=== PATIENT | male | born 1985 | race Caucasian/White ===

== ENCOUNTER 2017-05-03 19:04 | Emergency (ER) | payer OTHER ==
[~2017-05-03] VITALS: Ht 170.2 cm; Wt 89.8 kg
[~2017-05-03 19:04] MED LIST: AZITHROMYCIN250 MG PO; BACLOFEN10 MG PO; BACTRIM DS TAB1 EACH PO; CELEXA40 MG PO; CIPROFLOXACIN250 MG PO; CYCLOBENZAPRINE10 MG PO; DEXAMETHASONE2 MG PO; DILAUDID2 MG PO; FLOMAX0.4 MG PO; HYDROCODON-ACE1 EA11 PO; HYDROCODON-ACE1 EAC8 PO; IBUPROFEN800 MG PO; KEFLEX500 MG PO; LACTULOSE10 GM/15 M PO; LOPERAMIDE2 MG PO; MIRTAZAPINE15 MG PO; MS CONTIN15 MG PO; NORCO 5-325 TA1 EACH PO; OXYCODONE-ACET1 EAC1 PO; PERCOCET 5-3251 EACH PO; PROMETHAZINE12.5 M1 PO; PYRIDIUM200 MG PO; TAMSULOSIN HCL0.4 MG PO; ZOFRAN4 MG PO
[2017-05-03] MEDS ORDERED: TRAZODONE HCL150 MG PO (19:17)
[2017-05-03] MEDS ORDERED: ROBAXIN-750750 MG PO (20:34)
== END 2017-05-03 20:45 | disposition home or self-care (01) ==
LOC: ED 19:04
DX: M54.2 Cervicalgia (principal); F17.200 Nicotine dependence, unspecified, uncomplicated; Z88.5 Allergy status to narcotic agent; Z88.8 Allergy status to other drugs, medicaments and biological substances; Z79.899 Other long term (current) drug therapy
CPT/HCPCS: 87081; 87880; 96372; 99283; J1885

== ENCOUNTER 2017-08-30 15:54 | Emergency (ER) | payer OTHER ==
[~2017-08-30] VITALS: Ht 170.2 cm; Wt 93.0 kg
[~2017-08-30 15:54] MED LIST changes: +ROBAXIN-750750 MG PO; +TRAZODONE HCL150 MG PO
== END 2017-08-30 18:28 | disposition home or self-care (01) ==
LOC: ED 15:54
DX: T14.90XA Injury, unspecified, initial encounter (principal); F17.200 Nicotine dependence, unspecified, uncomplicated; Z87.442 Personal history of urinary calculi; Z88.5 Allergy status to narcotic agent; Z88.8 Allergy status to other drugs, medicaments and biological substances; Z79.899 Other long term (current) drug therapy; X58.XXXA Exposure to other specified factors, initial encounter
CPT/HCPCS: 74176; 80053; 81001; 85025; 96361; 96374; 96375; 99284; J1170; J1885; J2405; J7030

== ENCOUNTER 2017-10-10 18:31 | Emergency (ER) | payer OTHER ==
[~2017-10-10] VITALS: Ht 170.2 cm; Wt 96.2 kg
[2017-10-10] MEDS ORDERED: BACLOFEN10 MG PO (18:59)
== END 2017-10-10 22:05 | disposition home or self-care (01) ==
LOC: ED 18:31
DX: H15.001 Unspecified scleritis, right eye (principal); H15.101 Unspecified episcleritis, right eye; M48.00 Spinal stenosis, site unspecified; F17.200 Nicotine dependence, unspecified, uncomplicated; Z88.5 Allergy status to narcotic agent; Z88.8 Allergy status to other drugs, medicaments and biological substances; Z79.899 Other long term (current) drug therapy; W01.0XXA Fall on same level from slipping, tripping and stumbling without subsequent striking against object, initial encounter
CPT/HCPCS: 99282

== ENCOUNTER 2018-02-25 17:47 | Emergency (ER) | payer OTHER ==
[~2018-02-25] VITALS: Ht 170.2 cm; Wt 96.2 kg
--- OUTSIDE RECORDS SUMMARY | ~2018-02-25 | XMS | Clinical Summary ---
Demographics + + + | Address | [address] | | | [place] [address] | + + + | Home Phone | | + + + | Preferred Language | Unknown | + + + | Marital Status | | + + + | Zoroastrian Affiliation | Unknown | + + + | Race | Unknown | + + + | Ethnic Group | Unknown | + + + Author + + + | Author | [facility] | | | and [place] | + + + | Organization | [facility] | | | and [place] | + + + | Address | Unknown | + + + | Phone | Unavailable | + + + Support + + +---------+ + | Name | Relationship | Address | Phone | + + +---------+ + | Ursula Lozada | ECON | Unknown | | + + +---------+ + Care Team Providers + +------+ + | Care Investment Counselor Name | Role | Phone | + +------+ + | Kathrin Summers | PP | Unavailable | + +------+ + Allergies + + + + + + | Active Allergy | Reactions | Severity | Noted | Comments | | | | | Date | | + + + + + + | Gabapentin | Nausea And Vomiting | Medium | 10/30/19 | | | | | | 17 | | + + + + + + | Tramadol | Nausea And Vomiting | Medium | 03/14/20 | | | | | | 15 | | + + + + + + Current Medications + + +--------+---------+------+------+-------+ | Prescription | Sig. | Disp. | Refills | Star | End | Statu | | | | | | t | Date | s | | | | | | Date | | | + + +--------+---------+------+------+-------+ | | Take 1-2 tablets by | 120 | 0 | 05/0 | | Activ | | HYDROcodone-acetamin | mouth every 4 hours | tablet | | 5/20 | | e | | ophen (NORCO) 10-325 | as needed for Pain. | | | 17 | | | | mg per | | | | | | | | tabletIndications: | | | | | | | | S/P cervical spinal | | | | | | | | fusion | | | | | | | + + +--------+---------+------+------+-------+ | morphine (MS | Take 1 tablet by | 60 | 0 | 05/0 | 05/0 | Activ | | CONTIN) 30 mg ER | mouth 2 times daily. | tablet | | 20 | 5 | e | | tabletIndications: | | | | 17 | 18 | | | S/P cervical spinal | | | | | | | | fusion | | | | | | | + + +--------+---------+------+------+-------+ | traZODone | Take 50 mg by mouth. | | 0 | 05/1 | | Activ | | (DESYREL) 50 mg | | | | / | | e | | tablet | | | | 17 | | | + + +--------+---------+------+------+-------+ | methocarbamol | Take 1-2 tablets by | | 0 | 09/2 | | Activ | | (ROBAXIN) 750 mg | mouth EVERY 6 TO 8 | | | 9 | | e | | tablet | HOURS NEEDED. | | | 17 | | | + + +--------+---------+------+------+-------+ | baclofen | Take 1 tablet by | 90 | 1 | 11/0 | 11/0 | Activ | | (LIORESAL) 10 mg | mouth 3 times daily. | tablet | | / | 06/14 | e | | tablet | | | | | | | + + +--------+---------+------+------+-------+ Active Problems + + + | Problem | Noted Date | + + + | S/P cervical spinal fusion | 03/12/2017 | + + + | Impaired mobility | 12/13/2016 | + + + | H/O Kidney stones | 12/12/2016 | + + + | Smoker - Daily | 12/12/2016 | + + + | Class I, BMI 30-34.9 | 12/12/2016 | + + + | H/O Headache - Has had Greater Occipital Nerve Blocks - Mar 2015 | 12/12/2016 | + + + | PONV (postoperative nausea and vomiting) | 12/12/2016 | + + + + + | Overview: upper | + + + + + | Cervical spondylosis with radiculopathy | 10/30/2016 | + + + | Foraminal stenosis of cervical region | 10/30/2016 | + + + | Cervical spinal stenosis | 10/30/2016 | + + + | Degenerative disc disease, cervical | 10/30/2016 | + + + Encounters +--------+ + + + + | Date | Type | Specialty | Care Team | Description | +--------+ + + + + | 12/08/ | Office | | Jeffrey Carvajal MD | Pseudoarthrosis of | | 2018 | Visit | | [facility] De La Fuente, | cervical spine, | | | | | Y[facility] | initial encounter | | | | | | ([facility]) (Primary Dx); | | | | | | Cervicalgia | +--------+ + + + + | 12/08/ | Hospital | | Leonidas De La Fuente | S/P cervical spinal | | 2017 | Encounter | | YAMILETH Suero | fusion | +--------+ + + + + from Last 3 Months Family History + + +------+ + | Medical History | Relation | Name | Comments | + + +------+ + | No Known Problems | Child | | | + + +------+ + | No Known Problems | Child | | | + + +------+ + | Heart disease | Father | | | + + +------+ + | Cancer | Maternal | | | | | Aunt | | | + + +------+ + | No Known Problems | Maternal | | | | | Grandfath | | | | | er | | | + + +------+ + | COPD | Maternal | | | | | Grandmoth | | | | | er | | | + + +------+ + | Cancer | Maternal | | | | | Grandmoth | | | | | er | | | + + +------+ + | Other (see comment) | Maternal | | Lung problems | | | Uncle | | | + + +------+ + | Hepatitis B | Maternal | | | | | Uncle | | | + + +------+ + | Hepatitis C | Maternal | | | | | Uncle | | | + + +------+ + | Kidney disease | Mother | | | + + +------+ + | Other (see comment) | Mother | | Lung problems | + + +------+ + | Seizures | Mother | | | + + +------+ + | Other (see comment) | Paternal | | lung problems | | | Grandfath | | | | | er | | | + + +------+ + | COPD | Paternal | | | | | Grandmoth | | | | | er | | | + + +------+ + | Cancer | Paternal | | | | | Grandmoth | | | | | er | | | + + +------+ + + +------+ + + | Relation | Name | Status | Comments | + +------+ + + | Child | | Other | Status Unknown | + +------+ + + | Child | | Other | Status Unknown | + +------+ + + | Child | | | | + +------+ + + | Child | | | | + +------+ + + | Father | | | | | | | (Age | | | | | 58) | | + +------+ + + | Maternal Aunt | | Other | Status Unknown | + +------+ + + | Maternal Aunt | | | | + +------+ + + | Maternal Grandfather | | Other | Status Unknown | + +------+ + + | Maternal Grandmother | | Other | Status Unknown | + +------+ + + | Maternal Uncle | | Other | Status Unknown | + +------+ + + | Maternal Uncle | | | | + +------+ + + | Maternal Uncle | | | | + +------+ + + | Maternal Uncle | | | | + +------+ + + | Mother | | Other | Status Unknown | + +------+ + + | Paternal Grandfather | | Other | Status Unknown | + +------+ + + | Paternal Grandmother | | Other | Status Unknown | + +------+ + + Social History + + + [...] + +---------+ + | Alcohol Use | Drinks/We | oz/Week | Comments | | | ek | | | + + +---------+ + | No | 0 | 0.0 | | | | Standard | | | | | drinks or | | | | | | | | | | equivalen | | | | | t | | | + + +---------+ + + + + | Sex Assigned at | Date Recorded | | | | + + + | Not on file | | + + + Last Filed Vital Signs + + + + | Vital Sign | Reading | Time Taken | + + + + | Blood Pressure | 132/90 | 12/08/20171242 PST | + + + + | Pulse | 87 | 12/08/20171242 PST | + + + + | Temperature | 36.4 C (97.5 F) | 12/13/2016736 PST | + + + + | Respiratory Rate | 20 | 12/13/2016736 PST | + + + + | Oxygen Saturation | 93% | 12/13/2016736 PST | + + + + | Inhaled Oxygen | - | - | | Concentration | | | + + + + | Weight | 101.2 kg (223 lb 1.7 | 12/08/20171242 PST | | | oz) | | + + + + | Height | 170.2 cm (5' 7") | 12/08/20171242 PST | + + + + | Body Mass Index | 34.94 | 12/08/20171242 PST | + + + + Plan of Treatment + + + + + | Health Maintenance | Due Date | Last Done | Comments | + + + + + | Vaccine: | | | | | Dtap/Tdap/Td (1 - | 3 | | | | Tdap) | | | | + + + + + | Vaccine: | | | | | Pneumococcal 19-64 | 3 | | | | (PPSV23 only) Medium | | | | | Risk (1 of 1 - | | | | | PPSV23) | | | | + + + + + | Vaccine: Influenza | | | | | (Season Ended) | 8 | | | + + + + + Implants + +--------+------+ +--------+--------+--------+ | Implanted | Type | Area | Manufacture | Device | Expira | Model | | | | | r | | tion | / | | | | | | Identi | Date | Serial | | | | | | fier | | / Lot | + +--------+------+ +--------+--------+--------+ | Imp Spn Plt Ti Zevo 57mm 3lvl | Generi | | SOFAMOR | | | [id number] | | - [id number]: Qty: 1 | c | | DANEK - DIV | | | 7 / / | | on 12/12/2016 by Jeffrey Carvajal | | | [employer] | | | | | MD Rafi | | | - SFDK | | | | + +--------+------+ +--------+--------+--------+ | Allgrft Grftn Pls 1cc Aseptic | Graft | | [employer] - | | 08/14/ | [id number] | | - [id number]: Qty: | | | MEDT | | 2018 | | | 1 on 12/12/2016 by Alena, | | | | | | /[id number] | | Jeffrey Mckee MD | | | | | | 5-107 | | | | | | | | / | + +--------+------+ +--------+--------+--------+ | Algrft Cerv [id number] - | Graft | | SPINALGRAFT | | 06/11/ | [id number] | | [id number]: Qty: 1 on | | | | | 2018 | | | 12/12/2016 by Jeffrey Carvajal, | | | TECHNOLOGIE | | | /[id number] | | MD | | | S - SPNL | | | 619 | | | | | | | | /[id number] | | | | | | | | 6646 | + +--------+------+ +--------+--------+--------+ | Algrft Bone Lord [id number] - | Graft | | [employer] - | | 03/06/ | [id number] | | [id number]: Qty: 1 on | | | MEDT | | 2018 | | | 12/12/2016 by Jeffrey Carvajal, | | | | | | /[id number] | | MD | | | | | | 078 | | | | | | | | /[id number] | | | | | | | | 0163 | + +--------+------+ +--------+--------+--------+ | Algrft Bone Lord [id number] - | Graft | | [employer] - | | 04/16/ | [id number] | | [id number]: Qty: 1 on | | | MEDT | | 2018 | | | 12/12/2016 by Jeffrey Carvajal, | | | | | | /[id number] | | MD | | | | | | 668 | | | | | | | | /[id number] | | | | | | | | 9779 | + +--------+------+ +--------+--------+--------+ | Screw D-Thrd Slf-Drl 4.0x15mm | Screw | | SOFAMOR | | | [id number] | | - [id number]: Qty: 2 | | | DANEK - DIV | | | 5 / / | | on 12/12/2016 by Jeffrey Carvajal | | | [employer] | | | | | MD Rafi | | | - SFDK | | | | + +--------+------+ +--------+--------+--------+ | Screw D-Thrd Slf-Drl 3.5x15mm | Screw | | SOFAMOR | | | [id number] | | - [id number]: Qty: 6 | | | DANEK - DIV | | | 5 / / | | on 12/12/2016 by Jeffrey Carvajal | | | [employer] | | | | | MD Rafi | | | - SFDK | | | | + +--------+------+ +--------+--------+--------+ Results XR Cervical Spine 2 or 3 Views (12/08/2017 1115) + + | Narrative | + + | XR CERVICAL SPINE 2 OR 3 VIEWS 12/08/2017 11:15 AM HISTORY: postop cervical fusion. | | COMPARISON: 09/02/2017 FINDINGS: Visualized skull base and facial structures | | demonstrate no acute findings. Prevertebral soft tissues are normal. Anterior and | | interbody fusion changes are again seen at C3-C6. No evidence of interval complication. | | Facets are anatomically aligned. Vertebral body heights are preserved. Disc spaces are | | maintained. IMPRESSION - No radiographic evidence for an interval complication. | | Dictated and Signed by: Roque Vital MD Electronically signed: 12/08/2017 11:33 | | AM | + + + + | Procedure Note | + + | Dorian, Rad Results In - 12/08/2017 1136 PST XR CERVICAL SPINE 2 OR 3 VIEWS 12/08/2017 | | 11:15 AMHISTORY: postop cervical fusion.COMPARISON: 09/02/2017FINDINGS:Visualized skull | | base and facial structures demonstrate no acute findings.Prevertebral soft tissues are | | normal.Anterior and interbody fusion changes are again seen at C3-C6. No evidence | | ofinterval complication. Facets are anatomically aligned. Vertebral body heightsare | | preserved. Disc spaces are maintained.IMPRESSION -No radiographic evidence for an | | interval complication.Dictated and Signed by: Roque Vital MD Electronically signed: | | 12/08/2017 11:33 AM | |Prevertebral soft tissues are normal. | | | |Anterior and interbody fusion changes are again seen at C3-C6. No evidence of | |interval complication. Facets are anatomically aligned. Vertebral body heights | |are preserved. Disc spaces are maintained. | | | |IMPRESSION - | |No radiographic evidence for an interval complication. | | | |Dictated and Signed by: Roque Vital MD | | Electronically signed: 12/08/2017 11:33 AM | + + from Last 3 Months Insurance + +--------+ +--------+ +---------+ | Payer | Benefi | Subscriber | Type | Phone | Address | | | t Plan | ID | | | | | | / | | | | | | | Group | | | | | + +--------+ +--------+ +---------+ | [employer] | MODA | xxxxxxxx | Medica | [phone] | | MEDICAID HMO | HEALTH | | id | [id number] | | | | [place] | | | | | | | [place] | | | | | + +--------+ +--------+ +---------+ + +--------+ +--------+ + + | Guarantor Name | Accoun | Relation to | Date | Phone | Billing Address | | | t Type | Patient | of | | | | | | | | | | + +--------+ +--------+ + + | LAYNE RICHMOND | Person | Self [birth year] | Home: | [address] | | | al/Fam | | 1985 | [phone] | [place] | | | [place] | | | [phone] | + +--------+ +--------+ + +
--- OUTSIDE RECORDS SUMMARY | ~2018-02-25 | XMS | Clinical Summary ---
Demographics + + + | Address | [address] | | | [place] [address] | + + + | Home Phone | | + + + | Preferred Language | Unknown | + + + | Marital Status | | + + + | Gnosticist Affiliation | Unknown | + + + | Race | Unknown | + + + | Ethnic Group | Unknown | + + + Author + + + | Author | [facility] | + + + | Organization | [facility] | + + + | Address | Unknown | + + + | Phone | Unavailable | + + + Support + + +---------+ + | Name | Relationship | Address | Phone | + + +---------+ + | Julisa Richmond | ECON | Unknown | | + + +---------+ + | Teofilo,Message | ECON | Unknown | | + + +---------+ + Care Team Providers + +------+ + | Care Financial Recording Clerk Name | Role | Phone | + +------+ + | Kathrin Summers MD | PP | | + +------+ + Allergies + + + + + + | Active Allergy | Reactions | Severity | Noted | Comments | | | | | Date | | + + + + + + | Gabapentin | Nausea and Vomiting | Low | 08/07/20 | | | | | | 16 | | + + + + + + | Tramadol | Nausea Only | Low | 07/04/20 | | | | | | 16 | | + + + + + + Current Medications + + +---------+---------+------+------+-------+ | Prescription | Sig. | Disp. | Refills | Star | End | Statu | | | | | | t | Date | s | | | | | | Date | | | + + +---------+---------+------+------+-------+ | | | | | 08/2 | | Activ | | HYDROcodone-acetamin | | | | 1/20 | | e | | ophen (NORCO) | | | | 16 | | | | 7.5-325 MG per | | | | | | | | tablet | | | | | | | + + +---------+---------+------+------+-------+ | morphine (MS | | | | 09/0 | | Activ | | CONTIN) 15 MG 12 hr | | | | 6/20 | | e | | tablet | | | | 16 | | | + + +---------+---------+------+------+-------+ | citalopram | Take 40 mg by mouth | | | | | Activ | | (CELEXA) 20 MG | every morning. | | | | | e | | tablet | | | | | | | + + +---------+---------+------+------+-------+ | tamsulosin | Take 1 capsule by | 30 | 0 | 10/2 | | Activ | | (FLOMAX) 0.4 MG | mouth After dinner. | capsule | | 0/20 | | e | | capsule | Discontinue if feel | | | 16 | | | | | dizziness or drop | | | | | | | | in Blood Pressure. | | | | | | + + +---------+---------+------+------+-------+ Active Problems + + + | Problem | Noted Date | + + + | Nephrolithiasis | 07/04/2016 | + + + Family History + + +------+ + | Medical History | Relation | Name | Comments | + + +------+ + | Heart attack | Father | | | + + +------+ + | Hypertension | Father | | | + + +------+ + | Lung cancer | Maternal | | | | | Grandmoth | | | | | er | | | + + +------+ + | Lung cancer | Paternal | | | | | Grandmoth | | | | | er | | | + + +------+ + + +------+ + + | Relation | Name | Status | Comments | + +------+ + + | Father | | | | + +------+ + + | Maternal Grandfather | | | | + +------+ + + | Maternal Grandmother | | Alive | | + +------+ + + | Mother | | Alive | | + +------+ + + | Paternal Grandfather | | | | + +------+ + + | Paternal Grandmother | | Alive | | + +------+ + + Social History + +-------+ +--------+------+ | Tobacco Use | Types | Packs/Day | Years | Date | | | | | Used | | + +-------+ +--------+------+ | Current Some Day | | 1 | 15 | | | Smoker | | | | | + +-------+ +--------+------+ + +---+---+---+ | Smokeless Tobacco: | | | | | Current User | | | | + +---+---+---+ + [...] + + + | Blood Pressure | 116/61 | 08/14/2016 2:15 PM PDT | + + + + | Pulse | 101 | 08/14/2016 1:32 PM PDT | + + + + | Temperature | 36.4 C (97.6 F) | 08/14/2016 1:32 PM PDT | + + + + | Respiratory Rate | 18 | 08/14/2016 2:30 PM PDT | + + + + | Oxygen Saturation | 96% | 08/14/2016 2:30 PM PDT | + + + + | Inhaled Oxygen | - | - | | Concentration | | | + + + + | Weight | 87.6 kg (193 lb 2 | 08/14/2016 11:06 AM PDT | | | oz) | | + + + + | Height | 170.2 cm (5' 7") | 08/14/2016 11:06 AM PDT | + + + + | Body Mass Index | 30.25 | 08/14/2016 11:06 AM PDT | + + + + Plan of [...] + + + + + Implants + +------+------+ +--------+--------+--------+ | Implanted | Type | Area | Manufacture | Device | Expira | Model | | | | | r | | tion | / | | | | | | Identi | Date | Serial | | | | | | fier | | / Lot | + +------+------+ +--------+--------+--------+ | Stent Uro Sof-Curl 6fr 26cm - | | | GYRUS | | 02/15/ | [id number] | | SnaImplanted: Qty: 1 on | | | MEDICAL - | | 2020 | 6 / | | 08/14/2016 by Mike Ritter | | | GYRS | | | [id number] | | W, DO | | | | | | 80 | + +------+------+ +--------+--------+--------+ Results Not on filefrom Last 3 Months Insurance + +--------+ +------+-------+ + | Payer | Benefi | Subscriber | Type | Phone | Address | | | t Plan | ID | | | | | | / | | | | | | | Group | | | | | + +--------+ +------+-------+ + | MEDICAID | [place] | xxxxxxxx | | | [id number] | | | [address] | | | | [place] | | | [place] | | | | [phone] | | | [employer] | | | | | + +--------+ +------+-------+ + + +--------+ +--------+ + + | Guarantor Name | Accoun | Relation to | Date | Phone | Billing Address | | | t Type | Patient | of | | | | | | | | | | + +--------+ +--------+ + + | LAYNE RICHMOND | Person | Self [birth year] | Home: | [address] | | | al/Jc | | 1985 | [phone] | [place] | | | [place] | | | [phone] | + +--------+ +--------+ + +
--- OUTSIDE RECORDS SUMMARY | ~2018-02-25 | XMS | Encounter Summary ---
Demographics + + + | Address | [address] | | | [place] [address] | + + + | Home Phone | | + + + | Preferred Language | Unknown | + + + | Marital Status | | + + + | Sikh Affiliation | Unknown | + + + | Race | Unknown | + + + | Ethnic Group | Unknown | + + + Author + + + | Author | [facility] | | | and [place] | + + + | Organization | [facility] | | | and [...] Team Providers + +------+ + | Care Rn Provider Relations Name | Role | Phone | + +------+ + | Kathrin Summers | PCP | Unavailable | + +------+ + Encounter Details +--------+ + + + + | Date | Type | Department | Care Team | Description | +--------+ + + + + | 12/08/ | Hospital | [facility] | Leonidas De La Fuente | S/P cervical spinal | | 2018 | Encounter | MED CTR XRAY [address] | D, PA-C [address] | fusion | | | | [place] | [address] | | | | | [place] [address] | [place] | | | | | [phone] | [phone] | | | | | | | | +--------+ + + + [...] on file | | + + + as of this encounter Functional Status + [...] | | | + + + + as of this encounter Medications at Time of Discharge + + +--------+---------+ + + | Medication | Sig. | Disp. | Refills | Start | End Date | | | | | | Date | | + + +--------+---------+ + + | baclofen | Take 1 tablet by | 90 | 1 | 09/02/20 | | | (LIORESAL) 10 mg | mouth 3 times daily. | tablet | | 17 | 8 | | tablet | | | | | | + + +--------+---------+ + + | | Take 1-2 tablets by | 120 | 0 | 02/28/20 | | | HYDROcodone-acetamin | mouth every 4 hours | tablet | | 17 | | | ophen (NORCO) 10-325 | as needed for Pain. | | | | | | mg per | | | | | | | tabletIndications: | | | | | | | S/P cervical spinal | | | | | | | fusion | | | | | | + + +--------+---------+ + + | methocarbamol | Take 1-2 tablets by | | 0 | 07/24/20 | | | (ROBAXIN) 750 mg | mouth EVERY 6 TO 8 | | | 17 | | | tablet | HOURS NEEDED. | | | | | + + +--------+---------+ + + | morphine (MS | Take 1 tablet by | 60 | 0 | 02/28/20 | | | CONTIN) 30 mg ER | mouth 2 times daily. | tablet | | 17 | 8 | | tabletIndications: | | | | | | | S/P cervical spinal | | | | | | | fusion | | | | | | + + +--------+---------+ + + | traZODone | Take 50 mg by mouth. | | 0 | 03/06/20 | | | (DESYREL) 50 mg | | | | 17 | | | tablet | | | | | | + + +--------+---------+ + + as of this encounter Plan of Treatment Not on fileas of this encounter Results XR Cervical Spine [...] signed: 12/08/2017 11:33 AM | + + in this encounter Visit Diagnoses + + | Diagnosis | + + | S/P cervical spinal fusion | + + | Arthrodesis status | + +"
--- OUTSIDE RECORDS SUMMARY | ~2018-02-25 | XMS | Clinical Summary ---
Demographics + + + | Address | [address] | | | [place] [address] | + + + | Home Phone | | + + + | Preferred Language | Unknown | + + + | Marital Status | | + + + | Protestant Affiliation | Unknown | + + + | Race | Unknown | + + + | Ethnic Group | Unknown | + + + Author + + + | Author | [facility] | + + + | Organization | [facility] | + + + | Address [...] Team Providers + +------+ + | Care Bicycle Assembler Name | Role | Phone | + [...] | | GYRUS | | 02/15/ | [id number] | | SnaImplanted: Qty: 1 on | | | MEDICAL - | | 2020 | 6 / | | 08/14/2016 by Mike Ritetr | | | GYRS | | | [...] | [phone] | | | [id number] | | | [address] | | | | [place] | | | [place] | | | | [phone] | | | SIGNAL TIMER | | | | | + +--------+ [...] | | | [place] | | | [phone] | + +--------+ +--------+ + +
--- OUTSIDE RECORDS SUMMARY | ~2018-02-25 | XMS | Encounter Summary ---
Demographics + + + | Address | [address] | | | [place] [address] | + + + | Home Phone | | + + + | Preferred Language | Unknown | + + + | Marital Status | | + + + | Protestant Affiliation | Unknown | + + + | Race | Unknown | + + + | Ethnic Group | Unknown | + + + Author + + + | Author | [facility] | | | and [place] | + + + | Organization | [facility] | | | and [...] Providers + +------+ + | Care Manager Government Name | Role | Phone | + +------+ + | Kathrin Summers | PCP | Unavailable | + +------+ + Reason for Visit + + + | Reason | Comments | + + + | Follow-up | Discuss symptoms | + + + Encounter Details +--------+---------+ + + + | Date | Type | Department | Care Team | Description | +--------+---------+ + + + | 12/08/ | Office | [facility] | Jeffrey Carvajal MD | Pseudoarthrosis of | | 2018 | Visit | NEUROSURGERY [address] | [address] [place] | cervical spine, | | | | [address] | [address] [place], [place] | initial encounter | | | | [place], [place] | [address] | ([facility]) (Primary Dx); | | | | [address] | | Cervicalgia | | | | [phone] | Leonidas De La Fuente, | | | | | | PA-C [address] | | | | [address] [place] [address] [place] | | | | | | [place] [address] | | | | | | [phone] | | | | | | | [...] + + + as of this encounter Last Filed Vital Signs + + + + | Vital Sign | Reading | Time Taken | + + + + | Blood Pressure | 132/90 | 12/08/2017 1243 PST | + + + + | Pulse | 87 | 12/08/2017 1243 PST | + + + + | Temperature | - | - | + + + + | Respiratory Rate | - | - | + + + + | Oxygen Saturation | - | - | + + + + | Inhaled [...] 12/08/20171242 PST | + + + + in this encounter Functional Status + + [...] + + + as of this encounter Progress Notes Leonidas De aL Fuente PA-C - 12/08/2017 1215 PSTFormatting of this note may be different f rom the original. Leonidas De La Fuente PA-C [address] [facility], [address] [place], [place] [address] FAX: NEUROSURGERY FOLLOW-UP CHIEF COMPLAINT: Chief Complaint Patient presents with Follow-up Discuss symptoms HISTORY OF PRESENT ILLNESS: The patient is a 32 y.o. male that had a C3-4, C4-5, C5-6 Ant erior Cervical Discectomy Fusion by Dr. Carvajal for neck and arm symptoms on 12/12/2016 He ret urns and overall is doing poorly. The patient complains of neck and arm pain. His pain worse ns with heavy lifting. The patient states that after surgery his arm numbness was intermitte nt. The patient states that since the beginning of October his arm numbness is constant. He describes and intermittent shooting pain that radiates from the right side of the neck into the right arm. He also complains of migraines that began three months ago. He received and T oradol injection by his primary care provider and this helped relief his pain. 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 Issues with swallowing have not been a significant problem. He was having intermittent neck pain in October but that has dim in. The patient will be applying for disability through his insurance and states that h is insurance may require further testing and paperwork to be filled out from our office. The patient continues to smoke but states he decreased the amount of cigarettes he is smoki ng. PAST MEDICAL HISTORY: Past Medical History: Diagnosis [...] Fusion; Surgeon: Jeffrey Carvajal MD ; Location: [facility] MAIN OR KIDNEY STONE SURGERY [id number] x2 KNEE SURGERY 2002 right CURRENT MEDICATIONS: Current Outpatient Prescriptions Medication Sig Dispense Refill baclofen (LIORESAL) 10 mg tablet Take 1 tablet by mouth 3 times daily. 90 tablet 1 HYDROcodone-acetaminophen (NORCO) 10-325 mg per tablet Take 1-2 tablets by mouth every 4 hours as needed for Pain. 120 tablet 0 methocarbamol (ROBAXIN) 750 mg [...] Mother Other (see comment) Mother Lung problems Other (see comment) Paternal Grandfather lung problems Cancer Paternal Grandmother COPD Paternal Grandmother No Known Problems Maternal Grandfather Cancer Maternal Grandmother COPD Maternal Grandmother No Known Problems Child No Known Problems Child Other (see comment) Maternal Uncle Lung problems Hepatitis B Maternal Uncle Hepatitis C Maternal Uncle Cancer Maternal Aunt REVIEW OF SYSTEMS GENERALLY: No fever, no night sweats, no anemia, no fatigue, + recent profound weight kavon nges. EYES: No eye problems, no use of [...] numbness and pain of arms and legs, awake with numbn ess and pain, weakness, pain in neck and back, tremor/shaking, headaches, migraine, memory l oss. PSYCHIATRIC: No depression, no sleep disorders, + anxiety, no bipolar disorder, no psychot ic episodes. CARDIOVASCULAR: No heart attacks, no heart [...] no personal h istory of cancer. RHEUMATOLOGIC: + joint arthritis, no rheumatoid arthritis. INTERIM PHYSICAL EXAMINATION: Blood pressure 132/90, pulse 87, height 1.702 m (5' 7"), weight 101.2 kg (223 lb 1.7 oz). B pool mass index is 34.94 kg/m. GENERAL: Layne Bentley is in no acute distress with unlabored respirations. HEENT: HEAD/FACE: Normocephalic and atraumatic. There are no areas of recent trauma. CHEST: Clear to ausculation without crackles or wheeze. HEART: Regular rate and rhythm without murmurs. SPINE: The patient s incision has healed further and is again without drainage, erythema, or discharge EXTREMITIES: No lower extremity edema. NEUROLOGICAL EXAMINATION: MENTAL STATUS: The patient is awake, alert, and oriented. He follows simple and complex commands MOTOR EXAM: Motor strength is 4+/5 right shade cloth finisher strength. SENSORY EXAM: The sensory examination unchanged from the preoperative exam. REFLEXES: Reflexes are unchanged from his preoperative history and physical. RADIOGRAPHIC REVIEW: The patient s postoperative x-rays show stable instrumentation and alignment and were rev iewed with the patient today. There have been no interval changes since the immediate posto perative films. There has not been increased arthrodesis since the patient s last x-ray w [facility] was also reviewed for comparison. He likely has pseudoarthrosis at every segment. ASSESSMENT: Encounter Diagnoses Name Primary? 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 The cervical fusion appears to not have pro gressed as planned. This was discussed at length that this was likely due to his smoking wh ich he was repeatedly informed preoperatively that he was not to be a smoker and that the ne rve and fusion outcomes are worse in smokers. He has elected to harm his own healing in this situation. The "fix" at this point is an ag gressive anterior / posterior cervical fusion. He is not a candidate for this as a continue d smoker and because of the extreme nature of the revision and because of continued nerve no n-healing, he would likely not do as well as he would have had he just healed his first surg tonya well. We discused this at length. He was informed to stop smoking and contact us back to diya ss his options. He will need to nicotine testing free for 6 months in order to be a france te for revision. I hope he can make the right decision with regards to this. ELECTRONICALLY SIGNED BY: Leonidas De La Fuente PA-C and Jeffrey Carvajal MD, 12/08/2017 13:30i n this encounter Plan of Treatment Not on fileas of this encounter Visit Diagnoses + + | Diagnosis | + + | Pseudoarthrosis of cervical spine, initial encounter ([facility]) - Primary | + + | Cervicalgia | + +
--- OUTSIDE RECORDS SUMMARY | ~2018-02-25 | XMS | Encounter Summary ---
Demographics + + + | Address | [address] | | | [place] [address] | + + + | Home Phone | | + + + | Preferred Language | Unknown | + + + | Marital Status | | + + + | Protestant Affiliation | Unknown | + + + | Race | Unknown | + + + | Ethnic Group | Unknown | + + + Author + + + | Author | [facility] | | | and [place] | + + + | Organization | [facility] | | [...] Team Providers + +------+ + | Care Certified Vehicle Fire Investigator Name | Role | Phone | + +------+ + | Kathrin Summers | PCP | Unavailable | + +------+ + Encounter Details +--------+ + + + + | Date | Type | Department | Care Team | Description | +--------+ + + + + | 12/08/ | Hospital | [facility] | Leonidas De La Fuente | S/P cervical spinal | | 2018 | Encounter | MED CTR XRAY [address] | D, PA-C [address] | fusion | | | | [place] | [address] | | | | | [place] [address] | [place] | | | | | [phone] | [address] | | | | | | | [...]
--- OUTSIDE RECORDS SUMMARY | ~2018-02-25 | XMS | Encounter Summary ---
Demographics + + + | Address | [address] | | | [place] [address] | + + + | Home Phone | | + + + | Preferred Language | Unknown | + + + | Marital Status | | + + + | Rastafari Affiliation | Unknown | + + + | Race | Unknown | + + + | Ethnic Group | Unknown | + + + Author + + + | Author | [facility] | | | and [place] | + + + | Organization | [facility] | | | and [...] Team Providers + +------+ + | Care Intermodal Owner Operator Truck Driver Name | Role | Phone | + [...] + + | 12/08/ | Office | [facility] | Jeffrey Carvajal MD | Pseudoarthrosis of | | 2018 | Visit | NEUROSURGERY [address] | [address] [place] | cervical spine, | | | | [address] | [address] [place], [place] | initial encounter | | | | [place], [place] | [address] | ([facility]) (Primary Dx); | | | | [address] | | Cervicalgia | | | | [phone] | Leonidas De La Fuente, | | | | | | PA-C [address] | | | [address] [place] | | | | | | [place] [address] | | | | | | [phone] | | | | | | | [...] Leonidas De La Fuente PA-C - 12/08/2017 1215 PSTFormatting of this note may be different f rom the original. Leonidas De La Fuente PA-C [address] [facility], [address] [place], [place] [address] FAX: NEUROSURGERY FOLLOW-UP CHIEF COMPLAINT: Chief Complaint [...] pain. 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 Issues [...] Fusion; Surgeon: Jeffrey Carvajal MD ; Location: [facility] MAIN OR KIDNEY STONE SURGERY [phone] x2 KNEE SURGERY 2002 right CURRENT MEDICATIONS: [...] MOTOR EXAM: Motor strength is 4+/5 right doughnut icer machine strength. SENSORY EXAM: The sensory examination unchanged [...] patient s last x-ray w [facility] was also reviewed for comparison. He likely has pseudoarthrosis at every segment. ASSESSMENT: Encounter Diagnoses Name Primary? 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
--- OUTSIDE RECORDS SUMMARY | ~2018-02-25 | XMS | Clinical Summary ---
Demographics + + + | Address | [address] | | | [place] [address] | + + + | Home Phone | | + + + | Preferred Language | Unknown | + + + | Marital Status | | + + + | Islam Affiliation | Unknown | + + + | Race | Unknown | + + + | Ethnic Group | Unknown | + + + Author + + + | Author | [facility] | | | and [place] | + + + | Organization | [facility] | | | [...] Team Providers + +------+ + | Care Induction Furnace Operator Name | Role | Phone | [...] encounter | | | | | | ([facility]) (Primary Dx); | | | | | [...] Generi | | SOFAMOR | | | [id number] | | - [id number]: Qty: 1 | c | | DANEK - DIV | | | 7 / / | | on 12/12/2016 by Jeffrey Carvajal | | | [employer] | | | | | MD Rafi | | | - SFDK | | | | + +--------+------+ +--------+--------+--------+ | Allgrft Grftn Pls 1cc Aseptic | Graft | | [employer] - | | 08/14/ | [id number] | | - [id number]: Qty: | | | MEDT | | 2018 | | | 1 on 12/12/2016 by Alena, | | | | | | /[id number] | | Jeffrey Mckee MD | | | | | | 5-107 | | | | | | | | / | + +--------+------+ +--------+--------+--------+ | Algrft Cerv [id number] - | Graft | | SPINALGRAFT | | 06/11/ | [id number] | | [id number]: Qty: 1 on | | | | | 2018 | | | 12/12/2016 by Jeffrey Carvajal, | | | TECHNOLOGIE | | | /[id number] | | MD | | | S - SPNL | | | 619 | | | | | | | | /[id number] | | | | | | | | 6646 | + +--------+------+ +--------+--------+--------+ | Algrft Bone Lord [id number] - | Graft | | [employer] - | | 03/06/ | [id number] | | [id number]: Qty: 1 on | | | MEDT | | 2018 | | | 12/12/2016 by Jeffrey Carvajal, | | | | | | /[id number] | | MD | | | | | | 078 | | | | | | | | /[id number] | | | | | | | | 0163 | + +--------+------+ +--------+--------+--------+ | Algrft Bone Lord [id number] - | Graft | | [employer] - | | 04/16/ | [id number] | | [id number]: Qty: 1 on | | | MEDT | | 2018 | | | 12/12/2016 by Jeffrey Carvajal, | | | | | | /[id number] | | MD | | | | | | 668 | | | | | | | | /[id number] | | | | | | | | 9779 | + +--------+------+ +--------+--------+--------+ | Screw D-Thrd Slf-Drl 4.0x15mm | Screw | | SOFAMOR | | | [id number] | | - [id number]: Qty: 2 | | | DANEK - DIV | | | 5 / / | | on 12/12/2016 by Jeffrey Carvajal | | | [employer] | | | | | MD Rafi | | | - SFDK | | | | + +--------+------+ +--------+--------+--------+ | Screw D-Thrd Slf-Drl 3.5x15mm | Screw | | SOFAMOR | | | [id number] | | - [id number]: Qty: 6 | | | DANEK - [...] | MODA | [phone] | Medica | [phone] | | MEDICAID HMO | HEALTH [...] | | | katherine | | | [phone] | [phone] | + +--------+ +--------+ + +
[2018-02-25] MEDS ORDERED: AMBIEN5 MG PO (18:41)
[2018-02-25] MEDS ORDERED: NEURONTIN100 MG (18:42)
[2018-02-25] MEDS ORDERED: WELLBUTRIN SR150 MG PO (18:43)
== END 2018-02-25 19:30 | disposition home or self-care (01) ==
LOC: ED 17:47
DX: R10.9 Unspecified abdominal pain (principal); F17.200 Nicotine dependence, unspecified, uncomplicated; Z88.5 Allergy status to narcotic agent; Z88.8 Allergy status to other drugs, medicaments and biological substances; Z79.899 Other long term (current) drug therapy
CPT/HCPCS: 80053; 81001; 85025; 96361; 96374; 96375; 99283; J1885; J2405; J7030

== ENCOUNTER 2018-03-27 22:02 | Emergency (ER) | payer OTHER ==
[~2018-03-27] VITALS: Ht 170.2 cm; Wt 96.2 kg
[~2018-03-27 22:02] MED LIST changes: +AMBIEN5 MG PO; +NEURONTIN100 MG; +WELLBUTRIN SR150 MG PO
[2018-03-27] MEDS ORDERED: LISINOPRIL20 MG (22:16)
== END 2018-03-27 23:08 | disposition home or self-care (01) ==
LOC: ED 22:02
DX: N23 Unspecified renal colic (principal); F17.200 Nicotine dependence, unspecified, uncomplicated; Z79.899 Other long term (current) drug therapy; Z87.442 Personal history of urinary calculi
CPT/HCPCS: 81001; 99283

== ENCOUNTER 2018-06-17 05:35 | Day surgery (SDC) | payer OTHER ==
[~2018-06-17] VITALS: Ht 170.2 cm; Wt 96.6 kg
--- NOTE | ~2018-06-17 | OR ---
[facility] [address] [place], [place] [address] [place] DATE OF OPERATION: 06/17/2018 SURGEON: Jane Muller MD PREOPERATIVE DIAGNOSES: 1. A 10 mm left ureteropelvic junction calculus. 2. Multiple right renal calculi, largest measuring approximately 11 mm. POSTOPERATIVE DIAGNOSES: 1. A 10 mm left ureteropelvic junction calculus. 2. Multiple right renal calculi, largest measuring approximately 11 mm. NAMES OF PROCEDURES: 1. Diagnostic cystoscopy with left retrograde pyelogram. 2. Left flexible nephroureteroscopy with laser lithotripsy and basket extraction of stones. 3. Insertion of a left ureteral stent. ANESTHESIA: General. ESTIMATED BLOOD LOSS: Minimal. COMPLICATIONS: None. SPECIMENS: Fragments of left ureteral calculus sent to the lab for stone analysis. DRAINS: A 6 x 26 cm contour double-J ureteral stent inserted in the left collecting system. INDICATIONS FOR PROCEDURE: Mr. Richmond is a very pleasant 32-year-old gentleman with a longstanding history of nephrolithiasis. He has undergone multiple previous renal and ureteral surgeries for stone extractions. He reportedly has made uric acid stones in the past, however, on his most recent CT scan the rope walker film clearly reveals large stones in both kidneys that would be consistent more with calcium-based stones. When he presented to the emergency department approximately four days ago, he underwent a CT scan, which revealed an PATIENT NAME: DENTON RICHMOND OPERATIVE REPORT DATE OF : 81 REPORT #: [id number] PHYSICIAN: JANE MULLER MD PCP: SHARAN RODRIGUEZ MD REPORT IS CONFIDENTIAL AND NOT TO BE RELEASED WITHOUT AUTHORIZATION [facility] [address] [place], [place] [address] [place] obstructing 10 mm left ureteropelvic junction calculus. Also noted are multiple stones in the right kidney, the largest measuring 11 mm. A urinalysis was obtained at that time, which revealed no evidence of infection. He presented to my clinic yesterday with continued pain requiring oral narcotics, along with minimal p.o. intake. He was found to be afebrile and vital is stable to time. The decision was made for him to undergo semi-urgent ureteroscopy with stone extraction. He now presents this morning to undergo the aforementioned procedure. FINDINGS: 1. On cystoscopy, there was no evidence of any suspicious masses, lesions, or stones. Bilateral ureteral orifices are in the normal anatomic location. 2. Left retrograde pyelogram revealed a very large obstructing stone noted at the left ureteropelvic junction. Some contrast did go beyond the stone into the kidney, which revealed mild calyceal dilation. No other stones are seen within the left kidney. 3. Nephroureteroscopy revealed the presence of a large 10 mm stone in the proximal left ureter. The stone was removed using a basket into the left renal pelvis and was then fragmented using a 270 micron fiber and the holmium lasers with a setting of 8 hertz and 1.0 joules. With some effort, the stone did fragment into multiple smaller pieces, which were then extracted using a Zero tip basket. 4. An indwelling 6 x 26 cm contour double-J ureteral stent was inserted into the left ureter without difficulty. DESCRIPTION OF PROCEDURE: After informed consent was obtained, the patient was taken back to the operating room. He was transferred from the [facility] to the operative room table, where general anesthesia was induced. He was placed in the dorsal lithotomy position and his genitalia were prepped and draped in sterile fashion. Using a 30-degree lens on a 22-[place] introducer, rigid cystoscope was inserted through his urethra into his bladder under direct visualization. Panendoscopic views of the bladder were then obtained including the lateral louis, floor, dome, and trigone areas. Please see above findings. Attention was turned to the left ureteral orifice where a cone-tipped catheter was placed into the left UO and a left retrograde pyelogram was performed. Please see the findings. A 0.035 Sensor wire was then inserted into the left ureteral orifice and up into the left collecting system. Over the wire, an 11/13 ureteral access sheath was placed under fluoroscopic guidance. Via the inner obturator, a repeat left retrograde pyelogram was performed to confirm placement of the sheath. A flexible ureteroscope was then advanced through the sheath and up into the left proximal ureter and left kidney. A left ureteroscopy and nephroscopy was then performed. The stone was initially found at the top of the left ureter was then moved into the left renal pelvis where it was then fragmented using a holmium laser and a 270 micron fiber. The stone fragmented completely and approximately 95% of the stone burden was then extracted without difficulty from the left collecting system. The stones were placed in a specimen cup PATIENT NAME: DENTON RICHMOND OPERATIVE REPORT DATE OF : 81 REPORT #: [id number] PHYSICIAN: JANE MULLER MD PCP: SHARAN RODRIGUEZ MD REPORT IS CONFIDENTIAL AND NOT TO BE RELEASED WITHOUT AUTHORIZATION [address] [address] [place] and sent to the lab for stone analysis. Once I was satisfied that all the majority of stone burden had been extracted, I removed the ureteral scope and inserted a wire through the sheath and into the left collecting system. Over the wire, I passed a 6 x 26 cm contour double-J ureteral stent into the left ureter under direct visualization. I initially met with some resistance during passage of the stent, however, I did realize that the proximal coil of the wire was minimizing active movement of the stent. The stent moved a lot easier once I noticed and rectified this issue. Once the Sensor wire was pulled, an adequate coil was seen within the left renal pelvis along with an adequate coil within the bladder on cystoscopy. The patient's bladder was then completely drained and the cystoscope was removed. The procedure was then terminated. The patient tolerated the procedure well without any complication. He will now be transferred to the postanesthesia care unit in stable condition. DISPOSITION: I discussed the results of today's procedure with the patient while he was in the PACU. He does not have any additional family members or anybody here for me to speak with on his behalf. He will be scheduled to return to clinic in one week on , June 24 to undergo cystoscopy with left ureteral stent extraction. He was given a prescription for Percocet 5/325 dispense #30 as needed for pain yesterday. He was given prescriptions today for Pyridium as well as for Levaquin 500 mg p.o. daily x7 days. He will be discharged to home later today once he recovers from anesthetic. MD AMRITA Lord/DEBORA /[id number] Copies: ~ PATIENT NAME: DENTON RICHMOND OPERATIVE REPORT DATE OF : 81 REPORT #: [id number] PHYSICIAN: JANE MULLER MD PCP: SHARAN RODRIGUEZ MD REPORT IS CONFIDENTIAL AND NOT TO BE RELEASED WITHOUT AUTHORIZATION
[~2018-06-17 05:35] MED LIST changes: +ATORVASTATIN CA10 MG PO; +BUPROPION HCL150 M2 PO; +GABAPENTIN300 MG PO; +LISINOPRIL20 MG
[2018-06-17] MEDS ORDERED: PYRIDIUM200 MG PO (12:02)
[2018-06-17] MEDS ORDERED: LEVAQUIN500 MG PO (12:02)
== END 2018-06-17 12:30 | disposition home or self-care (01) ==
LOC: DS 05:35 → OPS 05:35
PROVIDERS: Urology
PROC: 0T778DZ Dilation of Left Ureter with Intraluminal Device, Via Natural or Artificial Opening Endoscopic (ICD-10-PCS; 2018-06-17)
PROC: BT1FZZZ Fluoroscopy of Left Kidney, Ureter and Bladder (ICD-10-PCS; 2018-06-17)
PROC: 0TC48ZZ Extirpation of Matter from Left Kidney Pelvis, Via Natural or Artificial Opening Endoscopic (ICD-10-PCS; principal; 2018-06-17 06:45)
PROC: 0TC78ZZ Extirpation of Matter from Left Ureter, Via Natural or Artificial Opening Endoscopic (ICD-10-PCS; 2018-06-17 06:45)
DX: N20.2 Calculus of kidney with calculus of ureter (principal); J42 Unspecified chronic bronchitis; M19.90 Unspecified osteoarthritis, unspecified site; G43.909 Migraine, unspecified, not intractable, without status migrainosus; I10 Essential (primary) hypertension; E78.5 Hyperlipidemia, unspecified; Z88.8 Allergy status to other drugs, medicaments and biological substances; F17.210 Nicotine dependence, cigarettes, uncomplicated; E78.00 Pure hypercholesterolemia, unspecified; F41.9 Anxiety disorder, unspecified; F32.9 Major depressive disorder, single episode, unspecified; M54.9 Dorsalgia, unspecified; G89.29 Other chronic pain; Z87.442 Personal history of urinary calculi; Z87.440 Personal history of urinary (tract) infections; Z88.5 Allergy status to narcotic agent; Z79.899 Other long term (current) drug therapy
CPT/HCPCS: 00918; 74420; 82365; C2617; J0330; J0696; J1100; J1170; J2250; J2405; J2704; J3010; J7120; Q9967

== ENCOUNTER 2018-07-09 18:08 | Emergency (ER) | payer OTHER ==
[~2018-07-09] VITALS: Ht 170.2 cm; Wt 96.6 kg
--- OUTSIDE RECORDS SUMMARY | ~2018-07-09 | XMS | Clinical Summary ---
Demographics + + + | Address | [address] | | | [place] [address] | + + + | Home Phone | | + + + | Preferred Language | Unknown | + + + | Marital Status | | + + + | Taoism Affiliation | Unknown | + + + | Race | Unknown | + + + | Ethnic Group | Unknown | + + + Author + + + | Author | [facility] | + + + | Organization | [facility] | + + + | Address [...] Team Providers + +------+ + | Care Tool Coordinator Name | Role | Phone | [...] Vaccine: Influenza | | | | | (#1) | 8 | | | + + [...] | | GYRUS | | 02/15/ | [id number] | | SnaImplanted: Qty: 1 on | [...] +------+-------+ + | MEDICAID | [place] | [id number] | | | [address] | | | N | | | | [place] | | | [place] | | | | [phone] | | | EYE CLINIC MANAGER | | | | | + +--------+ [...] | | | katherine | | | [phone] | [phone] | + +--------+ +--------+ + +
--- OUTSIDE RECORDS SUMMARY | ~2018-07-09 | XMS | Clinical Summary ---
Demographics + + + | Address | [address] | | | [place] [address] | + + + | Home Phone | | + + + | Preferred Language | Unknown | + + + | Marital Status | | + + + | Congregational Affiliation | Unknown | + + + | Race | Unknown | + + + | Ethnic Group | Unknown | + + + Author + + + | Author | [facility] | | | and Frandyana | + + + | Organization | [facility] | | | [...] Team Providers + +------+ + | Care Oyster Worker Name | Role | Phone | [...] 3 times daily. | tablet | | 8/20 | 8/20 | e | | tablet | | | | 17 | 18 | | + + +--------+---------+------+------+-------+ Active Problems [...] | 101.2 kg (223 lb 1.7 | 12/08/20173 PST | | | oz) | | [...] Generi | | SOFAMOR | | | [id number] | | - [id number]: Qty: 1 | c | | DANEK - DIV | | | 7 / / | | on 12/12/2016 by Jeffrey Carvajal | | | [employer] | | | | | MD Rafi | | | - NELYDK | | | | + +--------+------+ +--------+--------+--------+ | Allgrft Grftn Pls 1cc Aseptic | Graft | | [employer]TRONIC - | | 08/14/ | [id number] | | - [id number]: Qty: | | | MEDT | | 2018 | | | 1 on 12/12/2016 by Alena, | | | | | | /[id number] | | Jeffrey Mckee MD | | | | | | 5-107 | | | | | | | | / | + +--------+------+ +--------+--------+--------+ | Algrft Cerv [id number] - | Graft | | SPINALGRAFT | | 06/11/ | [id number] | | [id number]: Qty: 1 on | | | | | 2018 | | | 12/12/2016 by Jeffrey Carvajal, | | | TECHNOLOGIE | | | /[id number] | | | | | Edwin - NORI | | | 619 | | | | | | | | /[id number] | | | | | | | | 6646 | + +--------+------+ +--------+--------+--------+ | Algrft Bone Lord [id number] - | Graft | | [employer] - | | 03/06/ | [id number] | | [id number]: Qty: 1 on | | | MEDT | | 2018 | | | 12/12/2016 by Jeffrey Carvajal, | | | | | | /[id number] | | MD | | | | | | 078 | | | | | | | | /[id number] | | | | | | | | 0163 | + +--------+------+ +--------+--------+--------+ | Algrft Bone Lord [id number] - | Graft | | [employer] - | | 04/16/ | [id number] | | [id number]: Qty: 1 on | | | MEDT | | 2018 | | | 12/12/2016 by Jeffrey Carvajal, | | | | | | /[id number] | | MD | | | | | | 668 | | | | | | | | /[address]274 | | | | | | | | 9779 | + +--------+------+ +--------+--------+--------+ | Screw D-Thrd Slf-Drl 4.0x15mm | Screw | | SOFAMOR | | | [id number] | | - [id number]: Qty: 2 | | | CARMELLA - ELVIA | | | 5 / / | | on 12/12/2016 by Jeffrey Carvajal | | | [employer] | | | | | MD Rafi | | | - [id number] | | | | + +--------+------+ +--------+--------+--------+ | Screw D-Thrd Slf-Drl 3.5x15mm | Screw | | SOFAMOR | | | [id number] | | - [id number]: Qty: 6 | | | CARMELLA - DIV | | | 5 / / | | on 12/12/2016 by Jeffrey Carvajal | | | [employer]IC | | | | | MD Rafi | | | - NELYDK | | | | + +--------+------+ +--------+--------+--------+ [...] | [employer] | MODA | [id number] | Medica | [phone] | | MEDICAID HMO | HEALTH [...] | | | katherine | | | [phone] | + +--------+ +--------+ + +
--- OUTSIDE RECORDS SUMMARY | ~2018-07-09 | XMS | Clinical Summary ---
Demographics + + + | Address | [address] | | | [place] [address] | + + + | Home Phone | | + + + | Preferred Language | Unknown | + + + | Marital Status | Single | + + + | Sikhism Affiliation | Unknown | + + + [...] Phone | + + +---------+ + | None,None | ECON | Unknown | Unavailable | + + +---------+ + Care Team Providers + +------+ + | Care Line Cleaner Name | Role | Phone | + +------+ + | No Pcp Per Patient | PP | Unavailable | + +------+ + Source Comments CHELSEA is fully live on both [facility] and [facility] InPatient.[facility] Allergies Not on File Current Medications Not on file Active Problems Not on file Social History + +-------+ +--------+------+ | Tobacco Use | Types | Packs/Day | Years | Date | | | | | Used | | + +-------+ +--------+------+ | Never Assessed | | | | | + +-------+ +--------+------+ + + + | Sex Assigned at | Date Recorded | | | | + + + | Not on file | | + + + Plan of Treatment +--------+---------+ + + + | Date | Type | Specialty | Care Team | Description | +--------+---------+ + + + | 09/02/ | Office | | mOid Gonzalez, | | | 2017 | Visit | | [address] | | | | | | [place], [place] | | | | | | [address] | | | | | | [phone] | | | | | | | | +--------+---------+ + + + + + + + + | Health Maintenance | Due Date | Last Done | Comments | + + + + + | INFLUENZA VACCINE | | | | | (FLU SHOT) | 8 | | | + + + + + Results Not on filefrom Last 3 Months Insurance + +--------+ +--------+-------+---------+ | Payer | Benefi | Subscriber | Type | Phone | Address | | | t Plan | ID | | | | | | / | | | | | | | Group | | | | | + +--------+ +--------+-------+---------+ | STRATEGIC ACCOUNT MANAGER MEDICAID | STRATEGIC ACCOUNT MANAGER | xxxxxxxx | Medica | | | | | [place] | | id | | | | | [place] | | | | | + +--------+ +--------+-------+---------+ + +--------+ +--------+ + + | Guarantor Name | Accoun | Relation to | Date | Phone | Billing Address | | | t Type | Patient | of | | | | | | | | | | + +--------+ +--------+ + + | LAYNE RICHMOND | Person | Self [birth year] | Home: | [address] | | | al/Jc | | 1985 | [phone] | [place] | | | katherine | | | [phone] | [phone] | + +--------+ +--------+ + +"
--- OUTSIDE RECORDS SUMMARY | ~2018-07-09 | XMS | Clinical Summary ---
Demographics + + + | Address | [address] | | | [place] [address] | + + + | Home Phone | | + + + | Preferred Language | Unknown | + + + | Marital Status | Single | + + + | Denominational Affiliation [...] Team Providers + +------+ + | Care Contact Center Associate Name | Role | Phone | + +------+ + | No Pcp Per Patient | PP | Unavailable | + +------+ + Source Comments CHELSEA is fully live on both [facility] Ambulatory and [facility] InPatient.[facility] Allergies Not on File Current Medications [...] + | 09/02/ | Office | | Omid Gonzalez, | | | 2017 | Visit | | [address] | | | | | | [place], [place] | | | | | | [address] | | | | | | [phone] | | | | | | | [...] | | | + +--------+ +--------+-------+---------+ | TRACK BROOM OPERATOR MEDICAID | TRACK BROOM OPERATOR | xxxxxxxx | Medica | | | [...] | | | katherine | | | [phone] | [phone] | + +--------+ +--------+ + +"
--- OUTSIDE RECORDS SUMMARY | ~2018-07-09 | XMS | Clinical Summary ---
Demographics + + + | Address | [address] | | | [place] [address] | + + + | Home Phone | | + + + | Preferred Language | Unknown | + + + | Marital Status | | + + + | Baptism Affiliation | Unknown | + + + | Race | Unknown | + + + | Ethnic Group | Unknown | + + + Author + + + | Author | [facility] | | | and Frandyana | + + + | Organization | [facility] | | [...] Team Providers + +------+ + | Care Paralegal Internship Name | Role | Phone | + [...] Generi | | SOFAMOR | | | [id number] | | - [id number]: Qty: 1 | c | | DANEK - DIV | | | 7 / / | | on 12/12/2016 by Jeffrey Carvajal | | | [employer] | | | | | MD Rafi | | | - NELYDK | | | | + +--------+------+ +--------+--------+--------+ | Allgrft Grftn Pls 1cc Aseptic | Graft | | [employer] - | | 08/14/ | [id number] | | - [id number]: Qty: | | | MEDT | | 2018 | | | 1 on 12/12/2016 by Alena, | | | | | | /[id number] | | Jeffrey Mckee MD | | | | | | 5-107 | | | | | | | | / | + +--------+------+ +--------+--------+--------+ | Algrft Cerv [id number] - | Graft | | SPINALGRAFT | | 06/11/ | [id number] | | [id number]: Qty: 1 on | | | | | 2018 | | | 12/12/2016 by Jeffrey Carvajal, | | | TECHNOLOGIE | | | /[id number] | | | | | Edwin - NORI | | | 619 | | | | | | | | /[id number] | | | | | | | | 6646 | + +--------+------+ +--------+--------+--------+ | Algrft Bone Lord [id number] - | Graft | | [employer] - | | 03/06/ | [id number] | | [id number]: Qty: 1 on | | | MEDT | | 2018 | | | 12/12/2016 by Jeffrey Carvajal, | | | | | | /[id number] | | MD | | | | | | 078 | | | | | | | | /[id number] | | | | | | | | 0163 | + +--------+------+ +--------+--------+--------+ | Algrft Bone Lord [id number] - | Graft | | [employer] - | | 04/16/ | [id number] | | [id number]: Qty: 1 on | | | MEDT | | 2018 | | | 12/12/2016 by Jeffrey Carvajal, | | | | | | /[id number] | | MD | | | | | | 668 | | | | | | | | /[id number] | | | | | | | | 9779 | + +--------+------+ +--------+--------+--------+ | Screw D-Thrd Slf-Drl 4.0x15mm | Screw | | SOFAMOR | | | [id number] | | - [id number]: Qty: 2 | | | CARMELLA - ELVIA | | | 5 / / | | on 12/12/2016 by Jeffrey Carvajal | | | [employer] | | | | | MD Rafi | | | - SFDK | | | | + +--------+------+ +--------+--------+--------+ | Screw D-Thrd Slf-Drl 3.5x15mm | Screw | | SOFAMOR | | | [id number] | | - [id number]: Qty: 6 | | | CARMELLA - [...] | [employer] | MODA | [id number] | Medica | [phone] | | [...] | | | katherine | | | [phone] | [phone] | + +--------+ +--------+ + +
--- OUTSIDE RECORDS SUMMARY | ~2018-07-09 | XMS | Clinical Summary ---
Demographics + + + | Address | [address] | | | [place] [address] | + + + | Home Phone | | + + + | Preferred Language | Unknown | + + + | Marital Status | | + + + | Mormonism Affiliation | Unknown | + + + | Race | Unknown | + + + | Ethnic Group | Unknown | + + + Author + + + | Author | [facility] | + + + | Organization | [facility] | + + + | Address [...] Team Providers + +------+ + | Care Construction Producer Name | Role | Phone | + [...] | | GYRUS | | 02/15/ | [id number] | | SnaImplanted: Qty: 1 on | [...] +------+-------+ + | MEDICAID | [place] | [id number] | | | [address] | | | N | | | | [place] | | | [place] | | | | [phone] | | | GLAZE MAKER | | | | | + +--------+ [...] | | | katherine | | | [phone] | [phone] | + +--------+ +--------+ + +
[~2018-07-09 18:08] MED LIST changes: +LEVAQUIN500 MG PO
--- OUTSIDE RECORDS SUMMARY | 2018-07-09 18:12 | XMS ---
PreManage Notification: DENTON RICHMOND Security Anesthesiology Crna Events No recent Security Events currently on file CRITERIA MET - Group Notification - [facility] - 2 Visits in 30 Days CARE PROVIDERS Kathrin Summers Primary Care Current PHONE: [phone] Davide has no Care Guidelines for this patient. Care History Medical/Surgical 06/14/2018 [facility] - Patient is currently established with [facility]. If patient is seen in the ED during business hours. Please contact CHWs at [facility]. Care Recommendation: This patient has had 5 or more Emergency Department visits in the last 12 months.\T\nbsp; Patient requires education on the scope and purpose of the ED as an acute care provider not a Primary Care Provider and should not be utilized for chronic conditions.\T\nbsp; These are guidelines and the provider should exercise clinical judgment when providing care. 03/29/2018 [facility] Care Recommendation: - Patient currently receiving gabapentin for pain management through PCP. - Please discretion when providing pain medication per [facility], patient has been seen in the walk in clinic for pain management and has seen his PCP for pain management and now seeks further pain treatment through the ED. - USE EXTREME CAUTION IN GIVING NARCOTICS TO THIS PATIENT. - Avoid Discharge Narcotic prescriptions if at all possible. Please use clinical judgement. This patient has had 5 or more Emergency Department visits in the last 12 months. Patient requires education on the scope and purpose of the ED as an acute care provider not a Primary Care Provider and should not be utilized for chronic conditions. If patient returns to ED please contact Community Health WorkerLola at [phone]. These are guidelines and the provider should exercise clinical judgment when providing care. EReji VISIT COUNT (12 MO.) 7 [facility] TOTAL 7 NOTE: Visits indicate total known visits. ED/UCC VISIT TRACKING (12 MO.) 07/09/2018 18:09 [facility] [place] TYPE: Emergency COMPLAINT: - R FLANK PAIN 06/13/2018 06:06 [facility] [place] TYPE: Emergency COMPLAINT: - L FLANK PAIN DIAGNOSES: - Hydronephrosis with renal and ureteral calculous obstruction - Unspecified abdominal pain - Allergy status to narcotic agent status - Other fci (current) drug therapy - Nicotine dependence, unspecified, uncomplicated 05/23/2018 21:04 [facility] [place] TYPE: Emergency COMPLAINT: - NECK/BACK PAIN,NO RECENT INJURY DIAGNOSES: - Cervicalgia - Allergy status to analgesic agent status - Other fci (current) drug therapy - Nicotine dependence, unspecified, uncomplicated 03/27/2018 22:03 [facility] [place] TYPE: Emergency COMPLAINT: - R FLANK PAIN DIAGNOSES: - Unspecified abdominal pain - Personal history of urinary calculi - Nicotine dependence, unspecified, uncomplicated - Other petroleum terminal plant operator (current) drug therapy - Unspecified renal colic 02/25/2018 17:47 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 - Allergy status to narcotic agent status - Allergy status to other drugs, medicaments and biological substances status - Nicotine dependence, unspecified, uncomplicated 10/10/2017 18:31 [facility] [place] [place] TYPE: Emergency COMPLAINT: - RT EYE INJURY/PAIN DIAGNOSES: - Unspecified scleritis, right eye - Ocular pain, left eye - Spinal stenosis, site unspecified - Fall on same level from slipping, tripping and stumbling without subsequent striking against object, initial encounter - Allergy status to narcotic agent status - Allergy status to other drugs, medicaments and biological substances status - Nicotine dependence, unspecified, uncomplicated - Unspecified episcleritis, right eye - Other fci (current) drug therapy 08/30/2017 15:54 [facility] [place] TYPE: Emergency COMPLAINT: - VOMITING/ABD PAIN DIAGNOSES: - Allergy status to other drugs, medicaments and biological substances status - Unspecified abdominal pain - Other fci (current) drug therapy - Nicotine dependence, unspecified, uncomplicated - Allergy status to narcotic agent status - INJURY, UNSPECIFIED, INITIAL ENCOUNTER - Personal history of urinary calculi - Exposure to other specified factors, initial encounter INPATIENT VISIT TRACKING (12 MO.) No inpatient visits to display in this time frame [id number]
[2018-07-09] MEDS ORDERED: NORCO 5-325 TA1 EACH PO (21:00)
== END 2018-07-09 21:13 | disposition home or self-care (01) ==
LOC: ED 18:08
DX: R10.11 Right upper quadrant pain (principal); F17.200 Nicotine dependence, unspecified, uncomplicated; Z88.8 Allergy status to other drugs, medicaments and biological substances; Z88.5 Allergy status to narcotic agent; Z79.899 Other long term (current) drug therapy
CPT/HCPCS: 71046; 74176; 80053; 81001; 83690; 85025; 96361; 96374; 96375; 99284; J1170; J1885; J7030

== ENCOUNTER 2018-10-27 13:26 | Emergency (ER) | payer OTHER ==
[~2018-10-27] VITALS: Ht 170.2 cm; Wt 97.1 kg
[~2018-10-27 13:26] MED LIST changes: +HYDROCODON-ACE1 EA10 PO
--- OUTSIDE RECORDS SUMMARY | 2018-10-27 13:32 | XMS ---
PreManage Notification: DENTON RICHMOND Security Medical I D Sales Events No recent Security Events currently on file CRITERIA MET - Group Notification CARE PROVIDERS [facility]: Pulmonary Disease 07/12/2018-Current PHONE: Unknown Kathrin Summers Primary Care Current PHONE: [phone] Davide has no Care Guidelines for this patient. Care History Medical/Surgical 06/14/2018 [facility] - Patient is currently established with [facility]. If patient is seen in the ED during business hours. Please contact CHWs at [facility]. Care Recommendation: This patient has had 5 or more Emergency Department visits in the last 12 months.\T\nbsp; Patient requires education on the scope and purpose of the ED as an acute care provider not a Primary Care Provider and should not be utilized for chronic conditions.\T\nbsp; These are guidelines and the provider should exercise clinical judgment when providing care. 03/29/2018 [facility] Care Recommendation: - Patient currently receiving gabapentin for pain management through PCP. - Please discretion when providing pain medication per [facility], patient has been seen in the [...] ED please contact Community Health WorkerLola at [phone]. These are guidelines and the provider should exercise clinical judgment when providing care. EAimee. [facility] NOTE: Visits indicate total known visits. ED/C VISIT TRACKING (12 MO.) 10/27/2018 13:27 [facility] [place] TYPE: Emergency COMPLAINT: - BILAT FLANK PAIN/SORE THROAT 07/09/2018 18:09 [facility] [place] TYPE: Emergency COMPLAINT: - R FLANK PAIN DIAGNOSES: - Allergy status to other drugs, medicaments and biological substances status - Right upper quadrant pain - Other senior living (current) drug therapy - Allergy status to narcotic agent status - Nicotine dependence, unspecified, uncomplicated 06/13/2018 06:06 [facility] [place] TYPE: Emergency COMPLAINT: - L FLANK PAIN DIAGNOSES: - Hydronephrosis with renal and ureteral calculous obstruction - Unspecified abdominal pain - Allergy status to narcotic agent status - Other senior living (current) drug therapy - Nicotine dependence, unspecified, uncomplicated 05/23/2018 21:04 [facility] [place] TYPE: Emergency COMPLAINT: - NECK/BACK PAIN,NO RECENT INJURY DIAGNOSES: - Cervicalgia - Allergy status to analgesic agent status - Other senior living (current) drug therapy - Nicotine dependence, unspecified, uncomplicated 03/27/2018 22:03 [facility] [place] TYPE: Emergency COMPLAINT: - R FLANK PAIN DIAGNOSES: - Unspecified abdominal pain - Personal history of urinary calculi - Nicotine dependence, unspecified, uncomplicated - Other senior living (current) drug therapy - Unspecified renal colic 02/25/2018 17:47 [facility] [place] TYPE: Emergency COMPLAINT: - FLANK PAIN DIAGNOSES: - Unspecified abdominal pain - Other long term care pharmacist (current) drug therapy - Allergy status to narcotic agent status - Allergy status to other drugs, medicaments and biological substances status - Nicotine dependence, unspecified, uncomplicated INPATIENT VISIT TRACKING (12 MO.) No inpatient visits to display in this time frame [id number]
[2018-10-27] MEDS ORDERED: AUGMENTIN 875-1 EACH PO (18:45)
[2018-10-27] MEDS ORDERED: ONDANSETRON ODT8 MG PO (18:45)
== END 2018-10-27 18:59 | disposition home or self-care (01) ==
LOC: ED 13:26
DX: J02.0 Streptococcal pharyngitis (principal); E86.0 Dehydration; F17.200 Nicotine dependence, unspecified, uncomplicated; Z88.8 Allergy status to other drugs, medicaments and biological substances; Z88.5 Allergy status to narcotic agent; Z79.899 Other long term (current) drug therapy
CPT/HCPCS: 71045; 80053; 81001; 83605; 85025; 87040; 87502; 87880; 96361; 96374; 99283-25; J1885; J7030; J7512

== ENCOUNTER 2018-12-14 07:45 | Day surgery (SDC) | payer OTHER ==
[~2018-12-14] VITALS: Ht 170.2 cm; Wt 97.1 kg
[~2018-12-14 07:45] MED LIST changes: +AUGMENTIN 875-1 EACH PO; +ONDANSETRON ODT8 MG PO
--- NOTE | 2018-12-14 11:20 | NUR ---
12/14/18 1120 Shruthi Butler 1040 PT ARRIVED IN PACU SLEEPY WITH NO C/O'S. 1045 PT SHIVERING. WARM BLANKET AND NEREYDA HUGGER ON. 1050 SHIVERING GONE. 1055 OXYGEN REMOVED. SATS DROPPED TO 86% ON RA. O2 AT 2L VIA NC PLACED AND SATS INCREASED TO 95%. ENCOURAGED COUGH, DEEP BREATHING. 1100 C/O NAUSEA. 1103 ZOFRAN 4MG GIVEN IVP. 1110 NAUSEA PASSED. TO DS. REPORT GIVEN TO MEGHAN MCKINLEY.
[2018-12-14] MEDS ORDERED: HYCET 7.5 MG-3473 ML PO (11:32)
--- NOTE | 2018-12-14 12:25 | NUR ---
PT REPORTS THAT HE IS NOT HAVING ANY PAIN IN HIS THROAT, JUST A MIGRAINE/HEADACHE. HE STATES THAT HE WOULD LIKE TO GO HOME AT THIS TIME.
--- NOTE | 2018-12-14 12:40 | NUR ---
PT GETS UP AND ABMULATES HIMSELF TO THE RESTROOM BEFORE DC'ING. HE VOIDS QS. HE REFUSES TO BE TAKEN OUT IN A WHEELCHAIR, HE IS ASSISTED WITH STANDBY ASSIST TO THE FRONT DOOR OF THE FACILITY.
--- NOTE | 2018-12-14 12:41 | NUR ---
KIMBERLI 1230: PT IS GIVEN VERBAL DC INSTRUCTIONS WITH SIGNIFICANT OTHER TARUN PRESENT. THEY BOTH VERBALIZE UNDERSTANDING. HE IS EDUCATED ON HOW BEST TO DRESS HIMSELF.
--- NOTE | 2018-12-14 12:42 | OR ---
[facility] [address], [place] [address] Signed DATE OF OPERATION: 12/14/2018 SURGEON: Aram Garrido MD PREOPERATIVE DIAGNOSES: 1. Intranasal lesion. 2. Dysphagia. 3. Chronic tonsillitis. POSTOPERATIVE DIAGNOSES: 1. Intranasal lesion. 2. Dysphagia. 3. Chronic tonsillitis. PROCEDURE: 1. Exam of the nose under anesthesia, excision of nasal lesion. 2. Direct laryngoscopy. 3. Direct rigid esophagoscopy. 4. Tonsillectomy. ANESTHESIA: General orotracheal; DESKTOP OPERATOR, Tracey. PREOPERATIVE HISTORY: Layne is a 33-year-old man with nasal crusting, status post turbinate and septal surgery several months ago. He also has chronic tonsillitis, dysphagia, food sticking in the sternal notch region. He was taken to the operating room for the above-mentioned procedures. OPERATIVE PROCEDURE AND FINDINGS: After informed consent, the patient was taken to the operating room, placed in supine position where general orotracheal anesthesia was induced. The patient and procedure were verified. The patient was repositioned. Headlight speculum exam of the nasal cavity showed some eschar on the inferior turbinates bilaterally. Some thickened material, which was suctioned clear. Prominent mucosa on the left posterior portion of the inferior turbinate was excised and sent to pathology. Both turbinates were clean, healthy tissue remaining. Moderate amount of bleeding on the right side near the biopsy site was controlled with a nasal pore pack. The patient was repositioned. Anterior commissure laryngoscope was used to visualize the hypopharynx and larynx. No abnormalities were seen. Bimanual palpation of the base Portions of this report were created using voice recognition software. There may be inadvertent computer error. Please read with context in mind. If there are any questions, please contact me. Electronically Signed By: ARAM GARRIDO MD 12/14/18 1242 PATIENT NAME: LAYNE RICHMOND OPERATIVE REPORT DATE OF : 81 REPORT #: [id number] PHYSICIAN: ARAM GARRIDO MD PCP: SHARAN RODRIGUEZ MD REPORT IS CONFIDENTIAL AND NOT TO BE RELEASED WITHOUT AUTHORIZATION [facility] [address], [place] [address] Signed of tongue and pharyngeal wall also were performed with no abnormalities. The cervical esophagoscope was then passed down to the mid thoracic esophagus approximately 25 cm from the incisors and no abnormalities were seen. No biopsies taken. Tonsillectomy was then performed. The patient was repositioned. McIvor mouth gag placed into suspension. Headlight exam of the pharynx showed markedly hypertrophic cryptic tonsillolith tonsils. The left tonsil was grasped with a tenaculum, retracted medially and removed from its fossa with mucosal sparing incision with Coblation. The field was dry after the procedure. Same procedure on the right tonsil. Tonsils were sent to Pathology. Reinspection of the tonsil fossa showed no bleeding points. Pharynx was suctioned clear of blood and secretions. Mouth gag was removed. The patient was awakened, extubated, and transported to recovery room in good condition. COMPLICATIONS: No complications. BLOOD LOSS: Minimal. SPECIMEN: No Pathology. DRAINS: No drains. Aram Garrido MD GC/MODL /[id number] Copies: Portions of this report were created using voice recognition software. There may be inadvertent computer error. Please read with context in mind. If there are any questions, please contact me. Electronically Signed By: ARAM GARRIDO MD 12/14/18 1242 PATIENT NAME: LAYNE RICHMOND OPERATIVE REPORT DATE OF : 81 REPORT #: [id number] PHYSICIAN: ARAM GARRIDO MD PCP: SHARAN RODRIGUEZ MD REPORT IS CONFIDENTIAL AND NOT TO BE RELEASED WITHOUT AUTHORIZATION [facility] [address] [place] [address] [place], [place] [address] Signed ~ Portions of this report were created using voice recognition software. There may be inadvertent computer error. Please read with context in mind. If there are any questions, please contact me. Electronically Signed By: ARAM GARRIDO MD 12/14/18 1242 PATIENT NAME: LAYNE RICHMOND OPERATIVE REPORT DATE OF : [birth year] REPORT #: [id number] PHYSICIAN: ARAM GARRIDO MD PCP: SHARAN RODRIGUEZ MD REPORT IS CONFIDENTIAL AND NOT TO BE RELEASED WITHOUT AUTHORIZATION
--- NOTE | 2018-12-14 12:42 | PREHP ---
[facility] [address] [place], [place] [address] Signed ADMISSION DATE: 12/14/2018 CHIEF COMPLAINT: Chronic tonsillitis and dysphagia. HISTORY: Layne is a 33-year-old man with a long history of sore throat, strep throats, tonsillitis, and also difficulty with dysphagia. He had surgery performed by myself back in July 2018 consisting of septoplasty and inferior turbinate reduction surgery and a biopsy of the adenoid tissue. Biopsy was benign. He continued to have problems with his throat and he is being taken to the OR at this time for tonsillectomy, direct laryngoscopy, esophagoscopy, and exam of the nose under anesthesia. PAST HISTORY/REVIEW OF SYSTEMS: Generally positive for cholesterol, arthritis, history of kidney stones, neck pain, migraines, hypertension, environmental allergies, depression, snoring. ALLERGIES: To tramadol, hydroxyzine, methocarbamol. CURRENT MEDICATIONS: Ambien, lisinopril, gabapentin, Wellbutrin, atorvastatin. SURGICAL HISTORY: Cervical fusion by Dr. Carvajal 2 years ago, kidney stone, knee surgery. SOCIAL HISTORY: He is . He lives in [place]. 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 Positive tobacco. No alcohol. FAMILY HISTORY: Noncontributory. PHYSICAL EXAMINATION: VITAL SIGNS: Stable. Afebrile. GENERAL: Well-developed, well-nourished male, in no distress. HEAD AND NECK: Tonsils are 2+, subacute. Head and neck exam essentially otherwise unremarkable. CHEST: Clear. HEART: Regular rate and rhythm. ABDOMEN: Benign. EXTREMITIES: Benign. NEUROLOGIC: Grossly intact. Electronically Signed By: ARAM OLVERA MD 12/14/18 1242 PATIENT NAME: LAYNE RICHMOND PREOPERATIVE H&P DATE OF : 81 REPORT #: [id number] PHYSICIAN: ARAM OLVERA MD PCP: SHARAN RODRIGUEZ MD REPORT IS CONFIDENTIAL AND NOT TO BE RELEASED WITHOUT AUTHORIZATION [facility] [address] [facility] [place], [place] [address] Signed IMPRESSION: 1. Chronic tonsillitis. 2. Dysphagia. 3. Epistaxis. PLAN: He will be taken to the OR in a.m. on December 14, 2018, at [facility] for general anesthetic, exam of the nose under anesthesia, tonsillectomy, direct laryngoscopy, esophagoscopy. Layne is agreeable. The risks of surgery including bleeding, infection, continued sore throat, swallowing problems have all been explained and accepted. Aram Olvera MD GC/MODL /[id number] Copies: ~ Electronically Signed By: ARAM OLVERA MD 12/14/18 1242 PATIENT NAME: LAYNE RICHMOND PREOPERATIVE H&P DATE OF : 81 REPORT #: [id number] PHYSICIAN: ARAM OLVERA MD PCP: SHARAN RODRIGUEZ MD REPORT IS CONFIDENTIAL AND NOT TO BE RELEASED WITHOUT AUTHORIZATION
--- NOTE | 2018-12-14 14:39 | NUR ---
CHECKED ON PT FOLLOWING SURGERY. PT STATED HIS THROAT DOES NOT HURT, BUT FEELS A MIGRANE COMING ON. PT MENTIONED THAT RN CARMENZA HAD GIVEN HIM SOMETHING, BUT HE WOULD JUST REALLY LIKE TO BE DC'D. PT REQUESTED PRAYER, G FRIEND TARUN IS BY HIS SIDE. I LET RN KNOW OF HIS WISHES AND PAIN. WILL FOLLOW NEEDED
== END 2018-12-14 12:35 | disposition home or self-care (01) ==
LOC: DS 07:45 → OPS 07:45 → DS 09:30 → OPS 12:35
PROVIDERS: Otolaryngology
PROC: 09BL0ZZ Excision of Nasal Turbinate, Open Approach (ICD-10-PCS; principal; 2018-12-14 09:30)
PROC: 0C5PXZZ Destruction of Tonsils, External Approach (ICD-10-PCS; 2018-12-14 09:30)
DX: J35.01 Chronic tonsillitis (principal); J33.0 Polyp of nasal cavity; I10 Essential (primary) hypertension; F32.9 Major depressive disorder, single episode, unspecified; Z87.442 Personal history of urinary calculi; M19.90 Unspecified osteoarthritis, unspecified site; Z88.5 Allergy status to narcotic agent; Z88.8 Allergy status to other drugs, medicaments and biological substances; Z79.899 Other long term (current) drug therapy
CPT/HCPCS: 00170; 88304; J0131; J0330; J0461; J1100; J1885; J2250; J2405; J2704; J3010; J7040; J7120

== ENCOUNTER 2018-12-18 05:53 | Emergency (ER) | payer OTHER ==
[~2018-12-18] VITALS: Ht 170.2 cm; Wt 97.1 kg
[~2018-12-18 05:53] MED LIST changes: +HYCET 7.5 MG-3473 ML PO
--- OUTSIDE RECORDS SUMMARY | 2018-12-18 05:56 | XMS ---
PreManage Notification: DENTON RICHMOND Security Bilingual Account Manager Events No recent Security Events currently on file CRITERIA MET - Group Notification - [facility] - Has Care Guidelines - PDMP CARE PROVIDERS Tr Hung Internal Medicine: Pulmonary Disease 07/12/2018-Current PHONE: Unknown Kathrin Summers Primary Care Current PHONE: [phone] [place] has no Care Guidelines for this patient. Care History Medical/Surgical 06/14/2018 [facility] - Patient is currently established with [facility]. If patient is seen in the ED during business hours. Please contact CHWs at [facility]. Care Recommendation: This patient has had 5 or more Emergency Department visits in the last 12 months.\T\nbsp; Patient requires education on the scope and purpose of the ED as an acute care provider not a Primary Care Provider and should not be utilized for chronic conditions.\T\nbsp; These are guidelines and the provider should exercise clinical judgment when providing care. 03/29/2018 [facility] Care Recommendation: - Patient currently receiving gabapentin for pain management through PCP. - Please discretion when providing pain medication per [facility], patient has been seen in the walk [...] ED please contact Community Health WorkerLola at [phone]. These are guidelines and the provider should exercise clinical judgment when providing care. E.D. VISIT COUNT (12 MO.) 7 [facility]. TOTAL 7 NOTE: Visits indicate total known visits. ED/C VISIT TRACKING (12 MO.) 12/18/2018 05:53 [facility] [place] TYPE: Emergency COMPLAINT: - HEADACHE, POST OP PROBLEM 10/27/2018 13:27 [facility] [place] TYPE: Emergency COMPLAINT: - BILAT FLANK PAIN/SORE THROAT DIAGNOSES: - Allergy status to other drugs, medicaments and biological substances status - Nicotine dependence, unspecified, uncomplicated - Allergy status to narcotic agent status - Dehydration - Other termite exterminator helper (current) drug therapy - Fever, unspecified - Streptococcal pharyngitis 07/09/2018 18:09 [facility] [place] TYPE: Emergency COMPLAINT: - R FLANK PAIN DIAGNOSES: - Allergy status to other drugs, medicaments and biological substances status - Right upper quadrant pain - Other termite exterminator helper (current) drug therapy - Allergy status to narcotic agent status - Nicotine dependence, unspecified, uncomplicated 06/13/2018 06:06 [facility] [place] TYPE: Emergency COMPLAINT: - L FLANK PAIN DIAGNOSES: - Hydronephrosis with renal and ureteral calculous obstruction - Unspecified abdominal pain - Allergy status to narcotic agent status - Other termite exterminator helper (current) drug therapy - Nicotine dependence, unspecified, uncomplicated 05/23/2018 21:04 [facility] [place] TYPE: Emergency COMPLAINT: - NECK/BACK PAIN,NO RECENT INJURY DIAGNOSES: - Cervicalgia - Allergy status to analgesic agent status - Other usp (current) drug therapy - Nicotine dependence, unspecified, uncomplicated 03/27/2018 22:03 [facility] [place] TYPE: Emergency COMPLAINT: - R FLANK PAIN DIAGNOSES: - Unspecified abdominal pain - Personal history of urinary calculi - Nicotine dependence, unspecified, uncomplicated - Other termite exterminator helper (current) drug therapy - Unspecified renal colic 02/25/2018 17:47 [facility] [place] TYPE: Emergency COMPLAINT: - FLANK PAIN DIAGNOSES: - Unspecified abdominal pain - Other usp (current) drug therapy - Allergy status to narcotic agent status - Allergy status to other drugs, medicaments and biological substances status - Nicotine dependence, unspecified, uncomplicated INPATIENT VISIT TRACKING (12 MO.) No inpatient visits to display in this time frame [email or web address]
== END 2018-12-18 07:24 | disposition home or self-care (01) ==
LOC: ED 05:53
DX: G89.18 Other acute postprocedural pain (principal); R51 Headache; F17.200 Nicotine dependence, unspecified, uncomplicated; Z88.8 Allergy status to other drugs, medicaments and biological substances; Z88.5 Allergy status to narcotic agent; Z79.899 Other long term (current) drug therapy
CPT/HCPCS: 96361; 96374; 96375; 99283-25; J1200; J1885; J2765; J7120

== ENCOUNTER 2019-03-16 12:04 | Emergency (ER) | payer OTHER ==
[~2019-03-16] VITALS: Ht 170.2 cm; Wt 98.0 kg
--- OUTSIDE RECORDS SUMMARY | ~2019-03-16 | XMS | Encounter Summary ---
Demographics + + + | Address | [address] [place] [address] | | | [place] [address] | + + + | Home Phone | | + + + | Preferred Language | Unknown | + + + | Marital Status | Single | + + + | Congregational Affiliation | Unknown | + + + | Race | White | + + + | Ethnic Group | Not or | + + + Author + + + | Author | [facility] | + + + | Organization | [facility] | + + + | Address | Unknown | + + + | Phone | Unavailable | + + + Support + + +---------+ + | Name | Relationship | Address | Phone | + + +---------+ + | None None | ECON | Unknown | Unavailable | + + +---------+ + Care Team Providers + +------+ + | Care Label Designer Name | Role | Phone | + +------+ + | Ghada Hung MD | PCP | | + +------+ + Reason for Referral Diagnostic Testing (Routine) +--------+--------+ + + + + | Status | Reason | Specialty | Diagnoses / | Referred By | Referred To | | | | | Procedures | Contact | Contact | +--------+--------+ + + + + | Closed | | Non [facility] | Diagnoses | Raslan, | Non-[facility] | | | | Department | Neck pain | Omid Ken MD | Epic Dept | | | | | Pseudoarthro | [address] | | | | | | sis of | [address] | | | | | | cervical | [place], [place] | | | | | | spine ([facility]) | [address] | | | | | | Procedures | Phone: | | | | | | MRI SPINE | [phone] | | | | | | CERVICAL WO | Fax: | | | | | | CONTRAST [place] | [phone] | | | | | | MRI, CERV | | | | | | | SPINE | | | +--------+--------+ + + + + Reason for Visit + + + | Reason | Comments | + + + | New Patient Visit | | + + + Consultation (Routine) +--------+--------+ + + + + | Status | Reason | Specialty | Diagnoses / | Referred By | Referred To | | | | | Procedures | Contact | Contact | +--------+--------+ + + + + | Closed | | Neurological | Diagnoses | Moran, | Nicolaslan, | | | | Surgery | | King Marie DO | Omid Ken MD | | | | | Radiculopath | FLUSHING | [address] | | | | | y, cervical | PAIN | Ave | | | | | region | MANAGEMENT | [place], [place] | | | | | Procedures | [address] | [address] | | | | | [place] NEW | [address] | Phone: | | | | | PATIENT | [place], [place] | [phone] | | | | | LEVEL [place] | [address] | Fax: | | | | | EST PATIENT | Phone: | [phone] | | | | | LEVEL V | [phone] | | | | | | | Fax: | | | | | | | [phone] | | +--------+--------+ + + + + Encounter Details +--------+---------+ + + + | Date | Type | Department | Care Team | Description | +--------+---------+ + + + | 09/02/ | Office | Neurosurgery at | Omid Gonzalez, | Neck pain (Primary | | 2018 | Visit | [facility] [address] | [address] | Dx); Pseudoarthrosis | | | | Ave Mailcode: CH[address] | [place], [place] | of cervical spine, | | | | [place] [facility] | [address] | initial encounter | | | | and Healing, 8th | [phone] | ([facility]) | | | | Floor [place], [place] | | | | | | [address] | | | | | | [phone] | | | +--------+---------+ + + + Social History + + [...] recent travel history available. | + + documented as of this encounter [...] + + + documented in this encounter Progress Notes Omid Gonzalez MD - 09/02/2018 1:30 PM PSTI performed a history and physical examination of the patient and discussed his management with the resident. I reviewed the resident s note and agree with the documented findings and plan of care. MD OMID Zhou MD NEUROSURGERY AT [facility] [address] Mailcode: [place] [address] azur King Woodall MD - 09/02/2018 1:30 PM PST NEUROSURGERY CLINIC NOTE Author: KING WOODALL MD Attending Physician: Omid Gonzalez MD Reason for clinic visit: referral neck pain PCP: Ghada Hung MD HPI: Layne Bentley is a 32 y.o. male w hypercholesterolemia, HTN, kidney stones, and nec k pain s/p C3-6 ACDF at OSH on 12/12/16 with no improvement in pain with diagnosis of pseudoa rthrosis who underwent SCS trial and was referred to permanent placement. He had neck pain f or years and is unable to fully explain. He feels weak in the shoulders. He is a smoker and has been cutting back. Postop he had no improvement and was placed in rigid collar for rough ly 3mo without improvement. XR remained without clear fusion. He has seen PT without help. H is local neurosurgeon will not re-operate until he quits smoking for 6mo. PMH As above (Not in a hospital admission) Allergies Allergen Reactions Tramadol Nausea and Vomiting Social History Social History Marital status: Single Spouse name: N/A Number of children: N/A Years of education: N/A Occupational History Not on file. Social History Main Topics Smoking status: Current Every Day Smoker Types: Cigarettes Smokeless tobacco: Never Used Alcohol use No Drug use: No Sexual activity: Not on file Other Topics Concern Not on file Social History Narrative No narrative on file Review of Systems: Negative except as above Physical Exam: BP 174/95 | Pulse 91 | Wt 98 kg (216 lb) General Appearance: NAD Neurologic: Eyes open spont, oriented x 4, speech appropriate, participates in exam Pupils: PERRL, EOMI, V1-3 intact b/l, FS, TM BUE 5/5 D/B/T/HG/HI BLE 02/27 HF/KE/KF/DF/PF Neg Drift SILT XR 12/08/17 XR 10/30/2016 Assessment and Plan: Layne Bentley is a 32 y.o. male w hypercholesterolemia, HTN, kidney stones, and neck angela n s/p C3-6 ACDF at OSH on 12/12/16 with no improvement in pain with diagnosis of pseudoarthro sis who underwent SCS trial and was referred to permanent placement. No prior MRI imaging av ailable and no reads. No MRI since surgical instrumentation. No dynamic imaging. Pain genera tor etiology unclear at this time. Will pursue further work up. -XR C spine flex/ext -MRI C spine -RTC when completed King Anton MD Neurological Surgery PGY3 documented in thi s encounter Plan of Treatment + +---------+--------+ + + | Name | Type | Priori | Associated Diagnoses | Order Schedule | | | | ty | | | + +---------+--------+ + + | X-RAY SPINE CERVICAL | Imaging | Routin | Neck pain | Expected: | | 3 VIEWS | | e | Pseudoarthrosis of | 09/02/2018, Expires: | | | | | cervical spine, | 10/02/2019 | | | | | initial encounter | | | | | | (HCC) | | + +---------+--------+ + + | MRI SPINE CERVICAL | Imaging | Routin | Neck pain | Expected: | | WO CONTRAST | | e | Pseudoarthrosis of | 09/02/2018, Expires: | | | | | cervical spine, | 10/02/2019 | | | | | initial encounter | | | | | | (HCC) | | + +---------+--------+ + + documented as of this encounter Visit Diagnoses + + | Diagnosis | + + | Neck pain - Primary Cervicalgia | + + | Pseudoarthrosis of cervical spine, initial encounter (HCC) | + + documented in this encounter"
--- OUTSIDE RECORDS SUMMARY | ~2019-03-16 | XMS | Clinical Summary ---
Demographics + + + | Address | [address] | | | [place] [address] | + + + | Home Phone | | + + + | Preferred Language | Unknown | + + + | Marital Status | Single | + + + | Judaism Affiliation | Unknown | + + + [...] Team Providers + +------+ + | Care Division Engineer Name | Role | Phone | + +------+ + | Ghada Hung MD | PP | | + +------+ + Source Comments CHELSEA is fully live on both [facility] and [facility] InPatient.[facility] Allergies + + + + + + [...] + + + + + | Pneumococcal (Adult) | | | | | (1 of 1 - PPSV23) | 3 | | | + + + + + | Influenza (Flu) | | | | | vaccination (Season | 9 | | | | Ended) | | | | + + + [...] | | | + +--------+ +--------+-------+---------+--------+ | PROCESS SAFETY MANAGEMENT ENGINEER MEDICAID | PROCESS SAFETY MANAGEMENT ENGINEER | xxxxxxxx | | | | Medica [...] katherine | | | 9 (Home) | [address] | + +--------+ +--------+ + +"
--- OUTSIDE RECORDS SUMMARY | ~2019-03-16 | XMS | Clinical Summary ---
Demographics + + + | Address | [address] | | | [place] [address] | + + + | Home Phone | | + + + | Preferred Language | Unknown | + + + | Marital Status | Single | + + + | Catholic Affiliation | Unknown | + + + [...] Team Providers + +------+ + | Care Channel Manager Name | Role | Phone | + +------+ + | Ghada Hung MD | PP | | + +------+ + Source Comments CHELSEA is fully live on both [facility] and [facility] InPatient.[facility] Allergies + + + + + + [...] | | | + +--------+ +--------+-------+---------+--------+ | PACKING ROOM SUPERVISOR MEDICAID | PACKING ROOM SUPERVISOR | xxxxxxxx | | | | Medica [...] katherine | | | 9 (Home) | [address] | + +--------+ +--------+ + +"
--- OUTSIDE RECORDS SUMMARY | ~2019-03-16 | XMS | Encounter Summary ---
Demographics + + + | Address | [address] | | | [place] [address] | + + + | Home Phone | | + + + | Preferred Language | Unknown | + + + | Marital Status | | + + + | Gnosticist Affiliation | Unknown | + + + | Race | Unknown | + + + | Ethnic Group | Unknown | + + + Author + + + | Author | [facility] | + + + | Organization | [facility] | + + + | Address [...] Team Providers + +------+ + | Care Crayon Sawyer Name | Role | Phone | + +------+ + | Kathrin Summesr MD | PCP | | + +------+ + Encounter Details +--------+ + + + + | Date | Type | Department | Care Team | Description | +--------+ + + + + | 02/16/ | Documentati | [facility] [place] | Romy Meek DO | | | 2019 | on Only | Cardiology Wally | [address] | | | | | [address] | [place] | | | | | [facility] [place] | [address] | | | | | [address] | | | | | | [phone] | | | +--------+ + + + + Social History + +-------+ +--------+------+ [...] + + + as of this encounter Plan of Treatment +--------+ + + + + | Date | Type | Specialty | Care Team | Description | +--------+ + + + + | 05/19/ | Initial | Cardiology | Romy Meek DO | | | 2019 | consult | | [address] | | | | | | [place] | | | | | | [address] | | | | | | | | +--------+ + + + + as of this encounter Visit Diagnoses Not on filein this encounter"
--- OUTSIDE RECORDS SUMMARY | ~2019-03-16 | XMS | Clinical Summary ---
Demographics + + + | Address | [address] | | | [place] [address] | + + + | Home Phone [...] | Author | [facility] | | | and Frandyana | + + + | Organization | [facility] | | | and Frandyana [...] Team Providers + +------+ + | Care Exploration Driller Name | Role | Phone | + +------+ + | Pcp, Prov Inactive | PP | | + +------+ + [...] | Nausea And Vomiting | Medium | 05/20/20 | | | | | | 15 | | + + + + + + Medications + + + +---------+------+------+-------+ | Medication | Sig | Dispensed | Refills | Star | End | Statu | | | | | | t | Date | s | | | | | | Date | | | + + + +---------+------+------+-------+ | | Take 1-2 tablets by | [...] | | | | + + + +---------+------+------+-------+ | traZODone | Take 50 mg by mouth. | | 0 | 05/1 | | Activ | | (DESYREL) 50 mg | | | | 2/20 | | e | | tablet | | | | 17 | | | + + + +---------+------+------+-------+ | methocarbamol | Take 1-2 tablets by | | 0 | 09/2 | | Activ | | (ROBAXIN) 750 mg | mouth EVERY 6 TO 8 | | | 9/20 | | e | | tablet | HOURS NEEDED. | | | 17 | | | + + + +---------+------+------+-------+ Active Problems + + + | Problem [...] cervical | 10/30/2016 | + + + Family History + + +------+ + | Medical History | Relation | Name | Comments | + + +------+ + | No known problems | Child | | | + + +------+ + | No known problems | Child | | | + + +------+ + | Heart disease | Father | | | + + +------+ + | Cancer | Maternal | | | | | Aunt | | | + + +------+ + | No known problems | Maternal | | | | | [...] | Body Mass Index | 34.94 | 12/08/2017 1243 PST | + + + + Plan [...] | | | | (Season Ended) | 9 | | | + + + + + Implants + +--------+------+ +--------+--------+--------+ | Implanted | Type | Area | Manufacture | Device | Shelf | Model | | | | | r | | Expira | / | | | | | | Identi | tion | Serial | | | | | | fier | Date | / Lot | + +--------+------+ +--------+--------+--------+ | Imp Spn Plt Ti Zevo 57mm 3lvl | Generi | | SOFAMOR | | | [id number] | | - [id number]: Qty: 1 | c | | CARMELLA - DIV | | | / | | on 12/12/2016 by Jeffrey Carvajal | | | [employer]TRONIC | | | | | MD Rafi | | | - SFDK | | | | + +--------+------+ +--------+--------+--------+ | Carlos Oliviern Pls 1cc Aseptic | Graft | | MEDTRONIC - | | 08/14/ | [id number] | | - [id number]: Qty: | | | MEDT | | 2018 | | | 1 on 12/12/2016 by Alena | | | | | | /[id number] | | Jeffrey Mckee MD | | | | | | 5-107 | | | | | | | | / | + +--------+------+ +--------+--------+--------+ | Algrft Cerv [id number] - | Graft | | SPINALGRAFT | | 06/11/ | [id number] | | [id number]: Qty: 1 on | | | | | 2018 | | | 12/12/2016 by Jeffrey Carvajal, | | | TECHNOLOGIE | | | /[id number] | | MD | | | S - SPNL | | | 619 | | | | | | | | /[id number] | | | | | | | | 6646 | + +--------+------+ +--------+--------+--------+ | Algrft Bone Lord [id number] - | Graft | | [employer]TR[employer] - | | 03/06/ | [id number] | | [id number]: Qty: 1 on | | | MEDT | | 2018 | | | 12/12/2016 by Jeffrey Carvajal, | | | | | | /[id number] | | | | | | | | 078 | | | | | | | | /[id number] | | | | | | | | 0163 | + +--------+------+ +--------+--------+--------+ | Algrft Bone Lord [id number] - | Graft | | [employer] - | | 04/16/ | [id number] | | [id number]: Qty: 1 on | | | MEDT | | 2019 | | | 12/12/2016 by Jeffrey Carvajal, | | | | | | /[id number] | | | | | | | | 668 | | | | | | | | /38096 | | | | | | | | 9779 | + +--------+------+ +--------+--------+--------+ | Screw D-Thrd Slf-Drl 4.0x15mm | Screw | | SOFAMOR | | | [id number] | | - [id number]: Qty: 2 | | | DANEK - DIV | | | / | | on 12/12/2016 by Jeffrey Carvajal | | | [employer] | | | | | MD Rafi | | | - SFDK | | | | + +--------+------+ +--------+--------+--------+ | Screw D-Thrd Slf-Drl 3.5x15mm | Screw | | SOFAMOR | | | [id number] | | - [id number]: Qty: 6 | | | DANEK - DIV | | | / | | on 12/12/2016 by Jeffrey Carvajal | | | [employer]IC | | | | | MD Rafi | | | - SFDK | | | | + +--------+------+ +--------+--------+--------+ Results Not on filefrom Last 3 Months Insurance + +--------+ +--------+ +---------+--------+ | Payer | Benefi | Subscriber | Effect | Phone | Address | Type | | | t Plan | ID | kemar | | | | | | / | | Dates | | | | | | Group | | | | | | + +--------+ +--------+ +---------+--------+ | [employer] | MODA | [id number] | 04/25/20 | [phone] | | Medica | | MEDICAID HMO | HEALTH | | 14-Pre | 1 | | id | | | MDCD | | sent | | | | | | [place] | | | | | | + +--------+ +--------+ +---------+--------+ + +--------+ +--------+ + + | Guarantor Name | Accoun | Relation to | Date | Phone | Billing Address | | | t Type | Patient | of | | | | | | | | | | + +--------+ +--------+ + + | Layne Bentley | Person | Self [birth year] | [address] | | | zabrina/Jc | | 1986 | [phone] | [place] | | | [place] | | | 9 (Home) | [address] | + +--------+ +--------+ + + Advance Directives Patient has advance care planning documents, and code status on file. For more information, please contact:[facility] [address] + + + + + | Code Status | Date | Date | Comments | | | Activated | Inactivated | | + + + + + | Full Code | 12/12/2016 | 12/13/2016 | | | | 20:21 | 13:43 | | + + + + +
--- OUTSIDE RECORDS SUMMARY | ~2019-03-16 | XMS | Encounter Summary ---
Demographics + + + | Address | [address] | | | [place] [address] | + + + | Home Phone | | + + + | Preferred Language | Unknown | + + + | Marital Status | | + + + | Taoism Affiliation | Unknown | + + + | Race | Unknown | + + + | Ethnic Group | Unknown | + + + Author + + + | Author | [facility] | + + + | Organization | [facility] | + + + | Address [...] Team Providers + +------+ + | Care Concrete Paver Name | Role | Phone | + +------+ + | Ghada Hung MD | PCP | | + +------+ + Reason for Visit +--------+ + | Reason | Comments | +--------+ + | Other | labs/ EKG | +--------+ + Encounter Details +--------+ + + + + | Date | Type | Department | Care Team | Description | +--------+ + + + + | 03/15/ | Documentati | [facility] [place] | Nia Bennett | Other (labs/ EKG) | | 2019 | on Only | Cardiology Danyell Liz CMA | | | | | [address] | | | | | | [place] | | | | | | [address] | | | | | | [phone] | | | +--------+ + + + [...] | 2019 | consult | | [address] | | | | | | [place] | | | | | | [address] | | | | | | | | +--------+ + + + + as of this encounter Visit Diagnoses Not on filein this encounter"
--- OUTSIDE RECORDS SUMMARY | ~2019-03-16 | XMS | Encounter Summary ---
Demographics + + + | Address | [address] [place] [address] | | | [place] [address] | + + + | Home Phone | | + + + | Preferred Language | Unknown | + + + | Marital Status | Single | + + + | Restorationist Affiliation | Unknown | + + + | Race | White | + + + | Ethnic Group | Not or | + + + Author + + + | Author | [facility] | + + + | Organization | [facility] | + + + | Address | Unknown | + + + | Phone | Unavailable | + + + Support + + +---------+ + | Name | Relationship | Address | Phone | + + +---------+ + | None None | ECON | Unknown | Unavailable | + + +---------+ + Care Team Providers + +------+ + | Care Bobbin Doffer Name | Role | Phone | + [...] | | | | | cervical | [place], [place] | | | | | | spine ([facility]) | [address] | | | | | | Procedures | Phone: | | | | | | MRI SPINE | [phone] | | | | | | CERVICAL WO | Fax: | | | | | | CONTRAST CT | [phone] | | | | | | MRI, [...] | | | | | Radiculopath | [place] | [address] | | | | | y, cervical | PAIN | Ave | | | | | region | MANAGEMENT | [place], [place] | | | | | Procedures | [address] | [address] | | | | | CT NEW | [address] [facility] | Phone: | | | | | PATIENT | [place], [place] | [phone] | | | | | LEVEL [address] | [address] | Fax: | | | | | EST PATIENT | Phone: | [phone] | | | | | LEVEL V | [phone] | | | | | | | Fax: | | | | | | | [phone] | | +--------+--------+ + + + + Encounter Details +--------+---------+ + + + | Date | Type | Department | Care Team | Description | +--------+---------+ + + + | 09/02/ | Office | Neurosurgery at | Omid Gonzalez, | Neck pain (Primary | | 2018 | Visit | [facility] [address] | [address] | Dx); 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 MD OMID Zhou MD NEUROSURGERY AT [facility] [address] Mailcode: [place] [address] azur King Woodall MD - 09/02/2018 1:30 [...]
--- OUTSIDE RECORDS SUMMARY | ~2019-03-16 | XMS | Encounter Summary ---
Demographics + + + | Address | [address] | | | [place] [address] | + + + | Home Phone | | + + + | Preferred Language | Unknown | + + + | Marital Status | | + + + | Rastafarian Affiliation | Unknown | + + + | Race | Unknown | + + + | Ethnic Group | Unknown | + + + Author + + + | Author | [facility] | + + + | Organization | [facility] | + + + | Address [...] Team Providers + +------+ + | Care Screen Tacker Name | Role | Phone | + +------+ + | Kathrin Summers MD | PCP | | + +------+ + Reason for Visit +--------+ + | Reason | Comments | +--------+ + | Other | [facility] - [place] uro - abdomen 06/13/18. | +--------+ + Encounter Details +--------+ + + + + | Date | Type | Department | Care Team | Description | +--------+ + + + + | 02/07/ | Documentati | [facility] | Shruthi Feng | Other ([facility] | | 2019 | on Only | Cardiology [place] | CHANDA Suero | [facility] - [place] uro - | | | | [address] | | abdomen 06/13/18. ) | | | | [address] | | | | | | [place] [address] | | | | | | [phone] | | | +--------+ + + + [...] [place] | | | | | | [address] | | | | | | | | +--------+ + + + + as of this encounter Visit Diagnoses Not on filein this encounter"
--- OUTSIDE RECORDS SUMMARY | ~2019-03-16 | XMS | Encounter Summary ---
Demographics + + + | Address | [address] | | | [place] [address] | + + + | Home Phone | | + + + | Preferred Language | Unknown | + + + | Marital Status | | + + + | Pentecostal Affiliation | Unknown | + + + | Race | Unknown | + + + | Ethnic Group | Unknown | + + + Author + + + | Author | [facility] | + + + | Organization | [facility] | + + + | Address [...] Providers + +------+ + | Care Patient Observation Assistant Name | Role | Phone | + +------+ + | Kathrin Summers MD | PCP | | + +------+ + Encounter Details +--------+ + + + + | Date | Type | Department | Care Team | Description | +--------+ + + + + | 02/16/ | Documentati | [facility] [place] | Romy Meek DO | | | 2019 | on Only | Cardiology Wally | [address] | | | | | [address] | [place] | | | | | [facility] [place] | [address] | | | | | [address] | | | | | | [phone] | | | +--------+ + + + [...] [place] | | | | | | [address] | | | | | | | | +--------+ + + + + as of this encounter Visit Diagnoses Not on filein this encounter"
--- OUTSIDE RECORDS SUMMARY | ~2019-03-16 | XMS | Clinical Summary ---
Demographics + + + | Address | [address] | | | [place] [address] | + + + | Home Phone | | + + + | Preferred Language | Unknown | + + + | Marital Status | | + + + | Mandaeism Affiliation | Unknown | + + + | Race | Unknown | + + + | Ethnic Group | Unknown | + + + Author + + + | Author | [facility] | | | and Frandyana | + + + | Organization | [facility] | | | and Frandyana [...] Team Providers + +------+ + | Care Engineer Process Name | Role | Phone | + [...] Generi | | SOFAMOR | | | [id number] | | - [id number]: Qty: 1 | c | | CARMELLA - DIV | | | / | | on 12/12/2016 by Jeffrey Carvajal | | | [employer] | | | | | MD Rafi | | | - SFDK | | | | + +--------+------+ +--------+--------+--------+ | Carlos Oliviern Pls 1cc Aseptic | Graft | | [employer]IC - | | 08/14/ | [id number] | | - [id number]: Qty: | | | MEDT | | 2018 | | | 1 on 12/12/2016 by Alena | | | | | | /[id number] | | Jeffrey Mckee MD | | | | | | 5-107 | | | | | | | | / | + +--------+------+ +--------+--------+--------+ | Algrft Cerv [id number] - | Graft | | SPINALGRAFT | | 06/11/ | [id number] | | [id number]: Qty: 1 on | | | | | 2018 | | | 12/12/2016 by Jeffrey Carvajal, | | | TECHNOLOGIE | | | /[id number] | | MD | | | S - SPNL | | | 619 | | | | | | | | /[id number] | | | | | | | | 6646 | + +--------+------+ +--------+--------+--------+ | Algrft Bone Lord [id number] - | Graft | | [employer] - | | 03/06/ | [id number] | | [id number]: Qty: 1 on | | | MEDT | | 2018 | | | 12/12/2016 by Jeffrey Carvajal, | | | | | | /[id number] | | | | | | | | 078 | | | | | | | | /84375 | | | | | | | | 0163 | + +--------+------+ +--------+--------+--------+ | Algrft Bone Lord [id number] - | Graft | | [employer] - | | 04/16/ | [id number] | | [id number]: Qty: 1 on | | | MEDT | | 2019 | | | 12/12/2016 by Jeffrey Carvajal, | | | | | | /[id number] | | | | | | | | 668 | | | | | | | | /[address] | | | | | | | | 9779 | + +--------+------+ +--------+--------+--------+ | Screw D-Thrd Slf-Drl 4.0x15mm | Screw | | SOFAMOR | | | [id number] | | - [id number]: Qty: 2 | | | DANEK - DIV | | | / | | on 12/12/2016 by Jeffrey Carvajal | | | [employer] | | | | | MD Rafi | | | - SFDK | | | | + +--------+------+ +--------+--------+--------+ | Screw D-Thrd Slf-Drl 3.5x15mm | Screw | | SOFAMOR | | | [id number] | | - [id number]: Qty: 6 | | | DANEK - [...] | [employer] | MODA | [id number] | 04/25/20 | [phone] | | Medica | | MEDICAID HMO [...] [place] | | | 9 (Home) | [address] | + +--------+ +--------+ + + Advance Directives Patient has advance care planning documents, and code status on file. For more information, please contact:[facility] [address] + + + + + | Code Status | Date | Date | Comments | | | Activated | Inactivated | | + + + + + | Full Code | 12/12/2016 | 12/13/2016 | | | | 20:21 | 13:43 | | + + + + +
--- OUTSIDE RECORDS SUMMARY | ~2019-03-16 | XMS | Clinical Summary ---
Demographics + + + | Address | [address] | | | [place] [address] | + + + | Home Phone | | + + + | Preferred Language | Unknown | + + + | Marital Status | | + + + | Yarsanism Affiliation | Unknown | + + + | Race | Unknown | + + + | Ethnic Group | Unknown | + + + Author + + + | Author | [facility] | + + + | Organization | [facility] | + + + | Address [...] Team Providers + +------+ + | Care Business Development Executive Name | Role | Phone | + [...] Nephrolithiasis | 07/04/2016 | + + + Encounters +--------+ + + + + | Date | Type | Specialty | Care Team | Description | +--------+ + + + + | 03/15/ | Documentati | | Nia Bennett | Alireza (labs/ EKG) | | 2019 | on Only | | TARA Liz | | +--------+ + + + + | 02/16/ | Documentati | | Romy Meek DO | | | 2019 | on Only | | | | +--------+ + + + + | 02/07/ | Documentati | | Shruthi Feng | [facility] ([facility] | | 2018 | on Only | | CHANDA [place] | [facility] - [place] uro - | | | | | | abdomen 06/13/18. 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
--- OUTSIDE RECORDS SUMMARY | ~2019-03-16 | XMS | Clinical Summary ---
Demographics + + + | Address | [address] | | | [place] [address] | + + + | Home Phone | | + + + | Preferred Language | Unknown | + + + | Marital Status | | + + + | Pentecostal Affiliation | Unknown | + + + | Race | Unknown | + + + | Ethnic Group | Unknown | + + + Author + + + | Author | [facility] | + + + | Organization | [facility] | + + + | Address [...] Team Providers + +------+ + | Care Cellular Plastics Cutter Name | Role | Phone | + [...] | Documentati | | Shruthi Feng | [facility]ireza ([facility] | | 2018 | on Only | | CHANDA Suero | [facility] - [place] uro - | | [...] [place] | | | | | | [address] | | | | | | | [...] | | GYRUS | | 02/15/ | [id number] | | SnaImplanted: Qty: 1 on | [...] +------+-------+ + | MEDICAID | [place] | [id number] | | | [address] | | | [address] | | | | [place] | | | [place] | | | | [address] | | | 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
--- OUTSIDE RECORDS SUMMARY | ~2019-03-16 | XMS | Encounter Summary ---
Demographics + + + | Address | [address] | | | [place] [address] | + + + | Home Phone | | + + + | Preferred Language | Unknown | + + + | Marital Status | | + + + | Adventism Affiliation | Unknown | + + + | Race | Unknown | + + + | Ethnic Group | Unknown | + + + Author + + + | Author | [facility] | + + + | Organization | [facility] | + + + | Address [...] Team Providers + +------+ + | Care Commercial Technician Name | Role | Phone | [...] [place] | | | | | | [address] | | | | | | [phone] | | | +--------+ + + + [...] [place] | | | | | | [address] | | | | | | | | +--------+ + + + + as of this encounter Visit Diagnoses Not on filein this encounter"
--- OUTSIDE RECORDS SUMMARY | ~2019-03-16 | XMS | Encounter Summary ---
Demographics + + + | Address | [address] | | | [place] [address] | + + + | Home Phone | | + + + | Preferred Language | Unknown | + + + | Marital Status | | + + + | Restoration Affiliation | Unknown | + + + | Race | Unknown | + + + | Ethnic Group | Unknown | + + + Author + + + | Author | [facility] | + + + | Organization | [facility] | + + + | Address [...] Team Providers + +------+ + | Care Face And Fill Packer Name | Role | Phone | + +------+ + | Kathrin Summers MD | PCP | | + +------+ + Reason for Visit +--------+ + | Reason | Comments | +--------+ + | Other | [facility] - [place] uro - abdomen 06/13/18. | +--------+ + Encounter Details +--------+ + + + + | Date | Type | Department | Care Team | Description | +--------+ + + + + | 02/07/ | Documentati | [facility] | Shruthi Feng | Other ([facility] | | 2019 | on Only | Cardiology [place] | CHANDA Suero | [facility] - [place] uro - | | | | [address] | | abdomen 06/13/18. ) | | | | Way [address] | | | | | | [place] [address] | | | | | | [phone] | | | +--------+ + + + [...] [place] | | | | | | [address] | | | | | | | | +--------+ + + + + as of this encounter Visit Diagnoses Not on filein this encounter"
--- OUTSIDE RECORDS SUMMARY | 2019-03-16 12:08 | XMS ---
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 Care History Medical/Surgical 06/14/2018 [facility] - Patient is currently established with [facility]. If patient is seen in the ED during business hours. Please contact CHWs at [facility]. Care Recommendation: This patient has had 5 or more Emergency Department visits in the last 12 months.\T\nbsp; Patient requires education on the scope and purpose of the ED as an acute care provider not a Primary Care Provider and should not be utilized for chronic conditions.\T\nbsp; These are guidelines and the provider should exercise clinical judgment when providing care. 03/29/2018 [facility] Care Recommendation: - Patient currently receiving gabapentin for pain management through PCP. - Please discretion when providing pain medication per [facility], patient has been seen in the walk [...] ED please contact Community Health WorkerLola at [phone]. These are guidelines and the provider should exercise clinical judgment when providing care. E.D. VISIT COUNT (12 MO.) 7 [facility]. TOTAL 7 NOTE: Visits indicate total known visits. ED/C VISIT TRACKING (12 MO.) 03/16/2019 12:06 [facility] [place] TYPE: Emergency COMPLAINT: - NECK PAIN 12/18/2018 05:53 [facility] [place] TYPE: Emergency COMPLAINT: - HEADACHE, POST OP PROBLEM DIAGNOSES: - Headache - Other acute postprocedural pain - Nicotine dependence, unspecified, uncomplicated - Other group home (current) drug therapy - Allergy status to narcotic agent status - Allergy status to other drugs, medicaments and biological substances status 10/27/2018 13:27 [facility] [place] TYPE: Emergency COMPLAINT: - BILAT FLANK PAIN/SORE THROAT DIAGNOSES: - Allergy status to other drugs, medicaments and biological substances status - Nicotine dependence, unspecified, uncomplicated - Allergy status to narcotic agent status - Dehydration - Other group home (current) drug therapy - Fever, unspecified - Streptococcal pharyngitis 07/09/2018 18:09 [facility] [place] TYPE: Emergency COMPLAINT: - R FLANK PAIN DIAGNOSES: - Allergy status to other drugs, medicaments and biological substances status - Right upper quadrant pain - Other group home (current) drug therapy - Allergy status to narcotic agent status - Nicotine dependence, unspecified, uncomplicated 06/13/2018 06:06 [facility] [place] TYPE: Emergency COMPLAINT: - L FLANK PAIN DIAGNOSES: - Hydronephrosis with renal and ureteral calculous obstruction - Unspecified abdominal pain - Allergy status to narcotic agent status - Other exterminator (current) drug therapy - Nicotine dependence, unspecified, uncomplicated 05/23/2018 21:04 [facility] [place] TYPE: Emergency COMPLAINT: - NECK/BACK PAIN,NO RECENT INJURY DIAGNOSES: - Cervicalgia - Allergy status to analgesic agent status - Other group home (current) drug therapy - Nicotine dependence, unspecified, uncomplicated 03/27/2018 22:03 [facility] [place] TYPE: Emergency COMPLAINT: - R FLANK PAIN DIAGNOSES: - Unspecified abdominal pain - Personal history of urinary calculi - Nicotine dependence, unspecified, uncomplicated - Other exterminator (current) drug therapy - Unspecified renal colic INPATIENT VISIT TRACKING (12 MO.) No inpatient visits to display in this time frame [id number]
== END 2019-03-16 13:18 | disposition home or self-care (01) ==
LOC: ED 12:04
DX: G89.29 Other chronic pain (principal); M54.2 Cervicalgia; F17.200 Nicotine dependence, unspecified, uncomplicated; Z88.8 Allergy status to other drugs, medicaments and biological substances; Z88.5 Allergy status to narcotic agent; Z79.899 Other long term (current) drug therapy
CPT/HCPCS: 96372; 99283-25; J1885

== ENCOUNTER 2020-04-20 08:02 | Emergency (ER) | payer OTHER ==
[~2020-04-20] VITALS: Ht 170.2 cm; Wt 98.9 kg
--- OUTSIDE RECORDS SUMMARY | ~2020-04-20 | XMS | Encounter Summary ---
Demographics + + + | Address | [address] | | | [place] [address] | + + + | Home Phone | | + + + | Preferred Language | Unknown | + + + | Marital Status | | + + + | Scientologist Affiliation | Unknown | + + + | Race | Unknown | + + + | Ethnic Group | Unknown | + + + Author + + + | Author | [facility] | | | and Frandyana | + + + | Organization | [facility] | | | and Frandyana [...] Team Providers + +------+ + | Care Long Term Care Phlebotomist Name | Role | Phone | + +------+ + | Kathrin Summers | PCP | | + +------+ + Encounter Details +--------+ + + + + | Date | Type | Department | Care Team | Description | +--------+ + + + + | 12/03/ | Orders Only | [facility] [place] | Bony Quiroz | Cervical spondylosis | | 2017 | | NEUROSURGERY [address] | [address] | with radiculopathy | | | | [address] [place], [place] | (Primary Dx); S/P | | | | [place], [place] | [address] | cervical spinal | | | | [phone] | | fusion | | | | [phone] | | | +--------+ + + + + Social History + + + +--------+------+ | Tobacco Use | Types | Packs/Day | Years | Date | | | | | Used | | + + + +--------+------+ | Current Every Day | Cigarettes | 0.5 | 13 | | | Smoker | | | | | + + + +--------+------+ + [...] + + documented as of this encounter Plan of Treatment +--------+---------+ + + + | Date | Type | Specialty | Care Team | Description | +--------+---------+ + + + | 05/09/ | Office | Neurology | Renu Bright, | | | 2019 | Visit | | [address] [facility] | | | | | | [address] | | | | | | [place] [address] | | | | | | [phone] | | | | | | | | +--------+---------+ + + + documented as of this encounter Results XR Cervical Spine 2 or 3 Views (01/13/2017 7:41 AM PDT) + + | Specimen | + + | | + + + + + | Narrative | Performed At | + + + | EXAM:XR CERVICAL SPINE 2 OR 3 VIEWS CLINICAL HISTORY: Postop | [facility] | | COMPARISON: December 12, 2016 FINDINGS: Frontal and lateral views | [facility] | | of the cervical spine. Anterior cervical discectomy and fusion | [facility] | | changes from C3 through C6. Intact hardware. No change in | - IMAGING | | positioning of the interbody graft markers. No change in spinal | | | alignment. No significant precervical soft tissue thickening. The | | | visible lung apices are clear. IMPRESSION - No radiographic | | | evidence for an interval complication. Dictated and Signed by: | | | Kang Salgado MD Electronically signed: 01/13/2017 9:22 AM | | + + + + + | Procedure Note | + + | Dorian, Rad Results In - 01/13/2017 9:25 AM PDT EXAM:XR CERVICAL SPINE 2 OR 3 VIEWS | | | | CLINICAL HISTORY: Postop | | | | COMPARISON: December 12, 2016 | | | | FINDINGS: Frontal and lateral views of the cervical spine. Anterior cervical | | discectomy and fusion changes from C3 through C6. Intact hardware. No change | | in positioning of the interbody graft markers. No change in spinal alignment. | | No significant precervical soft tissue thickening. The visible lung apices are | | clear. | | | | IMPRESSION - | | | | No radiographic evidence for an interval complication. | | | | Dictated and Signed by: Kang Salgado MD | | Electronically signed: 01/13/2017 9:22 AM | + + + + + + + | Performing | Address | City/State[facility] | Phone Number | | Organization | | | | + + + + + | [address] | [address] | [place] | [phone] | | [facility] | | [address] | | | - IMAGING | | | | + + + + + documented in this encounter Visit Diagnoses + + | Diagnosis | + + | Cervical spondylosis with radiculopathy - Primary Cervical spondylosis with | | myelopathy | + + | S/P cervical spinal fusion Arthrodesis status | + + documented in this encounter"
--- OUTSIDE RECORDS SUMMARY | ~2020-04-20 | XMS | Clinical Summary ---
Demographics + + + | Address | [address] [place] [address] | | | [place] [address] | + + + | Home Phone | | + + + | Preferred Language | Unknown | + + + | Marital Status | Single | + + + | Gnosticism Affiliation | Unknown | + + + | Race | White | + + + | Ethnic Group | Not or | + + + Author + + + | Author | [facility] | + + + | Organization | [facility] | + + + | Address | Unknown | + + + | Phone | Unavailable | + + + Support + + +---------+ + | Name | Relationship | Address | Phone | + + +---------+ + | None None | ECON | Unknown | Unavailable | + + +---------+ + Care Team Providers + +------+ + | Care Patient Financial Services Coordinator Name | Role | Phone | + +------+ + | Ghada Hung MD | PCP | | + +------+ + Source Comments CHELSEA is fully live on both [facility] and [facility] Allergies + + + + + + | Active Allergy | Reactions | Severity | Noted | Comments | | | | | Date | | + + + + + + | Tramadol | Nausea and Vomiting | Medium | 05/20/20 | | | | | | 15 | | + + + + + + Medications Not on file Active Problems Not on file Social History + + + +--------+------+ | Tobacco Use | Types | Packs/Day | Years | Date | | | | | Used | | + + + +--------+------+ | Current Every Day | Cigarettes | | | | | Smoker | | | | | + + + +--------+------+ + +---+---+---+ | Smokeless Tobacco: | | | | | Never Used | | | | + +---+---+---+ + + +---------+ + | Alcohol Use | Drinks/Week | oz/Week | Comments | + + +---------+ + | No | | | | + + +---------+ + + + + | Sex Assigned at | Date Recorded | | | | + + + | Not on file | | + + + + + + + | Job Start Date | Occupation | Industry | + + + + | Not on file | Not on file | Not on file | + + + + + + + + | Travel History | Travel Start | Travel End | + + + + + + | No recent travel history available. | + + Last Filed Vital Signs + + + + + | Vital Sign | Reading | Time Taken | Comments | + + + + + | Blood Pressure | 174/95 | 09/02/2018 1:58 PM | | | | | PST | | + + + + + | Pulse | 91 | 09/02/2018 1:58 PM | | | | | PST | | + + + + + | Temperature | - | - | | + + + + + | Respiratory Rate | - | - | | + + + + + | Oxygen Saturation | - | - | | + + + + + | Inhaled Oxygen | - | - | | | Concentration | | | | + + + + + | Weight | 98 kg (216 lb) | 09/02/2018 1:58 PM | | | | | PST | | + + + + + | Height | - | - | | + + + + + | Body Mass Index | - | - | | + + + + + Plan of Treatment + + + + + | Health Maintenance | Due Date | Last Done | Comments | + + + + + | Pneumococcal | | | | | vaccination ( | 0 | | | | - PPSV23) | | | | + + + + + | Influenza (Flu) | | | | | vaccination (#1) | 9 | | | + + + + + Results Not on filefrom Last 3 Months Insurance + +--------+ +--------+-------+---------+--------+ | Payer | Benefi | Subscriber | Effect | Phone | Address | Type | | | t Plan | ID | kemar | | | | | | / | | Dates | | | | | | Group | | | | | | + +--------+ +--------+-------+---------+--------+ | LABORATORY CHEMIST MEDICAID | LABORATORY CHEMIST | xxxxxxxx | | | | Medica | | | EASTER | | [id number] | | | id | | | N [place] | | esent | | | | + +--------+ +--------+-------+---------+--------+ + +--------+ +--------+ + + | Guarantor Name | Accoun | Relation to | Date | Phone | Billing Address | | | t Type | Patient | of | | | | | | | | | | + +--------+ +--------+ + + | Layne Bentley | Person | Self [birth year] | [address] | | | al/Jc | | 1986 | [phone] [place] | | | [place] | | | [address] (Home) | [address] | + +--------+ +--------+ + +"
--- OUTSIDE RECORDS SUMMARY | ~2020-04-20 | XMS | Encounter Summary ---
Demographics + + + | Address | [address] | | | [place] [address] | + + + | Home Phone | | + + + | Preferred Language | Unknown | + + + | Marital Status | | + + + | Taoist Affiliation | Unknown | + + + | Race | Unknown | + + + | Ethnic Group | Unknown | + + + Author + + + | Author | [facility] | | | and [place] | + + + | Organization | [facility] | | | and [place] | + + + | Address | Unknown | + + + | Phone | Unavailable | + + + Support + + +---------+ + | Name | Relationship | Address | Phone | + + +---------+ + | Ursula Lozada | ECON | Unknown | | + + +---------+ + | Julisa Richmond | ECON | Unknown | | + + +---------+ + Care Team Providers + +------+ + | Care Manager Heart Failure Name | Role | Phone | + +------+ + | Kathrin Summers | PCP | | + +------+ + Encounter Details +--------+ + + + + | Date | Type | Department | Care Team | Description | +--------+ + + + + | 08/07/ | Hospital | [facility] | Conversion | Nephrolithiasis | | 2016 | Encounter | [facility] [address] | Transaction, | | | | | [address] | Provider Unknown | | | | | [place], [place] | | | | | | [phone] | (Fax) | | | | | [phone] | | | +--------+ + + + + Social History + + + +--------+------+ | Tobacco Use | Types | Packs/Day | Years | Date | | | | | Used | | + + + +--------+------+ | Current Every Day | Cigarettes | 0.5 | 13 | | | Smoker | | | | | + + + +--------+------+ + + +---------+ + | Alcohol Use | Drinks/Week | oz/Week | Comments | + + +---------+ + | Not Asked | | | | + + +---------+ + + + + | Sex Assigned at | Date Recorded | | | | + + + | Not on file | | + + + documented as of this encounter Medications at Time of Discharge + + + +---------+ + + | Medication | Sig | Dispensed | Refills | Start | End Date | | | | | | Date | | + + + +---------+ + + | albuterol (PROAIR | Inhale 2 puffs into | | 0 | | | | HFA) 90 mcg/puff | the lungs every 6 | | | | 7 | | inhaler | hours as needed for | | | | | | | Wheezing. | | | | | + + + +---------+ + + | | Take by mouth. | | 0 | | | | Aspirin-Acetaminophe | | | | | 7 | | n-Caffeine (EXCEDRIN | | | | | | | MIGRAINE PO) | | | | | | + + + +---------+ + + | citalopram | take 1 tablet by | | 0 | 07/30/20 | | | (CELEXA) 20 mg | mouth once daily | | | 16 | 6 | | tablet | | | | | | + + + +---------+ + + | mirtazapine | take 1 tablet by | | 0 | 07/30/20 | | | (REMERON) 15 MG | mouth IN THE EVENING | | | 16 | 7 | | tablet | | | | | | + + + +---------+ + + | morphine (MS | take 1 tablet by | | 0 | 07/30/20 | | | CONTIN) 15 mg ER | mouth twice a day | | | 16 | 7 | | tablet | | | | | | + + + +---------+ + + | naloxone (NARCAN) | INJECT 1 ML IN | | 2 | 07/17/20 | | | 0.4 mg/mL injection | SHOULDER OR THIGH. | | | 16 | 7 | | | REPEAT AFTER 2 TO 3 | | | | | | | MINUTES IF NO OR | | | | | | | MINIMAL RESPONSE. | | | | | | | CALL [id number] | | | | | + + + +---------+ + + | nortriptyline | 1 capsule by mouth | 120 | 1 | 03/14/20 | | | (PAMELOR) 10 MG | at bedtime for 7 | capsule | | 15 | 7 | | capsule | days; then 2 at | | | | | | | bedtime for 7 days; | | | | | | | then 3 at bedtime | | | | | | | for 7 days; then 4 | | | | | | | at bedtime | | | | | + + [...] [facility] | | | | | | [address] | | | | | | [place] [address] | | | | | | [phone] | | | | | | | | +--------+---------+ + + + documented as of this encounter Procedures + +--------+ + + + | Procedure Name | Priori | Date/Time | Associated Diagnosis | Comments | | | ty | | | | + +--------+ + + + | CT RENAL STONE WO | Routin | 08/07/2016 | | Results for this | | CONTRAST | e | 12:18 PM | | procedure are in the | | | | PDT | | results section. | + +--------+ + + + documented in this encounter Results CT Renal Stone Wo Contrast (08/07/2016 12:18 PM PDT) + + | Specimen | + + | | + + + + + | Impressions | Performed At | + + + | 1. Bilateral nonobstructing renal calculi as noted in detail in | | | the findings. Although there is no right hydronephrosis seen, there is | | | small amount of stranding noted surrounding the right renal pelvis, | | | suggesting potential inflammation. 2. No ureterolithiasis or | | | hydroureter noted. No urinary bladder calculus seen. | | | | | + + + + + + | Narrative | Performed At | + + + | [facility] [address] URINARY TRACT ABDOMEN | | | PELVIS WO CONTRAST 08/07/2016 12:18 PM INDICATION: | | | Nephrolithiasis COMPARISON: CT abdomen pelvis 06/14/2016. | | | TECHNIQUE: 5-mm axial images were acquired through the abdomen and | | | pelvis. No oral or IV contrast was used. Radiation dose reduction | | | performed with automated exposure control. FINDINGS: In the right | | | renal pelvis, there is a 7 mm calculus seen which appears essentially | | | unchanged. There is an additional 4 mm calculus seen in the right | | | renal pelvis, which perhaps appears to be displaced, previously seen | | | on series 3, image 37. Mild stranding noted surrounding the right | | | renal pelvis, suggesting potential inflammation. There are punctate at | | | least 2-3 nonobstructing right calculus seen. There is a | | | nonobstructing left renal calculus seen measuring 5 mm in size on | | | series 2, image 37. No left hydronephrosis noted. No | | | ureterolithiasis or urinary bladder calculus seen. Lack of | | | intravenous contrast diminishes sensitivity especially for evaluation | | | of solid organs and vascular structures. The unenhanced liver, | | | gallbladder, pancreas, spleen and adrenal glands appear unremarkable. | | | No evidence of free air, bowel obstruction, ileus or fluid | | | collection seen. Small amount of stool in the colon. No enlarged | | | retroperitoneal or mesenteric lymph nodes by CT size criteria seen. | | | Aorta appears to be normal in course and caliber with mild | | | atherosclerotic calcification. No acute or destructive osseous | | | process seen. Appendix is seen on series 2, image 16 and appears | | | unremarkable. Rectum, sigmoid colon, urinary bladder appear grossly | | | unremarkable. No enlarged pelvic lymph nodes by CT size criteria seen. | | | No pelvic fluid collection noted. | | + + + + + | Procedure Note | + + | Dorian, Rad Conversion - 06/09/2019 5:06 PM [facility] years MaleCT | | URINARY TRACT ABDOMEN PELVIS WO PVFXUCUR29/13/2016 12:18 PM INDICATION: Nephrolithiasis | | COMPARISON: CT abdomen pelvis 06/14/2016. TECHNIQUE: 5-mm axial images were acquired | | through the abdomen and pelvis. No oral or IV contrast was used. Radiation dose | | reduction performed with automated exposure control. FINDINGS: In the right renal | | pelvis, there is a 7 mm calculus seen which appears essentially unchanged. There is an | | additional 4 mm calculus seen in the right renal pelvis, which perhaps appears to be | | displaced, previously seen on series 3, image 37. Mild stranding noted surrounding the | | right renal pelvis, suggesting potential inflammation. There are punctate at least 2-3 | | nonobstructing right calculus seen. There is a nonobstructing left renal calculus seen | | measuring 5 mm in size on series 2, image 37. No left hydronephrosis noted. No | | ureterolithiasis or urinary bladder calculus seen. Lack of intravenous contrast | | diminishes sensitivity especially for evaluation of solid organs and vascular | | structures. The unenhanced liver, gallbladder, pancreas, spleen and adrenal glands | | appear unremarkable. No evidence of free air, bowel obstruction, ileus or fluid | | collection seen. Small amount of stool in the colon. No enlarged retroperitoneal or | | mesenteric lymph nodes by CT size criteria seen. Aorta appears to be normal in course | | and caliber with mild atherosclerotic calcification. No acute or destructive osseous | | process seen. Appendix is seen on series 2, image 16 and appears unremarkable. Rectum, | | sigmoid colon, urinary bladder appear grossly unremarkable. No enlarged pelvic lymph | | nodes by CT size criteria seen. No pelvic fluid collection noted. IMPRESSION: 1. | | Bilateral nonobstructing renal calculi as noted in detail in the findings. Although | | there is no right hydronephrosis seen, there is small amount of stranding noted | | surrounding the right renal pelvis, suggesting potential inflammation.2. No | | ureterolithiasis or hydroureter noted. No urinary bladder calculus seen. Electronically | | signed by Chris Fiore MD on 08/07/2016 1:03 PM | |IMPRESSION: | |1. Bilateral nonobstructing renal calculi as noted in detail in the findings. Although the re is no right hydronephrosis seen, there is small amount of stranding noted surrounding the right renal pelvis, suggesting potential inflammation. | |2. No ureterolithiasis or hydroureter noted. No urinary bladder calculus seen. | | | | | + + documented in this encounter Visit Diagnoses + + | Diagnosis | + + | Nephrolithiasis Calculus of kidney | + + documented in this encounter"
--- OUTSIDE RECORDS SUMMARY | ~2020-04-20 | XMS | Encounter Summary ---
Demographics + + + | Address | [address] | | | [place] [address] | + + + | Home Phone | | + + + | Preferred Language | Unknown | + + + | Marital Status | | + + + | Restorationism Affiliation | Unknown | + + + | Race | Unknown | + + + | Ethnic Group | Unknown | + + + Author + + + | Author | [facility] | | | and Frandyana | + + + | Organization | [facility] | | | and Frandyana | [...] Team Providers + +------+ + | Care Speaker Mounter Name | Role | Phone | + +------+ + | Kathrin Summers | PCP | | + +------+ + Reason for Visit +---------+ + | Reason | Comments | +---------+ + | Post Op | 12W PO | +---------+ + Encounter Details +--------+---------+ + + + | Date | Type | Department | Care Team | Description | +--------+---------+ + + + | 03/12/ | Office | [facility] | Bony Quiroz | Cervical spinal | | 2017 | Visit | NEUROSURGERY [address] | [address] | stenosis (Primary | | | | [address] [place], [place] | Dx); S/P cervical | | | | [place] | [address] | spinal fusion; | | | | [address] | | Cervical spondylosis | | | | [phone] | | with radiculopathy; | | | | | | Foraminal stenosis | | | | | | of cervical region | +--------+---------+ + + + Social History [...] + + + | Blood Pressure | 106/61 | 03/12/2017 4:02 PM | | | | | PDT | | + + + + + | Pulse | 115 | 03/12/2017 4:02 PM | | | | | PDT | | + + + + + [...] + + + + | Weight | 91.6 kg (202 lb) | 03/12/2017 4:02 PM | | | | | PDT | | + + + + + | Height | 170.2 cm (5' 7") | 03/12/2017 4:02 PM | | | | | PDT | | + + + + + | Body Mass Index | 31.64 | 03/12/2017 4:02 PM | | | | | PDT | | + + + + + [...] + + documented as of this encounter Patient Instructions Patient Instructions Bony Quiroz PA-C - 03/12/2017 4:24 PM PDTAt this time you m ay increase her activities allowing lifting up to 35 pounds. Over the next 4 weeks you can continue to increase this as tolerated. We will see you back in approximately 6 months with x-rays documented in this encounter Progress Notes Bony Quiroz PA-C - 03/12/2017 4:10 PM PDTFormatting of this note might be differ ent from the original. Bony Quiroz PA-C [address], [address] [place], [place] [id number] FAX: NEUROSURGERY FOLLOW-UP CHIEF COMPLAINT: Chief Complaint Patient presents with Post Op 12W PO HISTORY OF PRESENT ILLNESS: The patient is a 31 y.o. male that had a cervical fusion for n rocio pain and radicular symptoms around 3 months ago. He returns and overall is doing as exp ected. The patient complains of continued problems with neck pain and muscle pain.. The pa tient has been walking as much as directed. He is still taking pain medications at this po int. Swallowing is close to or back to normal. The patient has had no issues with his surg ical site. PAST MEDICAL HISTORY: Past Medical History Diagnosis Date Chronic bronchitis (HCC) Arthritis Chronic kidney disease can't process uric acid Kidney stone Chronic pain syndrome Spondylosis without myelopathy or radiculopathy, cervical region Radiculopathy, cervical region Neck pain Cervical radiculopathy Cervical spondylosis PONV (postoperative nausea and vomiting) upper Wears dentures PAST SURGICAL HISTORY: Past Surgical History Procedure Laterality Date Knee surgery 2002 right Kidney stone surgery [id number] x2 Cervical spine surgery Anterior 12/12/2016 Procedure: C3-4, C4-5, C5-6 Anterior Cervical Discectomy Fusion; Surgeon: Suellen Emmanuel; Location: [facility] MAIN OR CURRENT MEDICATIONS: Current Outpatient Prescriptions Medication Sig Dispense Refill HYDROcodone-acetaminophen (NORCO) 10-325 mg per tablet Take 1-2 tablets by mouth every 4 hours as needed for Pain. 120 tablet 0 morphine (MS CONTIN) 30 mg ER tablet Take 1 tablet by mouth 2 times daily. 60 tablet 0 traZODone (DESYREL) 50 mg tablet Take 50 mg by mouth 3 times daily. 0 No current facility-administered medications for this visit. ALLERGIES: Allergies Allergen Reactions Gabapentin Nausea And Vomiting Tramadol Nausea And Vomiting SOCIAL HISTORY: The patient reports that he has been smoking Cigarettes. He has a 6.5 pack-year smoking h istory. He has never used smokeless tobacco. He reports that he does not drink alcohol or us e illicit drugs. FAMILY HISTORY: Family History Problem [...] Paternal Grandmother COPD Maternal Grandmother REVIEW OF SYSTEMS GENERALLY: No fever, no night sweats, no anemia, no fatigue, no recent profound weight ch anges. EYES: No eye problems, no use of corrective lenses, no eye injury, no double vision, no bl indness. EARS, NOSE, AND THROAT: No changes in taste or smell, no hearing difficulty, no ringing in the ears, no ear drainage, no dizziness, no voice changes, no difficulty swallowing, + sign ificant snoring, + sleep apnea, no sinus problems, no major dental work. NEUROLOGICALLY: Please see the review of systems discussed above in the history of present illness. In addition, the patient has numbness of the arm, muscle aching, pain in neck, he adaches, migraine. . PSYCHIATRIC: No depression, + sleep disorders, + anxiety, no bipolar disorder, no psychoti c episodes. CARDIOVASCULAR: No heart attacks, no heart murmur, no heart fluttering, no chest pain, no ankle swelling. LUNG DISEASE: No shortness of breath, no cough, no tuberculosis, no bloody cough, no asth ma, no emphysema/COPD. GASTROINTESTINAL: No bowel disease, no nausea or vomiting, no rectal bleeding, no constipa tion, no stool incontinence, no liver disease, no gallbladder disease, no abdominal pain, no ulcers. KIDNEY DISEASE: No urinary frequency, no painful or difficult urination, no incontinence. ENDOCRINE: No diabetes, no thyroid disease, no osteopenia or osteoporosis, no breast drain age. SKIN: No breast lumps, no skin changes, no rashes, no itches. HEMATOLOGIC/LYMPHATIC: No enlarged lymph nodes, no easy or unusual bleeding, no personal h istory of cancer. RHEUMATOLOGIC: No joint arthritis, no rheumatoid arthritis. INTERIM PHYSICAL EXAMINATION: Blood pressure 106/61, pulse 115, height 1.702 m (5' 7"), weight 91.627 kg (202 lb). Body m ass index is 31.63 kg/(m^2). GENERAL: Layne Bentley is in no acute distress with unlabored respirations. SPINE: The patient s incision is well healed. EXTREMITIES: No lower extremity edema. NEUROLOGICAL EXAMINATION: MENTAL STATUS: The patient is awake, alert, and oriented. He follows simple and complex commands MOTOR EXAM: Motor strength is 5/5 in his upper extremities. SENSORY EXAM: The sensory examination is improved when compared to the preoperative exam. RADIOGRAPHIC REVIEW: The patient s x-rays show stable instrumentation and alignment and were reviewed with the patient today. There have been no interval changes since the immediate postoperative films . Complete fusion has not yet occurred, but this is normal and would not be expected at thi s time. ASSESSMENT: Encounter Diagnoses Name Primary? Cervical spinal stenosis Yes S/P cervical spinal fusion Cervical spondylosis with radiculopathy Foraminal stenosis of cervical region Past Medical History Diagnosis Date Chronic bronchitis (HCC) Arthritis Chronic kidney disease can't process uric acid Kidney stone Chronic pain syndrome Spondylosis without myelopathy or radiculopathy, cervical region Radiculopathy, cervical region Neck pain Cervical radiculopathy Cervical spondylosis PONV (postoperative nausea and vomiting) upper Wears dentures PLAN: Overall, the patient is doing as expected. The patient can see some improvements but asuncion nues to recover from recent surgery. He continues to work with physical therapy. He is try ing to work with pain medicine clinic in [facility] increased the patient s activities To 35 pounds lifting. He can continue to slowly inc rease that over the next 4 weeks. The patient should increase range of motion activities as tolerated. I would like the patient to advance slowly with this process and discussed this at length during today's visit. I would also like the patient to continue with postoperati ve rehabilitation and to advance with therapy as tolerated. 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 I released madison bunch back to work and would like him to advance as tolerated. The patient needs to follow-up in 6 months with x-rays for re-evaluation. ELECTRONICALLY SIGNED BY: King Covington MD 03/12/2017 17:32 documented in this encou nter Miscellaneous Notes Addendum Note - King Covington MD - 03/12/2017 5:33 PM PDT Addended by: KING COVINGTON on: 03/12 17:33 Modules accepted: Orders, Level of Service documented in this enc ount Plan of Treatment +--------+---------+ + + + | Date | Type | Specialty | Care Team | Description | +--------+---------+ + + + | 05/09/ | Office | Neurology | Renu Bright, | | | 2019 | Visit | | [address] | | | | | [address] [facility] [address] | | | | | | [place] [address] | | | | | | [phone] | | | | | | | | +--------+---------+ + + + documented as of this encounter Procedures + +--------+ + + + | Procedure Name | Priori | Date/Time | Associated Diagnosis | Comments | | | ty | | | | + +--------+ + + + | IMAGING REPORT - | | 03/09/2017 | | Results for this | | EXTERNAL SCAN | | 12:00 AM | | procedure are in the | | | | PDT | | results section. | + +--------+ + + + documented in this encounter Results IMAGING REPORT - EXTERNAL SCAN (03/09/2017 12:00 AM PDT) + + + | Narrative | Performed At | + + + | Ordered by an | | | unspecified provider. | | + + + documented in this encounter Visit Diagnoses + + | Diagnosis | + + | Cervical spinal stenosis - Primary Spinal stenosis in cervical region | + + | S/P cervical spinal fusion Arthrodesis status | + + | Cervical spondylosis with radiculopathy Cervical spondylosis with myelopathy | + + | Foraminal stenosis of cervical region Spinal stenosis in cervical region | + + documented in this encounter
--- OUTSIDE RECORDS SUMMARY | ~2020-04-20 | XMS | Encounter Summary ---
Demographics + + + | Address | [address] | | | [place] [address] | + + + | Home Phone | | + + + | Preferred Language | Unknown | + + + | Marital Status | | + + + | Muslim Affiliation | Unknown | + + + | Race | Unknown | + + + | Ethnic Group | Unknown | + + + Author + + + | Author | [facility] | | | and Frandyana | + + + | Organization | [facility] | | | and Frandyana [...] Team Providers + +------+ + | Care Online Education Manager Name | Role | Phone | + +------+ + | Kathrin Summers | PCP | | + +------+ + Reason for Visit + +--------+ + | Reason | Onset | Comments | | | Date | | + +--------+ + | Procedure | 12/10/ | presurgical check-in instructions | | | 2016 | | + +--------+ + Encounter Details +--------+ + + + + | Date | Type | Department | Care Team | Description | +--------+ + + + + | 12/10/ | Telephone | [facility] | Jeffrey Carvajal MD | Procedure | | 2017 | | NEUROSURGERY [address] | [address] | (presurgical | | | | [address] | [place] [address] | check-in | | | | [place] | [phone] | instructions ) | | | | [address] | | | | | | [phone] | | | +--------+ + + + [...] this encounter Miscellaneous Notes Telephone Encounter - Alana Cloud - 12/10/2016 11:22 AM PSTAll presurgical check-in instructions given Surgery date: 12/12/16 Check-in Time: 11:15AM (OR Schedule states procedure start time 1:15PM) No solids or liquids after midnight the night before surgery. Follow the cleansing instructions provided beginning the night before surgery after you rajani wer or bathe. No showering the morning of surgery. Please do not wear jewelry, contact lenses to surgery check-in. If you have dentures, hearing aids, or glasses please bring the cases with you to check-in. Medications instructions: None Surgical Admit Anticipated Disposition reviewed and correct: "Yes Confirmation of procedure/approval: "Yes". documented in this enc ounter Plan of Treatment +--------+---------+ + + + | Date | Type | Specialty | Care Team | Description | +--------+---------+ + + + | 05/09/ | Office | Neurology | Renu Bright, | | | 2019 | Visit | | [address] | | | | | | [address] | | | | | | [place] [address] | | | | | | [phone] | | | | | | | | +--------+---------+ + + + documented as of this encounter Visit Diagnoses Not on filedocumented in this encounter
--- OUTSIDE RECORDS SUMMARY | ~2020-04-20 | XMS | Encounter Summary ---
Demographics + + + | Address | [address] | | | [place] [address] | + + + | Home Phone | | + + + | Preferred Language | Unknown | + + + | Marital Status | | + + + | Church Affiliation | Unknown | + + + | Race | Unknown | + + + | Ethnic Group | Unknown | + + + Author + + + | Author | [facility] | | | and Frandyana | + + + | Organization | [facility] | | | and Frandyana [...] Team Providers + +------+ + | Care Automatic Dry Starch Operator Name | Role | Phone | + +------+ + | Ghada Hung MD | PCP | | + +------+ + Reason for Visit + + + | Reason | Comments | + + + | Follow-up | Chronic migraine without aura without status migrainosus, not | | | intractable | + + + Evaluate & Treat (Routine) + +--------+ + + + + | Status | Reason | Specialty | Diagnoses / | Referred By | Referred To | | | | | Procedures | Contact | Contact | + +--------+ + + + + | Authorized | | Neurology | Diagnoses | Anabell, | Kaila, | | | | | Migraine | Ghada Farnsworth, | [place] | | | | | without | MD [address] | [address] | | | | | aura, not | [place] | [facility] [address] | | | | | intractable, | [place], | D | | | | | without | [place] | [place] | | | | | status | [address] | [address] | | | | | migrainosus | Phone: | Phone: | | | | | | [phone] | [phone] | | | | | | Fax: | Fax: | | | | | | [phone] | [phone] | + +--------+ + + + + Encounter Details +--------+---------+ + + + | Date | Type | Department | Care Team | Description | +--------+---------+ + + + | 03/28/ | Office | [facility] | Renu Bright, | Chronic migraine | | 2020 | Visit | NEUROLOGY [address] | PA-C [address] | without aura without | | | | [address] | [address] | status migrainosus, | | | | [place], [place] | [place] [address] | not intractable | | | | [address] | [phone] | (Primary Dx) | | | | [phone] | | | +--------+---------+ + + + [...] + + + | Blood Pressure | 130/76 | 03/28/2020 1:20 PM | | | | | PDT | | + + + + + | Pulse | 99 | 03/28/2020 1:20 PM | | | | | PDT | | + + + + + | Temperature | 36.8 C (98.2 F) | 03/28/2020 1:20 PM | | | | | PDT | | + + + + + | Respiratory Rate | - | - | | + + + + + | Oxygen Saturation | 97% | 03/28/2020 1:20 PM | | | | | PDT | | + + + + + | Inhaled Oxygen | - | - | | | Concentration | | | | + + + + + | Weight | 103.3 kg (227 lb | 03/28/2020 1:20 PM | | | | 11.2 oz) | PDT | | + + + + + | Height | 170.2 cm (5' 7") | 03/28/2020 1:20 PM | | | | | PDT | | + + + + + | Body Mass Index | 35.66 | 03/28/2020 1:20 PM | | | | | PDT [...] documented as of this encounter Progress Notes Renu Bright PA-C - 03/28/2020 1:15 PM PDTFormatting of this note might be different fro m the original. Subjective: Patient ID: Layne Bentley is a 34 y.o. male. HPI He developed headaches for at least 4 years. He feels it is related to his neck problems. He states he has poor memory. He cannot recall having headaches in high school or if he cabrera d them in his 20's or not. He is applying for disability apparently for his neck pain and overall symptoms. 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 Since last visit: He continues to have difficulty with frequent severe headaches. He has daily headache, severe headache or migraine more than 50% of days. He started notriptyline 10 mg daily since december 2019, no perceived benefit, no side effects . Headache description: Location: starts from base of head and when becomes migraine. top back portion of head, ca n radiate to eyes. Headache pain currently is 7/10. Average is 6-7/10, can become 8-9/10 a t most severe. Associated symptoms: nausea, few times vomitted, +photophobia, Denies phonophobia. No aura . No focal neurological symptoms such as weakness, numbness, vision loss, diplopia, walking/b alance problem, vertigo, speech problem. Aggravating factors: Bright lights, headlights at night, anxiety, Alleviating factors: hot bath, cold cloth on eyes, rest, No change of migraine features over the years but frequency and severity is worsening. Current headache frequency: Daily headache/migraine over the last couple months, this is t he longest without having relief. Headache duration: several hours to days. Neuro imaging: reported he had head scan from his prior medical records (non-revealing for headaches), I don't have report or images to review. Preventative headache medications tried: Topamax helped reduce headaches but discontinued i n 07/2019 due to kidney stones. He takes lisinopril currently for hypertension. Trazodone nightly for sleep. Nortriptyline since 12/2019 for headaches, no improvement so far 10 mg daily. Abortive headache medications tried: States told not to take NSAID due to kidney stones. Acetaminophen, Excedrin worked some for a while but lost benefit. Family history migraine: mom has migraines. Exercise: no Caffeine: cutting down, 2 energy drinks per week compared to 2 daily. Sleep: 3-5 hours recently, typically gets 8-10 hours sleep per night. Review of Systems Constitutional: Positive for fatigue. Negative for fever. HENT: Negative for rhinorrhea and sore throat. Respiratory: Negative for cough and shortness of breath. Neurological: Positive for headaches (migraine today, ongoing several days). Objective: BP 130/76 | Pulse 99 | Temp 36.8 C (98.2 F) (Oral) | Ht 1.702 m (5' 7") | Wt 103.3 kg (227 lb 11.2 oz) | SpO2 97% | BMI 35.66 kg/m Neurologic Exam Mental Status Oriented to person, place, and time. Speech: speech is normal Cranial Nerves CN III, IV, Extraocular motions are normal. CN VII Facial expression full, symmetric. CN VIII Hearing: intact Gait, Coordination, and Reflexes Gait Gait: normal Physical Exam Eyes: Extraocular Movements: EOM normal. Neurological: Mental Status: He is oriented to person, place, and time. Gait: Gait is intact. Psychiatric: Speech: Speech normal. Assessment and Plan: The patient is a 34 year old male with chronic headache and migraine for at least 4 years. His migraines worsened in frequency and at times has chronic daily headache and migraine. He has cervical spondylosis and s/p multi-level fusion. 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 He did much better with Topamax for reduction of migraine frequency and severity, however d iscontinued due to kidney stones. He had more side effects with tizanidine. Nortriptyline, increase from 10 mg daily to 25 mg daily. If no improvement over the next 2 months, will change therapy, consider beta fe, calcium channel fe or injection tr eatments. Ketorolac injection today 60 mg IM for ongoing severe migraine. Reports normal lab studies at least yearly. No renal dysfunction. Rx sumatriptan 100 mg for abortive migraine treatment. He is not taking as needed headache medications often as directed, less than 2 days per wee k. Headaches currently not suggestive of rebound/medicaiton overuse. Follow up 6-8 weeks or sooner if needed. Encourage non-pharmacological headache prophylaxis including as daily exercise, stress rela xation, proper nutrition, avoid skipping meals, get adequate sleep, avoid over-sleeping. documented in this e ncounter Plan of Treatment +--------+---------+ + + + | Date | Type | Specialty | Care Team | Description | +--------+---------+ + + + | 05/09/ | Office | Neurology | Renu Bright, | | 2019 | Visit | | [address] | [address] | | | | | | [place] [address] | | | | | | [phone] | | | | | | | | +--------+---------+ + + + documented as of this encounter Visit Diagnoses + + | Diagnosis | + + | Chronic migraine without aura without status migrainosus, not intractable - Primary | | Chronic migraine without aura, without mention of intractable migraine without mention | | of status migrainosus | + + documented in this encounter Administered Medications + +--------+ +-------+------+ + | Medication Order | MAR | Action | Dose | Rate | Site | | | Action | Date | | | | + +--------+ +-------+------+ + | ketorolac (TORADOL) injection | Given | 03/28/20 | 60 mg | | Deltoid- | | 60 mg 60 mg, Intramuscular, | | 20 2:14 | | | Right | | ONCE, 03/28/20 at 1400, For 1 | | PM PDT | | | | | dose | | | | | | + +--------+ +-------+------+ + +---+---+ | | | +---+---+ documented in this encounter
--- OUTSIDE RECORDS SUMMARY | ~2020-04-20 | XMS | Encounter Summary ---
Demographics + + + | Address | [address] | | | [place] [address] | + + + | Home Phone | | + + + | Preferred Language | Unknown | + + + | Marital Status | | + + + | Spiritism Affiliation | Unknown | + + + | Race | Unknown | + + + | Ethnic Group | Unknown | + + + Author + + + | Author | [facility] | | | and Frandyana | + + + | Organization | [facility] | | | and Frandyana | + + + | Address | Unknown | + + + | Phone | Unavailable | + + + Support + + +---------+ + | Name | Relationship | Address | Phone | + + +---------+ + | rUsula Lozada | ECON | Unknown | | + + +---------+ + | Julisa Bentley | ECON | Unknown | | + + +---------+ + Care Team Providers + +------+ + | Care Labor Economics Teacher Name | Role | Phone | + +------+ + | Kathrin Summers | PCP | | + +------+ + Reason for Visit + +--------+ + | Reason | Onset | Comments | | | Date | | + +--------+ + | Medication Refill | 02/27/ | | | | 2016 | | + +--------+ + Encounter Details +--------+--------+ + + + | Date | Type | Department | Care Team | Description | +--------+--------+ + + + | 02/27/ | Refill | [facility] | Jeffrey Carvajal MD | Medication Refill | | 2017 | | NEUROSURGERY [address] | [address] | | | | | [address] | [place] [address] | | | | | [place] | [phone] | | | | | [address] | | | | | | [phone] | | | +--------+--------+ + + + [...] this encounter Miscellaneous Notes Telephone Encounter - Libra Garcia RN - 02/27/2017 1:54 PM PDTLeft message to notify patient Rx being sent [facility] # [id number] [phone] elephone Encounter - Leonidas De La Fuente PA-C - 02/27/2017 12:33 PM PDTApproved. 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 Type of pain (constant, intermittent, sharp, dull)? : Sides of neck , worse late in the day and upon waking from restless sleeping Send in the mail or call in to preferred pharmacy? [facility] Patient reported increased pain upon waking and history of being a restless sleeper. Asked if ok to wear soft collar to provide support/ comfort and limit movement during sleep. Con firmed ok and suggested using additional pillows to support in position of comfort and limit mobility while sleeping/ sedated. Please approve/ deny Rx documented in this encounter Plan of Treatment +--------+---------+ + + + | Date | Type | Specialty | Care Team | Description | +--------+---------+ + + + | 05/09/ | Office | Neurology | Renu Bright, | | | 2019 | Visit | | [address] | | | | | | [address] | | | | | | [place] [address] | | | | | | [phone] | | | | | | | | +--------+---------+ + + + documented as of this encounter Visit Diagnoses + + | Diagnosis | + + | S/P cervical spinal fusion - Primary Arthrodesis status | + + documented in this encounter"
--- OUTSIDE RECORDS SUMMARY | ~2020-04-20 | XMS | Encounter Summary ---
Demographics + + + | Address | [address] | | | [place] [address] | + + + | Home Phone | | + + + | Preferred Language | Unknown | + + + | Marital Status | | + + + | Amish Affiliation | Unknown | + + + | Race | Unknown | + + + | Ethnic Group | Unknown | + + + Author + + + | Author | [facility] | | | and Frandyana | + + + | Organization | [facility] | | | and Frandyana [...] Team Providers + +------+ + | Care Game Farm Helper Name | Role | Phone | + +------+ + | Kathrin Summers | PCP | | + +------+ + Reason for Visit +--------+--------+ + | Reason | Onset | Comments | | | Date | | +--------+--------+ + | Other | 11/19/ | Pre op meds to stop | | | 2016 | | +--------+--------+ + Encounter Details +--------+ + + + + | Date | Type | Department | Care Team | Description | +--------+ + + + + | 11/19/ | Telephone | [facility] [place] | Jeffrey Carvajal MD | Other (Pre op meds | | 2017 | | NEUROSURGERY [address] | [address] | to stop) | | | | [facility] [address] | [place] [address] | | | | | [place] | [phone] | | | | | [address] | | | | | | [phone] | | | +--------+ + + + [...] this encounter Miscellaneous Notes Telephone Encounter - Nasrin French RN - 11/19/2016 10:39 AM PSTPatient in office for pr e op appointment. Patient not currently taking any medications that need to be stopped prior to surgery. Patient advised at this time to avoid NSAIDs 7 days prior to surgery. Patient v erbalized understanding. All questions answered at this time. documented in this en counter Plan of Treatment +--------+---------+ + + + | Date | Type | Specialty | Care Team | Description | +--------+---------+ + + + | 05/09/ | Office | Neurology | Renu Bright, | | | 2019 | Visit | | [address] [facility] | | | | | | [address] [facility] [address] | | | | | | [place] [address] | | | | | | [phone] | | | | | | | | +--------+---------+ + + + documented as of this encounter Visit Diagnoses Not on filedocumented in this encounter"
--- OUTSIDE RECORDS SUMMARY | ~2020-04-20 | XMS | Encounter Summary ---
Demographics + + + | Address | [address] | | | [place] [address] | + + + | Home Phone | | + + + | Preferred Language | Unknown | + + + | Marital Status | | + + + | Faith Affiliation | Unknown | + + + | Race | Unknown | + + + | Ethnic Group | Unknown | + + + Author + + + | Author | and [facility] | | | and Frandyana | + + + | Organization | and [facility] | | | and Frandyana [...] Team Providers + +------+ + | Care Health Tech Name | Role | Phone | + +------+ + | Ghada Hung MD | PCP | | + +------+ + Reason for Visit +--------+--------+ + | Reason | Onset | Comments | | | Date | | +--------+--------+ + | Other | 11/21/ | New Patient previous treatment/testing | | | 2020 | | +--------+--------+ + Encounter Details +--------+ + + + + | Date | Type | Department | Care Team | Description | +--------+ + + + + | 11/21/ | Telephone | [facility] | Renu Bright, | Other (New Patient | | 2020 | | NEUROLOGY [address] | PA-C [address] | previous | | | | [address] | [address] | treatment/testing) | | | | [place], [place] | [place] [address] | | | | | [address] | [phone] | | | | | [phone] | | | +--------+ + + + [...] this encounter Miscellaneous Notes Telephone Encounter - Jeffrey Andino CMA - 11/29/2019 10:20 AM PSTAppointment confirmed no images of the head. Pt did have images of the spine. elephone Encounter - Jeffrey Andino CMA - 11/21/2019 9:28 AM PSTA call was placed to discuss previous testing and treatment. We are wanting to know i f there has been any previous imaging of the head, neck or spine, and if the patient has pre viously seen a neurologist. If so we need locations and dates so reports and images can be r equested prior to their upcoming new patient appointment. Patient has 48 hours to confirm appointment. If appointment is not confirmed in 48 hours ap pointment will then be canceled. Called to confirmed appt LVM with a call back number. documented in this encounter Plan of Treatment +--------+---------+ + + + | Date | Type | Specialty | Care Team | Description | +--------+---------+ + + + | 05/09/ | Office | Neurology | Renu Bright, | | | 2019 | Visit | | [facility] | | | | | | [address] | | | | | | [place] [address] | | | | | | [phone] | | | | | | | | +--------+---------+ + + + documented as of this encounter Visit Diagnoses Not on filedocumented in this encounter"
--- OUTSIDE RECORDS SUMMARY | ~2020-04-20 | XMS | Encounter Summary ---
Demographics + + + | Address | [address] | | | [place] [address] | + + + | Home Phone | | + + + | Preferred Language | Unknown | + + + | Marital Status | | + + + | Christianity Affiliation | Unknown | + + + | Race | Unknown | + + + | Ethnic Group | Unknown | + + + Author + + + | Author | [facility] | | | and Frnadyana | + + + | Organization | [facility] | | | and Frandyana | + + + | Address | Unknown | + + + | Phone | Unavailable | + + + Support + + +---------+ + | Name | Relationship | Address | Phone | + + +---------+ + | Ursula Lozada | ECON | Unknown | | + + +---------+ + | Julisa eBntley | ECON | Unknown | | + + +---------+ + Care Team Providers + +------+ + | Care Rad Tech Name | Role | Phone | [...] | | [address] | [place] [address] | (Primary Dx); | | | | [place], [place] | [phone] | Foraminal stenosis | | | | [address] | | of cervical region; | | | | [phone] | | Cervical spinal | | | [...] D | | | | | | [place] [address] | | | | | | [phone] | | | | | | | [...] [address] | [place] | [phone] | | [facility] | | [address] | | | - IMAGING | | | | + + + + + CBC with Differential (11/19/2016 1:18 PM PST) + + + + + + | Component | Value | Ref Range | Performed | Pathologist | | | | | At | Signature | + + + + + + | WBC | 11.8 (H) | 4.0 - 11.0 K/uL | [facility] | | [facility] | | | | | | [facility]ICAL | | | | | | C[facility] - | | | | | | LABORATORY | | + + + + + + | RBC | 5.00 | 4.30 - 5.70 | [facility] | | | | | M/uL | [facility] | [...] [facility] | | | | | | [facility] | | | | | | [...] | | Monocytes | | K/uL | [facility] | | | | | | [...] + | [facility] | [address] | [place] | [phone] | | [facility] | | [address] | | | - LABORATORY | | [...] | | | | | mmol/L | [facility] | | | | | | MEDICAL | | | | | | CENTER - | | | | | | LABORATORY | | + + + + + + | K | 3.4 (L) | 3.5 - 5.1 | [facility] | | | | | mmol/L | [facility] | | | | | | MEDICAL | | | | | | CENTER - | | | | | | LABORATORY | | + + + + + + | Cl | 103 | 98 - 109 mmol/L | [facility] | | | | | | [facility] | | | | | | MEDICAL | | | | | | CENTER - | | | | | | LABORATORY | | + + + + + + | CO2 | 28 | 24 - 31 mmol/L | [facility] | | | | | | [facility] | | | | | | MEDICAL | | | | | | CENTER - | | | | | | LABORATORY | | + + + + + + | Anion Gap | 7 | 3 - 16 mmol/L | [facility] | | | | | | [facility] | | | | | | MEDICAL | | | | | | CENTER - | | | | | | LABORATORY | | + + + + + + | Glucose | 99 | 70 - 109 mg/dL | [facility] | | | | | | [facility] | | | | | | MEDICAL | | | | | | CENTER - | | | | | | LABORATORY | | + + + + + + | BUN | 10 | 7 - 18 mg/dL | [facility] | | | | | | [facility] | | | | | | [...] not | >60Comment: GLOMERULAR | >=60 | YARELIS | | | | FILTRATION | mL/min/1.73m2 | [facility] | | | [place] | RATE,ESTIMATED | | MEDICAL | | | | mL/min/1.38q9Prue than | | CENTER - | | [...] + | [facility] | [address] | [place] | [phone] | | [facility] | | [address] | | | - LABORATORY | | [...] | | | | KELI MILLER MD ([id number]) | | | | | | on [...]
--- OUTSIDE RECORDS SUMMARY | ~2020-04-20 | XMS | Encounter Summary ---
Demographics + + + | Address | [address] | | | [place] [address] | + + + | Home Phone | | + + + | Preferred Language | Unknown | + + + | Marital Status | | + + + | Caodaism Affiliation | Unknown | + + + | Race | Unknown | + + + | Ethnic Group | Unknown | + + + Author + + + | Author | [facility] | | | and Frandyana | + + + | Organization | [facility] | | | and Frandyana | [...] Team Providers + +------+ + | Care Program Administrator Name | Role | Phone | + [...] | | [address] | [place] [address] | | | | | [place] | [phone] | | | | | [address] | | | | | | [phone] | | | +--------+ + + + [...] | | | | | [place] [address] | | | | | | [phone] | | | | | | | | +--------+---------+ + + + documented as of this encounter Visit Diagnoses Not on filedocumented in this encounter"
--- OUTSIDE RECORDS SUMMARY | ~2020-04-20 | XMS | Encounter Summary ---
Demographics + + + | Address | [address] | | | [place] [address] | + + + | Home Phone | | + + + | Preferred Language | Unknown | + + + | Marital Status | | + + + | Quaker Affiliation | Unknown | + + + | Race | Unknown | + + + | Ethnic Group | Unknown | + + + Author + + + | Author | [facility] | | | and Frandyana | + + + | Organization | [facility] | [...] Team Providers + +------+ + | Care Microbiology Analyst Name | Role | Phone | + [...] | | | | | | | MA | | | | | | | ARTHRODESIS | | | | | | | ANT | | | | | | | INTERBODY | | | | | | | INC | | | | | | | DISCECTOMY, | | | | | | | CERVICAL | | | | | | | BELOW C2 MA | | | | | | | [...] | | | | | | | MA | | | | | | | [...] | | | | | | | MA ALLOGRAFT | | | | | | [...] + + | 12/12/ | Hospital | [facility] | Jeffrey Carvajal MD | | | 2017 - | Encounter | MED CTR SUR[facility] | [address] | | | | | [address] | [place] [address] | | | 12/13/ | | [place] [address] | [phone] | | | 2016 | | [phone] | | | +--------+ + + + [...] as of this encounter Discharge Instructions Instructions Jeffrey Carvajal MD - 12/13/2016Discharge Instructions for Cervical [...] t raise your hands over your head vju0svov(s)after your surgery. Don t drive until your [...] this your 1 month post op appointment. [phone] [employer] [place] [address], [place] [address]. All righ ts reserved. This information is [...] might be different from t john original. [facility] PROGRESS NOTE Pt. Name/Age/: Layne Bentley 31 y.o. 1985 Med. Record Number: [id number] Date of admission: 12/12/2016 Subjective: The patient [...] Electronically signed by: Jeffrey Carvajal, 12/13/2016 7:11 [facility] documented in this encou nter H&P Notes Jeffrey Carvajal MD - 12/12/2016 3:17 PM PSTFormatting of this note might be different from t john original. Jeffrey Carvajal MD [address] [facility] [facility] [place], [place] [id number] FAX: NEUROSURGERY HISTORY AND PHYSICAL EXAMINATION CHIEF [...] Knee surgery 2002 right Kidney stone surgery [id number] x2 CURRENT MEDICATIONS: Current Outpatient Prescriptions Medication [...] has no apparent deficits with short or unloading checker memory. MOTOR EXAM: (5 IS NORMAL) * Indicates pain limited MUSCLE/ MOVEMENT: RIGHT LEFT Deltoids 5 5 Biceps 5 5 Triceps 5 5 Wrist Flexion 5 5 Wrist Extension 5 5 Median Intrinsics 5 5 Ulnar Intrinsics 5 5 Healthcare Corporate Account Director Strength 5 5 SENSORY EXAM: Sensory exam [...] GOALS: Speech Therapy Swallow Plan of Care CARDIOLOGY NURSE Visit Type: Initial Evaluation Note Summary: Pt sitting upright EOB for swallow assessment s/o ACDF C3-6. Pt c/o sore neck par ticularly at incision site. No difficulty swallowing. Pt trialed pureed, ground, mixed, chop ped, regular textures and thin liquids with no s/s of airway compromise. Pt reported increas ed difficulty eating crust of bread. CARDIOLOGY NURSE rec's level 3 dysphagia advanced diet and [...] further Speech Therapy Planned Interventions: Treatment Plan (CARDIOLOGY NURSE): compensatory strategies, diet texture modific ation, patient/caregiver education Recommended Frequency: CARDIOLOGY NURSE Diagnosis: Mild pharyngeal dysphagia At bedside, signs [...] RESTRAINT-RELATED GOALS: STRATEGIES TO ACHIEVE RESTRAINT GOALS: [facility] Occupational Therapy OPIB Plan of Care Patient [...] multiple contributors. ADLs UB Dressing, Level of [place]: independent LB Dressing, Level of [place]: independent Toileting, Level of [place]: independent Medicare Functional Limitation Reporting: OT G-codes Functional Assessment Tool Used: [facility] Functional Limitation: Self care Self Care [...] Outcome: Adequate for Discharge Date Met: 12/13/16 [facility] Physical Therapy OPIB Plan of Care Patient [...] Device: none Supine to Sit, Level of [place]: independent Sit to Supine, Level of [place]: independent Gait Level of [place]: independent Assistive Device: none Distance (feet): 360 Stairs stair instruction--pt indep with railing, no difficulty ROM ROM Testing Results: no range of motion deficits identified Strength Strength Testing Results: no strength deficits were identified [id number]-[id number] Goal Most Recent Value STG Status new, met at 12/13/2016 1105 STG [place] Level independent at 12/13/2016 1105 Gait Goal Most Recent Value STG Status new, met at 12/13/2016 1105 STG [place] Level independent at 12/13/2016 1105 STG Distance (feet) 360 at 12/13/2016 1105 Stair Goal Most Recent Value STG Status new, met at 12/13/2016 1105 STG [place] Level independent at 12/13/2016 1105 STG Assistive [...] problems. lan of Care - Yandy Abdul, EMS EDUCATOR - 12/13/2016 3:17 AM PSTProblem: Patient Care [...] Note Layne Bentley 31 y.o. male 1985 [id number] Proc. Date 12/12/2016 Preop Dx Cervical spondylosis [...] Madden Surgeon Jeffrey Carvajal MD - Primary Ends Breakage Clerk SOLA Menon-C EBL 156 Findings C3-6 spondylosis [...] allograft prior to insertion was filled with [place] bone. The structural allograft bone was then tamped into place at C3-4, C4-5, and C5-6. Anterior cervical plating was then performed by holding a 57 mm Zevo plate in place over th e segments with holding pins. Fluoroscopy was used to confirm its appropriate positioning a nd then fermenter champagne holes were made in the C3-6 vertebral [...] signed by: Jeffrey Carvajal MD 12/12/2016 18:03 [facility] rief Op Note - Leif Carvajal MD - 12/12/2016 6:03 PM PSTFormatting of this note might be different from the origin al. Brief Operative Note Layne Bentley 31 y.o. male 1985 [id number] Proc. Date 12/12/2016 Preop Dx Cervical spondylosis [...] Madden Surgeon Jeffrey Carvajal MD - Primary Ends Breakage Clerk Bony Quiroz PA-C EBL 156 Findings C3-6 spondylosis with canal narrowing and foraminal stenosis. Complications none Specimens * No specimens in log * Drains SAVANAH Electronically signed by: Jeffrey Carvajal MD 12/12/2016 18:03 [facility] Jeffrey Carvajal MD at 017 6:05 PM PSTPlan of Care - Roberto Kay PT - 12/12/2016 4:19 PM PSTMissed Visi t Patient Information Patient Name: Layne Bentley Date of : 1985 Age: 31 y.o. [...] D | | | | | | [place] [address] | | | | | | [phone] | | | | | | | [...]
--- OUTSIDE RECORDS SUMMARY | ~2020-04-20 | XMS | Encounter Summary ---
Demographics + + + | Address | [address] | | | [place] [address] | + + + | Home Phone | | + + + | Preferred Language | Unknown | + + + | Marital Status | | + + + | Spiritism Affiliation | Unknown | + + + | Race | Unknown | + + + | Ethnic Group | Unknown | + + + Author + + + | Author | [facility] | | | and Frandyana | + + + | Organization | [facility] | | | and Frandyana [...] Team Providers + +------+ + | Care Silk Crepe Machine Operator Name | Role | Phone | [...] Description | +--------+--------+ + + + | 04/16/ | Refill | [facility] | Renu Bright, | Medication Refill | | 2020 | | NEUROLOGY [address] | [address] | | | | | [place] | [address] [facility] [address] | | | | | [place], [place] | [place] [address] | | | | | [address] | [phone] | | | | | [phone] | | | +--------+--------+ + + + [...] | | | | | [place] [address] | | | | | | [phone] | | | | | | | | +--------+---------+ + + + documented as of this encounter Visit Diagnoses Not on filedocumented in this encounter"
--- OUTSIDE RECORDS SUMMARY | ~2020-04-20 | XMS | Encounter Summary ---
Demographics + + + | Address | [address] | | | [place] [address] | + + + | Home Phone | | + + + | Preferred Language | Unknown | + + + | Marital Status | | + + + | Baptist Affiliation | Unknown | + + + | Race | Unknown | + + + | Ethnic Group | Unknown | + + + Author + + + | Author | [facility] | | | and Frandyana | + + + | Organization | [facility] | | | and [...] Team Providers + +------+ + | Care Dining Room Supervisor Name | Role | Phone | + +------+ + | Kathrin Summers | PCP | | + +------+ + Reason for Referral Evaluate & Treat (Routine) +--------+ + + + + + | Status | Reason | Specialty | Diagnoses / | Referred By | Referred To | | | | | Procedures | Contact | Contact | +--------+ + + + + + | Closed | Specialty | Physical | Diagnoses | [facility] | | | Services | Therapy | Cervical | [facility] | [facility] | | | Required | | spinal | [facility] | | | | | stenosis | [address] | [address] | | | | | Cervical | AVE | AVE | | | | | spondylosis | [place], [place] | [place], [place] | | | | | with | [address] | [address] | | | | | radiculopath | Phone: | Phone: | | | | | y | [phone] | [phone] | | | | | Degenerative | Fax: | Fax: | | | | | disc | [phone] | [phone] | | | | | disease, | | | | | | | cervical | | | | | | | Foraminal | | | | | | | stenosis of | | | | | | | cervical | | | | | | | region | | | | | | | Smoker | | | +--------+ + + + + + Reason for Visit +---------+ + | Reason | Comments | +---------+ + | Post Op | 4W PO | +---------+ + Encounter Details +--------+---------+ + + + | Date | Type | Department | Care Team | Description | +--------+---------+ + + + | 01/13/ | Office | [facility] | Bony Quiroz | Cervical spinal | | 2017 | Visit | NEUROSURGERY [address] | [address] | stenosis (Primary | | | | [address] | [address] [place], [place] | Dx); Cervical | | | | [place], [place] | [address] | spondylosis with | | | | [address] | | radiculopathy; | | | | [phone] | | Degenerative disc | | | | | | disease, cervical; | | | | | | Foraminal stenosis | | | | | | of cervical region; | | | | | | Smoker - Daily | +--------+---------+ + + + Social History [...] + + + | Blood Pressure | 123/78 | 01/13/2017 8:13 AM | | | | | PDT | | + + + + + | Pulse | 96 | 01/13/2017 8:13 AM | | | | | PDT | [...] + + + + | Weight | 89.8 kg (198 lb) | 01/13/2017 8:13 AM | | | | | PDT | | + + + + + | Height | 170.2 cm (5' 7") | 01/13/2017 8:13 AM | | | | | PDT | | + + + + + | Body Mass Index | 31.01 | 01/13/2017 8:13 AM | | | | | PDT | [...] Instructions Patient Instructions Bony Quiroz PA-C - 01/13/2017 8:49 AM PDTAt this time you m ay increase your activities allowing lifting up to 15 pounds. Please continue to increase y our walking. Please make a follow-up appointment with your primary care provider to discuss chronic pain management. We are able to provide refills on her medication for up to 90 days but long-te rm management will be either through your pain medicine clinic or her primary care providers . Today you informed me that your pain medicine clinic no longer exceptionally your insuran ce. This would be a good time to begin working toward finding a different clinic or discuss ing these options with your primary care provider You may begin weaning your cervical collar as we discussed today. I would also recommend s lowly tapering down off of your pain medication as tolerated SPINE BRACE WEANING PROTOCOL (5 WEEKS) Below are instructions for weaning your brace. You can move through the weeks slower if yo u feel the need to do so, but the overall goal is to get you out of the brace slowly over th e next several weeks. WEEK 1 If you have been using your brace for activities like sleeping, showering, do not use the b race for these activities any longer but continue using it for everything else. WEEK 2 Stop wearing your brace for sitting and short distance walking. You should use the brace f or anything more involved. WEEK 3 Stop using the brace for medium distance walking. You can bend and twist your neck but sti ll proceed slowly with these activities. WEEK 4 Stop using the brace for everything but the most difficult tasks. You should now be able to go on long walks and lift more weight as directed. Add more bending and twisting as tolera marina. WEEK 5 Stop using the brace for daily use. We will see you back in approximately 2 months with x-rays of your cervical spine. documented in this encounter Progress Notes Bony Quiroz PA-C - 01/13/2017 8:48 AM PDTFormatting of this note might be differ ent from the original. Bony Quiroz PA-C [address] [place] [address] FAX: NEUROSURGERY FOLLOW-UP CHIEF COMPLAINT: Chief Complaint Patient presents with Post Op 4W PO HISTORY OF PRESENT ILLNESS: The patient is a 31 y.o. male that had a cervical fusion for s tenosis and radiculopathy around 4 weeks ago. He returns and overall is doing as expected. The patient complains of pain in his posterior neck on the left side radiating to his shoul farrukh and parascapular region. He notices intermittent tingling in his arms. He continues to have some problems swallowing.. The patient has not been walking as much as directed. He is still taking pain medications at this point. Swallowing is improving. The patient has had no issues with his surgical site. He continues with pain over the incision site. The p atient states he is continuing to smoke. He admits to smoking about 3 or 4 cigarettes a day PAST MEDICAL HISTORY: Past Medical History Diagnosis [...] Knee surgery 2002 right Kidney stone surgery [id number] x2 Cervical spine surgery Anterior 12/12/2016 Procedure: C3-4, C4-5, C5-6 Anterior Cervical Discectomy Fusion; Surgeon: Suellen Emmanuel; Location: [facility] MAIN OR CURRENT MEDICATIONS: Current Outpatient Prescriptions Medication Sig Dispense Refill diazePAM (VALIUM) 5 mg tablet Take 1 tablet by mouth every 6 hours as needed for Anxiet y. 45 tablet 0 HYDROcodone-acetaminophen (NORCO) 10-325 mg per tablet Take 1-2 tablets by mouth every 4 hours as needed for Pain. 120 tablet 0 lactulose 10 g/15 mL solution Take 30 mLs by mouth 2 times daily. 480 mL 2 morphine (MS CONTIN) 30 mg ER tablet Take 1 tablet by mouth 2 times daily. 60 tablet 0 Mbtzpvvdy-Dlnsfdlqdx-QV-APAP (NYQUIL PO) Take by mouth nightly as needed. No current facility-administered medications for this visit. [...] Aunt COPD Paternal Grandmother COPD Maternal Grandmother INTERIM PHYSICAL EXAMINATION: Blood pressure 123/78, pulse 96, height 1.702 m (5' 7"), weight 89.812 kg (198 lb). Body ma ss index is 31 kg/(m^2). GENERAL: Layne Bentley is in no acute distress with unlabored respirations. SPINE: The patient s incision is well healed. EXTREMITIES: No lower extremity edema. NEUROLOGICAL EXAMINATION: MENTAL STATUS: The patient is awake, alert, and oriented. He follows simple and complex commands MOTOR EXAM: Motor strength is equal bilaterally in his upper extremities. Some mild hand w eakness on the left. SENSORY EXAM: The sensory examination is improved [...] Diagnoses Name Primary? Cervical spinal stenosis Yes Cervical spondylosis with radiculopathy Degenerative disc disease, cervical Foraminal stenosis of cervical region Smoker - Daily Past Medical History Diagnosis Date Chronic bronchitis [...] asuncion nues to recover from recent surgery. I increased the patient s activities now allowing 15 pound lifting. The patient will slo wly begin weaning his cervical collar as we discussed today The patient should increase ran ge of motion activities as tolerated. I would like the patient to advance slowly with this process and discussed this at length during today's visit. I would also like the patient to continue with postoperative rehabilitation and to advance with therapy as tolerated. We discussed that we can provide pain medications for up to 90 days after their surgical da te. We discussed the need to continue tapering pain medication. If they need longer term p ain medication, they should begin working on either pain management or with the primary care provider. I suspect the patient will need pain medicine longer than 90 days as he is been on chronic narcotics. He should begin the process of discussing this with his primary care provider and obtain a referral to a new pain medicine clinic as his previous pain medicine c linic or longer accept his insurance. I've asked the patient to call today to make an appoi ntment to begin this process I am hoping to see improvement over the coming weeks to months and plan to continue to foll ow this patient. The patient will follow-up in clinic in around 8 weeks for re-evaluation. ELECTRONICALLY SIGNED BY: Bony Quiroz PA-C, 01/13/2017 8:48 documented in this encounter Plan of Treatment +--------+---------+ + + + | Date | Type | Specialty | Care Team | Description | +--------+---------+ + + + | 05/09/ | Office | Neurology | Renu Bright, | | | 2020 | Visit | | [address] | | | | | | [address] | | | | | | [place] [address] | | | | | | [phone] | | | | | | | | +--------+---------+ + + + + +---------+--------+ + + | Name | Type | Priori | Associated Diagnoses | Order Schedule | | | | ty | | | + +---------+--------+ + + | XR Cervical Spine 2 | Imaging | Routin | Cervical spinal | Expected: 02/22/2017 | | or 3 Views | | e | stenosis Cervical | (Approximate), | | | | | spondylosis with | Expires: 01/12/2018 | | | | | radiculopathy | | | | | | Degenerative disc | | | | | | disease, cervical | | | | | | Foraminal stenosis | | | | | | of cervical region | | | | | | Smoker - Daily | | + +---------+--------+ + + + + +--------+ + + | Name | Type | Priori | Associated Diagnoses | Order Schedule | | | | ty | | | + + +--------+ + + | OUTPATIENT PT | Outpatient | Routin | Cervical spinal | Ordered: 01/13/2017 | | EXTERNAL | Referral | e | stenosis Cervical | | | | | | spondylosis with | | | | | | radiculopathy | | | | | | Degenerative disc | | | | | | disease, cervical | | | | | | Foraminal stenosis | | | | | | of cervical region | | | | | | Smoker - Daily | | + + +--------+ + + documented as of this encounter Visit Diagnoses + + | Diagnosis | + + | Cervical spinal stenosis - Primary Spinal stenosis in cervical region | + + | Cervical spondylosis with radiculopathy Cervical spondylosis with myelopathy | + + | Degenerative disc disease, cervical Degeneration of cervical intervertebral disc | + + | Foraminal stenosis of cervical region Spinal stenosis in cervical region | + + | Smoker - Daily Tobacco use disorder | + + documented in this encounter
--- OUTSIDE RECORDS SUMMARY | ~2020-04-20 | XMS | Encounter Summary ---
Demographics + + + | Address | [address] | | | [place] [address] | + + + | Home Phone | | + + + | Preferred Language | Unknown | + + + | Marital Status | | + + + | Lutheran Affiliation | Unknown | + + + | Race | Unknown | + + + | Ethnic Group | Unknown | + + + Author + + + | Author | [facility] | | | and Frandyana | + + + | Organization | [facility] | | | and Frandyana [...] Team Providers + +------+ + | Care Time Study Clerk Name | Role | Phone | + +------+ + | Kathrin Summers | PCP | | + +------+ + Encounter Details +--------+ + + + + | Date | Type | Department | Care Team | Description | +--------+ + + + + | 10/30/ | Hospital | [facility] | Jeffrey Carvajal MD | Spondylosis without | | 2017 | Encounter | MED CTR XRAY [address] | [address] | myelopathy or | | | | [address] [place] | [place] [address] | radiculopathy, | | | | [place] [address] | [phone] | cervical region | | | | [phone] | | | +--------+ + + + [...] + +---------+ + + | cyclobenzaprine | take 1 tablet by | | 0 | 10/14/20 | | | (FLEXERIL) 10 mg | mouth three times a | | | 16 | 7 | | tablet | day | | | | | + + + +---------+ + + | | Take 1 tablet by | | 0 | | | | HYDROcodone-acetamin | mouth every 6 hours | | | | 7 | | ophen (NORCO) | as needed for Pain. | | | | | | 7.5-325 mg per | | | | | [...] D | | | | | | [place] [address] | | | | | | [phone] | | | | | | | | +--------+---------+ + + + documented as of this encounter Procedures + +--------+ + + + | Procedure Name | Priori | Date/Time | Associated Diagnosis | Comments | | | ty | | | | + +--------+ + + + | XR CERVICAL SPINE 4 | Routin | 10/30/2016 | Spondylosis | Results for this | | OR 5 VWS | e | 8:21 AM | without myelopathy | procedure are in the | | | | PST | or radiculopathy, | results section. | | | | | cervical region | | + +--------+ + + + documented in this encounter Results XR Cervical Spine 4 or 5 Vws (10/30/2016 8:21 AM PST) + + | Specimen | [...] + | [facility] | [address] | [place], [place] | [phone] | | [facility] | | [address] | | | - IMAGING | | | | + + + + + documented in this encounter Visit Diagnoses + + | Diagnosis | + + | Spondylosis without myelopathy or radiculopathy, cervical region | + + documented in this encounter"
--- OUTSIDE RECORDS SUMMARY | ~2020-04-20 | XMS | Encounter Summary ---
Demographics + + + | Address | [address] | | | [place] [address] | + + + | Home Phone | | + + + | Preferred Language | Unknown | + + + | Marital Status | | + + + | Zoroastrianism Affiliation | Unknown | + + + | Race | Unknown | + + + | Ethnic Group | Unknown | + + + Author + + + | Author | [facility] | | | and Frandyana | + + + | Organization | [facility] | | | and [...] Team Providers + +------+ + | Care Student Support Advisor Name | Role | Phone | + +------+ + PCP | Unavailable | + +------+ + Encounter Details +--------+ + + + + | Date | Type | Department | Care Team | Description | +--------+ + + + + | 07/22/ | Hospital | [facility] | Conversion | Diagnosis unknown | | 2016 | Encounter | CONVERSION [address] | Transaction, | | | | | [address] | Provider Unknown | | | | | [place], [place] | [phone] | | | | | [address] | | | | | | [phone] | | | +--------+ + + + [...] [address] | | | | | | [place] [address] | | | | | | [phone] | | | | | | | | +--------+---------+ + + + documented as of this encounter Procedures + +--------+ + + + | Procedure Name | Priori | Date/Time | Associated Diagnosis | Comments | | | ty | | | | + +--------+ + + + | CT ABDOMEN PELVIS W | Routin | 06/15/2016 | | Results for this | | WO CONTRAST | e | 6:07 PM | | procedure are in the | | | | PDT | | results section. | + +--------+ + + + documented in this encounter Results CT Abdomen Pelvis w wo Contrast (06/15/2016 6:07 PM PDT) + + | Specimen | [...] + | Diagnosis | + + | Diagnosis unknown Other unknown and unspecified cause of morbidity or mortality | + + documented in this encounter"
--- OUTSIDE RECORDS SUMMARY | ~2020-04-20 | XMS | Encounter Summary ---
Demographics + + + | Address | [address] | | | [place] [address] | + + + | Home Phone | | + + + | Preferred Language | Unknown | + + + | Marital Status | | + + + | Latter-Day Affiliation | Unknown | + + + | Race | Unknown | + + + | Ethnic Group | Unknown | + + + Author + + + | Author | [facility] | | | and Frandyana | + + + | Organization | [facility] | | | and Frandyana [...] Team Providers + +------+ + | Care Photovoltaic Power Systems Engineer Name | Role | Phone | + +------+ + | Kathrin Summers | PCP | | + +------+ + Encounter Details +--------+ + + + + | Date | Type | Department | Care Team | Description | +--------+ + + + + | 08/07/ | Hospital | [facility] | Conversion | | | 2016 | Encounter | [facility] | Transaction, | | | | | CLINIC [address] | Provider Unknown | | | | | [place], [place] | | | | | | [address] | (Fax) | | | | | [phone] | | | +--------+ + + + [...] + + + | Blood Pressure | 115/70 | 08/07/2016 12:42 PM | | | | | PDT | | + + + + + | Pulse | 77 | 08/07/2016 12:42 PM | | | | | PDT [...] + + + + | Weight | 86.6 kg (190 lb 14.7 | 08/07/2016 12:42 PM | | | | oz) | PDT | | + + + + + | Height | 170.2 cm (5' 7") | 08/07/2016 12:42 PM | | | | | PDT | | + + + + + | Body Mass Index | 29.9 | 08/07/2016 12:42 PM | | | | | PDT | | + + + + + documented in this encounter Medications at Time [...] + + documented as of this encounter Procedure Notes Vicente Benson, Provider Unknown - 08/07/2016 12:49 PM PDTFormatting of this note m ight be different from the original. Pre-Procedure Instructions by Danna Edmonds RN at 08/07/161248 Author: Danna Edmonds RN Service: (none) Author Type: Registered Nurse Filed: 08/07/161248 Date of Service: 08/07/161248 Status: Signed Wind Farm Operations Manager: Danna Edmonds RN (Registered Nurse) Patient meets AHA guidelines of mets of 4 docume nted in this encounter Plan of Treatment +--------+---------+ + + + | Date | Type | Specialty | Care Team | Description | +--------+---------+ + + + | 05/09/ | Office | Neurology | Renu Bright, | | | 2019 | Visit | | [address] [address] | | | | | | [address] | | | | | | [place] [address] | | | | | | [phone] | | | | | | | | +--------+---------+ + + + documented as of this encounter Visit Diagnoses Not on filedocumented in this encounter
--- OUTSIDE RECORDS SUMMARY | ~2020-04-20 | XMS | Encounter Summary ---
Demographics + + + | Address | [address] | | | [place] [address] | + + + | Home Phone | | + + + | Preferred Language | Unknown | + + + | Marital Status | | + + + | Baptist Affiliation | Unknown | + + + | Race | Unknown | + + + | Ethnic Group | Unknown | + + + Author + + + | Author | [facility] | | | and Frandyana | + + + | Organization | [facility] | | | and Frandyana [...] Team Providers + +------+ + | Care Gate Person Name | Role | Phone | + [...] PHYSIATRY [address] | MD [address] | | | | | [address] | [place], [place] | | | | | [place], [place] | [address] | | | | | [address] | | | | | | [phone] | | | +--------+ + + + [...] [address] | | | | | | [facility] [address] | | | | | | [facility] [place] [address] | | | | | | [phone] | | | | | | | | +--------+---------+ + + + documented as of this encounter Visit Diagnoses Not on filedocumented in this encounter"
--- OUTSIDE RECORDS SUMMARY | ~2020-04-20 | XMS | Encounter Summary ---
Demographics + + + | Address | [address] | | | [place] [address] | + + + | Home Phone | | + + + | Preferred Language | Unknown | + + + | Marital Status | | + + + | Congregational Affiliation | Unknown | + + + | Race | Unknown | + + + | Ethnic Group | Unknown | + + + Author + + + | Author | [facility] | | | and Frandyana | + + + | Organization | [facility] | | | and Frandyana | [...] Team Providers + +------+ + | Care Coordinate Measuring Machine Technician Name | Role | Phone | [...] | | | | | | | [place] | | | | | | | ARTHRODESIS | | | | | | | ANT | | | | | | | INTERBODY | | | | | | | INC | | | | | | | DISCECTOMY, | | | | | | | CERVICAL | | | | | | | BELOW C2 [facility] | | | | | | | [...] | | | | | | | [place] | | | | | | | [...] | | | | | | | [facility] ALLOGRAFT | | | | | | [...] Description | +--------+---------+ + + + | 12/12/ | Surgery | [facility] | Jeffrey Carvajal MD | C3-4, C4-5, C5-6 | | 2016 | | MED CTR OR INTRA OP | [address] | Anterior Cervical | | | | [address] | [place] [address] | Discectomy Fusion | | | | [place] | [phone] | | | | | [address] | | | | | | [phone] | | | +--------+---------+ + + + [...] + + + | Blood Pressure | 139/85 | 12/12/2016 10:28 AM | | | | | PST | | + + + + + | Pulse | 101 | 12/12/2016 10:28 AM | | | | | PST | | + + + + + | Temperature | 37 C (98.6 F) | 12/12/2016 10:28 AM | | | | | PST | | + + + + + | Respiratory Rate | 16 | 12/12/2016 10:28 AM | | | | | PST | | + + + + + | Oxygen Saturation | 100% | 12/12/2016 10:28 AM | | | [...] t raise your hands over your head upc0calp(s)after your surgery. Don t drive until your [...] this your 1 month post op appointment. [id number] [employer]. [address] [place] [address], [place] [address]. All righ ts reserved. This information is [...] x 5 | 15 | 0 | 02/18/20 | | | (DECADRON) 2 MG | [...] might be different from t john original. [facility] PROGRESS NOTE Pt. Name/Age/: Layne Bentley 31 y.o. 1985 Med. Record Number: [id number] Date of admission: 12/12/2016 Subjective: The patient [...] Electronically signed by: Jeffrey Carvajal, 12/13/2016 7:11 [facility] documented in this encou nter H&P Notes Jeffrey Carvajal MD - 12/12/2016 3:17 PM PSTFormatting of this note might be different from t he original. Jeffrey Carvajal MD [address] [facility], [address] [place], [place] [address] FAX: NEUROSURGERY HISTORY AND PHYSICAL EXAMINATION CHIEF [...] Knee surgery 2002 right Kidney stone surgery [id number] x2 CURRENT MEDICATIONS: Current Outpatient Prescriptions Medication [...] MINUTES IF NO OR MINIMAL RESPONSE. CALL 2 No current facility-administered medications for this [...] has no apparent deficits with short or oil heaterman memory. MOTOR EXAM: (5 IS NORMAL) * Indicates pain limited MUSCLE/ MOVEMENT: RIGHT LEFT Deltoids 5 5 Biceps 5 5 Triceps 5 5 Wrist Flexion 5 5 Wrist Extension 5 5 Median Intrinsics 5 5 Ulnar Intrinsics 5 5 Ore Roaster Strength 5 5 SENSORY EXAM: Sensory exam [...] GOALS: Speech Therapy Swallow Plan of Care BINDERY LEADPERSON Visit Type: Initial Evaluation Note Summary: Pt sitting upright EOB for swallow assessment s/o ACDF C3-6. Pt c/o sore neck par ticularly at incision site. No difficulty swallowing. Pt trialed pureed, ground, mixed, chop ped, regular textures and thin liquids with no s/s of airway compromise. Pt reported increas ed difficulty eating crust of bread. BINDERY LEADPERSON rec's level 3 dysphagia advanced diet and [...] further Speech Therapy Planned Interventions: Treatment Plan (BINDERY LEADPERSON): compensatory strategies, diet texture modific ation, patient/caregiver education Recommended Frequency: BINDERY LEADPERSON Diagnosis: Mild pharyngeal dysphagia At bedside, signs [...] RESTRAINT-RELATED GOALS: STRATEGIES TO ACHIEVE RESTRAINT GOALS: [facility] Occupational Therapy OPIB Plan of Care Patient [...] multiple contributors. ADLs UB Dressing, Level of Dyer: independent LB Dressing, Level of Dyer: independent Toileting, Level of Dyer: independent Medicare Functional Limitation Reporting: OT G-codes Functional Assessment Tool Used: [facility] Functional Limitation: Self care Self Care [...] Code Minutes: 0 Electronically signed by: Shruthi Chavez, OT, 12/13/2016 12:14 lan of Care - [...] Outcome: Adequate for Discharge Date Met: 12/13/16 [facility] Physical Therapy OPIB Plan of Care Patient [...] Device: none Supine to Sit, Level of Dyer: independent Sit to Supine, Level of Dyer: independent Gait Level of Dyer: independent Assistive Device: none Distance (feet): 360 Stairs stair instruction--pt indep with railing, no difficulty ROM ROM Testing Results: no range of motion deficits identified Strength Strength Testing Results: no strength deficits were identified Fyurzn-Jfd-Krcyxg Goal Most Recent Value STG Status new, met at 12/13/2016 1105 STG Dyer Level independent at 12/13/2016 1105 Gait Goal Most Recent Value STG Status new, met at 12/13/2016 1105 STG Dyer Level independent at 12/13/2016 1105 STG Distance (feet) 360 at 12/13/2016 1105 Stair Goal Most Recent Value STG Status new, met at 12/13/2016 1105 STG Dyer Level independent at 12/13/2016 1105 STG Assistive [...] problems. lan of Care - Yandy Abdul, EMERGENCY NURSE - 12/13/2016 3:17 AM PSTProblem: Patient Care [...] Note Layne Bentley 31 y.o. male 1985 [id number] Proc. Date 12/12/2016 Preop Dx Cervical spondylosis with radiculopathy Cervical degenerative disc disease Cervical foraminal stenosis Continuous opioid use Postop Dx same Procedure 1. Anterior cervical discectomy and fusion C3-4, C4-5, and C5-6 2. Anterior cervical plating C3-6 using Zevo 3. Anterior structural allograft bone C3-4, C4-5, and C5-6 4. Microsurgical technique with use of operating microscope Anesthesia , Dr. Madden Surgeon Jeffrey Carvajal MD - Primary Remnants Cutter Bony Quiroz PA-C EBL 156 Findings C3-6 [...] allograft prior to insertion was filled with [place] bone. The structural allograft bone was then tamped into place at C3-4, C4-5, and C5-6. Anterior cervical plating was then performed by holding a 57 mm Zevo plate in place over th e segments with holding pins. Fluoroscopy was used to confirm its appropriate positioning a nd then space controller holes were made in the C3-6 vertebral [...] signed by: Jeffrey Carvajal MD 12/12/2016 18:03 [facility] rief Op Note - Leif Carvajal MD - 12/12/2016 6:03 PM PSTFormatting of this note might be different from the origin al. Brief Operative Note Layne Bentley 31 y.o. male 1985 [id number] Proc. Date 12/12/2016 Preop Dx Cervical spondylosis [...] Madden Surgeon Jeffrey Carvajal MD - Primary Remnants Cutter Bony Quiroz PA-C EBL 156 Findings C3-6 spondylosis with canal narrowing and foraminal stenosis. Complications none Specimens * No specimens in log * Drains SAVANAH Electronically signed by: Jeffrey Carvajal MD 12/12/2016 18:03 [facility] Jeffrey Carvajal MD at 017 [...] Roberto Kay PT, 12/12/2016 16:19 documented in th is encounter Plan of Treatment +--------+---------+ + + + | Date | Type | Specialty | Care Team | Description | +--------+---------+ + + + | 05/09/ | Office | Neurology | Renu Bright, | | | 2019 | Visit | | [facility] | | | | | | [address] | | | | | | [place] [address] | | | | | | [phone] | | | | | | | [...] | | | + +---------+ + + [place] Joshua-Kishor Statzofia No Charge (12/12/2016 5:54 PM PST) + + | [...] + documented in this encounter Visit Diagnoses Not on filedocumented in this encounter Administered Medications + +--------+ +------+------+------+ | Medication Order | MAR | Action | Dose | Rate | Site | | | Action | Date | | | | + +--------+ +------+------+------+ | acetaminophen (TYLENOL) tablet | Given | 12/12/19 | 1 g | | | | 975 mg 975 mg (rounded from | 3:26 | | | | | 1,000 [...] | tablet 10 mg 10 mg, Oral, | | 17 10:05 | | | [...] | times per day), First dose on Thu | | | | | | | [...] | capsule 100 mg 100 mg, Oral, 2 | | 17 10:06 | | | | | TIMES [...] mg | | | | | 17 7:19 | | | | | | [...] | | | | | | | 2/17/17 at 1754, Hold if HR < | [...] | mL/hr | | | CONTINUOUS, Starting Thu12/12/16 | | PM PST | [...]
--- OUTSIDE RECORDS SUMMARY | ~2020-04-20 | XMS | Encounter Summary ---
Demographics + + + | Address | [address] | | | [place] [address] | + + + | Home Phone | | + + + | Preferred Language | Unknown | + + + | Marital Status | | + + + | Congregational Affiliation | Unknown | + + + | Race | Unknown | + + + | Ethnic Group | Unknown | + + + Author + + + | Author | [facility] | | | and Frandyana | + + + | Organization | [facility] | | | and Frandyana [...] Team Providers + +------+ + | Care Flying Squad Salesperson Name | Role | Phone | + +------+ + | Kathrin Summers | PCP | | + +------+ + Encounter Details +--------+ + + + + | Date | Type | Department | Care Team | Description | +--------+ + + + + | 12/08/ | Hospital | [facility] | Leonidas De La Fuente | S/P cervical spinal | | 2018 | Encounter | MED CTR XRAY [address] | D, PA-C [address] | fusion | | | | [place] | [address] | | | | | [place] [address] | [place], [place] | | | | | [phone] | [address] | | | | | | | [...] + + + +---------+ + + | traZODone | Take 50 mg by mouth. | | 0 | 03/06/20 | | | (DESYREL) 50 mg | | | | 17 | | | tablet | | | | | | + + + +---------+ + + | baclofen | Take 1 [...] hours | tablet | | 17 | 9 | | ophen (NORCO) 10-325 | as needed for Pain. | | | | | | mg per | | | | | | | tabletIndications: | | | | | | | S/P cervical spinal | | | | | | | fusion | | | | | | + + + +---------+ + + | methocarbamol | Take 1-2 tablets by | | 0 | 07/24/20 | | | (ROBAXIN) 750 mg | mouth EVERY 6 TO 8 | | | 17 | 9 | | tablet | HOURS NEEDED. | [...] | | | | | [place] [address] | | | | | | [phone] | | | | | | | | +--------+---------+ + + + documented as of this encounter Procedures + +--------+ + + + | Procedure Name | Priori | Date/Time | Associated Diagnosis | Comments | | | ty | | | | + +--------+ + + + | XR CERVICAL SPINE 2 | Routin | 12/08/2017 | S/P cervical | Results for this | | OR 3 VIEWS | e | 11:15 AM | spinal fusion | procedure are in the | | | | PST | | results section. | + +--------+ + + + documented in this encounter Results XR Cervical Spine 2 or 3 Views (12/08/2017 11:15 AM PST) + + | Specimen | [...]
--- OUTSIDE RECORDS SUMMARY | ~2020-04-20 | XMS | Encounter Summary ---
Demographics + + + | Address | [address] | | | [place] [address] | + + + | Home Phone | | + + + | Preferred Language | Unknown | + + + | Marital Status | | + + + | Scientologist Affiliation | Unknown | + + + | Race | Unknown | + + + | Ethnic Group | Unknown | + + + Author + + + | Author | [facility] | | | and Frandyana | + + + | Organization | [facility] | | | and Frandyana [...] Providers + +------+ + | Care Manager Transport Name | Role | Phone | + +------+ + | Kathrin Summers | PCP | | + +------+ + Reason for Visit + +--------+ + | Reason | Onset | Comments | | | Date | | + +--------+ + | Post Op | 12/15/ | PO Call | | | 2016 | | + +--------+ + | Post-op Problem | 12/15/ | Pain | | | 2016 | | + +--------+ + Encounter Details +--------+ + + + + | Date | Type | Department | Care Team | Description | +--------+ + + + + | 12/15/ | Telephone | [facility] | Jeffrey Carvajal MD | Post Op (PO Call); | | 2016 | | NEUROSURGERY [address] | [address] | Post-op Problem | | | | [address] | [place] [address] | (Pain) | | | | [place] | [phone] | | | | | [address] | | | | | | [phone] | | | +--------+ + + + [...] Telephone Encounter - Libra Garcia RN - 12/22/2016 11:06 AM PSTLeft message to follow up with patient on wound check recommended 12/19/16. Requested return call for update. Confirmed that patient was not evaluated at [facility] or PCP elephone Encounter - Libra Garcia RN - 12/19/2016 8 :53 AM PSTPatient advised per note below and requested Rx be mailed to his address. Patient asked if it is normal to have white, pus-like drainage from incision and stated noni t bandages came off and he noticed a small amount of white drainage this morning. Advised p atient that this is not normal and one of the signs that an infection may be starting and of fered wound check in our office. Patient prefers to have wound checked in [place] by PCP or at [facility] and stated that he will check again to be sure that is what he saw. Advised patie nt to be evaluated for any increased redness, swelling, heat at the incision, drainage (zen cially pus-like), fever, or edges of incision that are not healing well together. Cautioned patient to go in right away so if there is an infection starting it may be treated early. Patient verbalized understanding. Preparing to send Rx via [facility][id number] [phone] with provider's signat ure Will call diazepam Rx to pharmacy- patient advised #45 prescribed for short term use only a nd encouraged to work with PCP re: anxiety. Patient verbalized understanding. elephone Encounter - Bony Quiroz PA-C - 12/19/2016 6:24 AM PSTDr. yam and I generally do not use Valium as a muscle relaxant. I will provide another prescription for the Valium to use short term only. I wo uld recommend the patient use heat or ice to help with his discomfort. In addition I think it would be reasonable to increase his MS Contin. He most likely does have some degree of t olerance to morphine due to his chronic use. It is extremely unusual for me to increase angela n medication after these been discharged from the hospital. I would recommend that he asuncion nue working closely with his primary care provider regarding his anxiety.Electronically sign ed by Bony Quiroz PA-C at 12/19/2016 6:27 AM PSTTelephone Encounter - Mary French RN - 12/18/2016 1:26 PM PSTPatient states that he is concerned about still being in a "significant amount of pain". He rates this as a 7/10 currently in his neck and shoulders. P atkrystal would like to know what he can do to help the pain because the "pain isn't getting be tter" If ok to continue with diazepam patient will need a new script. PCP only wrote for a 3 day supply. Please advise elephone Encounter - Libra Garcia RN - 12/15/2016 2:18 PM PSTPatient called jen reid appointment with PCP and put call on speaker for further collaboration with PCP on medicat ions and what is commonly prescribed by our providers. PCP asked about diazepam. I confirmed that diazepam is commonly prescribed to help manage post op muscle spasms. PCP is ordering one week supply of diazepam 5 mg every 6 hours PRN f or anxiety and muscle spasms to replace cyclobenzaprine 10 mg and patient verbalized underst anding not to take both medications. PCP asked about anti-nausea patch behind ear. Confirmed scopolamine 1 mg transdermal patch was placed 12/12/16 and is due to be removed today. PCP will order ondansetron for nausea P RN to start tomorrow. PCP confirmed message is being sent to providers to advise regarding MS tolerance and possi ble change in pain management medications. Patient requesting new order for diazepam to replace cyclobenzaprine. elephone Encounter - Libra Garcia RN - 12/15/2016 11:57 AM PSTProcedure: C3-4, C4-5, C5-6 Anterior Cervical Discectomy Fusion Date of Surgery: 12/12/2016 1. How are you feeling-if pain where (legs/surgical site)? Pain at incision and spasm of m uscles in that area; patient having anxiety attacks r/t claustrophobia and cervical collar. Went to [facility] ED late Thursday night into Thursday AM 12/14/16 for uncontrolled pain and anxiety attack. Patient reported IV MS was ineffective in managing pain and he believes his MS lore erance is interfering with adequate pain control. Other complaints included: Difficulty swa llowing; increased pain with coughing- encouraged deep breaths every hour or two and explain ed post op atelectasis. Arms and hands are shaking intermittently, involuntarily and not as sociated with any activity or position. Has post op f/u with PCP at 1330 [address] to reque st anti-anxiety medication. Cautioned patient to discuss muscle relaxant with PCP with patty tion of anti-anxiety medication because she may need to discontinue current medication and c onsider an anti-anxiety medication that is effective in relieving post op muscle spasms. Re quested that patient communicate any changes made to medications following his appointment. Patient verbalized understanding. 2. Weakness/Numbness (New onset)? No 3.Taking pain meds (Name/Dosage)? MS 15 mg ER every 12 hours; hydrocodone-acetaminophen 10 -325 mg, 2 tablets every 4 hours; cyclobenzaprine 10 mg, 3 times daily 4.Loss of Bowel or Bladder (When/Chronic)? Some urinary urgency but no incontinence Cons tipation? No 5.Ambulating (How often)? At least every 45-60 minutes SURGICAL ISSUES 1.Steri-strips/outer bandages intact. Advised ok to remove outer bandage 12/17/16 and leave incision uncovered even for showers at that time; remove any remaining steri strips at 2 we eks post op. [place]/sutures that need to be removed no. Operative note reviewed yes. 2.Appearance of the site? Has not checked. Advised to watch for increased redness, swelli ng, heat at incision or edges that do not heal together well and to report any concerns. Is there drainage from the site? no. 3.Do you have a fever? yes. If yes, most recent temperature: 99.2 degrees; encouraged mere brown to perform deep breathing/ coughing exercises every hour or two r/t low grade fever an d cough acknowledged above. 4.Follow up appointments? 01/13/2017 @ 0830, reminded to check in by 0800. Confirmed beth briones prefers to have XR a couple of days prior to appointment at [facility]. Routing order and beth briones will call upon completion. Staple/suture removal nurse visit? N/A 5.What could we have done to make your visit better? "You all have been pretty great to me ." 6. Has preoperative pain improved? Transition Advisor strength improving. Patient requested advice regarding pain management and if there are any other long-acting m edications that may be more effective considering his long-time use of MS and possible katya ance. Please advise. [facility] ED notes requested and are being faxed to our office. All other questions answered at this time.Electronically signed by Libra Garcia RN at 0 12/15/2016 12:45 PM PSTTelephone Encounter - Avel Garcia - 12/15/2016 11:36 AM PSTPatient pradeep allepeggy in stating stating that he is in a lot of pain. Jorge down at all since surgery. Went to the ED over the week where he was given morphine. That really dint help at all e ither. Please call back to discuss 11:3 7 AM PSTdocumented in this encounter Plan of Treatment +--------+---------+ + + + | Date | Type | Specialty | Care Team | Description | +--------+---------+ + + + | 05/09/ | Office | Neurology | Renu Bright, | | | 2020 | Visit | | [facility] | | | | | | [address] | | | | | | [place] [address] | | | | | | [phone] | | | | | | | | +--------+---------+ + + + documented as of this encounter Visit Diagnoses Not on filedocumented in this encounter
--- OUTSIDE RECORDS SUMMARY | ~2020-04-20 | XMS | Encounter Summary ---
Demographics + + + | Address | [address] | | | [place] [address] | + + + | Home Phone | | + + + | Preferred Language | Unknown | + + + | Marital Status | | + + + | Hindu Affiliation | Unknown | + + + | Race | Unknown | + + + | Ethnic Group | Unknown | + + + Author + + + | Author | [facility] | | | and Frandyana | + + + | Organization | [facility] | | [...] Team Providers + +------+ + | Care Phytochemistry Professor Name | Role | Phone | + +------+ + | Kathrin Summers | PCP | | + +------+ + Encounter Details +--------+ + + + + | Date | Type | Department | Care Team | Description | +--------+ + + + + | 11/19/ | Preadmit | [facility] | Jeffrey Carvajal MD | Pre-operative | | 2017 | Visit | [facility] | [address] | clearance (Primary | | | | CLINIC [address] | [place] [address] | Dx); Cervical | | | | [place], [place] | [phone] | spondylosis with | | | | [address] | | radiculopathy; | | | | [...] D | | | | | | [place] [address] | | | | | | [phone] | | | | | | | [...] | | | | | M/uL | [facility] | | | | | | [facility] | | | | | | C[facility] - | | | | | | LABORATORY | | + + + + + + | Hemoglobin | 15.5 | 13.5 - 18.0 | [facility] | | | | | g/dL | [facility] | | | | [...] | Neutrophils | | K/uL | [facility] | [...] + | [facility] | [address] | [place] | [phone] | | [facility] | | [address] | | | - LABORATORY | | [...] not | >60Comment: GLOMERULAR | >=60 | [facility] | | | | FILTRATION | mL/min/1.73m2 | [facility] | | | KENYAN | RATE,ESTIMATED | | MEDICAL | | | | mL/min/1.50u0Toth than | | CENTER - | | [...] + | [facility] | [address] | [place] | [phone] | | [facility] | | [address] | | | - LABORATORY | | [...] + | [facility] | [address] | [place] | [phone] | | [facility] | | [address] | | | - LABORATORY | | [...] | | | | KELI MILLER MD ([id number]) | | | | | | on [...]
--- OUTSIDE RECORDS SUMMARY | ~2020-04-20 | XMS | Encounter Summary ---
Demographics + + + | Address | [address] | | | [place] [address] | + + + | Home Phone | | + + + | Preferred Language | Unknown | + + + | Marital Status | | + + + | Faith Affiliation | Unknown | + + + | Race | Unknown | + + + | Ethnic Group | Unknown | + + + Author + + + | Author | [facility] | | | and Frandyana | + + + | Organization | [facility] | | | and [...] Providers + +------+ + | Care Metal Fabricating Inspector Name | Role | Phone | [...] Unknown | | | | | [place] | [phone] | | | | | [address] | | | | | | [phone] | | | +--------+ + + + [...] D | | | | | | [facility] [place] [address] | | | | | | [phone] | | | | | | | [...]
--- OUTSIDE RECORDS SUMMARY | ~2020-04-20 | XMS | Encounter Summary ---
Demographics + + + | Address | [address] | | | [place] [address] | + + + | Home Phone [...] + | Author | [facility] | | | and Franydana | + + + | Organization | [facility] | | | and [...] Team Providers + +------+ + | Care Shuttle Fixer Name | Role | Phone | + [...] | | | [address] | [place] [address] | | | | | [place] [address] | | | | | | [phone] | | | +--------+ + + + [...] D | | | | | | [place] [address] | | | | | | [phone] | | | | | | | [...]
--- OUTSIDE RECORDS SUMMARY | ~2020-04-20 | XMS | Encounter Summary ---
Demographics + + + | Address | [address] | | | [place] [address] | + + + | Home Phone | | + + + | Preferred Language | Unknown | + + + | Marital Status | | + + + | Mandaeism Affiliation | Unknown | + + + | Race | Unknown | + + + | Ethnic Group | Unknown | + + + Author + + + | Author | [facility] | | | and Frandyana | + + + | Organization | [facility] | | | and Frandyana [...] Team Providers + +------+ + | Care Cloud Infrastructure Architect Name | Role | Phone | [...] | | [address] | [place] [address] | | | | | [place] | [phone] | | | | | [address] | | | | | | [phone] | | | +--------+ + + + [...] Miscellaneous Notes Telephone Encounter - Shira Cruz Legal Records Clerk - 03/17/2017 4:18 PM PDTPrudencio Vann, Called [...] D | | | | | | [place] [address] | | | | | | [phone] | | | | | | | | +--------+---------+ + + + documented as of this encounter Visit Diagnoses Not on filedocumented in this encounter"
--- OUTSIDE RECORDS SUMMARY | ~2020-04-20 | XMS | Encounter Summary ---
Demographics + + + | Address | [address] | | | [place] [address] | + + + | Home Phone | | + + + | Preferred Language | Unknown | + + + | Marital Status | | + + + | Tenriism Affiliation | Unknown | + + + | Race | Unknown | + + + | Ethnic Group | Unknown | + + + Author + + + | Author | [facility] | | | and Frandyana | + + + | Organization | [facility] | | | and Frandyana [...] Providers + +------+ + | Care Manager Client Support Name | Role | Phone | + +------+ + PCP | Unavailable | + +------+ + Reason for Visit + + + | Reason | Comments | + + + | Procedure | BGONB | + + + Evaluate & Treat (Routine) +--------+ + + + + + | Status | Reason | Specialty | Diagnoses / | Referred By | Referred To | | | | | Procedures | Contact | Contact | +--------+ + + + + + | Closed | Specialty | Physical | Diagnoses | Michael, | Declan Rodriguez | | | Services | Medicine and | Bilateral | Declan Mckee MD | Jose Alfredo Mckee MD [address] | | | Required | Rehabilitatio | occipital | [address] | | | | n | neuralgia | [address] | [place], | | | | | Procedures | [place], | [place] [address] | | | | | DOS 04/05/15 | [place] [address] | Phone: | | | | | | Phone: | [phone] | | | | | | [phone] | Fax: | | | | | | Fax: | [phone] | | | | | | [phone] | | +--------+ + + + + + Encounter Details +--------+ + + + + | Date | Type | Department | Care Team | Description | +--------+ + + + + | 04/05/ | Procedure | [facility] [place] | Declan Rodriguez, | Bilateral occipital | | 2015 | visit | PHYSIATRY [address] | MD [address] | neuralgia (Primary | | | | [address] | [place] | Dx) | | | | [place] | [address] | | | | | [address] | | | | | | [phone] | | | +--------+ + + + [...] + + + | Blood Pressure | 145/72 | 04/05/2015 1:07 PM | | | | | PDT | | + + + + + | Pulse | 78 | 04/05/2015 1:07 PM | | | | | PDT | | + + + + + | Temperature | - | - | | + + + + + | Respiratory Rate | 16 | 04/05/2015 1:07 PM | | | | | PDT | | + + + + + | Oxygen Saturation | - | - | | + + + + + | Inhaled Oxygen | - | - | | | Concentration | | | | + + + + + | Weight | 97.5 kg (215 lb) | 04/05/2015 1:07 PM | | | | | PDT | | + + + + + | Height | 170.2 cm (5' 7") | 04/05/2015 1:07 PM | | | | | PDT | | + + + + + | Body Mass Index | 33.67 | 04/05/2015 1:07 PM | | | | | PDT | | + + + + + documented in this encounter Patient Instructions Patient Instructions Declan Rodriguez MD - 04/05/2015 1:24 PM PDTIf you develop any signs of infection (e.g. Fever, chills, redness, warmth, drainage) seek emergent medical attention and inform the clinic. Feel free to use ice, massage, and stretch after your injections to day. Please avoid direct heat, over the injections site, for 3 days following injection. Please stop smoking, as discussed at prior appointment. Please stop all caffeine. No coffee, tea, soda, etc. Please take the prescribed medication Nortriptyline. Taper up the dose of the medication as directed. Stop tapering up the medication at the lowest effective dose. If you have side ef fects to the medication, reduce the dose of the medication to the last dose that you were ab le to tolerate without side effects. Return to the clinic in 6 weeks. documented in this encounter Progress Notes Declan Rodriguez MD - 04/05/2015 1:26 PM PDTReferring Physician: Declan Rodriguez MD Diagnosis: Bilateral Greater Occipital Neuralgia Procedure: Bilateral Greater Occipital Nerve Blocks Procedure Detail: Informed consent was obtained. Risks, benefits, and alterative treatments were reviewed. Risks reviewed included but not limited to: bruising, bleeding, infection, damage to adjacen t structures, disability and . Risk of spinal block, need for hospitalization, and mary tilation was reviewed. Risk of stroke was reviewed. Risk of skin discoloration was reviewe d. Once informed consent was obtained two separate syringes were prepared. Each syringe containing 2 ml of lidocaine 1%, 2 ml of marcaine 0.25%, and 1 ml of Celestone 6 mg/ml. Each syringe contained a total medication volume of 5 ml. The left greater occipital nerve was identified anatomically, by palpation and reproduction of headache symptoms. The contents of the first syringe was injected into the proximity of the left greater occipital nerve using a 25 gauge 1-1/2 inch needle. The injection was lore erated without complication. The right greater occipital nerve was identified anatomically, by palpation and reproductio n of headache symptoms. The contents of the second syringe was injected into the proximity of the right greater occipital nerve using a 25 gauge 1-1/2 inch needle. The injection was tolerated without complication. The patient was observed in the clinic for a total of 30 minutes after the injections were completed. Their vital signs remained stable. Anesthesia of the bilateral greater occipita l nerves was obtained. The patient was discharged from the clinic with the instructions noni t; should they have any alarming symptoms they should seek emergent medical care as well as inform me in my clinic. documented in this en counter Plan of Treatment +--------+---------+ + + + | Date | Type | Specialty | Care Team | Description | +--------+---------+ + + + | 05/09/ | Office | Neurology | Renu Bright, | | | 2019 | Visit | | [address] | | | | | | [address] | | | | | | [place] [address] | | | | | | [phone] | | | | | | | | +--------+---------+ + + + documented as of this encounter Visit Diagnoses + + | Diagnosis | + + | Bilateral occipital neuralgia - Primary Other syndromes affecting cervical region | + + documented in this encounter Administered Medications + + + +-------+------+ + | Medication Order | MAR | Action | Dose | Rate | Site | | | Action | Date | | | | + + + +-------+------+ + | betamethasone (CELESTONE | Given by | 04/05/20 | 12 mg | | Other | | SOLUSPAN) injection 12 mg 12 mg, | Other | 15 1:23 | | | (Comment | | Intramuscular, ONCE, [facility] 04/05/15 | | PM PDT | | | ) | | at 1330, For 1 dose, Shake well. | | | | | | | Not for IV use., | | | | | | + + + +-------+------+ + +---+---+ | | | +---+---+ + + + +-------+---+---+ | bupivacaine (MARCAINE) 0.25% | Given by | 04/05/20 | 4 mLs | | | | injection 4 mL 4 mL, | Other | 15 1:24 | | | | | Infiltration, ONCE, Jeniffer 04/05/15 | | PM PDT | | | | | at 1330, For 1 dose | | | | | | + + + +-------+---+---+ +---+---+ | | | +---+---+ + + + +-------+---+---+ | lidocaine 1% injection 4 mL 4 | Given by | 04/05/20 | 4 mLs | | | | mL, Infiltration, ONCE, Jeniffer | Other | 15 1:25 | | | | | 04/05/15 at 1330, For 1 dose | | PM PDT | | | | + + + +-------+---+---+ +---+---+ | | | +---+---+ documented in this encounter
--- OUTSIDE RECORDS SUMMARY | ~2020-04-20 | XMS | Encounter Summary ---
Demographics + + + | Address | [address] | | | [place] [address] | + + + | Home Phone | | + + + | Preferred Language | Unknown | + + + | Marital Status | | + + + | Episcopalian Affiliation | Unknown | + + + | Race | Unknown | + + + | Ethnic Group | Unknown | + + + Author + + + | Author | [facility] | | | and Frandyana | + + + | Organization | [facility] | | | and Frandyana | [...] Team Providers + +------+ + | Care Pediatrician/Medical Doctor Name | Role | Phone | + +------+ + | Kathrin Summers | PCP | | + +------+ + Reason for Visit + + + | Reason | Comments | + + + | Neck Pain | | + + + Evaluate & Treat (Routine) +--------+--------+ + + + + | Status | Reason | Specialty | Diagnoses / | Referred By | Referred To | | | | | Procedures | Contact | Contact | +--------+--------+ + + + + | Closed | | Neurosurgery | Diagnoses | Chris, | Jeffrey Carvajal | | | | | Chronic | Lulu Le MD [address] | | | | | pain | DO [address] | | | | | syndrome | [address] | [facility] [place] | | | | | Spondylosis | [place] [address] | [address] | | | | | without | [place], | Phone: | | | | | myelopathy | [place] [address] | [phone] | | | | | or | Phone: | Fax: | | | | | radiculopath | [phone] | [phone] | | | | | y, cervical | Fax: | | | | | | region | [phone] | | | | | | Radiculopath | | | | | | | y, cervical | | | | | | | region | | | | | | | Procedures | | | | | | | ID OFFICE | | | | | | | CONSULTATION | | | | | | | NEW/ESTAB | | | | | | | PATIENT 60 | | | | | | | MIN | | | +--------+--------+ + + + + Encounter Details +--------+---------+ + + + | Date | Type | Department | Care Team | Description | +--------+---------+ + + + | 10/30/ | Office | [facility] [place] | Jeffrey Carvajal MD | Cervical spondylosis | | 2017 | Visit | NEUROSURGERY [address] | [address] | with radiculopathy | | | | [address] | [place] [address] | (Primary Dx); | | | | [place], [place] | [phone] | Foraminal stenosis | | | | [address] | | of cervical region; | | | | [phone] | | Cervical spinal | | | | | | stenosis; | | | | | | Degenerative disc | | | | | | disease, cervical | +--------+---------+ + + + Social History [...] + + + | Blood Pressure | 121/71 | 10/30/2016 9:02 AM | | | | | PST | | + + + + + | Pulse | 87 | 10/30/2016 9:02 AM | | | | | PST [...] + + + + | Weight | 88.5 kg (195 lb) | 10/30/2016 9:02 AM | | | | | PST | | + + + + + | Height | 170.2 cm (5' 7") | 10/30/2016 9:02 AM | | | | | PST | | + + + + + | Body Mass Index | 30.54 | 10/30/2016 9:02 AM | | | | | PST | | + + + + + documented in this encounter Patient Instructions Patient Instructions Jeffrey Carvajal MD - 10/30/2016 10:12 AM PSTWe discussed and will attemp t to arrange an Anterior Cervical Diskectomy and Fusion (ACDF) as we make a final decision a bout surgery. Your insurance provider may or may not approve the procedure, but I feel it i s medically necessary and appropriate. We discussed a number of important issues including risks, benefits, and alternatives. A spine class is usually available sometime before your surgery. These classes are very us eful in preparing for spinal surgery. I would encourage you to attend one. After surgery, it is critical that you do not start or resume smoking and also that you lianna id taking any and all anti-inflammatory medications like ibuprofen, Motrin, naproxen, Aleve, Celebrex, diclofenac, Mobic, meloxicam, and many others. The bone is much less likely to h eal if you do not avoid these. It is usually best not to take these or smoke for 6 months . You can research this procedure more by going to: http://[email or web address].com/nikki Click the Treatment Options link on the left column. Then, look for Anterior Cervical Discectomy and Fusion (ACDF). documented in this encounter Progress Notes Jeffrey Carvajal MD - 10/30/2016 9:17 AM PSTFormatting of this note might be different from t he original. Jeffrey Carvajal MD [address] [place] [address], [address] [place], [place] [id number] FAX: NEUROSURGERY HISTORY AND PHYSICAL EXAMINATION CHIEF COMPLAINT: Chief Complaint Patient presents with Neck Pain HISTORY OF PRESENT ILLNESS: The patient is a 30 y.o. male with the complaint of headaches and neck and arm pain symptoms that began 6 years ago. The patient describes neck pain that began in 2008.. The symptoms have been gradually worsening. He rates the pain as severe. The symptoms are daily. He describes the pain as shooting, pulsating, aching and throbbing. The patient describes arm symptoms that occur on both sides equally. The arm symptoms acco unt for 50% of his symptoms. The arm symptoms are intermittent, and the symptoms travel fro m the neck into the arms. The patient also describes numbness of the arms. Patient describ es having intermittent bilateral leg numbness. The patient [...] used to work but are now failing. PAST MEDICAL HISTORY: Past Medical History Diagnosis Date Chronic bronchitis (HCC) Arthritis Chronic kidney disease Kidney stone Chronic pain syndrome Spondylosis without myelopathy or radiculopathy, cervical region Radiculopathy, cervical region Neck pain Cervical radiculopathy Cervical spondylosis PAST SURGICAL HISTORY: Past Surgical History Procedure Laterality Date Knee surgery 2001 right Kidney stone surgery [id number] x2 CURRENT MEDICATIONS: Current Outpatient Prescriptions Medication Sig Dispense Refill citalopram (CELEXA) 40 mg tablet Take 40 mg by mouth Daily. cyclobenzaprine (FLEXERIL) 10 mg tablet take 1 tablet by mouth three times a day 0 HYDROcodone-acetaminophen (NORCO) 7.5-325 mg per tablet Take 1 tablet by mouth every 6 hours as needed for Pain. morphine (MS CONTIN) 15 mg ER tablet take 1 tablet by mouth twice a day 0 naloxone (NARCAN) 0.4 mg/mL injection INJECT 1 ML IN SHOULDER OR THIGH. REPEAT AFTER 2 TO 3 MINUTES IF NO OR [...] anemia, no fatigue, + recent profound weight riggs ges. EYES: No eye problems, no use of corrective lenses, no eye injury, no double vision, no bl indness. EARS, NOSE, AND THROAT: No changes in taste or smell, no hearing difficulty, + ringing in the ears, no ear drainage, no dizziness, no voice changes, no difficulty swallowing, + signi ficant snoring, no sleep apnea, no sinus problems, no major dental work. NEUROLOGICALLY: Please see the review of systems discussed above in the history of present illness. In addition, the patient has numbness and pain of arms and legs, muscle aching, c oordination difficulty, pain in neck, headaches, migraine. PSYCHIATRIC: + depression, + sleep disorders, + anxiety, no bipolar disorder, no psychotic episodes. CARDIOVASCULAR: No heart attacks, no heart [...] joint arthritis, no rheumatoid arthritis. PHYSICAL EXAMINATION: Blood pressure 121/71, pulse 87, height 1.702 m (5' 7"), weight 88.451 kg (195 lb). Body ma ss index is 30.53 kg/(m^2). GENERAL: Layne Bentley is in no acute distress with unlabored respirations. The patient does not appear uncomfortable throughout the exam today. HEENT: Head: Normocephalic/atraumatic with no areas of recent trauma. Eyes: Normal sclerae without icterus. Ears: No drainage or tenderness. Nasopharnyx: Clear without drainage. Oropharnyx: Clear without erythema. NECK (ANTERIOR): Supple and without palpable masses. CHEST: Clear to ausculation without crackles or wheeze. HEART: Regular rate and rhythm without murmurs. ABDOMEN: Soft, non-tender, non-distended, and without palpable masses. The patient is not o bese. SPINE: There is tenderness in the midline of the cervical spine at the C-3, C-4 and C-5. Range of motion of the neck is limited. There is no tenderness of there thoracic or lumbar spine. There is no major deformity noted. EXTREMITIES: No cyanosis, clubbing, or edema. Distal pulses are palpable. NEUROLOGICAL EXAM: MENTAL STATUS: The patient is awake, alert, and oriented. He follows simple and complex commands. His speech is fluent, he comprehends speech well, and he repeats well. He has no apparent deficits with short or usp memory. CRANIAL NERVES: II: Acuity is intact. Garcia are full to confrontation. III, IV, : The pupils are reactive. Extraocular movements are intact. No ptosis is note d. V: Facial sensation is intact and symmetric. VII: Facial movements are symmetric. VIII: Hearing is intact bilaterally. IX, X: The uvula and palate move appropriately. XI: Shrug is equal bilaterally. XII: Tongue protrusion is midline. MOTOR EXAM: (5 IS NORMAL) * Indicates pain limited MUSCLE/ MOVEMENT: RIGHT LEFT Deltoids 5 5 Biceps 5 5 Triceps 5 5 Wrist Flexion 5 5 Wrist Extension 5 5 Median Intrinsics 5 5 Ulnar Intrinsics 5 5 Automatic Car Wash Attendant Strength 5 5 Hip Flexion 5 5 Hip Extension 5 5 Knee Flexion 5 5 Knee Extension 5 5 Dorsiflexion 5 5 Extensor Hallicus Longus 5 5 Plantarflexion 5 5 SENSORY EXAM: Sensory exam shows no diminished sensation to light touch or pain throughout the upper and lower extremities. REFLEXES: (2 OR 2+ IS NORMAL) REFLEX: RIGHT LEFT BICEPS 1 1 BRACHIORADIALIS 1 1 TRICEPS 1 1 PATELLAR 1 1 ACHILLES 1 1 STERN'S ABSENT ABSENT PLANTAR DOWNGOING DOWNGOING GAIT: Gait is steady. PERIPHERAL NERVE/MISC: Tinel is negative at the wrists and elbows bilaterally. Phalen is negative. Straight leg raise is negative bilaterally. Mike's test of the hips is negative bilaterally. TEST AND RADIOGRAPHIC REVIEW: The patient's imaging was reviewed in detail with the patient today during the visit. The MRI from 2016 shows C3-4, C4-5, and C5-6 bilateral foraminal stenosis L > R. At C5-6 he has cord effacement and cord compression. Cervical x-rays [...] radiculopathy Cervical spondylosis PLAN: Layne Bentley presented today, and we went over in great detail his neurologic problems. The patient has cervical radiculopathy due to [...] C3-6. The patient understands that in most instances the recovery from surgery can be lengthy and sometimes difficult. We discussed the risks, alternatives, and benefits to surgical intervention with Mr. Bentley in clinic. These risks included but were not limited to , stroke, heart attack, numbne ss, weakness, paralysis, failure of fusion, failure of hardware, subsidence, adjacent segmen t degeneration, cerebrospinal fluid leak, bleeding, infection, injury to surrounding tissues and organs, injury from positioning, injury to the nerves, difficulty with breathing, diffi culty with swallowing, difficulty with voice change, and [...] that although some patients may obtain 100% sym ptom relief, it is realistic to anticipate that some symptoms will continue postoperatively despite a successful surgery. We also discussed that there is no guarantee that surgery will provide improvement in his c ondition, and indeed may even worsen the symptoms. We also discussed that in the course of the procedure the operative plan may be altered to include more, less, or different levels d epending upon findings in order to provide him [...] improve the probability and rate of fusion. The patient would like to be considered for surgery as discussed and would like us to seek authorization and clearance for the operation. I counseled him for 5 minutes on the need fo r smoking cessation. ELECTRONICALLY SIGNED BY: Jeffrey Carvajal MD, 10/30/2016 10:13 Deann Mari assisted me in the chimney builder of this note in my presence today. documented in this encou nter Plan of Treatment +--------+---------+ + + + | Date | Type | Specialty | Care Team | Description | +--------+---------+ + + + | 05/09/ | Office | Neurology | Renu Bright, | | | 2019 | Visit | | [facility] | | | | | | [address] [facility] [address] | | | | | | [place] [address] | | | | | | [phone] | | | | | | | [...] disc | + + documented in this encounter
--- OUTSIDE RECORDS SUMMARY | ~2020-04-20 | XMS | Encounter Summary ---
Demographics + + + | Address | [address] | | | [place] [address] | + + + | Home Phone | | + + + | Preferred Language | Unknown | + + + | Marital Status | | + + + | Samaritan Affiliation | Unknown | + + + | Race | Unknown | + + + | Ethnic Group | Unknown | + + + Author + + + | Author | [facility] | | | and Frandyana | + + + | Organization | [facility] [...] Team Providers + +------+ + | Care School Photograph Editor Name | Role | Phone | + +------+ + | Kathrin Summers | PCP | | + +------+ + Encounter Details +--------+ + + + + | Date | Type | Department | Care Team | Description | +--------+ + + + + | 11/11/ | Episode | [facility] [place] | Alana Cloud | | | 2017 | Changes | NEUROSURGERY [address] | S, Diplomatic Interpreter/Translator | | | | | [address] [facility] [address] | | | | | | [place], [place] | | | | | | [address] | | | | | | [phone] | | | +--------+ + + + [...] D | | | | | | [place] [address] | | | | | | [phone] | | | | | | | | +--------+---------+ + + + documented as of this encounter Visit Diagnoses Not on filedocumented in this encounter"
--- OUTSIDE RECORDS SUMMARY | ~2020-04-20 | XMS | Encounter Summary ---
Demographics + + + | Address | [address] | | | [place] [address] | + + + | Home Phone | | + + + | Preferred Language | Unknown | + + + | Marital Status | | + + + | Confucianist Affiliation | Unknown | + + + | Race | Unknown | + + + | Ethnic Group | Unknown | + + + Author + + + | Author | [facility] | | | and Frandyana | + + + | Organization | [facility] | | | and Frandyana [...] Team Providers + +------+ + | Care Roping Machine Tender Name | Role | Phone | + +------+ + | Kathrin Summers | PCP | | + +------+ + Encounter Details +--------+ + + + + | Date | Type | Department | Care Team | Description | +--------+ + + + + | 01/13/ | Hospital | [facility] | Bony Quiroz | Cervical spondylosis | | 2017 | Encounter | MED CTR XRAY [address] | [address] | with radiculopathy; | | | | [place] | [address] [place], [place] | S/P cervical spinal | | | | [place] [address] | [address] | fusion | | | | [phone] | | | +--------+ + + + [...] + + + +---------+ + + | diazePAM (VALIUM) | Take 1 tablet by | 45 | 0 | 12/19/19 | | | 5 mg tablet | mouth every 6 hours | tablet | | 17 | 7 | | | as needed for | | | | | | | Anxiety. | | | | | + + + +---------+ + + | | Take 1-2 tablets by | 120 | 0 | 01/14/20 | | | HYDROcodone-acetamin | mouth every 4 hours | tablet | | 17 | 7 | | ophen (NORCO) 10-325 | as needed for Pain. | | | | | | mg per tablet | | | | | | + + + +---------+ + + | lactulose 10 g/15 | Take 30 mLs by mouth | 480 mL | 2 | 02/18/20 | | | mL solution | 2 times daily. | | | 17 | 7 | + + + +---------+ + + | morphine (MS | Take 1 tablet by | 60 | 0 | 01/14/20 | | | CONTIN) 30 mg ER [...] D | | | | | | [place] [address] | | | | | | [phone] | | | | | | | | +--------+---------+ + + + documented as of this encounter Procedures + +--------+ + + + | Procedure Name | Priori | Date/Time | Associated Diagnosis | Comments | | | ty | | | | + +--------+ + + + | XR CERVICAL SPINE 2 | Routin | 01/13/2017 | Cervical | Results for this | | OR 3 VIEWS | e | 7:41 AM | spondylosis with | procedure are in the | | | | PDT | radiculopathy S/P | results section. | | | | | cervical spinal | | | | | | fusion | | + +--------+ + + + [...] 2016 FINDINGS: Frontal and lateral views | . [facility] | | of the cervical spine. Anterior cervical discectomy and fusion | [facility] | | changes from C3 through [...] | + + + + + | [facility] | [address] | [place] | [phone] | | [facility] | | [address] | | | - IMAGING | | | | + + + + + documented in this encounter Visit Diagnoses + + | Diagnosis | + + | Cervical spondylosis with radiculopathy Cervical spondylosis with myelopathy | + + | S/P cervical spinal fusion Arthrodesis status | + + documented in this encounter"
--- OUTSIDE RECORDS SUMMARY | ~2020-04-20 | XMS | Encounter Summary ---
Demographics + + + | Address | [address] | | | [place] [address] | + + + | Home Phone [...] Author | [facility] | | | and Frandyana | + + + | Organization | [facility] | | | and Frandyana [...] Team Providers + +------+ + | Care Electro Mechanical Assembler Name | Role | Phone | + +------+ + | Kathrin Summers | PCP | | + +------+ + Encounter Details +--------+ + + + + | Date | Type | Department | Care Team | Description | +--------+ + + + + | 11/10/ | Orders Only | [facility] | Jeffrey Carvajal MD | Cervical spondylosis | | 2017 | | NEUROSURGERY [address] | [address] | with radiculopathy | | | | [address] | [place] [address] | (Primary Dx); | | | | [place], [place] | [phone] | Foraminal stenosis | | | | [address] | | of cervical region; | | | | [phone] | | Cervical spinal | | | [...] D | | | | | | [place] [address] | | | | | | [phone] | | | | | | | [...]
--- OUTSIDE RECORDS SUMMARY | ~2020-04-20 | XMS | Encounter Summary ---
Demographics + + + | Address | [address] | | | [place] [address] | + + + | Home Phone | | + + + | Preferred Language | Unknown | + + + | Marital Status | | + + + | Faith Affiliation | Unknown | + + + | Race | Unknown | + + + | Ethnic Group | Unknown | + + + Author + + + | Author | [facility] | | | and [place]andyana | + + + | Organization | [facility] | | | and [...] Team Providers + +------+ + | Care Needle Valve Operator Name | Role | Phone | + +------+ + | Ghada Hung MD | PCP | | + +------+ + Reason for Visit + +--------+ + | Reason | Onset | Comments | | | Date | | + +--------+ + | Appointment Question | 01/24/ | | | | 2020 | | + +--------+ + Encounter Details +--------+ + + + + | Date | Type | Department | Care Team | Description | +--------+ + + + + | 01/24/ | Telephone | [facility] | Renu Bright, | Appointment Question | | 2020 | | NEUROLOGY [address] | [address] | | | | | [place] | [facility] | | | | | [place], [place] | [place] [address] | | | | | [address] | [phone] | | | | | [phone] | | | +--------+ + + + [...] Telephone Encounter - Phylicia Lord CMA - 01/25/2020 9:20 AM PDTLeft voicemail and reque sted a return call. Patient needs to answer the following screening questions and be informe d of the current "no visitor" policy. Called patient to confirm appointment and complete pre-screening for COVID-19. 1) In the last 7-10 days, have you had a fever that is accompanied by a cough or shortness of breath? 2) In the last 7-10 days, have you been in close proximity to anyone with those symptoms? 3) In the last 7-10 days, have you been in close proximity to anyone that was diagnosed wit h COVID-19? 4) If this is a Botox appointment, please bring your own mask from home if you have one cas ilable. documented in this en counter Plan of Treatment +--------+---------+ + + + | Date | Type | Specialty | Care Team | Description | +--------+---------+ + + + | 05/09/ | Office | Neurology | Renu Bright, | | | 2019 | Visit | | [address] | | | | | | [address] | | | | | | [place] [address] | | | | | | [phone] | | | | | | | | +--------+---------+ + + + documented as of this encounter Visit Diagnoses Not on filedocumented in this encounter
--- OUTSIDE RECORDS SUMMARY | ~2020-04-20 | XMS | Encounter Summary ---
Demographics + + + | Address | [address] | | | [place] [address] | + + + | Home Phone | | + + + | Preferred Language | Unknown | + + + | Marital Status | | + + + | Yazidism Affiliation | Unknown | + + + | Race | Unknown | + + + | Ethnic Group | Unknown | + + + Author + + + | Author | [facility] | | | and [place]andy[place] | + + + | Organization | [facility] | | | and [...] Providers + +------+ + | Care Manager Support Services Name | Role | Phone | + [...] | | [address] | [place] [address] | initial encounter | | | | [place] | [phone] | (HCC) (Primary Dx); | | | | [address] | | Cervicalgia | | | | [phone] | Leonidas De La Fuente, | | | | | | PA-C [address] | | | | | [address] [place] | | | | | | [place] [address] | | | | | | [phone] | | | | | | | [...] original. Leonidas De La Fuente PA-C [address] [place], [place] [id number] FAX: NEUROSURGERY FOLLOW-UP CHIEF COMPLAINT: Chief Complaint [...] pain. 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 SENSORY EXAM: The sensory examination unchanged [...] the patient s last x-ray w [facility] was also reviewed for comparison. He likely has pseudoarthrosis at every segment. ASSESSMENT: Encounter Diagnoses Name Primary? 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
--- OUTSIDE RECORDS SUMMARY | ~2020-04-20 | XMS | Encounter Summary ---
Demographics + + + | Address | [address] | | | [place] [address] | + + + | Home Phone | | + + + | Preferred Language | Unknown | + + + | Marital Status | | + + + | Mandaeism Affiliation | Unknown | + + + | Race | Unknown | + + + | Ethnic Group | Unknown | + + + Author + + + | Author | [facility] | | | and [place]andyana | + + + | Organization | [facility] | | | and [...] Team Providers + +------+ + | Care Staff Software Engineer Name | Role | Phone | [...] | | | | | | | IN | | | | | | | ARTHRODESIS | | | | | | | ANT | | | | | | | INTERBODY | | | | | | | INC | | | | | | | DISCECTOMY, | | | | | | | CERVICAL | | | | | | | BELOW C2 IN | | | | | | | [...] | | | | | | | IN | | | | | | | [...] | | | | | | | IN ALLOGRAFT | | | | | | [...] + + + + | 12/12/ | Anesthesia | [facility] | Dick Madden, | | | 2017 | Event | MED CTR OR INTRA OP | DO [address] | | | | | [address] | [place] | | | | | [place] | [address] | | | | | [address] | | | | | | [phone] | Herman Rendon, | | | | | | MD [address] | | | | | | [place] | | | | | | [address] | | | | | | | | +--------+ + + + + Anesthesia Record + + + + + | Procedure Name | Responsible | Anesthesia Start | Anesthesia Stop Time | | | Anesthesiologist | Time | | + + + + + | C3-4, C4-5, C5-6 | Dick Mdaden DO | 12/12/16 1538 | 12/12/16 1808 | | Anterior Cervical | | | | | Discectomy Fusion | | | | | (Anterior Neck) | | | | + + + + + +----+---+ + + | Da | T | Event | Comment | | te | i | | | | | m | | | | | e | | | +----+---+ + + | 02 | 1 | | | | /1 | 5 | | | | 7/ | 3 | | | | 20 | 4 | | | | 17 | | | | +----+---+ + + | | 1 | An Checkout | Pre-use anesthesia machine/equipment checkout. | | | 5 | | | | | 3 | | | | | 6 | | | +----+---+ + + | | 1 | An Start | Reassessment prior to anesthesia induction/procedure. | | | 5 | | | | | 3 | | | | | 8 | | | +----+---+ + + | | 1 | Antibiotic | | | | 5 | Given | | | | 3 | | | | | 8 | | | +----+---+ + + | | 1 | Preoxygenat | | | | 5 | ed | | | | 4 | | | | | 0 | | | +----+---+ + + | | 1 | Pre-Procedu | | | | 5 | ral Timeout | | | | 4 | Completed | | | | 0 | | | +----+---+ + + | | 1 | An | | | | 5 | Induction | | | | 4 | | | | | 4 | | | +----+---+ + + | | 1 | An | | | | 5 | Intubation | | | | 4 | | | | | 6 | | | +----+---+ + + | | 1 | AN Bite | | | | 5 | Block | | | | 4 | | | | | 7 | | | +----+---+ + + | | 1 | Nazlini | | | | 5 | 43-degrees | | | | 5 | | | | | 2 | | | +----+---+ + + | | 1 | First | | | | 6 | Inc/Proc St | | | | 0 | | | | | 4 | | | +----+---+ + + | | 1 | AN No | TOF 4/4 with sustained tetanus. | | | 7 | Residual | | | | 5 | NMB | | | | 0 | | | +----+---+ + + | | 1 | Breathing | | | | 8 | Spontaneous | | | | 0 | ly | | | | 2 | | | +----+---+ + + | | 1 | Oropharynx | | | | 8 | Suctioned | | | | 0 | | | | | 2 | | | +----+---+ + + | | 1 | an stop | | | | 8 | data | | | | 0 | | | | | 4 | | | +----+---+ + + | | 1 | An Stop | Patient handed off to recovery nurse. | | | 0 | | | | | 8 | | | +----+---+ + + +------+ | Meds | +------+ + + + | Name | Total | + + + | midazolam | 2 mg | + + + | fentaNYL injection (2 mL) | 200 mcg | + + + | propofol (DIPRIVAN) injection | 200 mg | | (bolus) (20 mL) | | + + + | lidocaine 2% | 100 mg | + + + | rocuronium | 50 mg | + + + | ondansetron | 4 mg | + + + | dexamethasone | 10 mg | + + + | HYDROmorphone | 3 mg | + + + | ceFAZolin in saline (ANCEF) IVPB | 2 g | | 2 g | | + + + | scopolamine (TRANSDERM-SCOP) 1 | 1 patch | | mg/3 days 1 patch | | + + + | acetaminophen (TYLENOL) tablet | 1 g | | 975 mg | | + + + | ketamine | 100 mg | + + + | dexmedetomidine (Bolus) | 90 mcg | + + + | esmolol | 40 mg | + + + | lactated ringers (LR) infusion | 2,000 mL | + + + + + | Name | + + | N2O Flow Rate (L/Min) | + + | O2 Flow Rate (L/Min) | + + | Insp O2 | + + | Exp SEV | + + | Air Flow Rate (L/Min) | + + + + | No blood administrations on file. | + + +--------+ + + + | Type | Details | Placement | Removal | +--------+ + + + | Drain/ | 12/12/16; #1; midline; neck; tip | 12/12/16 0000 by | 12/13/16 1029 by | | Device | intact; short term use; 12/13/16; | Billy Clark RN | Stephen Mclaughlin RN | | Site | 1029 | | | +--------+ + + + | Periph | 12/12/16; 1102; Right; Proximal; | 12/12/16 1102 by | 12/13/16 1029 by | | eral | Forearm; [id number] catheter | Paola Guerrier RN | Stephen Mclaughlin RN | | IV | system; 18 gauge; distraction, | | | | | intradermal injection; no longer | | | | | indicated, catheter/device | | | | | intact; short term use; 12/13/16; | | | | | 1029 | | | +--------+ + + + | Airway | Placement Date: 12/12/16; | 12/12/16 1546 by | 12/12/16 1829 by | | | Placement Time: 1545 (created via | Dick Madden DO | John Paul Pulliam RN | | | procedure documentation); Mask | | | | | Ventilation: EZ; Airway Grade: 1; | | | | | Successful Technique: Mac; | | | | | Laryngoscope Blade Size: 4; | | | | | Attempts: 1; Airway Type: | | | | | endotracheal; Size: 7; Airway | | | | | Tube Secured At: 23; Trauma: | | | | | none; Other Equipment: stylette; | | | | | Placement Check: exhaled CO2 | | | | | detection device, bilateral chest | | | | | rise, suprasternal notch | | | | | palpation; Removal: per protocol, | | | | | removed by RN; Removal Date: | | | | | 12/12/16; Removal Time: 1828 | | | +--------+ + + + | Read | 12/12/16; 1632; neck; healing | 12/12/16 1632 by | 12/13/16 1030 by | | only - | within expectations; 12/13/16; | Billy Clark RN | Stephen Mclaughlin RN | | | 1030 | | | | Incisi | | | | | on | | | | +--------+ + + + documented in this encounter Social History + + + +--------+------+ | [...] + + documented as of this encounter OR Notes Anesthesia Postprocedure Evaluation - Dick Madden DO - 12/12/2016 6:37 PM PSTFormat ting of this note might be different from the original. ANESTHESIA POSTANESTHESIA EVALUATION Layne Hasmukh Bentley 31 y.o. male 1985 [id number] Procedure(s) C3-4, C4-5, C5-6 Anterior Cervical Discectomy Fusion (Anterior Neck) Cooperates? Yes Mental Status Performs simple tasks. Respiratory Satisfactory - Airway patent (self maintained). Cardiovascular Satisfactory Blood pressure and heart rate acceptable Temperature Satisfactory Pain Satisfactory N/V Control Satisfactory Hydration Satisfactory No signs of dehydration Complications None apparent Filed Vitals: 12/12/16 1820 12/12/16 1825 12/12/16 1830 BP: 115/72 118/77 115/82 Pulse: 102 100 117 Temp: Resp: 13 13 18 SpO2: 99% 99% 100% Electronically signed by Dick Madden DO 12/12/2016 18:37 [facility] nesthesia Procedur e Notes - Dick Madden DO - 12/12/2016 3:55 PM PSTAssociated Order(s): ANE AIRWAY NOT EAnesthesia Airway Placement 12/12/2016 15:46 Preprocedure check: patient identified, oxygen, airway assessed, suction, airway equipment checked and patient reassessment prior to induction Mask ventilation: easy Successful technique: Mac Laryngoscope blade size: 4 Airway grade: 1 (Full view of glottis) Other equipment: stylette Attempts: 1 Airway type: endotracheal Size: 7 Cuffed: cuffed Route, reference point: right side of mouth Tube depth: 23 cm Tube secured with: adhesive tape Trauma: none Tube placement verification: bilateral chest rise, carbon dioxide detection and suprasterna l notch palpation Performing provider: DICK MADDEN nesthesia Preproce dure Evaluation - Dick Madden DO - 12/11/2016 9:37 PM PSTFormatting of this note indigo ht be different from the original. ANESTHESIA PREANESTHESIA EVALUATION Layne Bentley 31 y.o. male 1985 [id number] Procedure(s): C3-4, C4-5, C5-6 Anterior Cervical Discectomy Fusion (Anterior Neck) Medical history, anesthesia, medications, allergy, NPO status verified histories reviewed. ECG reviewed. Labs reviewed. Review of Systems / Med History Anesthesia History (+) PONV Pulmonary (+) smoking history Endocrine (+) obesity: BMI (30-39) Other (+) arthritis Physical Exam Airway MP II, TM >3 FB, Mouth opening >2 FB. Neck: full ROM, extends >30 degrees. Jaw protrus ion normal. Dental Grossly normal except where noted below.; CV cardiovascular normal Pulm Clear to auscultation bilaterally. Neuro Grossly normal. Anesthesia Plan ASA 2 Type: General. Induction: Intravenous. Potential problems: None anticipated. Monitors: Standard ASA monitors. Consent statement:Anesthetic plan, alternatives, risks and benefits discussed with patient. Risks discussed included (but were not limited to): pain, sore throat, dental injury, perio perative CV events, muscle aches, drug reaction, nausea, respiratory events, . Consenting person understands and agrees to proceed. Electronically Signed by: Dick Madden DO ESig date/time: 12/12/2016 15:32 documented in this encounter Plan of Treatment +--------+---------+ + + + | Date | Type | Specialty | Care Team | Description | +--------+---------+ + + + | 05/09/ | Office | Neurology | Renu Bright, | | | 2020 | Visit | | [address] | | | | | | [place] [address] | | | | | | [phone] | | | | | | | | +--------+---------+ + + + documented as of this encounter Procedures + +--------+ + + + | Procedure Name | Priori | Date/Time | Associated Diagnosis | Comments | | | ty | | | | + +--------+ + + + | ANE AIRWAY NOTE | Routin | 12/12/2016 | | Results for this | | | e | 3:56 PM | | procedure are in the | | | | PST | | results section. | + +--------+ + + + documented in this encounter Results Anesthesia Airway Note (12/12/2016 3:56 PM PST) + + + | Narrative | Performed At | + + + | Dick Madden DO 12/12/2016 15:56 Anesthesia | | | Airway Placement 12/12/2016 15:46 Preprocedure check: patient | | | identified, oxygen, airway assessed, suction, airway equipment | | | checked and patient reassessment prior to induction Mask | | | ventilation: easy Successful technique: Mac Laryngoscope blade | | | size: 4 Airway grade: 1 (Full view of glottis) Other equipment: | | | stylette Attempts: 1 Airway type: endotracheal Size: 7 Cuffed: | | | cuffed Route, reference point: right side of mouth Tube depth: 23 cm | | | Tube secured with: adhesive tape Trauma: none Tube placement | | | verification: bilateral chest rise, carbon dioxide detection and | | | suprasternal notch palpation Performing provider: DICK MADDEN | | | [place] | | + + + documented in [...] +---+---+ | | | +---+---+ + +-------+ +-----+---+---+ | ceFAZolin in saline (ANCEF) | Given | 12/12/19 | 2 g | | | | IVPB 2 g 2 g, Intravenous, | | 17 3:38 | | | | | Administer over 30 Minutes, Prior | | PM PST | | | | | to Incision, Starting Thu | | | | | | | 12/12/16 at 1028, For 1 dose, | | | | | | | Administer within 1 hour of | | | | | | | surgical incision. Keep in | | | | | | | refrigerator., Pre-op, | | | | | | | Indications: Surgical Prophylaxis | | | | | | + +-------+ +-----+---+---+ +---+---+ | | | +---+---+ + +-------+ +-------+---+---+ | dexamethasone (DECADRON) 10 | Given | 12/12/19 | 10 mg | | | | mg/mL injection Intravenous, | | 17 3:44 | | | | | PRN, Starting Thu12/12/16 at | | PM PST | | | | | 1544, Anesthesia Intra-op | | | | | | + +-------+ +-------+---+---+ +---+---+ | | | +---+---+ + +-------+ +--------+---+---+ | dexmedetomidine (PRECEDEX) in | Given | 12/12/19 | 90 mcg | | | | sodium chloride bolus infusion | | 17 4:47 | | | | | Intravenous, PRN, Starting Fri | | PM PST | | | | | 12/12/16 at 1647, Anesthesia | | | | | | | Intra-op | | | | | | + +-------+ +--------+---+---+ +---+---+ | | | +---+---+ + +-------+ +-------+---+---+ | esmolol (BREVIBLOC) 10 mg/mL | Given | 12/12/19 | 20 mg | | | | injection Intravenous, PRN, | | 17 5:16 | | | | | Starting 12/12/16 at 1701, | | PM PST | | | | | Anesthesia Intra-op | | | | | | + +-------+ +-------+---+---+ +-------+ +-------+---+---+ | Given | 12/12/19 | 20 mg | | | | | 17 5:01 | | | | | | PM PST | | | | +-------+ +-------+---+---+ +---+---+ | | | +---+---+ + +-------+ +---------+---+---+ | fentaNYL (PF) injection | Given | 12/12/19 | 100 mcg | | | | Intravenous, PRN, Pain, Starting | | 17 4:43 | | | | | 12/12/16 at 1542, Anesthesia | | PM PST | | | | | Intra-op | | | | | | + +-------+ +---------+---+---+ +-------+ +---------+---+---+ | Given | 12/12/19 | 100 mcg | | | | | 17 3:42 | | | | | | PM PST | | | | +-------+ +---------+---+---+ +---+---+ | | | +---+---+ + +-------+ +--------+---+---+ | HYDROmorphone (DILAUDID) 2 | Given | 12/12/19 | 0.4 mg | | | | mg/mL injection Intravenous, | | 17 5:43 | | | | | PRN, Pain, Starting 12/12/16 | | PM PST | | | | | at 1551, Anesthesia Intra-op | | | | | | + +-------+ +--------+---+---+ +-------+ +--------+---+---+ | Given | 12/12/19 | 0.6 mg | | | | | 17 5:03 | | | | | | PM PST | | | | +-------+ +--------+---+---+ | Given | 12/12/19 | 1 mg | | | | | 17 4:15 | | | | | | PM PST | | | | +-------+ +--------+---+---+ +---+---+ | | | +---+---+ + +-------+ +-------+---+---+ | ketamine 50 mg/mL injection | Given | 12/12/19 | 50 mg | | | | PRN, Starting Thu12/12/16 at | | 17 4:43 | | | | | 1544, Anesthesia Intra-op | | PM PST | | | | + +-------+ +-------+---+---+ +-------+ +-------+---+---+ | Given | 12/12/19 | 50 mg | | | | | 17 3:44 | | | | | | PM PST | | | | +-------+ +-------+---+---+ +---+---+ | | | +---+---+ + +---------+ [...] | | +---+---+ + +-------+ +--------+---+---+ | lidocaine (PF) 2% injection | Given | 12/12/19 | 100 mg | | | | Intravenous, PRN, Starting Fri | | 17 3:44 | | | | | 12/12/16 at 1544, Anesthesia | | PM PST | | | | | Intra-op | | | | | | + +-------+ +--------+---+---+ +---+---+ | | | +---+---+ + +-------+ +------+---+---+ | midazolam (VERSED) 1 mg/mL | Given | 12/12/19 | 2 mg | | | | injection Intravenous, PRN, | | 17 3:37 | | | | | Anxiety, Starting Thu12/12/16 at | | PM PST | | | | | 1537, Anesthesia Intra-op | | | | | | + +-------+ +------+---+---+ +---+---+ | | | +---+---+ + +-------+ +------+---+---+ | ondansetron (ZOFRAN) injection | Given | 12/12/19 | 4 mg | | | | Intravenous, PRN, Nausea, | | 17 3:44 | | | | | Vomiting, Starting Thu12/12/16 at | | PM PST | | | | | 1544, Anesthesia Intra-op | | | | | | + +-------+ +------+---+---+ +---+---+ | | | +---+---+ + +-------+ +--------+---+---+ | propofol (DIPRIVAN) injection | Given | 12/12/19 | 200 mg | | | | Intravenous, PRN, Starting Fri | | 17 3:44 | | | | | 12/12/16 at 1544, Anesthesia | | PM PST | | | | | Intra-op | | | | | | + +-------+ +--------+---+---+ +---+---+ | | | +---+---+ + +-------+ +-------+---+---+ | rocuronium (ZEMURON) injection | Given | 12/12/19 | 50 mg | | | | Intravenous, PRN, Starting Fri | | 3:44 | | | | | 12/12/16 at 1544, Anesthesia | | PM PST | | | | | Intra-op | | | | | | + +-------+ +-------+---+---+ +---+---+ | | | +---+---+ + +-------+ +---------+---+---+ | scopolamine (TRANSDERM-SCOP) 1 | Given | 12/12/19 | 1 patch | | | | mg/3 days 1 patch 1 patch, | | 17 3:26 | | | | | Transdermal, ONCE, 12/12/16 at | | PM PST | | [...] | | | +---+---+ documented in this encounter"
--- OUTSIDE RECORDS SUMMARY | ~2020-04-20 | XMS | Encounter Summary ---
Demographics + + + | Address | [address] | | | [place] [address] | + + + | Home Phone | | + + + | Preferred Language | Unknown | + + + | Marital Status | | + + + | Lutheran Affiliation | Unknown | + + + | Race | Unknown | + + + | Ethnic Group | Unknown | + + + Author + + + | Author | [facility] | | | and Frandyana | + + + | Organization | [facility] | [...] Team Providers + +------+ + | Care Special Effects Designer Name | Role | Phone | [...] | | | | | | | ND | | | | | | | ARTHRODESIS | | | | | | | ANT | | | | | | | INTERBODY | | | | | | | INC | | | | | | | DISCECTOMY, | | | | | | | CERVICAL | | | | | | | BELOW C2 ND | | | | | | | [...] | | | | | | | ND | | | | | | | [...] | | | | | | | ND ALLOGRAFT | | | | | | [...] + + | 12/12/ | Hospital | [facility] | Jeffrey Carvajal MD | | | 2016 | Encounter | MED CTR XRAY [address] | [address] | | | | | [place] | [place] [address] | | | | | [place] [address] | [phone] | | | | | [phone] | | | +--------+ + + + [...] | 05/09/ | Office | Neurology | Urdahl, Tauni, | | | 2019 | Visit | | [address] | | | | | | [address] | | | | | | [place] [address] | | | | | | [phone] | | | | | | | | +--------+---------+ + + + documented as of this encounter Procedures + +--------+ + + + | Procedure Name | Priori | Date/Time | Associated Diagnosis | Comments | | | ty | | | | + +--------+ + + + | PREMA EATON STATZofia NO | Routin | 12/12/2016 | | Results for this | | CHARGE | e | 5:54 PM | | procedure are in the | | | | PST | | results section. | + +--------+ + + + documented in this encounter Results PREMA Edward Statzofia No Charge (12/12/2016 5:54 PM PST) [...]
--- OUTSIDE RECORDS SUMMARY | ~2020-04-20 | XMS | Encounter Summary ---
Demographics + + + | Address | [address] | | | [place] [address] | + + + | Home Phone | | + + + | Preferred Language | Unknown | + + + | Marital Status | | + + + | Lutheran Affiliation | Unknown | + + + | Race | Unknown | + + + | Ethnic Group | Unknown | + + + Author + + + | Author | [facility] | | | and Frandyana | + + + | Organization | [facility] | | | and Frandyana | [...] Team Providers + +------+ + | Care Set Decorator Name | Role | Phone | + [...] | | | | | status | [address] | [address] | | | | | migrainosus | Phone: | Phone: | | | | | | [phone] | [phone] | | | | | | Fax: | Fax: | | | | | | [phone] | [phone] | + +--------+ + + + + Encounter Details +--------+---------+ + + + | Date | Type | Department | Care Team | Description | +--------+---------+ + + + | 11/30/ | Office | [facility] | Renu Bright, | Chronic migraine | | 2020 | Visit | NEUROLOGY [address] | [address] | without aura without | | | | [address] | [address] | status migrainosus, | | | | [place], [place] | [place] [address] | not intractable | | | | [address] | [phone] | (Primary Dx); | | | | [phone] | | Medication overuse | | | [...] 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 Headache description: Location: starts from base of [...] D | | | | | | [place] [address] | | | | | | [phone] | | | | | | | [...]
--- OUTSIDE RECORDS SUMMARY | ~2020-04-20 | XMS | Encounter Summary ---
Demographics + + + | Address | [address] [place] [address] | | | [place] [address] | + + + | Home Phone | | + + + | Preferred Language | Unknown | + + + | Marital Status | Single | + + + | Confucianist Affiliation | Unknown | + + + | Race | White | + + + | Ethnic Group | Not or | + + + Author + + + | Author | [facility] | + + + | Organization | [facility] | + + + | Address | Unknown | + + + | Phone | Unavailable | + + + Support + + +---------+ + | Name | Relationship | Address | Phone | + + +---------+ + | None None | ECON | Unknown | Unavailable | + + +---------+ + Care Team Providers + +------+ + | Care Devops Engineer Name | Role | Phone | [...] | | | | | cervical | [place], [place] | | | | | | spine ([facility]) | [address] | | | | | | Procedures | Phone: | | | | | | MRI SPINE | [phone] | | | | | | CERVICAL WO | Fax: | | | | | | CONTRAST [place] | [phone] | | | | | | MRI, [...] | | | region | MANAGEMENT | [place], [place] | | | | | Procedures | [address] | [address] | | | | | [place] NEW | [address] | Phone: | | | | | PATIENT | [place], [place] | [phone] | | | | | [place] | [address] | Fax: | | | | | EST PATIENT | Phone: | [phone] | | | | | LEVEL V | [phone] | | | | | | | Fax: | | | | | | | [phone] | | +--------+--------+ + + + + [...] | | | Ave Mailcode: CH8N | [place], [place] | of cervical spine, | | | | [place] [facility] | [address] | initial encounter | | | | and Healing, | [phone] | ([facility]) | | | | Building | | | | | | Floor [facility] [place] | | | | | | [address] | | | | | | [phone] | | | +--------+---------+ + + + [...] care. MD OMID Zhou MD NEUROSURGERY AT [facility] [address] Mailcode: [place] [address] azuKing Ghosh MD - 09/02/2018 1:30 PM PST NEUROSURGERY CLINIC NOTE Author: KING VASQUEZ MD Attending Physician: Omid Gonzalez MD Reason [...] EOMI, V1-3 intact b/l, FS, TM BUE 02/27 D/B/T/HG/HI BLE 02/27 HF/KE/KF/DF/PF Neg Drift SILT [...]
--- OUTSIDE RECORDS SUMMARY | ~2020-04-20 | XMS | Encounter Summary ---
Demographics + + + | Address | [address] | | | [place] [address] | + + + | Home Phone | | + + + | Preferred Language | Unknown | + + + | Marital Status | | + + + | Jewish Affiliation | Unknown | + + + | Race | Unknown | + + + | Ethnic Group | Unknown | + + + Author + + + | Author | [facility] | | | and Frandyana | + + + | Organization | [facility] | | | and Frandyana | [...] Team Providers + +------+ + | Care Web Applications Administrator Name | Role | Phone | [...] + + | 12/26/ | Telephone | [facility] | Renu Bright, | Other (Medication | | 2020 | | NEUROLOGY [address] | [address] | questions) | | | | [address] | [address] | | | | | [place], [place] | [place] [address] | | | | | [address] | [phone] | | | | | [phone] | | | +--------+ + + + [...] Miscellaneous Notes Telephone Encounter - Alee Pena, Sweet Potato Disintegrator - 12/28/2019 12:05 PM Yael duffy call to patient and was able to give prescribers recommendations. He was in agreement of this plan and prescription was pended to the provider. elephone Encounter - Alee Pena, Sweet Potato Disintegrator - 12/27/2019 9:17 AM PSTPatient called with [...] | | | | | | [place] [address] | | | | | | [phone] | | | | | | | | +--------+---------+ + + + documented as of this encounter Visit Diagnoses Not on filedocumented in this encounter"
--- OUTSIDE RECORDS SUMMARY | ~2020-04-20 | XMS | Encounter Summary ---
Demographics + + + | Address | [address] | | | [place] [address] | + + + | Home Phone [...] Author | [facility] | | | and Frandyana | + + + | Organization | [facility] | | [...] Team Providers + +------+ + | Care Office Support Specialist Name | Role | Phone | + +------+ + | Kathrin Summers | PCP | | + +------+ + Encounter Details +--------+ + + + + | Date | Type | Department | Care Team | Description | +--------+ + + + + | 08/14/ | Hospital | [facility] | Khushi Rittermercedes Wing, | Nephrolithiasis | | 2016 | Encounter | [facility] PAC[facility] | DO [address] | | | | | [address] | [place] [address] | | | | | [place], [place] | [phone] | | | | | [address] | | | | | | [phone] | | | +--------+ + + + [...] Note by Lisa Salazar RN at 08/14/16 144 Author: Lisa Salazar RN Service: (none) Author Type: Registered Nurse Filed: 08/14/16 0720 Date of Service: 08/14/16 144 Status: Signed Barrel Finisher: Lisa Salazar RN (Registered Nurse) Bladder scan [...] Note by Lisa Salazar RN at 08/14/16 5870 Author: Lisa Salazar RN Service: (none) Author Type: Registered Nurse Filed: 08/14/16 9103 Date of Service: 08/14/16 9596 Status: Signed Barrel Finisher: Lisa Salazar RN (Registered Nurse) Patient unable [...] 134 Date of Service: 08/14/161340 Status: Signed Barrel Finisher: Nia Hoffmann RN (Registered Nurse) Assessment unchanged from previous docume nted in this encounter H&P Notes Mike Ritter DO - 08/14/2016 11:57 AM PDTFormatting of this note might be different fr om the original. H&P by Mike Ritter DO at 08/14/161156 Author: Mike Ritter DO Service: Urology Author Type: Physician Filed: 08/14/161156 Date of Service: 08/14/161156 Status: Signed Barrel Finisher: Mike Ritter DO (Physician) [facility] Urology Primary Care Provider: Kathrin Summers [...] have some nausea upon presentation to the [place] ER 2 weeks ago. His pain is [...] Note by Mike Ritter DO at 08/14/16 9013 Author: Mike Ritter DO Service: Urology Author Type: Physician Filed: 08/15/16 0879 Date of Service: 08/14/163 Status: Signed Barrel Finisher: Mike Ritter DO (Physician) Related Notes: Original Note by Mike Ritter DO (Physician) filed at 08/14/16 9352 [facility] Service: Urology Operative Note Pre-operative Diagnosis: nephroureterolithiasis Post-operative Diagnosis: Same Procedure(s): Cystoscopy, right retrograde pyelogram, right ureteroscopy, laser lithotrips y, basket extraction, stent placement Surgeon: Mike Ritter DO Adult School Counselor(s): JEAN Anesthesia: General LMA Estimated Blood Loss: Less Than 10 ml (Minimal) Other: Specimens: stone fragments Indications: See pre-operative history and physical. Findings: See dictation; multiple right kidney stones visible on Fluoroscopy Complications: none Description of Procedure: After informed consent was obtained with the patient, and the patient was brought back to [facility] operative suite and placed on the operating room table. After general anesthetic was admi nistered and achieved, he was placed in the dorsal lithotomy position, prepped, and draped i n sterile fashion. Following a preoperative pause, a 21.5-Lao cystoscopic sheath with a 30-degree lens was [...] ureteropelvic junction on the right where on scout sniper film several at least 2 large stones [...] to guide the placemen t of a 6-Lao by 26 cm ureteral stent with strings [...] D | | | | | | [place] [address] | | | | | | [phone] | | | | | | | [...] EXTERNAL LAB | | Testing performed at [facility], [facility] Ariane | | | [place]ippy [address] COMPONENT 1 SEE | | | BELOW CALCIUM OXALATE DIHYDRATE (WEDDELLITE) 65% CARBONATE APATITE | | | (DAHLLITE) 35% Testing performed at [facility], [facility] | | | [place] [address] COMPONENT 2 | | | NOT REPORTED Testing performed at [facility] | | | [facility], [facility] [place] [address] STONE WEIGHT | | | 0.1270 Testing performed at | | | [facility], [address] [facility] [address] | | + + + + +---------+ [...] | | technical preparation was performed by [facility] | | | [address] [address] | | | (Transmission Specialist: Polo Ashford M.D.; [facility]#: [id number]). | | | Diagnostician: Polo Ashford MD [...]
--- OUTSIDE RECORDS SUMMARY | ~2020-04-20 | XMS | Encounter Summary ---
Demographics + + + | Address | [address] | | | [place] [address] | + + + | Home Phone | | + + + | Preferred Language | Unknown | + + + | Marital Status | | + + + | Rastafarian Affiliation | Unknown | + + + | Race | Unknown | + + + | Ethnic Group | Unknown | + + + Author + + + | Author | [facility] | | | and Frandyana | + + + | Organization | [facility] | | | and Frandyana [...] Team Providers + +------+ + | Care Curator [employer] Name | Role | Phone | + [...] + + | 12/27/ | Refill | [facility] | Renu Bright, | Medication Refill | | 2020 | | NEUROLOGY [address] | PA-C [address] | | | | | [address] | [address] | | | | | [place], [place] | [place] [address] | | | | | [address] | [phone] | | | | | [phone] | | | +--------+--------+ + + + [...] Miscellaneous Notes Telephone Encounter - Alee Pena, Electric Sealing Machine Operator - 12/28/2019 12:07 PM PSTPer p [...] | | | | | [place] [address] | | | | | | [phone] | | | | | | | | +--------+---------+ + + + documented as of this encounter Visit Diagnoses Not on filedocumented in this encounter"
--- OUTSIDE RECORDS SUMMARY | ~2020-04-20 | XMS | Encounter Summary ---
Demographics + + + | Address | [address] | | | [place] [address] | + + + | Home Phone [...] | [facility] | | | and Frandyana | + + + | Organization | [facility] | | | and [...] Team Providers + +------+ + | Care Recenterer Name | Role | Phone | + +------+ + | Kathrin Summers | PCP | | + +------+ + Encounter Details +--------+ + + + + | Date | Type | Department | Care Team | Description | +--------+ + + + + | 12/13/ | Hospital | [facility] | Shruthi Chavez | | | 2017 | Encounter | MED CTR THERAPY OT | C, OT | | | | | ACUTE [address] | | | | | | [place] | | | | | | [address] | | | | | | [phone] | | | +--------+ + + + [...] D | | | | | | [place] [address] | | | | | | [phone] | | | | | | | | +--------+---------+ + + + documented as of this encounter Visit Diagnoses Not on filedocumented in this encounter"
--- OUTSIDE RECORDS SUMMARY | ~2020-04-20 | XMS | Encounter Summary ---
Demographics + + + | Address | [address] | | | [place] [address] | + + + | Home Phone [...] | Author | [facility] | | | and Frandyana | + + + | Organization | [facility] | [...] Team Providers + +------+ + | Care Binder Operator Name | Role | Phone | [...] | occipital | [address] | | | | n | neuralgia | [address] | [place], | | | | | Procedures | [place], | [place] [address] | | | | | DOS 04/05/15 | [place] [address] | Phone: | | | | | | Phone: | [phone] | | | | | | [phone] | Fax: | | | | | | Fax: | [phone] | | | | | | [phone] | | +--------+ + + + + [...] | Neck pain | System | [address] | | | | n | | [place] | [place], | | | | | | Health and | [place] [address] | | | | | | Service | Phone: | | | | | | | [phone] | | | | | | | Fax: | | | | | | | [phone] | +--------+--------+ + + + + Encounter Details +--------+---------+ + + + | Date | Type | Department | Care Team | Description | +--------+---------+ + + + | 03/14/ | Office | [facility] | Declan Queen, | 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 Job ID# [id number] signed by Declan Queen MD at 03/14/2015 10:01 AM PDTdocumented in this encounter Consult Notes Declan Queen MD - 03/14/2015 10:01 AM PDT [facility]YSI[facility] [address] [address] OFFICE CONSULTATION DECLAN QUEEN JR, MD Patient: DENTON RICHMOND Admitting: MR #: [id number] LOC: PT TYPE: Adm Date: 03/14/2015 : [...] or his headaches. He has used numerous tqtu-bbb-pxxtujy medications for his headaches. He has tried [...] liste d him as a beneficiary to mcfp checks. When his father , [place] took over re ceiving the mcfp checks. [place] drinks caffeine every day. He [...] triceps, wrist dorsiflexion, finger abduction, and hand barber apprentice strength bila terally. There is 5/5 hip flexion, knee flexion, knee extension, ankle dorsiflexion, ankle plantarflexion, and extensor hallucis longus strength bilaterally. Reflexes are normal, 2 + over biceps and triceps of both upper extremities and over patellar and Achilles of both lower extremities. No clonus at either ankle. Coordination is intact in upper extremitie s with kbsgyf-jh-oipf testing. Coordination is intact in lower extremities [...] We discussed that his routine use of hjjs-lun-xegmkmj medications including Excedrin, Tyle nol, Aleve, ibuprofen could be causing medication overuse headaches, also known as rebound headaches. We discussed that he needs to quit these medications completely. We discussed that it can take as long as 6-8 weeks for rebound headaches to subside. We discussed that once rebound headaches have subsided that he may be able to use a single apjg-rky-rztwkfe medication, no more than 3 doses per [...] quit smoking, quit drinking caffeine, stop using rzqv-ttg-bptkc er abortive pain medications, start medication nortriptyline, [...] 03/14/2015 10:01:20 Transcribed on 03/14/2015 10:52:49 by [facility] job# [id number] Confirmation #: [id number] cc: SUNI YIN FNP P DTdocumented in [...] D | | | | | | [place] [address] | | | | | | [phone] | | | | | | | [...]
--- OUTSIDE RECORDS SUMMARY | ~2020-04-20 | XMS | Encounter Summary ---
Demographics + + + | Address | [address] | | | [place] [address] | + + + | Home Phone | | + + + | Preferred Language | Unknown | + + + | Marital Status | | + + + | Faith Affiliation | Unknown | + + + | Race | Unknown | + + + | Ethnic Group | Unknown | + + + Author + + + | Author | [facility] | | | and [place]andyana | + + + | Organization | [facility] | | | and [...] Team Providers + +------+ + | Care Pipe Fitter Apprentice Name | Role | Phone | + +------+ + | Ghada Hung MD | PCP | | + +------+ + Reason for Visit + + + | Reason | Comments | + + + | Follow-up | 3 month / ECHO / NUC | + + + Evaluate & Treat (Routine) +--------+--------+ + + + + | Status | Reason | Specialty | Diagnoses / | Referred By | Referred To | | | | | Procedures | Contact | Contact | +--------+--------+ + + + + | Closed | | Cardiology | Diagnoses | Anabell, | Fant[place], | | | | | Unspecified | Ghada Farnsworth, | DO Romy | | | | | | [address] | [address] | | | | | atherosclero | [address] | [address] | | | | | sis 3 mo fu | [place], | [place], [place] | | | | | echo and | [place] | [address] Phone: | | | | | nuc stress | [address] | [phone] | | | | | Procedures | Phone: | Fax: | | | | | OFFICE VISIT | [phone] | [phone] | | | | | REGULAR | Fax: | | | | | | | [phone] | | +--------+--------+ + + + + Encounter Details +--------+---------+ + + + | Date | Type | Department | Care Team | Description | +--------+---------+ + + + | 09/01/ | Office | [facility] | Romy Meek DO | Non-cardiac chest | | 2019 | Visit | CARDIOLOGY [place] | [address] | pain; Hypertension, | | | | [address] | [place], [place] | unspecified type; | | | | [address] [place] [address] | [address] | Hyperlipidemia, | | | | [place], [place] | | unspecified | | | | [address] | | hyperlipidemia type | | | | [phone] | | | +--------+---------+ + + + [...] + + + | Blood Pressure | 110/78 | 09/01/2019 2:00 PM | | | | | PST | | + + + + + | Pulse | 77 | 09/01/2019 2:00 PM | | | | | PST | | + + + + + | Temperature | - | - | | + + + + + | Respiratory Rate | - | - | | + + + + + | Oxygen Saturation | 99% | 09/01/2019 2:00 PM | | | | | PST | | + + + + + | Inhaled Oxygen | - | - | | | Concentration | | | | + + + + + | Weight | 101.2 kg (223 lb) | 09/01/2019 2:00 PM | | | | | PST | | + + + + + | Height | 172.7 cm (5' 8") | 09/01/2019 2:00 PM | | | | | PST | | + + + + + | Body Mass Index | 33.91 | 09/01/2019 2:00 PM | | | | | PST [...] documented as of this encounter Progress Notes Romy Meek DO - 09/01/2019 2:00 PM PST [facility] Cardiology Cardiology Follow Up Note Reason for Consultation: CAD Requesting Physician: Ghada Hung History Obtained From: patient HISTORY OF PRESENT ILLNESS: Cardiac problem list HTN HLD Atherosclerosis seen on prior CT Non cardiac problem list Chronic bronchitis arthitis Nephrolithiasis Migraines Tobacco use The patient is a 33-year-old male who presents to the Cardiology office for initial consult ation regarding episodes of chest pain. The patient reports that he has had intermittent ch est pain during the last few years. He believes that they have been getting worse more rece ntly. The pain is left sided with occasional radiation into his left shoulder. He reports that it feels "like a pulled muscle." It typically lasts anywhere from minutes all the way up to a full day. The pain is rated a 7/10 in intensity. He denies any specific aggravatin g factors or alleviating factors. In 03/2019, he had approximately 3 episodes. He describe s himself as an inactive individual. He does not partake in any regular exercise. 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 He is unsure if he has ever experienced the pain while he was exerting himself. He denies any worsening of the pain with deep siobhan thing or changes in position. He denies any aggravation with certain types of foods. He de nies any episodes of shortness of breath. Interim history I last saw the patient 3 months ago. At that time, we ordered a transthoracic echocardiogr am and an exercise nuclear stress test. His echocardiogram demonstrated normal left ventric ular size and wall thickness with an ejection fraction of 55 percent with normal diastolic f unction and normal right ventricular size and function. His nuclear stress test was normal without any evidence of ischemia or infarction. His EKG portion was normal as well. All i n all, it was a low-risk stress test. Since we last saw each other, he has not been having any issues with chest pain. His main complaint today is issues with fatigue. He also has b een having a lot of neck pain. His blood pressure appears well controlled. He continues to smoke about a half a pack of cigarettes per day. Review of Systems Constitutional: Negative for fatigue. HENT: Negative for nosebleeds. Positive for migraines. Eyes: Negative for visual disturbance. Respiratory: Negative for cough and positive for SOB Cardiovascular: see HPI Gastrointestinal: Negative for nausea, vomiting, abdominal pain and blood in stool. Genitourinary: Negative for hematuria or dysuria. Positive for kidney stones. Musculoskeletal: Negative for myalgias, back pain and arthralgias. Skin: Negative for color change. Neurological: Negative for dizziness, syncope and numbness. Hematological: Does not bruise/bleed easily. Psychiatric/Behavioral: The patient is not nervous/anxious. PAST MEDICAL & SURGICAL HISTORY Past Medical History Diagnosis Date Cardiovascular disease Chronic neck pain Coronary artery disease Hyperlipidemia Hypertension Joint pain Kidney stone Past Surgical History Procedure Laterality Date KIDNEY STONE SURGERY NECK SURGERY 3 plates and 8 screws right knee arthroscopy TONSILLECTOMY URETEROSCOPY - CYSTOSCOPY - LASER Right 08/14/2016 Procedure: URETEROSCOPY - CYSTOSCOPY - LASER; Surgeon: Mike Ritter DO; Location: [facility] MAIN OR; Service: Urology; Laterality: Right; MEDICATIONS Home Medications Outpatient Encounter Prescriptions as of 05/19/2019 Medication Sig Dispense Refill atorvastatin (LIPITOR) 10 MG tablet 0 citalopram (CELEXA) 20 MG tablet Take 40 mg by mouth every morning. lisinopril (ZESTRIL) 20 MG tablet 0 ondansetron (ZOFRAN-ODT) 8 MG disintegrating tablet DISSOLVE 1 TABLET BY MOUTH THREE TI MES DAILY FOR NAUSEA AND FOR VOMITING 0 oxyCODONE-acetaminophen (PERCOCET) 7.5-325 MG per tablet Take 1 tablet by mouth every 4 (four) hours as needed for Pain. tamsulosin (FLOMAX) 0.4 MG capsule Take 1 capsule by mouth After dinner. Discontinue i f feel dizziness or drop in Blood Pressure. 30 capsule 0 aspirin 81 MG tablet Take 1 tablet by mouth daily. 30 tablet 11 [DISCONTINUED] HYDROcodone-acetaminophen (NORCO) 7.5-325 MG per tablet [DISCONTINUED] morphine (MS CONTIN) 15 MG 12 hr tablet No facility-administered encounter medications on file as of 05/19/2019. Allergies Allergies Allergen Reactions Gabapentin Nausea and Vomiting Tramadol Nausea Only FAMILY HISTORY Family History Problem Relation Age of Onset Hypertension Father Heart attack Father had multiple / from bypass Lung cancer Maternal Grandmother Lung cancer Paternal Grandmother COPD Mother Heart Problems Mother born with hole in her heart Malig hypertherm Neg Hx SOCIAL HISTORY Social History Social History Marital status: Spouse name: N/A Number of children: N/A Years of education: N/A Occupational History Not on file. Social History Main Topics Smoking status: Current Some Day Smoker Packs/day: 1.00 Years: 15.00 Smokeless tobacco: Current User Alcohol use No Drug use: No Sexual activity: Not on file Other Topics Concern Not on file Social History Narrative No narrative on file PHYSICAL EXAM Vitals: 09/01/19 1400 BP: 110/78 Pulse: 77 SpO2: 99% Weight: 101.2 kg (223 lb) Height: 1.727 m (5' 8") Physical Exam GENERAL: Well developed, well nourished, in no distress. Appears approximately stated age . HEENT: Normocephalic, atraumatic. EYES: PERRL, sclerae anicteric, no xanthelsasmas NECK: No JVD, lymphadenopathy, thyromegaly, bruits. Carotid pulses are 2+ bilaterally LUNGS: Clear bilaterally, with no rales, rhonchi or wheezing noted, respirations unlabored HEART: Nondisplaced PMI, regular rate and rhythm, S1, S2 normal. No murmurs, rubs or gall ops noted. ABDOMEN: Soft, nontender, no organomegaly, masses or bruits. Bowel sounds are normal in a ll 4 quadrants. EXTREMITIES: No edema. Radial pulses 2+ bilaterally. DP and PT pulses are 2+ bilaterally. SKIN: Warm and dry, capillary refill is normal, no lesions. NEUROLOGIC: Awake, alert and oriented x 3. No focal motor deficits. PSYCHIATRIC: Appropriate, affect appears normal DATA Most recent blood work reviewed including total cholesterol 131, triglycerides 60, HDL 30, LDL 88, sodium 139, potassium 4.0, chloride 106, carbon dioxide 27, glucose 88, BUN 16, crea tinine 0.83, AST 14, ALT 16, alkaline phosphatase 61, total bilirubin 0.2, tsh 1.42, white b lood cell count 5.7, hemoglobin 14, hematocrit 43, platelet count 186 EK05/22/19 ordered and reviewed by myself. NSR 77BPM, normal EKG Last Echo: 06/29/2019 Normal left ventricular size and function, ejection fraction 55%, normal diastolic function , normal right ventricular size and function. Last stress test: Stress test from 05/30/2019, his Garcia treadmill score was positive 8, nuclear imaging was n egative for any ischemia or infarction. Last cath Carotid US: AAA screening: Lower extremity US: OTHERS: ASSESSMENT & PLAN 1. Non cardiac chest pain 2. HTN 3. HLD 4. Atherosclerosis seen on prior CT 5. Chronic bronchitis 6. Arthritis 7. Nephrolithiasis 8. Tobacco use - The patient is a 33 yo male who presents to the cardiology office for follow up regarding chest pains. His chest pains are somewhat atypical. He does have several risk factors for C AD including HTN, HLD, famhx, and tobacco use. He also had atherosclerosis on prior CT that was an incidental finding.Given his risk factors, I obtained an exercise nuclear stress test which was negative for ischemia and overall a low risk study. An echocardiogram demonstrat ed normal left ventricular function and was otherwise unremarkable. He has been doing well lately from a cardiac standpoint without any new cardiac symptoms. - continue ASA 81mg po daily - continue Atorvastatin 10mg po daily - his bp is controlled today. Continue lisinopril 10mg po daily. - we discussed smoking as his most significant modifiable risk factor for advancement of hi s disease. Smoking cessation was strongly encouraged. - follow up with cardiology in 1 year Thank you for allowing me to participate in the care of this patient. Primary Care Physician: Ghada Meek DO documented in this enco unter Plan of Treatment +--------+---------+ + + + | Date | Type | Specialty | Care Team | Description | +--------+---------+ + + + | 05/09/ | Office | Neurology | Renu Bright, | | | 2019 | Visit | | [address] | | | | | | [address] | | | | | | [place] [address] | | | | | | [phone] | | | | | | | | +--------+---------+ + + + documented as of this encounter Visit Diagnoses + + | Diagnosis | + + | Non-cardiac chest pain Other chest pain | + + | Hypertension, unspecified type | + + | Hyperlipidemia, unspecified hyperlipidemia type | + + documented in this encounter
--- OUTSIDE RECORDS SUMMARY | ~2020-04-20 | XMS | Encounter Summary ---
Demographics + + + | Address | [address] | | | [place] [address] | + + + | Home Phone [...] | [facility] | | | and [place] | + + + | Organization | [facility] | | [...] Team Providers + +------+ + | Care Strategic Planning Director Name | Role | Phone | + [...] + + | 09/02/ | Office | [facility] | Leonidas De La Fuente | S/P cervical spinal | | 2017 | Visit | [address]URGERY [address] | [address] | fusion (Primary Dx) | | | | [address] [place] [address] | [address] [place] [address] | | | | | [place] | [place] | | | | | [address] | [address] | | | | | [phone] | | | +--------+---------+ + + + [...] original. Leonidas De La Fuente PA-C [address] [place], [place] [id number] FAX: NEUROSURGERY FOLLOW-UP CHIEF COMPLAINT: Chief Complaint [...] Surgeon: Jeffrey Carvajal MD ; Location: [facility] MAIN OR KIDNEY STONE SURGERY [id number] x2 KNEE SURGERY 2002 right CURRENT MEDICATIONS: [...] | | | | | [place] [address] | | | | | | [phone] | | | | | | | | +--------+---------+ + + + documented as of this encounter Results XR Cervical Spine 2 or 3 Views (12/08/2017 11:15 AM [facility]) + + | Specimen | + + [...]
--- OUTSIDE RECORDS SUMMARY | ~2020-04-20 | XMS | Encounter Summary ---
Demographics + + + | Address | [address] | | | [place] [address] | + + + | Home Phone [...] Author | [facility] | | | and [place] | + + + | Organization | [facility] | | | and [place]andyana [...] Team Providers + +------+ + | Care Housekeeping Staff Name | Role | Phone | + +------+ + | Kathrin Summers | PCP | | + +------+ + Encounter Details +--------+ + + + + | Date | Type | Department | Care Team | Description | +--------+ + + + + | 11/19/ | Hospital | [facility] | Jeffrey Carvajal MD | Cervical spondylosis | | 2017 | Encounter | MED CTR XRAY [address] | [address] | with radiculopathy; | | | | [place] | [place] [address] | Foraminal stenosis | | | | [place] [address] | [phone] | of cervical region; | | | | [phone] | | Cervical spinal | | | | | Avi Sung MD | stenosis; | | | | | [address] | Degenerative disc | | | | | [place], [place] | disease, cervical | | | | | [address] | | | | | | | [...] | | | | | [place] [address] | | | | | | [phone] | | | | | | | | +--------+---------+ + + + documented as of this encounter Procedures + +--------+ + + + | Procedure Name | Priori | Date/Time | Associated Diagnosis | Comments | | | ty | | | | + +--------+ + + + | XR CHEST PA AND | Routin | 11/19/2016 | Cervical | Results for this | | LATERAL | e | 1:36 PM | spondylosis with | procedure are [...] + documented in this encounter Results XR Chest PA and [...] + + | [facility] | [address] | [place] | [phone] | | [facility] | | [address] | | | - IMAGING | | [...]
--- OUTSIDE RECORDS SUMMARY | ~2020-04-20 | XMS | Encounter Summary ---
Demographics + + + | Address | [address] | | | [place] [address] | + + + | Home Phone | | + + + | Preferred Language | Unknown | + + + | Marital Status | | + + + | Pentecostal Affiliation | Unknown | + + + | Race | Unknown | + + + | Ethnic Group | Unknown | + + + Author + + + | Author | [facility] | | | and [place] | + + + | Organization | [facility] | | | and [...] Team Providers + +------+ + | Care Reduction Furnace Operator Helper Name | Role | Phone | + +------+ + | Kathrin Summers | PCP | | + +------+ + Encounter Details +--------+ + + + + | Date | Type | Department | Care Team | Description | +--------+ + + + + | 11/10/ | Episode | [facility] | [place] | | | 2017 | Changes | NEUROSURGERY [address] | [address], [address] Supervisor | | | | | [address] [facility] [address] | | | | | | [place], [place] | | | | | | [address] | | | | | | [phone] | | | +--------+ + + + [...] D | | | | | | [place] [address] | | | | | | [phone] | | | | | | | | +--------+---------+ + + + documented as of this encounter Visit Diagnoses Not on filedocumented in this encounter"
--- OUTSIDE RECORDS SUMMARY | ~2020-04-20 | XMS | Encounter Summary ---
Demographics + + + | Address | [address] | | | [place] [address] | + + + | Home Phone [...] + | Author | [facility] | | | and [place] | + + + | Organization | [facility] | [...] Team Providers + +------+ + | Care Petrographer Name | Role | Phone | + +------+ + | Kathrin Summers | PCP | | + +------+ + Encounter Details +--------+ + + + + | Date | Type | Department | Care Team | Description | +--------+ + + + + | 09/02/ | Hospital | [facility] | Jeffrey Carvajal MD | Cervical spinal | | 2017 | Encounter | MED CTR XRAY [address] | [address] | stenosis; S/P | | | | [place] | [place] [address] | cervical spinal | | | | [place] [address] | [phone] | fusion; Cervical | | | | [phone] | | spondylosis with | | | [...] D | | | | | | [place] [address] | | | | | | [phone] | | | | | | | [...]
--- OUTSIDE RECORDS SUMMARY | ~2020-04-20 | XMS | Encounter Summary ---
Demographics + + + | Address | [address] | | | [place] [address] | + + + | Home Phone [...] | [facility] | | | and [place] | + + + | Organization | [facility] | | [...] Team Providers + +------+ + | Care Camera Control Operator Name | Role | Phone | [...] Unknown | | | | | [place] | [phone] | | | | | [address] | | | | | | [phone] | | | +--------+ + + + [...] D | | | | | | [place] [address] | | | | | | [phone] | | | | | | | [...]
--- OUTSIDE RECORDS SUMMARY | ~2020-04-20 | XMS | Encounter Summary ---
Demographics + + + | Address | [address] | | | [place] [address] | + + + | Home Phone | | + + + | Preferred Language | Unknown | + + + | Marital Status | | + + + | Alevism Affiliation | Unknown | + + + | Race | Unknown | + + + | Ethnic Group | Unknown | + + + Author + + + | Author | [facility] | | | and [place] | + + + | Organization | [facility] | | | and [...] Team Providers + +------+ + | Care Seamless Hosiery Knitter Name | Role | Phone | + [...] + + | 01/24/ | Refill | [facility] | Renu Bright, | Medication Refill | | 2020 | | NEUROLOGY [address] | | | | | [place] | [address] [facility] [address] | | | | | [place], [place] | [place] [address] | | | | | [address] | [phone] | | | | | [phone] | | | +--------+--------+ + + + [...] D | | | | | | [place] [address] | | | | | | [phone] | | | | | | | | +--------+---------+ + + + documented as of this encounter Visit Diagnoses Not on filedocumented in this encounter"
--- OUTSIDE RECORDS SUMMARY | ~2020-04-20 | XMS | Clinical Summary ---
Demographics + + + | Address | [address] | | | [place] [address] | + + + | Home Phone | | + + + | Preferred Language | Unknown | + + + | Marital Status | | + + + | Adventism Affiliation | Unknown | + + + | Race | Unknown | + + + | Ethnic Group | Unknown | + + + Author + + + | Author | [facility] | | | and Frandyana | + + + | Organization | [facility] | | | and [...] Team Providers + +------+ + | Care Medical Leader Name | Role | Phone | [...] | Nausea And Vomiting | Medium | /20/20 | | | | | | 15 [...] mg by mouth | | 0 | 07/1 | | Activ | | (PRINIVIL, ZESTRIL) | Daily. | | | 07/15 | | e | | 20 mg tablet | | | | 19 | | | + + + +---------+------+------+-------+ | atorvaSTATin | Take 10 mg by mouth | | 0 | /2 | | Activ | | (LIPITOR) 10 mg | Daily. | | | 20 | | e | | tablet | | | | 19 | | | + + + +---------+------+------+-------+ | aspirin 81 MG | Take 81 mg by mouth. | | 0 | 07/2 | 07/2 | Activ | | tablet | | | | 5/20 | 20 | e | | | | | | 19 | 20 | | + + + +---------+------+------+-------+ | NICOTROL 10 MG | | | 0 | 04/1 | | Activ | | inhaler | | | | 20 | | e | | | | | | 19 | | [...] | | + + + +---------+------+------+-------+ | nortriptyline | Take 1 capsule by | 30 | 5 | 06/0 | | Activ | | (PAMELOR) 25 mg | mouth nightly. | capsule | | 3/20 | | e | | capsule | | | | 20 | | [...] | | + + + +---------+------+------+-------+ | tiZANidine | Start 1/2 tab by | 30 | 3 | 02/0 | 06/0 | Disco | | (ZANAFLEX) 4 mg | mouth nightly for a | tablet | | 5/20 | 3/20 | ntinu | | tablet | 3 days, then take 1 | | | 20 | 20 | ed | | | tab nightly. | | | | | | + + + +---------+------+------+-------+ | nortriptyline | Take 1 capsule by | 30 | 3 | 03/0 | 06/0 | Disco | | (PAMELOR) 10 MG | mouth nightly. | capsule | | 4/20 | 3/20 | ntinu | | capsule | | | | 20 | 20 | ed | | | | | | | | (Reor | | | | | | | | farrukh) | + + + +---------+------+------+-------+ + + +-------+ +------+------+-------+ | Hospital, Clinic, or | Ordered | Route | Frequency | Star | End | Statu | | Other Facility | Dose | | | t | Date | s | | Administered | | | | Date | | | | Medication | | | | | | | + + +-------+ +------+------+-------+ | ketorolac | 60 mg | IM | ONCE | | | Ended | | (TORADOL) injection | | | | 01/12 | 01/12 | | | 60 mg | | | | 20 | 20 | | + + +-------+ +------+------+-------+ Active Problems + + + | Problem [...] | +--------+ + + + + | 04/16/ | Refill | Neurology | Renu Bright, | Medication Refill | | 2019 | | | PA-C | | +--------+ + + + + | 03/28/ | Office | Neurology | Renu Bright, | Chronic migraine | | 2019 | Visit | | PA-C | without aura without | | | | | | status migrainosus, | | | | | | not intractable | | | | | | (Primary Dx) | +--------+ + + + + | 01/24/ | Refill | Neurology | Renu Bright, | Medication Refill | | 2019 | | | PA-C | | +--------+ + + + + | 01/24/ | Telephone | Neurology | Renu Bright, | Appointment Question | | 2019 | | | PA-C | | +--------+ + + + + from [...] [address] | | | | | | [place] [address] | | | | | | [phone] | | | | | | | [...] + + + | Vaccine: Influenza | Completed | 09/01/20 | | | | | 19 | | + + + [...] Generi | | SOFAMOR | | | [id number] | | - [id number]: Qty: 1 | c | | DANEK - DIV | | | | | on 12/12/2016 by Jeffrey Carvajal | | | [employer] | | | | | MD Rafi at [facility] | | | - SFDK | | | | | [facility] | | | | | | | + +--------+------+ +--------+--------+--------+ | Carlos Oliviern Pls 1cc Aseptic | Graft | | [employer]TRONIC - | | 08/14/ | [id number] | | - [id number]: Qty: | | | MEDT | | 2018 | | | 1 on 12/12/2016 by Alena | | | | | | /[id number] | | Jeffrey Mckee MD at [facility] | | | | | | [phone] | | [facility] | | | | | | / | + +--------+------+ +--------+--------+--------+ | Algrft Cerv [id number] - | Graft | | SPINALGRAFT | | 06/11/ | [id number] | | [id number]: Qty: 1 on | | | | | 2018 | | | 12/12/2016 by Jeffrey Carvajal, | | | TECHNOLOGIE | | | /[id number] | | MD at [facility] | | | S - SPNL | | | 619 | | [facility] | | | | | | /[id number] | | | | | | | | 6646 | + +--------+------+ +--------+--------+--------+ | Algrft Bone Lord [id number] - | Graft | | [employer] - | | 03/06/ | [id number] | | [id number]: Qty: 1 on | | | MEDT | | 2018 | | | 12/12/2016 by Jeffrey Carvajal, | | | | | | /[id number] | | MD at [facility] | | | | | | 078 | | [facility] | | | | | | /[id number] | | | | | | | | 0163 | + +--------+------+ +--------+--------+--------+ | Algrft Bone Lord [id number] - | Graft | | [employer] - | | 04/16/ | [id number] | | [id number]: Qty: 1 on | | | MEDT | | 2018 | | | 12/12/2016 by Jeffrey Carvajal, | | | | | | /[id number] | | MD at [facility] | | | | | | 668 | | [facility] | | | | | | /[id number] | | | | | | | | 9779 | + +--------+------+ +--------+--------+--------+ | Screw D-Thrd Slf-Drl 4.0x15mm | Screw | | SOFAMOR | | | [id number] | | - [id number]: Qty: 2 | | | DANEK - DIV | | | / | | on 12/12/2016 by Jeffrey Carvajal | | | [employer]TRONIC | | | | | MD Rafi at [facility] | | | - [facility] | | | | | [facility] | | | | | | | + +--------+------+ +--------+--------+--------+ | Screw D-Thrd Slf-Drl 3.5x15mm | Screw | | SOFAMOR | | | [id number] | | - [id number]: Qty: 6 | | | DANEK - DIV | | | / | | on 12/12/2016 by Jeffrey Carvajal | | | MEDTRONIC | | | | | MD Rafi at [facility] | | | - [facility] | | | | | [facility] | | | | | | | + +--------+------+ +--------+--------+--------+ | Stent Uro Sof-Curl 6fr 26cm - | | | GYRUS | | 02/15/ | [id number] | | SnaImplanted: Qty: 1 on | [...] | [employer] | MODA | [id number] | 04/25/20 | [phone] | | Medica | | MEDICAID HMO | HEALTH | | 14-Pre | 1 | | id | | | MDCD | | sent | | | | | | [place] | | | | | | + +--------+ +--------+ +---------+--------+ | [employer] | MODA | [id number] | 08/25/ | [phone] | | Medica | | MEDICAID HMO [...] Self | [birth year] | [address] | | | al/Fam | | 1985 | [phone] | [place], [place] | | | katherine | | | [address] (Home) | [address] | + +--------+ +--------+ + + | Layne Bentley | Person | Self | [birth year] | | [address] | | | al/Fam | | 1985 | [phone] | [place], [place] | | | katherine | | | [address] ([place]) | [address] | + +--------+ +--------+ + + Advance Directives + + + + + | Type | Date Recorded | Patient | Explanation | | | | Set Up Worker | | + + + + + | Power of | | | | | Project Development Director | | | | + + + [...]
--- OUTSIDE RECORDS SUMMARY | ~2020-04-20 | XMS | Encounter Summary ---
Demographics + + + | Address | [address] | | | [place] [address] | + + + | Home Phone | | + + + | Preferred Language | Unknown | + + + | Marital Status | | + + + | Holiness Affiliation | Unknown | + + + | Race | Unknown | + + + | Ethnic Group | Unknown | + + + Author + + + | Author | [facility] | | | and Frandyana | + + + | Organization | [facility] | | | and Frandyana [...] Team Providers + +------+ + | Care Inspector Metal Can Name | Role | Phone | + [...] | | [address] | [place] [address] | radiculopathy, | | | | [place], [place] | [phone] | cervical region | | | | [address] | | (Primary Dx) | | | | [phone] | | | +--------+ + + + [...] | | | | | [place] [address] | | | | | | [phone] | | | | | | | | +--------+---------+ + + + documented as of this encounter Results XR Cervical Spine 4 or 5 Vws (10/30/2016 8:21 AM [facility]) + + | Specimen | [...] + + | Performing | Address | City[facility] | Phone Number | | Organization | | | | + + + + + | [facility] | [address] | [place] | [phone] | | [facility] | | [address] | | | - IMAGING | | | | + + + + + documented in this encounter Visit Diagnoses + + | Diagnosis | + + | Spondylosis without myelopathy or radiculopathy, cervical region - Primary | + + documented in this encounter"
--- OUTSIDE RECORDS SUMMARY | ~2020-04-20 | XMS | Encounter Summary ---
Demographics + + + | Address | [address] | | | [place] [address] | + + + | Home Phone | | + + + | Preferred Language | Unknown | + + + | Marital Status | | + + + | Anabaptist Affiliation | Unknown | + + + | Race | Unknown | + + + | Ethnic Group | Unknown | + + + Author + + + | Author | [facility] | | | and Frandyana | + + + | Organization | [facility] | | | and Frandyana [...] Team Providers + +------+ + | Care Rag Cutting Machine Operator Name | Role | Phone [...] [address] | | | | | [place], | [place], [place] | | | | | [place] [address] | [address] | | | | | [phone] | | | +--------+ + + + [...] | +--------+---------+ + + + | 05/09/ Office | Neurology | Renu Bright, | | | 2019 | Visit | | [address] | | | | | | [address] | | | | | | [place] [address] | | | | | | [phone] | | | | | | | | +--------+---------+ + + + documented as of this encounter Visit Diagnoses Not on filedocumented in this encounter"
--- OUTSIDE RECORDS SUMMARY | ~2020-04-20 | XMS | Encounter Summary ---
Demographics + + + | Address | [address] | | | [place] [address] | + + + | Home Phone | | + + + | Preferred Language | Unknown | + + + | Marital Status | | + + + | Pentecostalism Affiliation | Unknown | + + + | Race | Unknown | + + + | Ethnic Group | Unknown | + + + Author + + + | Author | [facility] | | | and Frandyana | + + + | Organization | [facility] | | | and [...] Team Providers + +------+ + | Care Explosives Engineer Name | Role | Phone | + +------+ + | Kathrin Summers | PCP | | + +------+ + Encounter Details +--------+ + + + + | Date | Type | Department | Care Team | Description | +--------+ + + + + | 11/12/ | Episode | [facility] | [place] | | | 2017 | Changes | NEUROSURGERY [address] | S, Law Reporter | | | | | [address] | | | | | | [place], [place] | | | | | | [address] | | | | | | [phone] | | | +--------+ + + + [...] D | | | | | | [place] [address] | | | | | | [phone] | | | | | | | | +--------+---------+ + + + documented as of this encounter Visit Diagnoses Not on filedocumented in this encounter"
--- OUTSIDE RECORDS SUMMARY | ~2020-04-20 | XMS | Encounter Summary ---
Demographics + + + | Address | [address] | | | [place] [address] | + + + | Home Phone | | + + + | Preferred Language | Unknown | + + + | Marital Status | | + + + | Anabaptism Affiliation | Unknown | + + + | Race | Unknown | + + + | Ethnic Group | Unknown | + + + Author + + + | Author | [facility] | | | and Frandyana | + + + | Organization | [facility] [...] Team Providers + +------+ + | Care Hairspring Inspector Name | Role | Phone | [...] | | | [address] | [place] [address] | | | | | [place] [address] | | | | | | [phone] | | | +--------+ + + + [...] D | | | | | | [place] [address] | | | | | | [phone] | | | | | | | [...]
[~2020-04-20 08:02] MED LIST changes: +ASPIR-LOW81 MG PO; +IMITREX25 MG PO; +NORCO 7.5-3251 EACH PO; +PERCOCET 10-321 EACH PO; +TOPAMAX100 MG PO
--- OUTSIDE RECORDS SUMMARY | 2020-04-20 08:06 | XMS ---
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 Care History Medical/Surgical 05/10/2019 [facility] - PATIENT PCP- DR RODRIGUEZ - PATIENT HAS A UROLOGIST DR MULLER - Patient is currently established with [facility] [...] should exercise clinical judgment when providing care. 03/17/2019 [facility] CASE MANAGEMENT REFERRAL MADE- PATIENT HAS [facility] AND NO PCP. 03/29/2018 [facility] Care Recommendation: [...] returns to ED please contact Community Health Worker Lola at [phone]. These are guidelines and the provider should exercise clinical judgment when providing care. EAquilinoD. VISIT COUNT (12 MO.) 2 [facility] Perrin TOTAL 2 NOTE: Visits indicate total known visits. ED/UCC VISIT TRACKING (12 MO.) 04/20/2020 08:03 [facility] [place] TYPE: Emergency COMPLAINT: - CHEST PAIN 05/10/2019 08:[address] [facility] [place] TYPE: Emergency COMPLAINT: - R FLANK PAIN DIAGNOSES: - Unspecified abdominal pain - Calculus of ureter - Allergy status to analgesic agent status - Allergy status to other drugs, medicaments and biological sub - Personal history of urinary calculi - Nicotine dependence, unspecified, uncomplicated - Other long-term (current) drug therapy INPATIENT VISIT TRACKING (12 MO.) No inpatient visits to display in this time frame [email or web address]
[2020-04-20] MEDS ORDERED: GABAPENTIN300 MG PO (08:20)
[2020-04-20] MEDS ORDERED: CYCLOBENZAPRINE10 MG PO (08:20)
[2020-04-20] MEDS ORDERED: SUMATRIPTAN SU100 MG PO (08:21)
[2020-04-20] MEDS ORDERED: PROMETHAZINE HC25 M1 PO (08:21)
[2020-04-20] MEDS ORDERED: NORTRIPTYLINE H25 MG PO (08:21)
[2020-04-20] MEDS ORDERED: NORCO 7.5-3251 EACH PO (09:47)
--- NOTE | 2020-04-20 11:39 | EKG ---
[facility] [address] [facility] [place] [address] Signed Poor data quality, interpretation may be adversely affected Normal sinus rhythm Nonspecific ST abnormality Abnormal ECG When compared with ECG of 16-JUN-2018 12:35, No significant change was found Confirmed by PARKER GABRIEL MD ([id number]) on 04/20/2020 11:39:31 AM Electronically Signed By: PARKER GABRIEL MD 04/20/20 1139 PATIENT NAME: DENTON RICHMOND Electrocardiogram DATE OF : 81 PHYSICIAN: PARKER GABRIEL MD REPORT #: [id number] REPORT IS CONFIDENTIAL AND NOT TO BE RELEASED WITHOUT AUTHORIZATION
== END 2020-04-20 10:00 | disposition home or self-care (01) ==
LOC: ED 08:02
DX: R07.89 Other chest pain (principal); F17.200 Nicotine dependence, unspecified, uncomplicated; Z88.8 Allergy status to other drugs, medicaments and biological substances; Z88.5 Allergy status to narcotic agent; Z79.899 Other long term (current) drug therapy; Z79.82 Long term (current) use of aspirin
CPT/HCPCS: 71045; 80053; 84484; 85025; 85379; 93005; 93010; 96374; 96375; 99285-25; A9270; J1885; J2270

== ENCOUNTER 2020-05-20 19:53 | Emergency (ER) | payer OTHER ==
[~2020-05-20] VITALS: Ht 170.2 cm; Wt 98.9 kg
--- OUTSIDE RECORDS SUMMARY | ~2020-05-20 | XMS | Encounter Summary ---
Demographics + + + | Address | [address] | | | [place] [address] | + + + | Home Phone | | + + + | Preferred Language | Unknown | + + + | Marital Status | | + + + | Yazdanism Affiliation | Unknown | + + + | Race | Unknown | + + + | Ethnic Group | Unknown | + + + Author + + + | Author | [facility] | | | and [place] | + + + | Organization | [facility] | | | and [place] | + + + | Address | Unknown | + + + | Phone | Unavailable | + + + Support + + +---------+ + | Name | Relationship | Address | Phone | + + +---------+ + | Ursula Lozada | ECON | Unknown | | + + +---------+ + | Julisa Bentley | ECON | Unknown | | + + +---------+ + Care Team Providers + +------+ + | Care Maintenance Mechanic 2Nd Shift Name | Role | Phone | + +------+ + | Kathrin Summers | PCP | | + +------+ + Reason for Visit Auth/Cert +--------+--------+ + + + + | Status | Reason | Specialty | Diagnoses / | Referred By | Referred To | | | | | Procedures | Contact | Contact | +--------+--------+ + + + + | | | | Diagnoses | | | | | | | Cervical | | | | | | | spondylosis | | | | | | | with | | | | | | | radiculopath | | | | | | | y (M47.22), | | | | | | | Foraminal | | | | | | | stenosis of | | | | | | | cervical | | | | | | | region | | | | | | | (M99.81), | | | | | | | Cervical | | | | | | | spinal | | | | | | | stenosis | | | | | | | (M48.02), | | | | | | | Degenerative | | | | | | | disc | | | | | | | disease, | | | | | | | cervical | | | | | | | (M50.30) | | | | | | | Procedures | | | | | | | SD | | | | | | | ARTHRODESIS | | | | | | | ANT | | | | | | | INTERBODY | | | | | | | INC | | | | | | | DISCECTOMY, | | | | | | | CERVICAL | | | | | | | BELOW C2 SD | | | | | | | ARTHRODESIS | | | | | | | ANT | | | | | | | INTERBODY | | | | | | | INC | | | | | | | DISCECTOMY, | | | | | | | CERVICAL | | | | | | | BELOW C2 | | | | | | | EACH ADDL | | | | | | | SD | | | | | | | ARTHRODESIS | | | | | | | ANT | | | | | | | INTERBODY | | | | | | | INC | | | | | | | DISCECTOMY, | | | | | | | CERVICAL | | | | | | | BELOW C2 | | | | | | | EACH ADDL | | | | | | | SD ALLOGRAFT | | | | | | | FOR SPINE | | | | | | | SURGERY ONLY | | | | | | | STRUCTURAL | | | | | | | ANTERIOR | | | | | | | INSTRUMENTAT | | | | | | | ION 4-7 | | | | | | | VERTEBRAL | | | | | | | SEGMENTS | | | | | | | FUSION | | | | | | | CERVICAL | | | | | | | ANTERIOR W/ | | | | | | | PLATING | | | +--------+--------+ + + + + Encounter Details +--------+ + + + + | Date | Type | Department | Care Team | Description | +--------+ + + + + | 12/12/ | Hospital | [facility] | Jeffrey Carvajal MD | | | 2017 - | Encounter | [facility] | [address] | | | | | [address] | [place] [address] | | | 12/13/ | | [place] [address] | [phone] | | | 2016 | | [phone] | | | +--------+ + + + + Social History + + + +--------+------+ | Tobacco Use | Types | Packs/Day | Years | Date | | | | | Used | | + + + +--------+------+ | Former Smoker | Cigarettes | 0.5 | 13 | | + + + +--------+------+ + +---+---+---+ | Smokeless Tobacco: | | | | | Never Used | | | | + +---+---+---+ + + +---------+ + | Alcohol Use | Drinks/Week | oz/Week | Comments | + + +---------+ + | No | 0 Standard drinks | 0.0 | | | | or equivalent | | | + + +---------+ + + + + | Sex Assigned at | Date Recorded | | | | + + + | Not on file | | + + + documented as of this encounter Last Filed Vital Signs + + + + + | Vital Sign | Reading | Time Taken | Comments | + + + + + | Blood Pressure | 114/76 | 12/13/2016 7:37 AM | | | | | PST | | + + + + + | Pulse | 110 | 12/13/2016 7:37 AM | | | | | PST | | + + + + + | Temperature | 36.4 C (97.5 F) | 12/13/2016 7:37 AM | | | | | PST | | + + + + + | Respiratory Rate | 20 | 12/13/2016 7:37 AM | | | | | PST | | + + + + + | Oxygen Saturation | 93% | 12/13/2016 7:37 AM | | | | | PST | | + + + + + | Inhaled Oxygen | - | - | | | Concentration | | | | + + + + + | Weight | 89.5 kg (197 lb 4.8 | 12/12/2016 10:28 AM | | | | oz) | PST | | + + + + + | Height | 170.2 cm (5' 7") | 12/12/2016 10:28 AM | | | | | PST | | + + + + + | Body Mass Index | 30.9 | 12/12/2016 10:28 AM | | | | | PST | | + + + + + documented in this encounter Functional Status + + + + | Functional Status | Response | Date of Assessment | + + + + | Are you deaf or do you have serious | No | 12/13/2016 | | difficulty hearing? | | | + + + + | Are you blind or do you have serious | No | 12/13/2016 | | difficulty seeing, even when wearing | | | | glasses? | | | + + + + | Do you have serious difficulty walking or | No | 12/13/2016 | | climbing stairs? (5 years old or older) | | | + + + + | Do you have difficulty dressing or bathing? | No | 12/13/2016 | | (5 years old or older) | | | + + + + | Because of a physical, mental, or emotional | No | 12/13/2016 | | condition, do you have difficulty doing | | | | errands alone such as visiting a doctor's | | | | office or shopping? [15 years old or | | | | older)] | | | + + + + + + + + | Cognitive Status | Response | Date of Assessment | + + + + | Because of a physical, mental, or emotional | No | 12/13/2016 | | condition, do you have serious difficulty | | | | concentrating, remembering, or making | | | | decisions? (5 years old or older) | | | + + + + documented as of this encounter Discharge Instructions Instructions Jeffrye Carvajal MD - 12/13/2016Discharge Instructions for Cervical Fusion You had a cervical fusion. During this procedure, your doctor lockedtogether (fused) some of the bones in the curve of your neck. This limits the movement of these bones to help rel ieve your pain. Here s what you need to know about home care following a cervical fusion. Activity Arrange your household to keep the items you need within reach. Remove electrical cords, throw rugs,and anything else that may cause you to fall. Follow your doctor s instructions for wearing acervical collar or brace. The neck co llar or brace is important because it supports and correctly positions your neck after surge ry. Be sure to follow instructions for its care, use, and the length of time you must wear i t. Don t raise your hands over your head [id number])after your surgery. Don t drive until your doctor says it s OK. This will most likely be when you can mo ve your neck from side to side freely and without pain. Never drive while you are taking opi oid pain medication. Walk as much as possible. You may also go up and down stairs as much as you can tolerate . Walking outside or walking on a treadmill at a slow speed with no incline is OK. Don t lift anything heavier than5 pounds. Ask your doctor when you can return to work. Other home care Take your medication exactly as directed. Talk to your doctor about pain medication. Don t take nonsteroidal, anti-inflammatory medications (NSAIDs),such as ibuprofen un less your doctor approves. They may delay or prevent proper fusion of bone. As long as you keep your incision dry you may shower as desired after your surgery. You may allow shower water to run over the incision and get it wet after 5 days, but do not subm erse the incision under water until after you see your provider at your 1 month post op visi t. You may be instructed to use a neck collar while you shower. If so, carefully remove it when you finish showering. Then keep your neck correctly positioned as you gently pat dry y our skin, the incision, and the neck collar. Then put the neck collar back on. Don t soak in bathtubs, hot tubs, or swimming pools until instructed by your doctor. Your incision mayhave beenclosed using sutures, lorenzo, or strips of tape. You can allow strips of tape to fall off on their own. Don t rub the incision, or apply creams or lotions onit. If you smoke, quit. Smoking slows healing of bone. Enroll in a stop-smoking program to i mprove your chances of success. Follow-up Most patients will have a 4 week follow up appointment. Please get your 1 month post op x-rays prior to this your 1 month post op appointment. [id number] [employer] [place] [address], [place] [address]. All righ ts reserved. This information is not intended as a substitute for professional medical care. Always follow your healthcare professional's instructions. documented in this encounter Medications at Time of Discharge + + + +---------+ + + | Medication | Sig | Dispensed | Refills | Start | End Date | | | | | | Date | | + + + +---------+ + + | citalopram | Take 40 mg by mouth | | 0 | | | | (CELEXA) 40 mg | Daily. | | | | 7 | | tablet | | | | | | + + + +---------+ + + | cyclobenzaprine | Take 1 tablet by | 90 | 3 | 12/13/19 | | | (FLEXERIL) 10 mg | mouth 3 times daily | tablet | | 17 | 7 | | tablet | as needed for Muscle | | | | | | | spasms. | | | | | + + + +---------+ + + | dexamethasone | 2 MG PO BID x 5 | 15 | 0 | 12/13/19 | | | (DECADRON) 2 MG | DAYS, THEN 2 MG PO | tablet | | 17 | 7 | | tablet | DAILY x 5 DAYS | | | | | + + + +---------+ + + | | Take 1-2 tablets by | 120 | 0 | 12/13/19 | | | HYDROcodone-acetamin | mouth every 4 hours | tablet | | 17 | 7 | | ophen (NORCO) 10-325 | as needed for Pain. | | | | | | mg per tablet | | | | | | + + + +---------+ + + | lactulose 10 g/15 | Take 30 mLs by mouth | 480 mL | 2 | 12/13/19 | | | mL solution | 2 times daily. | | | 17 | 7 | + + + +---------+ + + | morphine (MS | Take 1 tablet by | 60 | 0 | 12/13/19 | | | CONTIN) 15 mg ER | mouth 2 times daily. | tablet | | 17 | 7 | | tablet | | | | | | + + + +---------+ + + | | Take by mouth | | 0 | | | | Pseudoeph-Doxylamine | nightly as needed. | | | | 7 | | -DM-APAP (NYQUIL PO) | | | | | | + + + +---------+ + + documented as of this encounter Progress Notes Jeffrey Carvajal MD - 12/13/2016 7:11 AM PSTFormatting of this note might be different from t john original. [facility] PROGRESS NOTE Pt. Name/Age/: Layne Bentley 31 y.o. 1985 Med. Record Number: [id number] Date of admission: 12/12/2016 Subjective: The patient chart and medications were reviewed in detail and the patient was s een and examined. The patient c/o pain at the base of his neck. Swallowing reasonably well. Arm pain is imp roved. Objective: Temp: 36.9 C (98.4 F) BP: 130/69 mmHg Pulse: 99 Resp: 20 SpO2: 92 % on Min/Max Temp past 24 hours:Temp Av.9 C (98.4 F) Min: 36.6 C (97.9 F) Max: 3 7 C (98.6 F) Intake/Output Summary (Last 24 hours) at 12/13/16 0711 Last data filed at 12/13/16 0638 Gross per 24 hour Intake 3079 ml Output 19 ml Net 3060 ml Wt. Admission: Weight: 89.495 kg (197 lb 4.8 oz) Wt. Current: Weight: 89.495 kg (197 lb 4.8 oz) Exam: General: NAD HEENT: Neck soft Cardiovascular: Reg Respiratory: Clear Extremities: No edema Neurological: Awake, AAO, GRULLON Diagnostic studies: Available data and images were reviewed personally. See reports. Signi ficant results and findings are addressed here or in the Assessment and Plan. Assessment and Plan: Patient Active Problem List Diagnosis Cervical spondylosis with radiculopathy Foraminal stenosis of cervical region Cervical spinal stenosis Degenerative disc disease, cervical H/O Kidney stones Smoker - Daily Class I, BMI 30-34.9 H/O Headache - Has had Greater Occipital Nerve Blocks - Mar 2015 PONV (postoperative nausea and vomiting) S/p ACDF - Neurologically stable - Mobilize - ST/PT/OT - Home likely this PM Electronically signed by: Jeffrey Carvajal, 12/13/2016 7:11 [facility] documented in this encou nter H&P Notes Jeffrey Carvajal MD - 12/12/2016 3:17 PM PSTFormatting of this note might be different from t john original. Jeffrey Carvajal MD [address] [place], [place] [id number] FAX: NEUROSURGERY HISTORY AND PHYSICAL EXAMINATION CHIEF COMPLAINT: Chief Complaint Patient presents with Neck Pain HISTORY OF PRESENT ILLNESS: The patient is a 30 y.o. male with the complaint of headaches and neck and arm pain symptoms that began 6 years ago. The patient describes neck pain that began in 2008 or so. The symptoms have been gradually worsening. He rates the pain as severe. The symptoms a re daily. He describes the pain as shooting, pulsating, aching and throbbing. The patient describes arm symptoms that occur on both sides equally. The arm symptoms acc ount for 50% of his symptoms. The arm symptoms are intermittent, and the symptoms travel f rom the neck into the arms. The patient also describes numbness of the arms. Patient jean-claude cribes having intermittent bilateral leg numbness. The patient does not report any change in bowel or bladder function recently. His symptoms improve with nothing. His symptoms worsen with changing position, standing, sitting, walking, running, kneeling, bending and twisting. He has tried PT, TENS, Opioids, NSAIDS, Steroids, Injections, Muscle relaxers and Braces. The patient is currently taking opioids. These measures used to work but are now failing. He presents today for surgery saying he has quit smoking for surgery. PAST MEDICAL HISTORY: Past Medical History Diagnosis Date Chronic bronchitis (HCC) Arthritis Chronic kidney disease Kidney stone Chronic pain syndrome Spondylosis without myelopathy or radiculopathy, cervical region Radiculopathy, cervical region Neck pain Cervical radiculopathy Cervical spondylosis PAST SURGICAL HISTORY: Past Surgical History Procedure Laterality Date Knee surgery 2002 right Kidney stone surgery [id number] x2 CURRENT MEDICATIONS: Current Outpatient Prescriptions Medication Sig Dispense Refill citalopram (CELEXA) 40 mg tablet Take 40 mg by mouth Daily. cyclobenzaprine (FLEXERIL) 10 mg tablet take 1 tablet by mouth three times a day 0 HYDROcodone-acetaminophen (NORCO) 7.5-325 mg per tablet Take 1 tablet by mouth ever y 6 hours as needed for Pain. morphine (MS CONTIN) 15 mg ER tablet take 1 tablet by mouth twice a day 0 naloxone (NARCAN) 0.4 mg/mL injection INJECT 1 ML IN SHOULDER OR THIGH. REPEAT AFTE R 2 TO 3 MINUTES IF NO OR MINIMAL RESPONSE. CALL 9-- 2 No current facility-administered medications for this visit. ALLERGIES: Allergies Allergen Reactions Tramadol Gabapentin Nausea And Vomiting SOCIAL HISTORY: The patient reports that he has quit smoking Cigarettes for surgery. He has a 6.5 pack-y ear smoking history. He has never used smokeless tobacco. He reports that he does not drin k alcohol or use illicit drugs. FAMILY HISTORY: Family History Problem Relation Age of Onset Heart disease Father Seizures Mother Kidney disease Mother Other (see comment) Mother Lung problems No Known Problems Child No Known Problems Child Other (see comment) Paternal Grandfather lung problems Cancer Paternal Grandmother No Known Problems Maternal Grandfather Cancer Maternal Grandmother Other (see comment) Maternal Uncle Lung problems Hepatitis B Maternal Uncle Hepatitis C Maternal Uncle Cancer Maternal Aunt COPD Paternal Grandmother COPD Maternal Grandmother REVIEW OF SYSTEMS: GENERALLY: No fever, + night sweats, no anemia, no fatigue, + recent profound weight ch anges. EYES: No eye problems, no use of corrective lenses, no eye injury, no double vision, no b lindness. EARS, NOSE, AND THROAT: No changes in taste or smell, no hearing difficulty, + ringing in the ears, no ear drainage, no dizziness, no voice changes, no difficulty swallowing, + sign ificant snoring, no sleep apnea, no sinus problems, no major dental work. NEUROLOGICALLY: Please see the review of systems discussed above in the history of presen t illness. In addition, the patient has numbness and pain of arms and legs, muscle aching, coordination difficulty, pain in neck, headaches, migraine. PSYCHIATRIC: + depression, + sleep disorders, + anxiety, no bipolar disorder, no psychoti c episodes. CARDIOVASCULAR: No heart attacks, no heart murmur, no heart fluttering, no chest pain, no ankle swelling. LUNG DISEASE: No shortness of breath, no cough, no tuberculosis, no bloody cough, no as thma, no emphysema/COPD. GASTROINTESTINAL: No bowel disease, no nausea or vomiting, no rectal bleeding, no constip ation, no stool incontinence, no liver disease, no gallbladder disease, no abdominal pain, n o ulcers. KIDNEY DISEASE: No urinary frequency, no painful or difficult urination, no incontinence. ENDOCRINE: No diabetes, no thyroid disease, no osteopenia or osteoporosis, no breast drai nage. SKIN: No breast lumps, no skin changes, no rashes, no itches. HEMATOLOGIC/LYMPHATIC: No enlarged lymph nodes, no easy or unusual bleeding, no personal history of cancer. RHEUMATOLOGIC: + joint arthritis, no rheumatoid arthritis. PHYSICAL EXAMINATION: Filed Vitals: 12/12/16 1028 BP: 139/85 Pulse: 101 Temp: 37 C (98.6 F) Resp: 16 GENERAL: Layne Bentley is in no acute distress with unlabored respirations. The marlin ent does not appear uncomfortable throughout the exam today. HEENT: Head: Normocephalic/atraumatic with no areas of recent trauma. Eyes: Normal sclerae without icterus. NECK (ANTERIOR): Supple and without palpable masses. CHEST: Clear. HEART: Tachy rate and rhythm. ABDOMEN: Soft, non-tender, non-distended, and without palpable masses. The patient is not obese. SPINE: There is tenderness in the midline of the cervical spine at the C-3, C-4 and C-5. Range of motion of the neck is limited. There is no tenderness of there thoracic or lumbar spine. There is no major deformity noted. EXTREMITIES: No edema. Distal pulses are palpable. NEUROLOGICAL EXAM: MENTAL STATUS: The patient is awake, alert, and oriented. He follows simple and complex commands. His speech is fluent, he comprehends speech well, and he repeats well. He has no apparent deficits with short or manager long term care memory. MOTOR EXAM: (5 IS NORMAL) * Indicates pain limited MUSCLE/ MOVEMENT: RIGHT LEFT Deltoids 5 5 Biceps 5 5 Triceps 5 5 Wrist Flexion 5 5 Wrist Extension 5 5 Median Intrinsics 5 5 Ulnar Intrinsics 5 5 Bodily Injury Adjuster Strength 5 5 SENSORY EXAM: Sensory exam shows no diminished sensation to light touch or pain throughout the upper and lower extremities. TEST AND RADIOGRAPHIC REVIEW: The patient's imaging was reviewed in detail with the patient today during the visit. The MRI from 2016 shows C3-4, C4-5, and C5-6 bilateral foraminal stenosis L > R. At C5-6 he h as cord effacement and cord compression. Cervical x-rays show no major instability. ASSESSMENT: NEUROSURGICAL DIAGNOSES: Encounter Diagnoses Name Primary? Cervical spondylosis with radiculopathy Yes Foraminal stenosis of cervical region Cervical spinal stenosis Degenerative disc disease, cervical GENERAL DIAGNOSES: Past Medical History Diagnosis Date Chronic bronchitis (HCC) Arthritis Chronic kidney disease Kidney stone Chronic pain syndrome Spondylosis without myelopathy or radiculopathy, cervical region Radiculopathy, cervical region Neck pain Cervical radiculopathy Cervical spondylosis PLAN: Layne Bentley presented today for surgery. The patient has cervical radiculopathy due to foraminal stenosis and also canal narrowing. The patient has progressive symptoms despite non-operative measures. I had a lengthy discussion with the patient about his options for care including surgical a nd non-surgical options. In discussing the surgical options, we discussed in detail the patient's options for an ant erior cervical disectomy and fusion at C3-6. The patient understands that in most instance s the recovery from surgery can be lengthy and sometimes difficult. We discussed the risks, alternatives, and benefits to surgical intervention with Mr. Bentley in clinic. These risks included but were not limited to , stroke, heart attack, numbn ess, weakness, paralysis, failure of fusion, failure of hardware, subsidence, adjacent segme nt degeneration, cerebrospinal fluid leak, bleeding, infection, injury to surrounding tissue s and organs, injury from positioning, injury to the nerves, difficulty with breathing, diff iculty with swallowing, difficulty with voice change, and need for additional surgery. Surgical options were discussed and the technique to be employed was described in detail to him. All his questions were answered. We discussed that the goal of the surgery is to prevent progression of his disease, but it is not considered a cure. We also discussed that although some patients may obtain 100% sy mptom relief, it is realistic to anticipate that some symptoms will continue postoperatively despite a successful surgery. We also discussed that there is no guarantee that surgery will provide improvement in his c ondition, and indeed may even worsen the symptoms. We also discussed that in the course of the procedure the operative plan may be altered to include more, less, or different levels depending upon findings in order to provide him with the best possible outcome. I recommend and would prescribe a cervical collar before surgery to improve his stability n ow to support his weak muscles and to reduce pain by restricting mobility. For multiple (more than 1 level fusions), I recommend the use of a bone growth stimulator p ostoperatively. This is to improve the probability and rate of fusion. ELECTRONICALLY SIGNED BY: Jeffrey Carvajal MD, 12/12/2016 15:17 documented in this encou nter Miscellaneous Notes Plan of Care - Bridgette Vasquez, Speech Pathologist - 12/13/2016 1:39 PM PSTFormatting of t his note might be different from the original. Problem: Patient Care Overview (Adult) Goal: Care Team Goals & Evaluation PROBLEM-RELATED GOALS: 1. Will maintain adequate oxygenation via oximetry with SpO2 >92% by 12/15/16. 2. Layne will meet 75% of predicted incentive spirometer goal of 2700 by 12/15/16. 3. Pt will achieve a tolerable pain level by 12/15/16. 4. Pt will tolerate solid food and po pain meds by 12/14/16 5. Pt will mobilize safely with PT and demonstrate adherence to precautions 6. Pt will tolerate level 2 dysphagia advanced diet and thin liquids with no s/s of airway compromise STRATEGY TO ACHIEVE GOALS: - Monitor saturations via oximetry every shift and titrate to order as indicated. - Instruct patient how use of Incentive Spirometry and deep breath and cough. Nursing and R espiratory to work together to have patient use every hour while awake. Respiratory to monit or progress 4 times daily until 75% goal met then turn over to nursing. - monitor pt and assess pain frequently, medicate prn, and reassess frequently - advance diet as pt can tolerate assess swallowing ability and order diet as pt can tolera te. -pt will participate with therapies -pt will participate in ST for safe swallow RESTRAINT-RELATED GOALS: STRATEGIES TO ACHIEVE RESTRAINT GOALS: Speech Therapy Swallow Plan of Care DIRECTOR OF ATHLETICS Visit Type: Initial Evaluation Note Summary: Pt sitting upright EOB for swallow assessment s/o ACDF C3-6. Pt c/o sore neck par ticularly at incision site. No difficulty swallowing. Pt trialed pureed, ground, mixed, chop ped, regular textures and thin liquids with no s/s of airway compromise. Pt reported increas ed difficulty eating crust of bread. DIRECTOR OF ATHLETICS rec's level 3 dysphagia advanced diet and thin liqu ids, upright posture, alternate small bites with liquid wash, reduced rate and bite size. SL P provided education and handout r/t diet textures modificaiton, behavioral and postural str ategies for safe swallow. Pt agrees to POC and demonstrated knowledge and use of strategies. Speech Language Pathology Discharge Recommendations are: Recommended discharge disposition: home with family/caregiver Post discharge speech language pathology recommendation: no further Speech Therapy Planned Interventions: Treatment Plan (DIRECTOR OF ATHLETICS): compensatory strategies, diet texture modific ation, patient/caregiver education Recommended Frequency: DIRECTOR OF ATHLETICS Diagnosis: Mild pharyngeal dysphagia At bedside, signs of aspiration included: patient complaint of difficulty swallowing Risk of aspiration: Mild Swallow Recommendations Recommended Solid Texture: dysphagia advanced Recommended Liquid Texture: thin liquids Recommended Medication Delivery: whole pills with thin liquids, whole pills with puree Recommended Feeding/Eating Techniques: alternate between small bites and sips of food/liqui d, maintain upright posture during/after eating for 30 mins, single sips, one small sip or b ite at a time, slow rate, pacing Non Instrumental/Clinical Swallow Exam Consistencies Trialed: thin liquids, puree, solid, mixed consistencies, other (see comments ) (chopped, ground) Mode of Presentation: self fed Volume(s) Presented (mL): patient controlled volumes Oral Phase Results: intact oral phase without signs of dysfunction Oral Transit Concerns: oral transit delayed Pharyngeal Phase Results: impaired pharyngeal phase of swallowing Swallowing Concerns: complaints of feeling something stuck in throat Additional Documentation: oral transit concerns, swallowing concerns Dysphagia Goal Most Recent Value STG Status new at 12/13/2016 1323 STG Pt will tolerate Level 3 dysphagia advanced diet and thin liquids with no s/s of ai rway compromise. at 12/13/2016 1323 Electronically signed by: Bridgette Vasquez, SPEECH PATHO, 12/13/2016 13:38 la n of Care - Shruthi Chavez, OT - 12/13/2016 12:15 PM PSTProblem: Patient Care Overview ( Adult) Goal: Care Team Goals & Evaluation PROBLEM-RELATED GOALS: 1. Will maintain adequate oxygenation via oximetry with SpO2 >92% by 12/15/16. 2. Layne will meet 75% of predicted incentive spirometer goal of 2700 by 12/15/16. 3. Pt will achieve a tolerable pain level by 12/15/16. 4. Pt will tolerate solid food and po pain meds by 12/14/16 5. Pt will mobilize safely with PT and demonstrate adherence to precautions STRATEGY TO ACHIEVE GOALS: - Monitor saturations via oximetry every shift and titrate to order as indicated. - Instruct patient how use of Incentive Spirometry and deep breath and cough. Nursing and R espiratory to work together to have patient use every hour while awake. Respiratory to monit or progress 4 times daily until 75% goal met then turn over to nursing. - monitor pt and assess pain frequently, medicate prn, and reassess frequently - advance diet as pt can tolerate assess swallowing ability and order diet as pt can tolera te. -pt will participate with therapies RESTRAINT-RELATED GOALS: STRATEGIES TO ACHIEVE RESTRAINT GOALS: [facility] Occupational Therapy OPIB Plan of Care Patient Name: Layne Bentley Date of Onset of Illness/Injury or Date of Surgery: 12/12/16 Start of Care/Start of Certification Date: 12/13/16 End of Certification Date: 12/13/16 Summary: Pt seen for brief OT evaluation. He is sitting in chair @ bedside, fully dressed w/ cervical collar in place. Pt had no difficulty in dressing, including LEs which he thou ght he might have problems with. Good understanding of precautions. Discussed that he shou ld refrain from getting down into the bathtub as he would be in excess of the 5# push, pull, lift limit. Strongly recommended he should shower vs bathe down in tub. Questions asked a nd answered. Pt is d/cing home today. Identified Problems Needing Skilled Intervention: Mildly impaired ADLs Occupational Therapy Discharge Recommendations are: Recommended discharge disposition: home Post discharge occupational therapy recommendation: (No further OT. ) Equipment Recommendations: Shower seat Planned Interventions: Recommended Frequency: (1 x evaluation) Patient Status/Goals: Reflects last filed data and may be from multiple contributors. ADLs UB Dressing, Level of [place]: independent LB Dressing, Level of [place]: independent Toileting, Level of [place]: independent Medicare Functional Limitation Reporting: OT G-codes Functional Assessment Tool Used: [facility] Functional Limitation: Self care Self Care Current Status (G8987): At least 1 percent but less than 20 percent impaired, leroy ited or restricted Self Care Discharge Status (G8989): At least 1 percent but less than 20 percent impaired, l imited or restricted OT Time Calculation OT Individual Start Time: 1128 OT Individual Stop Time: 1139 OT Individual Total Time: 11 OT Total Treatment Time: 11 Timed TX Code Minutes: 0 Electronically signed by: Shruthi Chavez OT, 12/13/2016 12:14 lan of Care - Dena Chowdhury, PT - 12/13/2016 11:14 AM PST Problem: Patient Care Overview (Adult) Goal: Care Team Goals & Evaluation PROBLEM-RELATED GOALS: 1. Will maintain adequate oxygenation via oximetry with SpO2 >92% by 12/15/16. 2. Layne will meet 75% of predicted incentive spirometer goal of 2700 by 12/15/16. 3. Pt will achieve a tolerable pain level by 12/15/16. 4. Pt will tolerate solid food and po pain meds by 12/14/16 5. Pt will mobilize safely with PT and demonstrate adherence to precautions STRATEGY TO ACHIEVE GOALS: - Monitor saturations via oximetry every shift and titrate to order as indicated. - Instruct patient how use of Incentive Spirometry and deep breath and cough. Nursing and R espiratory to work together to have patient use every hour while awake. Respiratory to monit or progress 4 times daily until 75% goal met then turn over to nursing. - monitor pt and assess pain frequently, medicate prn, and reassess frequently - advance diet as pt can tolerate assess swallowing ability and order diet as pt can tolera te. -pt will participate with therapies RESTRAINT-RELATED GOALS: STRATEGIES TO ACHIEVE RESTRAINT GOALS: Outcome: Adequate for Discharge Date Met: 12/13/16 [facility] Physical Therapy OPIB Plan of Care Patient Name: Layne Bentley Date of Onset of Illness/Injury or Date of Surgery: 12/12/16 Start of Care/Start of Certification Date: 12/13/16 End of Certification Date: 12/14/16 Summary: Pt orders rec'd, chart reviewed. Pt has been up walking in hallway, anxious to go home. Went to spine class with SO. Reviewed precautions, instructed to in bed mobility and don/doff collar. Pt amb to therapy gym for stair instruction. Reviewed getting bed mob on ma t as he has low bed at home. Discussed use of recliner vs bed vs couch for sleeping. Pt comf ortable with precautions and exhibited indep safe amb and bed mob. Ready for DC home with SO . Identified Problems Needing Skilled Intervention: impaired mobility, , gait, locomotion, an d balance Physical Therapy Discharge Recommendations are: Recommended discharge disposition: home with assist Post discharge physical therapy recommendation: Equipment Recommendations: Planned Interventions: patient/family education, stair training Recommended Frequency: Patient Status/Goals: Reflects last filed data and may be from multiple contributors. Bed Mobility Assistive Device: none Supine to Sit, Level of [place]: independent Sit to Supine, Level of [place]: independent Gait Level of [place]: independent Assistive Device: none Distance (feet): 360 Stairs stair instruction--pt indep with railing, no difficulty ROM ROM Testing Results: no range of motion deficits identified Strength Strength Testing Results: no strength deficits were identified Ucqhli-Yev-Aquela Goal Most Recent Value STG Status new, met at 12/13/2016 1105 STG [place] Level independent at 12/13/2016 1105 Gait Goal Most Recent Value STG Status new, met at 12/13/2016 1105 STG [place] Level independent at 12/13/2016 1105 STG Distance (feet) 360 at 12/13/2016 1105 Stair Goal Most Recent Value STG Status new, met at 12/13/2016 1105 STG [place] Level independent at 12/13/2016 1105 STG Assistive Device 1 rail at 12/13/2016 1105 STG Number of Stairs 8 at 12/13/2016 1105 Medicare Functional Limitation Reporting: PT Time Calculation Individual Start Time: 1030 Individual Stop Time: 1045 Individual Total Time: 15 PT Total Treatment Time: 15 Electronically signed by: Dena Chowdhury, PT, 12/13/2016 11:12Goal Evaluation: lan of Care - Claire Haro RRT - 12/13/2016 9:42 AM PSTProblem: Patient Care Overview (Adult) Goal: Care Team Goals & Evaluation PROBLEM-RELATED GOALS: 1. Will maintain adequate oxygenation via oximetry with SpO2 >92% by 12/15/16. 2. Layne will meet 75% of predicted incentive spirometer goal of 2700 by 12/15/16. 3. Pt will achieve a tolerable pain level by 12/15/16. 4. Pt will tolerate solid food and po pain meds by 12/14/16 STRATEGY TO ACHIEVE GOALS: - Monitor saturations via oximetry every shift and titrate to order as indicated. - Instruct patient how use of Incentive Spirometry and deep breath and cough. Nursing and R espiratory to work together to have patient use every hour while awake. Respiratory to monit or progress 4 times daily until 75% goal met then turn over to nursing. - monitor pt and assess pain frequently, medicate prn, and reassess frequently - advance diet as pt can tolerate assess swallowing ability and order diet as pt can tolera te. RESTRAINT-RELATED GOALS: STRATEGIES TO ACHIEVE RESTRAINT GOALS: Goal Evaluation: BS clear. She is utilizing inspirometer well, Patient achieving 1500 of IS Predicted Leve l (mL) : 2700. She is 93% on room air. Will let her self administer IS. lan of Care - Deann Aiken RN - 12/13/2016 4:57 AM PSTProblem: Patient Care Overview (Adult) Goal: Care Team Goals & Evaluation PROBLEM-RELATED GOALS: 1. Will maintain adequate oxygenation via oximetry with SpO2 >92% by 12/15/16. 2. Layne will meet 75% of predicted incentive spirometer goal of 2700 by 12/15/16. 3. Pt will achieve a tolerable pain level by 12/15/16. 4. Pt will tolerate solid food and po pain meds by 12/14/16 STRATEGY TO ACHIEVE GOALS: - Monitor saturations via oximetry every shift and titrate to order as indicated. - Instruct patient how use of Incentive Spirometry and deep breath and cough. Nursing and R espiratory to work together to have patient use every hour while awake. Respiratory to monit or progress 4 times daily until 75% goal met then turn over to nursing. - monitor pt and assess pain frequently, medicate prn, and reassess frequently - advance diet as pt can tolerate assess swallowing ability and order diet as pt can tolera te. RESTRAINT-RELATED GOALS: STRATEGIES TO ACHIEVE RESTRAINT GOALS: Outcome: Improving Goal Evaluation: Lung sounds clear on ra sats >92. Pt continues to be tachy, Pt reports pain at 9/10 starte d at 10 increased to15mg oxycodone and supplemented w with 2mg morphine ivp prn pt rates angela n at best at 5/10. Swallowing without problems denies nausea. Pt prefers to wear b collar at all times needs reminding of precautions. Cms and neuros intact grading 5/5/ x4 incision we ll approximated no drainaged. Savanah compressed with minimal amt of serosang drainage. Pt sba to br voiding without problems. lan of Care - Yandy Abdul, DAIRY CLERK - 12/13/2016 3:17 AM PSTProblem: Patient Care Overview (Adult) Goal: Care Team Goals & Evaluation PROBLEM-RELATED GOALS: 1. Will maintain adequate oxygenation via oximetry with SpO2 >92% by 12/15/16. 2. Layne will meet 75% of predicted incentive spirometer goal of 2700 by 12/15/16. STRATEGY TO ACHIEVE GOALS: - Monitor saturations via oximetry every shift and titrate to order as indicated. - Instruct patient how use of Incentive Spirometry and deep breath and cough. Nursing and R espiratory to work together to have patient use every hour while awake. Respiratory to monit or progress 4 times daily until 75% goal met then turn over to nursing. RESTRAINT-RELATED GOALS: STRATEGIES TO ACHIEVE RESTRAINT GOALS: Goal Evaluation: Layne does well on the incentive spirometer, but needs encouragement to do it on his own. He is achieving 1000 of IS Predicted Level (mL) : 2700 SpO2: 92 % on 2liters/minute room air, BS clear. p Note - Kb Carvajal MD - 12/12/2016 6:05 PM PSTFormatting of this note might be different from the origi nal. Operative Note Layne Bentley 31 y.o. male 1985 [id number] Proc. Date 12/12/2016 Preop Dx Cervical spondylosis with radiculopathy Cervical degenerative disc disease Cervical foraminal stenosis Continuous opioid use Postop Dx same Procedure 1. Anterior cervical discectomy and fusion C3-4, C4-5, and C5-6 2. Anterior cervical plating C3-6 using Zevo 3. Anterior structural allograft bone C3-4, C4-5, and C5-6 4. Microsurgical technique with use of operating microscope Anesthesia General, Dr. Madden Surgeon Jeffrey Carvajal MD - Primary Desktop Technician SOLA Menon-C EBL 156 Findings C3-6 spondylosis with canal narrowing and foraminal stenosis. Complications none Specimens * No specimens in log * Drains SAVANAH OPERATIVE DETAILS: After obtaining consent, the patient was taken to the operating room and placed under gener al anesthesia. He was then positioned in a supine position on the Juvencio axis table with th e patient's face, neck, chest and extremities positioned and padded appropriately. He was pl aced in 10 lbs of holter traction. Fluoroscopy was then used to localize the level of C3-6 on lateral fluoroscopy and a right sided incision was planned in an anterior skin crease. H is neck was prepped and draped in standard fashion and a timeout was performed. All members of the surgical team agreed with the timeout. The anterior neck was then incised opening a 1.2 inch incision in the right anterior neck w ith a number 10 blade knife. Subcutaneous tissues were made hemostatic with Bovie cautery a nd dissection was taken down to and through the platysma. The platysma was then undermined using Metzenbaum scissors. Sharp dissection was then performed medial to the sternocleidoma stoid that allowed an approach to the prevertebral space. The prevertebral fascia was opene d with scissors and Kitner pushers. The fluoroscopy was then used to identify the C5-6 leve l. Bovie cautery was then used to taken down the longus coli from C3 to C6 bilaterally. Th e Koros retractor was then inserted and the microscope was brought in for microsurgical diss ection. The discs were then removed in similar fashion at C3-4, C4-5, and C5-6. The discs were fir st incised and then curetted. The high speed drill was then used to remove cervical osteoph ytes anteriorly, prepare the endplates for arthrodesis, and then remove the posterior osteop hytes. The PLL was then taken down centrally with a microhook and 1 mm Kerrison. A 2 mm Ke rrison was then used to take down the ligamentum more laterally until a Dandy hook could eas katherine be passed out the foramen. This was performed without event from C3-6 noting severe for aminal stenosis and more canal narrowing than expected as well. Curettes were then used to r emove any remaining cartilage off the endplates. The trials were then used. A 5, 5, and 5 mm height spacer was determined to be the appropr iate height at C3-4, C4-5, and C5-6. The structural allograft prior to insertion was filled with Kelly bone. The structural allograft bone was then tamped into place at C3-4, C4-5, and C5-6. Anterior cervical plating was then performed by holding a 57 [address] in place over th e segments with holding pins. Fluoroscopy was used to confirm its appropriate positioning a nd then road sign installer holes were made in the C3-6 vertebral bodies. 15 mm variable screws were then placed at C3, C4, C5, and C6 using rescue screws at C6. Good purchase was obtained through out. The locking mechanism was then engaged at each segment. Bipolar cautery and flowseal was then used for hemostasis and the wound was copiously irrig ated. A drain was placed in the prevertebral space and tunneled out the skin. The platysma and skin was then closed with Stratafix sutures. Skin glue was used for final skin closure . The wound was dressed with Steristrips, and the drain was secured with Steristrips and a tegaderm. All counts were reported as correct. The patient tolerated the procedure and was transferr ed to the recovery room in stable condition. Electronically signed by: Jeffrey Carvajal MD 12/12/2016 18:03 [facility] rief Op Note - Leif Carvajal MD - 12/12/2016 6:03 PM PSTFormatting of this note might be different from the origin al. Brief Operative Note Layne Bentley 31 y.o. male 1985 [id number] Proc. Date 12/12/2016 Preop Dx Cervical spondylosis with radiculopathy Cervical degenerative disc disease Cervical foraminal stenosis Continuous opioid use Postop Dx same Procedure 1. Anterior cervical discectomy and fusion C3-4, C4-5, and C5-6 2. Anterior cervical plating C3-6 using Zevo 3. Anterior structural allograft bone C3-4, C4-5, and C5-6 4. Microsurgical technique with use of operating microscope Anesthesia General, Dr. Madden Surgeon Jeffrey Carvajal MD - Primary Desktop Technician Bony Quiroz PA-C EBL 156 Findings C3-6 spondylosis with canal narrowing and foraminal stenosis. Complications none Specimens * No specimens in log * Drains SAVANAH Electronically signed by: Jeffrey Carvajal MD 12/12/2016 18:03 [facility] Jeffrey Carvajal MD at 017 6:05 PM PSTPlan of Care - Roberto Kay PT - 12/12/2016 4:19 PM PSTMissed Visi t Patient Information Patient Name: Layne eBntley Date of : 1985 Age: 31 y.o. The patient was unable to be seen for today's scheduled visit due to late arrival on floor. Plan: rescheduled PT eval for tomorrow AM Electronically signed by: Roberto Kay PT, 12/12/2016 16:19 documented in is encounter Plan of Treatment +--------+---------+ + + + | Date | Type | Specialty | Care Team | Description | +--------+---------+ + + + | 08/09/ | Office | Neurology | Renu Bright, | | | 2019 | Visit | | [address] [facility] | | | | | [address] | | | | | | [place] [address] | | | | | | [phone] | | | | | | | | +--------+---------+ + + + documented as of this encounter Procedures + +--------+ + + + | Procedure Name | Priori | Date/Time | Associated Diagnosis | Comments | | | ty | | | | + +--------+ + + + | RESPIRATORY THERAPY | Routin | 12/13/2016 | | | | COMMUNICATION | e | 12:49 AM | | | | | | PST | | | + +--------+ + + + | XR CERVICAL SPINE 2 | STAT | 12/12/2016 | | Results for this | | OR 3 VIEWS | | 8:06 PM | | procedure are in the | | | | PST | | results section. | + +--------+ + + + | FL UMA STATS NO | Routin | 12/12/2016 | | Results for this | | CHARGE | e | 5:54 PM | | procedure are in the | | | | PST | | results section. | + +--------+ + + + | FUSION CERVICAL | | 12/12/2016 | Cervical | | | ANTERIOR W/ PLATING | | 3:24 PM | spondylosis with | | | | | PST | radiculopathy | | | | | | (M47.22), Foraminal | | | | | | stenosis of cervical | | | | | | region (M99.81), | | | | | | Cervical spinal | | | | | | stenosis (M48.02), | | | | | | Degenerative disc | | | | | | disease, cervical | | | | | | (M50.30) | | + +--------+ + + + +---+--------+ | | Case | | | Notes | | | | | | Origin | | | al | | | Reques | | | t | | | Inform | | | ation | | | Sent | | | Over | | | 11/12/ | | | 2016:N | | | euromo | | | nitori | | | ng: | | | NO; | | | OPENIn | | | strume | | | nts: | | | C-arm, | | | | | | Drill, | | | | | | Micros | | | cope, | | | MetrxI | | | mplant | | | s: | | | ZEVO | | | Biolog | | | ics: | | | Grafto | | | n | | | Corner | | | stone | | | Instru | | | mentat | | | ion | | | Rep to | | | | | | Notify | | | : | | | Joseph | | | Brock | | | | | | (Medtr | | | onic) | | | Table: | | | OSI | | | flat t | | | | | | opEst | | | time: | | | 120min | +---+--------+ | | | | | Specia | | | l | | | Needs | | | Joseph | | | | | | Brock | | | - | | | ZEVO | +---+--------+ documented in this encounter Results XR Cervical Spine 2 or 3 Views (12/12/2016 8:06 PM PST) + + | Specimen | + + | | + + + + + | Narrative | Performed At | + + + | TWO VIEWS CERVICAL SPINE 12/12/2016 7:58 PM CLINICAL HISTORY: | [facility] | | post op ACDF COMPARISON: Cervical radiographs October 30 | | | FINDINGS: Interbody and anterior plate and screw fusion hardware now | | | extends from C3 through C6 and appears intact and well seated, | | | allowing for partial obscuration of the lower cervical spine on the | | | lateral view due to superimposed structures. Vertebral height and | | | alignment above C6 are maintained. A surgical drain projects | | | anterior to the operated levels. Imaged skull base, soft tissue | | | structures and lung apices are grossly unremarkable. IMPRESSION - | | | 1. SATISFACTORY APPEARANCE STATUS POST ACDF EXTENDING FROM C3 | | | THROUGH C6. Dictated and Signed by: Miki Bernabe MD | | | Electronically signed: 12/13/2016 2:14 PM | | + + + + + | Procedure Note | + + | Dorian, Rad Results In - 12/13/2016 2:17 PM PST TWO VIEWS CERVICAL SPINE 12/12/2016 7:58 | | PMCLINICAL HISTORY: post op ACDFCOMPARISON: Cervical radiographs October 5FINDINGS: | | Interbody and anterior plate and screw fusion hardware now extendsfrom C3 through C6 and | | appears intact and well seated, allowing for partialobscuration of the lower cervical | | spine on the lateral view due to superimposedstructures. Vertebral height and alignment | | above C6 are maintained. A surgicaldrain projects anterior to the operated levels. | | Imaged skull base, soft tissuestructures and lung apices are grossly | | unremarkable.IMPRESSION -1. SATISFACTORY APPEARANCE STATUS POST ACDF EXTENDING FROM C3 | | THROUGH C6.Dictated and Signed by: Miki Bernabe MD Electronically signed: 12/13/2016 | | 2:14 PM | |drain projects anterior to the operated levels. Imaged skull base, soft tissue | |structures and lung apices are grossly unremarkable. | | | |IMPRESSION - | |1. SATISFACTORY APPEARANCE STATUS POST ACDF EXTENDING FROM C3 THROUGH C6. | | | |Dictated and Signed by: Miki Bernabe MD | | Electronically signed: 12/13/2016 2:14 PM | + + + +---------+ + + | Performing | Address | City/State/Zipcode | Phone Number | | Organization | | | | + +---------+ + + | [facility] | | | | + +---------+ + + PREMA Severino No Teja (12/12/2016 5:54 PM PST) + + | Specimen | + + | | + + + + + | Narrative | Performed At | + + + | No Radiologist interpretation, please see Chart Review. | [facility] | + + + + +---------+ + + | Performing | Address | City/State/Zipcode | Phone Number | | Organization | | | | + +---------+ + + | [facility] | | | | + +---------+ + + documented in this encounter Visit Diagnoses + + | Diagnosis | + + | Cervical spondylosis with radiculopathy - Primary Cervical spondylosis with | | myelopathy | + + | Cervical spinal stenosis Spinal stenosis in cervical region | + + | Degenerative disc disease, cervical Degeneration of cervical intervertebral disc | + + | Foraminal stenosis of cervical region Spinal stenosis in cervical region | + + | Impaired mobility Other ill-defined conditions | + + documented in this encounter Administered Medications + +--------+ +------+------+------+ | Medication Order | MAR | Action | Dose | Rate | Site | | | Action | Date | | | | + +--------+ +------+------+------+ | acetaminophen (TYLENOL) tablet | Given | 12/12/19 | 1 g | | | | 975 mg 975 mg (rounded from | | 17 3:26 | | | | | 1,000 mg), Oral, ONCE, Fri | | PM PST | | | | | 12/12/16 at 1045, For 1 dose, | | | | | | | Pre-op | | | | | | + +--------+ +------+------+------+ +-------+ +--------+---+---+ | Given | 12/12/19 | 975 mg | | | | | 17 10:53 | | | | | | AM PST | | | | +-------+ +--------+---+---+ +---+---+ | | | +---+---+ + +---------+ +-----+-------+---+ | ceFAZolin in saline (ANCEF) | New Bag | 12/13/19 | 2 g | 100 | | | IVPB 2 g 2 g, Intravenous, | | 17 6:38 | | mL/hr | | | Administer over 30 Minutes, EVERY | | AM PST | | | | | 8 HOURS INTERVAL, First dose on | | | | | | | 12/12/16 at 2330, For 2 doses, | | | | | | | Start 8 hours after previous | | | | | | | dose. Last dose to be given | | | | | | | within 24 hours of surgery end | | | | | | | time. Keep in refrigerator., | | | | | | | Post-op/Phase II, Indications: | | | | | | | Surgical Prophylaxis | | | | | | + +---------+ +-----+-------+---+ +---------+ +-----+-------+---+ | New Bag | 12/12/19 | 2 g | 100 | | | | 17 10:36 | | mL/hr | | | | PM PST | | | | +---------+ +-----+-------+---+ +---+---+ | | | +---+---+ + +-------+ +-------+---+---+ | cyclobenzaprine (FLEXERIL) | Given | 12/13/19 | 10 mg | | | | tablet 10 mg 10 mg, Oral, 3 | | 17 10:05 | | | | | TIMES DAILY, First dose on Fri | | AM PST | | | | | 12/12/16 at 2100, Post-op/Phase II | | | | | | + +-------+ +-------+---+---+ +-------+ +-------+---+---+ | Given | 12/12/19 | 10 mg | | | | | 17 9:28 | | | | | | PM PST | | | | +-------+ +-------+---+---+ +---+---+ | | | +---+---+ + +-------+ +------+---+---+ | dexamethasone (DECADRON) 4 | Given | 12/13/19 | 4 mg | | | | mg/mL injection 4 mg 4 mg, | | 17 6:38 | | | | | Intravenous, EVERY 6 HOURS (4 | | AM PST | | | | | times per day), First dose on Fri | | | | | | | 12/12/16 at 2045, For 3 doses, | | | | | | | Post-op/Phase II | | | | | | + +-------+ +------+---+---+ +-------+ +------+---+---+ | Given | 12/12/19 | 4 mg | | | | | 17 11:52 | | | | | | PM PST | | | | +-------+ +------+---+---+ | Given | 12/12/19 | 4 mg | | | | | 17 9:29 | | | | | | PM PST | | | | +-------+ +------+---+---+ +---+---+ | | | +---+---+ + +-------+ +--------+---+---+ | docusate sodium (COLACE) | Given | 12/13/19 | 100 mg | | | | capsule 100 mg 100 mg, Oral, 10:06 | | | | | TIMES DAILY, First dose on Thu | | AM PST | | | | | 12/12/16 at 2100, First line agent | | | | | | | for constipation, Post-op/Phase | | | | | | | II | | | | | | + +-------+ +--------+---+---+ +-------+ +--------+---+---+ | Given | 12/12/19 | 100 mg | | | | | 17 9:28 | | | | | | PM PST | | | | +-------+ +--------+---+---+ +---+---+ | | | +---+---+ + +-------+ +---------+---+---+ | HYDROcodone-acetaminophen | Given | 12/13/19 | 2 | | | | (NORCO) 10-325 mg per tablet 1-2 | | 17 10:03 | tablets | | | | tablet 1-2 tablet, Oral, EVERY 4 | | AM PST | | | | | HOURS PRN, Pain, Starting Sat | | | | | | | 12/13/16 at 0710 | | | | | | + +-------+ +---------+---+---+ +---+---+ | | | +---+---+ + + + +--------+---+---+ | HYDROmorphone (DILAUDID) | Given by | 12/12/19 | 0.5 mg | | | | injection 0.2-0.5 mg 0.2-0.5 mg, | Other | 17 7:34 | | | | | Intravenous, EVERY 5 MIN PRN, | | PM PST | | | | | Pain, Starting 12/12/16 at | | | | | | | 1754, Maximum total dose 4 mg. | | | | | | | PACU IV Narcotic Priority: Only | | | | | | | use fentanyl for immediate | | | | | | | post-op pain (one dose) or | | | | | | | breakthrough pain when any other | | | | | | | IV narcotics ordered have been | | | | | | | ineffective (if ordered). If | | | | | | | both morphine and hydromorphone | | | | | | | are ordered, use morphine first, | | | | | | | and use hydromorphone if morphine | | | | | | | ineffective., Recovery/Phase I | | | | | | + + + +--------+---+---+ + + +--------+---+---+ | Given | 12/12/19 | 0.5 mg | | | | | 7:19 | | | | | | PM PST | | | | + + +--------+---+---+ | Given by Other | 12/12/19 | 0.5 mg | | | | | 17 7:02 | | | | | | PM PST | | | | + + +--------+---+---+ +---+---+ | | | +---+---+ + +-------+ +------+---+---+ | labetalol (TRANDATE) 5 mg/mL | Given | 12/12/19 | 5 mg | | | | injection 5 mg 5 mg, | | 17 7:48 | | | | | Intravenous, EVERY 5 MIN PRN, For | | PM PST | | | | | SBP > 180, DBP > 100, Starting | | | | | | | Thu12/12/16 at 1754, Hold if HR < | | | | | | | 60. Maximum total dose 300mg. | | | | | | | Notify anesthesia if patient | | | | | | | requires more than 50mg., | | | | | | | Recovery/Phase I | | | | | | + +-------+ +------+---+---+ +---+---+ | | | +---+---+ + +---------+ +---+-------+---+ | lactated ringers (LR) infusion | New Bag | 12/12/19 | | 100 | | | at 100 mL/hr, Intravenous, | | 17 10:36 | | mL/hr | | | CONTINUOUS, Starting 12/12/16 | | PM PST | | | | | at 1045 | | | | | | + +---------+ +---+-------+---+ +---------+ +--------+-------+---+ | New Bag | 12/12/19 | | | | | | 17 3:26 | | | | | | PM PST | | | | +---------+ +--------+-------+---+ | New Bag | 12/12/19 | 1,000 | 100 | | | | 17 11:01 | mLs | mL/hr | | | | AM PST | | | | +---------+ +--------+-------+---+ +---+---+ | | | +---+---+ + +-------+ +------+---+---+ | morphine injection 2-8 mg 2-8 | Given | 12/12/19 | 2 mg | | | | mg, Intravenous, EVERY 2 HOURS | | 17 10:34 | | | | | PRN, Pain, Starting Thu12/12/16 | | PM PST | | | | | at 2020, If oral route not an | | | | | | | option. Slow IV push, not faster | | | | | | | than 2mg/minute. First dose must | | | | | | | be lowest dose, titrate to | | | | | | | effective dose by repeat of | | | | | | | lowest dose every 30 minutes prn | | | | | | | pain, may not exceed maximum dose | | | | | | | ordered per interval. Use Pasero | | | | | | | Sedation Scale., Post-op/Phase | | | | | | | II | | | | | | + +-------+ +------+---+---+ +---+---+ | | | +---+---+ + +-------+ +-------+---+---+ | oxyCODONE (ROXICODONE) tablet | Given | 12/13/19 | 15 mg | | | | 5-20 mg 5-20 mg, Oral, EVERY 4 | | 17 6:37 | | | | | HOURS PRN, Pain, Starting Fri | | AM PST | | | | | 12/12/16 at 2020, Post-op/Phase II | | | | | | + +-------+ +-------+---+---+ +-------+ +-------+---+---+ | Given | 12/13/19 | 15 mg | | | | | 17 2:55 | | | | | | AM PST | | | | +-------+ +-------+---+---+ | Given | 12/12/19 | 10 mg | | | | | 17 9:28 | | | | | | PM PST | | | | +-------+ +-------+---+---+ +---+---+ | | | +---+---+ + +-------+ + +---+---+ | phenol (CHLORASEPTIC) spray 1-2 | Given | 12/12/19 | 2 sprays | | | | spray 1-2 spray, Mouth/Throat, | | 17 9:29 | | | | | EVERY 3 HOURS PRN, Sore Throat, | | PM PST | | | | | Starting Thu12/12/16 at 2020, To | | | | | | | back of throat, Post-op/Phase II | | | | | | + +-------+ + +---+---+ +---+---+ | | | +---+---+ + +-------+ +---------+---+---+ | scopolamine (TRANSDERM-SCOP) 1 | Given | 12/12/19 | 1 patch | | | | mg/3 days 1 patch 1 patch, | | 17 3:26 | | | | | Transdermal, ONCE, Thu12/12/16 at | | PM PST | | | | | 1045, For 1 dose, Apply to | | | | | | | mastoid process, Pre-op | | | | | | + +-------+ +---------+---+---+ + + +---------+---+ + | Patch Applied | 12/12/19 | 1 patch | | Ear-Behi | | | 17 10:53 | | | nd Left | | | AM PST | | | | + + +---------+---+ + +---+---+ | | | +---+---+ documented in this encounter
--- OUTSIDE RECORDS SUMMARY | ~2020-05-20 | XMS | Encounter Summary ---
Demographics + + + | Address | [address] | | | [place] [address] | + + + | Home Phone | | + + + | Preferred Language | Unknown | + + + | Marital Status | | + + + | Restoration Affiliation | Unknown | + + + | Race | Unknown | + + + | Ethnic Group | Unknown | + + + Author + + + | Author | [facility] | | | and [place] | + + + | Organization | [facility] | | | and Fr[place]ana [...] Team Providers + +------+ + | Care Belt Operator Name | Role | Phone | + +------+ + | Ghada Hung MD | PCP | | + +------+ + Reason for Visit + + + | Reason | Comments | + + + | Medication Refill | | + + + Encounter Details +--------+--------+ + + + | Date | Type | Department | Care Team | Description | +--------+--------+ + + + | 01/24/ | Refill | [facility] | Renu Bright, | Medication Refill | | 2020 | | NEUROLOGY [address] | [address] | | | | | [place] | [address] [facility] [address] | | | | | [place], [place] | [place] [address] | | | | | [address] | [phone] | | | | | [phone] | | | +--------+--------+ + + + Social History + + + +--------+------+ | Tobacco Use | Types | Packs/Day | Years | Date | | | | | Used | | + + + +--------+------+ | Current Some Day | Cigarettes | 1 | 13 | | | Smoker | [...] + + documented as of this encounter Functional Status + + + [...] + + documented as of this encounter Miscellaneous Notes Telephone Encounter - Phylicia Lord CMA - 01/26/2020 3:43 PM PDTTauni, he just got this refilled at his pharmacy 01/25/2020. He doesn't need it but requested the refill in advance. His insurance will only let him fill 07/25 days anyway Last filled on: 11/30/2019 +2 refills Last office visit: 11/30/2019 Next office visit: 03/28/2020 documented in this en counter Plan of Treatment +--------+---------+ + + + | Date | Type | Specialty | Care Team | Description | +--------+---------+ + + + | 08/09/ | Office | Neurology | Renu Bright, | | 2019 | Visit | | [facility] | | | | | | [address] | | | | | | [place] [address] | | | | | | [phone] | | | | | | | | +--------+---------+ + + + documented as of this encounter Visit Diagnoses Not on filedocumented in this encounter"
--- OUTSIDE RECORDS SUMMARY | ~2020-05-20 | XMS | Encounter Summary ---
Demographics + + + | Address | [address] | | | [place] [address] | + + + | Home Phone | | + + + | Preferred Language | Unknown | + + + | Marital Status | | + + + | Christianity Affiliation | Unknown | + + + | Race | Unknown | + + + | Ethnic Group | Unknown | + + + Author + + + | Author | [facility] | | | and [place] | + + + | Organization | [facility] | | | and [place] [...] Team Providers + +------+ + | Care Dosimetrist Name | Role | Phone | + +------+ + | Kathrin Summers | PCP | | + +------+ + Encounter Details +--------+ + + + + | Date | Type | Department | Care Team | Description | +--------+ + + + + | 08/01/ | Orders Only | [facility] [place] | Jeffrey Carvajal MD | Spondylosis without | | 2016 | | NEUROSURGERY [address] | [address] | myelopathy or | | | | [address] | [place] [address] | radiculopathy, | | | | [place], [place] | [phone] | cervical region | | | | [address] | | (Primary Dx) | | | | [phone] | | | +--------+ + + + [...] | | | | | | [address] | | | | | | [place] [address] | | | | | | [phone] | | | | | | | | +--------+---------+ + + + documented as of this encounter Results XR Cervical Spine 4 or 5 Vws (10/30/2016 8:21 AM [facility]) + + | Specimen | + + | | + + + + + | Narrative | Performed At | + + + | XR CERVICAL SPINE 4 OR 5 VWS 10/30/2016 8:21 AM HISTORY: neck | [facility] | | pain. COMPARISON: 10/31/2015 FINDINGS: Visualized skull base | [facility] | | and facial structures demonstrate no acute findings. Prevertebral | [facility] | | soft tissues are normal. There are no acute osseous findings. | - IMAGING | | Vertebral body heights and alignment is maintained. There is mild | | | straightening of the cervical spine Facet joints are intact. Minimal | | | intervertebral disc space narrowing is seen at C5-C6. Craniocervical | | | junction and atlantoaxial articulation appear preserved. Soft tissue | | | structures are unremarkable. Visualized upper chest demonstrates no | | | acute findings. IMPRESSION - No acute findings of the cervical | | | spine. Minimal early degenerative disc disease noted at C5-C6. | | | Dictated and Signed by: Roque Vital MD Electronically signed: | | | 10/30/2016 9:49 AM | | + + + + + | Procedure Note | + + | Dorian, Rad Results In - 10/30/2016 9:52 AM PST XR CERVICAL SPINE 4 OR 5 VWS 10/30/2016 | | 8:21 AMHISTORY: neck pain.COMPARISON: 10/31/2015FINDINGS:Visualized skull base and facial | | structures demonstrate no acute findings.Prevertebral soft tissues are normal.There are | | no acute osseous findings. Vertebral body heights and alignment ismaintained. There is | | mild straightening of the cervical spine Facet joints areintact. Minimal intervertebral | | disc space narrowing is seen at C5-C6.Craniocervical junction and atlantoaxial | | articulation appear preserved. Softtissue structures are unremarkable. Visualized upper | | chest demonstrates no acutefindings. IMPRESSION -No acute findings of the cervical | | spine. Minimal early degenerative disc disease noted at C5-C6.Dictated and Signed by: | | Roque Vital MD Electronically signed: 10/30/2016 9:49 AM | |There are no acute osseous findings. Vertebral body heights and alignment is | |maintained. There is mild straightening of the cervical spine Facet joints are | |intact. Minimal intervertebral disc space narrowing is seen at C5-C6. | |Craniocervical junction and atlantoaxial articulation appear preserved. Soft | |tissue structures are unremarkable. Visualized upper chest demonstrates no acute | |findings. | | | |IMPRESSION - | |No acute findings of the cervical spine. | | | |Minimal early degenerative disc disease noted at C5-C6. | | | |Dictated and Signed by: Roque Vital MD | | Electronically signed: 10/30/2016 9:49 AM | + + + + + + + | Performing | Address | City[facility]State[facility] | Phone Number | | Organization | | | | + + + + + | [facility] | [address] | [place] | [phone] | | [facility] | | [address] | | | - IMAGING | | | | + + + + + documented in this encounter Visit Diagnoses + + | Diagnosis | + + | Spondylosis without myelopathy or radiculopathy, cervical region - Primary | + + documented in this encounter"
--- OUTSIDE RECORDS SUMMARY | ~2020-05-20 | XMS | Encounter Summary ---
Demographics + + + | Address | [address] | | | [place] [address] | + + + | Home Phone | | + + + | Preferred Language | Unknown | + + + | Marital Status | | + + + | Nondenominational Affiliation | Unknown | + + + | Race | Unknown | + + + | Ethnic Group | Unknown | + + + Author + + + | Author | [facility] | | | and [place] | + + + | Organization | [facility] | | | and [place] [...] Team Providers + +------+ + | Care Gunite Nozzle Operator Name | Role | Phone | + +------+ + PCP | Unavailable | + +------+ + Reason for Visit +--------+--------+ + | Reason | Onset | Comments | | | Date | | +--------+--------+ + | Other | 05/09/ | | | | 2014 | | +--------+--------+ + Encounter Details +--------+ + + + + | Date | Type | Department | Care Team | Description | +--------+ + + + + | 05/09/ | Telephone | [facility] [place] | Declan Rodriguez, | Other | | 2014 | | PHYSIATRY [address] | MD [address] | | | | | [address] | [place], [place] | | | | | [place], [place] | [address] | | | | | [address] | | | | | | [phone] | | | +--------+ + + + [...] this encounter Miscellaneous Notes Telephone Encounter - Bita Das - 05/15/2015 9:04 AM PDTL/M with informa tion and offered to add him to the wait list for a sooner martine then scheduled 05/23.Electronic ally signed by Bita Das at 05/15/2015 9:04 AM PDTTelephone Encounter - Dee Turk RN - 05/09/2015 2:32 PM PDTPlease call and notify the that we would need to see him back in the office to discuss further treatment with medications. If possible Patien t can have his scheduled follow moved forward. elephone Encounter - Bita Das - 05/09/2015 1:1 4 PM PDTPatient called to report that he did not get relief from Nerve Blocks done 04/05 and is requesting something for the pain. He is scheduled for a follow up martine. 05/23. Please advise. document ed in this encounter Plan of Treatment +--------+---------+ + + + | Date | Type | Specialty | Care Team | Description | +--------+---------+ + + + | 08/09/ | Office | Neurology | Renu Bright, | | | 2019 | Visit | | [facility] | | | | | | [facility] [address] | | | | | | [facility] [place] [address] | | | | | | [phone] | | | | | | | | +--------+---------+ + + + documented as of this encounter Visit Diagnoses Not on filedocumented in this encounter"
--- OUTSIDE RECORDS SUMMARY | ~2020-05-20 | XMS | Encounter Summary ---
Demographics + + + | Address | [address] | | | [place] [address] | + + + | Home Phone | | + + + | Preferred Language | Unknown | + + + | Marital Status | | + + + | Pentecostal Affiliation | Unknown | + + + | Race | Unknown | + + + | Ethnic Group | Unknown | + + + Author + + + | Author | [facility] | | | and [place] | + + + | Organization | [facility] | | | and [...] Team Providers + +------+ + | Care Corporate Vp Advertising & Online Name | Role | Phone | + +------+ + PCP | Unavailable | + +------+ + Encounter Details +--------+ + + + + | Date | Type | Department | Care Team | Description | +--------+ + + + + | 11/21/ | Hospital | [facility] | Conversion | Pain | | 2016 | Encounter | CONVERSION [address] | Transaction, | | | | | [address] | Provider Unknown | | | | | [place] | [phone] | | | | | [address] | | | | | | [phone] | | | +--------+ + + + [...] D | | | | | | [place] [address] | | | | | | [phone] | | | | | | | | +--------+---------+ + + + documented as of this encounter Procedures + +--------+ + + + | Procedure Name | Priori | Date/Time | Associated Diagnosis | Comments | | | ty | | | | + +--------+ + + + | XR CERVICAL SPINE 4 | Routin | 03/30/2015 | | Results for this | | OR 5 VWS | e | 9:18 PM | | procedure are in the | | | | PDT | | results section. | + +--------+ + + + documented in this encounter Results XR Cervical Spine 4 or 5 Vws (03/30/2015 9:18 PM PDT) + + | Specimen | + + | | + + + + + | Narrative | Performed At | + + + | This is a non-reportable procedure without a radiologist report and | | | is used for image storage only | | + + + + + | Procedure Note | + + | Asa Alarcon - 06/09/2019 5:06 PM PDT This is a non-reportable procedure | | without a radiologist report and isused for image storage only | + + documented in this encounter Visit Diagnoses + + | Diagnosis | + + | Pain Generalized pain | + + documented in this encounter"
--- OUTSIDE RECORDS SUMMARY | ~2020-05-20 | XMS | Encounter Summary ---
Demographics + + + | Address | [address] | | | [place] [address] | + + + | Home Phone | | + + + | Preferred Language | Unknown | + + + | Marital Status | | + + + | Latter-Day Affiliation | Unknown | + + + | Race | Unknown | + + + | Ethnic Group | Unknown | + + + Author + + + | Author | [facility] | | | and [place] | + + + | Organization | [facility] | | | and [...] Team Providers + +------+ + | Care Journeyman Pipe Fitter Name | Role | Phone | + +------+ + | Kathrin Summers | PCP | | + +------+ + Encounter Details +--------+ + + + + | Date | Type | Department | Care Team | Description | +--------+ + + + + | 11/10/ | Episode | [facility] | Alana Cloud | | | 2017 | Changes | NEUROSURGERY [address] | S, Biometrics Analyst | | | | | [address] [facility] [address] | | | | | | [place], [place] | | | | | | [address] | | | | | | [phone] | | | +--------+ + + + [...] Neurology | Renu Bright, | | | 2020 | Visit | | [facility] | | | | | | [address] | | | | | | [place] [address] | | | | | | [phone] | | | | | | | | +--------+---------+ + + + documented as of this encounter Visit Diagnoses Not on filedocumented in this encounter"
--- OUTSIDE RECORDS SUMMARY | ~2020-05-20 | XMS | Encounter Summary ---
Demographics + + + | Address | [address] | | | [place] [address] | + + + | Home Phone | | + + + | Preferred Language | Unknown | + + + | Marital Status | | + + + | Jain Affiliation | Unknown | + + + | Race | Unknown | + + + | Ethnic Group | Unknown | + + + Author + + + | Author | [facility] | | | and [place] | + + + | Organization | [facility] | | | [...] Team Providers + +------+ + | Care Tugger Operator Name | Role | Phone | + +------+ + | Kathrin Summers | PCP | | + +------+ + Encounter Details +--------+ + + + + | Date | Type | Department | Care Team | Description | +--------+ + + + + | 10/17/ | Abstract | [facility] [place] | Jeffrey Carvajal MD | | | 2016 | | NEUROSURGERY [address] | [address] | | | | | [address] | [place] [address] | | | | | [place] | [phone] | | | | | [address] | | | | | | [phone] | | | +--------+ + + + [...] | | | | | [place] [address] | | | | | | [phone] | | | | | | | | +--------+---------+ + + + documented as of this encounter Visit Diagnoses Not on filedocumented in this encounter"
--- OUTSIDE RECORDS SUMMARY | ~2020-05-20 | XMS | Encounter Summary ---
Demographics + + + | Address | [address] | | | [place] [address] | + + + | Home Phone | | + + + | Preferred Language | Unknown | + + + | Marital Status | | + + + | Synagogue Affiliation | Unknown | + + + | Race | Unknown | + + + | Ethnic Group | Unknown | + + + Author + + + | Author | [facility] | | | and Frandyana | + + + | Organization | [facility] | | | and Frandyana [...] Team Providers + +------+ + | Care Obstetrics Nurse Name | Role | Phone | + +------+ + | Kathrin Summers | PCP | | + +------+ + Encounter Details +--------+ + + + + | Date | Type | Department | Care Team | Description | +--------+ + + + + | 11/12/ | Orders Only | [facility] | Jeffrey Carvajal MD | Cervical spondylosis | | 2017 | | NEUROSURGERY [address] | [address] | with radiculopathy | | | | [address] | [place] [address] | (Primary Dx); | | | | [place], [place] | [phone] | Foraminal stenosis | | | | [address] | | of cervical region; | | | | [phone] | | Cervical spinal | | | | | | stenosis; | | | | | | Degenerative disc | | | | | | disease, cervical | +--------+ + + + + Social [...] | | 2019 | Visit | | [address] | | | | | | [address] | | | | | | [place] [address] | | | | | | [phone] | | | | | | | | +--------+---------+ + + + documented as of this encounter Results XR Chest PA and Lateral (11/19/2016 1:36 PM PST) + + | Specimen | + + | | + + + + + | Narrative | Performed At | + + + | XR CHEST PA AND LATERAL 11/19/2016 1:36 PM HISTORY: preoperative | [facility] | | clearance. COMPARISON: None. Findings: Heart size is within | [facility] | | normal limits. Aorta is normal. Mediastinum is unremarkable. Central | [facility] | | pulmonary vasculature is normal. The bilateral lungs are clear with | - IMAGING | | no evidence for pleural effusion or pneumothorax. There is minimal | | | spondylosis. IMPRESSION - No acute findings. Dictated and | | | Signed by: Rogelio Davidson MD Electronically signed: 11/19/2016 1:38 | | | PM | | + + + + + | Procedure Note | + + | Dorian, Rad Results In - 11/19/2016 1:42 PM PST XR CHEST PA AND LATERAL 11/19/2016 1:36 | | PMHISTORY: preoperative clearance.COMPARISON: None.Findings:Heart size is within normal | | limits. Aorta is normal. Mediastinum isunremarkable. Central pulmonary vasculature is | | normal. The bilateral lungs areclear with no evidence for pleural effusion or | | pneumothorax. There is minimalspondylosis.IMPRESSION -No acute findings.Dictated and | | Signed by: Rogelio Davidson MD Electronically signed: 11/19/2016 1:38 PM | |Findings: | |Heart size is within normal limits. Aorta is normal. Mediastinum is | |unremarkable. Central pulmonary vasculature is normal. The bilateral lungs are | |clear with no evidence for pleural effusion or pneumothorax. There is minimal | |spondylosis. | | | |IMPRESSION - | |No acute findings. | | | |Dictated and Signed by: Rogelio Davidson MD | | Electronically signed: 11/19/2016 1:38 PM | + + + + + + + | Performing | Address | City/State/Zipcode | Phone Number | | Organization | | | | + + + + + | [facility] | [address] | [place] | [phone] | | [facility] | | [id number] | | | - IMAGING | | | | + + + + + CBC with Differential (11/19/2016 1:18 PM PST) + + + + + + | Component | Value | Ref Range | Performed | Pathologist | | | | | At | Signature | + + + + + + | White Blood | 11.8 (H) | 4.0 - 11.0 K/uL | [facility] | | | Cells | | | [facility] | | | | | | MEDICAL | | | | | | CENTER - | | | | | | LABORATORY | | + + + + + + | Red Blood | 5.00 | 4.30 - 5.70 | [facility] | | | Cells | | M/uL | [facility] | | | | | | MEDICAL | | | | | | CENTER - | | | | | | LABORATORY | | + + + + + + | Hemoglobin | 15.5 | 13.5 - 18.0 | [facility] | | | | | g/dL | [facility] | | | | | | MEDICAL | | | | | | CENTER - | | | | | | LABORATORY | | + + + + + + | Hematocrit | 46.6 | 40.0 - 51.0 % | [facility] | | | | | | [facility] | | | | | | MEDICAL | | | | | | CENTER - | | | | | | LABORATORY | | + + + + + + | MCV | 93.1 | 83.0 - 101.0 fL | [facility] | | | | | | [facility] | | | | | | MEDICAL | | | | | | CENTER - | | | | | | LABORATORY | | + + + + + + | MCH | 31.1 | 28.0 - 35.0 pg | [facility] | | | | | | [facility] | | | | | | MEDICAL | | | | | | CENTER - | | | | | | LABORATORY | | + + + + + + | MCHC | 33.4 | 32.0 - 36.0 | [facility] | | | | | g/dL | [facility] | | | | | | MEDICAL | | | | | | CENTER - | | | | | | LABORATORY | | + + + + + + | RDW-CV | 14.0 | <15.0 % | [facility] | | | | | | [facility] | | | | | | MEDICAL | | | | | | CENTER - | | | | | | LABORATORY | | + + + + + + | Platelet | 178 | 140 - 440 K/uL | [facility] | | | Count | | | [facility] | | | | | | MEDICAL | | | | | | CENTER - | | | | | | LABORATORY | | + + + + + + | MPV | 8.2 | fL | [facility] | | | | | | [facility] | | | | | | MEDICAL | | | | | | CENTER - | | | | | | LABORATORY | | + + + + + + | % | 63.3 | 45.0 - 82.0 % | [facility] | | | Neutrophils | | | [facility] | | | | | | MEDICAL | | | | | | CENTER - | | | | | | LABORATORY | | + + + + + + | % | 28.1 | 20.0 - 45.0 % | [facility] | | | Lymphocytes | | | [facility] | | | | | | MEDICAL | | | | | | CENTER - | | | | | | LABORATORY | | + + + + + + | % Monocytes | 5.9 | 4.0 - 12.0 % | [facility] | | | | | | [facility] | | | | | | MEDICAL | | | | | | CENTER - | | | | | | LABORATORY | | + + + + + + | % | 2.3 | 0.0 - 5.0 % | [facility] | | | Eosinophils | | | [facility] | | | | | | MEDICAL | | | | | | CENTER - | | | | | | LABORATORY | | + + + + + + | % Basophils | 0.4 | 0.0 - 1.0 % | [facility] | | | | | | [facility] | | | | | | MEDICAL | | | | | | CENTER - | | | | | | LABORATORY | | + + + + + + | Absolute | 7.50 | 1.80 - 8.50 | [facility] | | | Neutrophils | | K/uL | [facility] | | | | | | MEDICAL | | | | | | CENTER - | | | | | | LABORATORY | | + + + + + + | Absolute | 3.30 (H) | 0.60 - 3.20 | [facility] | | | Lymphocytes | | K/uL | [facility] | | | | | | MEDICAL | | | | | | CENTER - | | | | | | LABORATORY | | + + + + + + | Absolute | 0.70 | 0.00 - 1.00 | [facility] | | | Monocytes | | K/uL | [facility] | | | | | | MEDICAL | | | | | | CENTER - | | | | | | LABORATORY | | + + + + + + | Absolute | 0.30 | 0.00 - 0.40 | [facility] | | | Eosinophils | | K/uL | [facility] | | | | | | MEDICAL | | | | | | CENTER - | | | | | | LABORATORY | | + + + + + + | Absolute | 0.10 | 0.00 - 0.10 | [facility] | | | Basophils | | K/uL | [facility] | | | | | | MEDICAL | | | | | | CENTER - | | | | | | LABORATORY | | + + + + + + + + | Specimen | + + | Blood | + + + + + + + | Performing | Address | City/State/Zipcode | Phone Number | | Organization | | | | + + + + + | [facility] | [address] | [place] | [phone] | | [facility] | | [address] | | | - LABORATORY | | | | + + + + + Basic Metabolic Panel (11/19/2016 1:18 PM PST) + + + + + + | Component | Value | Ref Range | Performed | Pathologist | | | | | At | Signature | + + + + + + | Na | 138 | 136 - 149 | [facility] | | | | | mmol/L | [facility] | | | | | | MEDICAL | | | | | | CENTER - | | | | | | LABORATORY | | + + + + + + | K | 3.4 (L) | 3.5 - 5.1 | [facility] | | | | | mmol/L | [facility] | | | | | | MEDICAL | | | | | | CENTER - | | | | | | LABORATORY | | + + + + + + | Cl | 103 | 98 - 109 mmol/L | [facility] | | | | | | [facility] | | | | | | MEDICAL | | | | | | CENTER - | | | | | | LABORATORY | | + + + + + + | CO2 | 28 | 24 - 31 mmol/L | [facility] | | | | | | [facility] | | | | | | MEDICAL | | | | | | CENTER - | | | | | | LABORATORY | | + + + + + + | Anion Gap | 7 | 3 - 16 mmol/L | [facility] | | | | | | [facility] | | | | | | MEDICAL | | | | | | CENTER - | | | | | | LABORATORY | | + + + + + + | Glucose | 99 | 70 - 109 mg/dL | [facility] | | | | | | [facility] | | | | | | MEDICAL | | | | | | CENTER - | | | | | | LABORATORY | | + + + + + + | BUN | 10 | 7 - 18 mg/dL | [facility] | | | | | | [facility] | | | | | | MEDICAL | | | | | | CENTER - | | | | | | LABORATORY | | + + + + + + | Creatinine | 0.76 | 0.60 - 1.30 | [facility] | | | | | mg/dL | [facility] | | | | | | MEDICAL | | | | | | CENTER - | | | | | | LABORATORY | | + + + + + + | eGFR if not | >60Comment: GLOMERULAR | >=60 | [facility] | | | | FILTRATION | mL/min/1.73m2 | [facility] | | | FRENCH | RATE,ESTIMATED | | MEDICAL | | | | mL/min/1.31g3Rohk than | | CENTER - | | | | 60 Chronic kidney | | LABORATORY | | | | disease,if found over a | | | | | | 3-month period.Less than | | | | | | 15 Kidney failureFor | | | | | | | | | | | | Americans,multiply the | | | | | | calculated GFR by 1.21. | | | | | | | | | | + + + + + + | Calcium | 9.5 | 8.3 - 10.5 | [facility] | | | | | mg/dL | [facility] | | | | | | MEDICAL | | | | | | CENTER - | | | | | | LABORATORY | | + + + + + + | BUN/Creatin | 13.2 | | [facility] | | | ine Ratio | | | [facility] | | | | | | MEDICAL | | | | | | CENTER - | | | | | | LABORATORY | | + + + + + + + + | Specimen | + + | Blood | + + + + + + + | Performing | Address | City/State/Zipcode | Phone Number | | Organization | | | | + + + + + | [facility] | [address] | [place] | [phone] | | [facility] | | [address] | | | - LABORATORY | | | | + + + + + ECG 12 lead (11/19/2016 1:11 PM PST) + + + + + + | Component | Value | Ref Range | Performed | Pathologist | | | | | At | Signature | + + + + + + | VENTRICULAR | 87 | BPM | [facility] | | | RATE EKG | | | | | + + + + + + | ATRIAL RATE | 87 | BPM | [facility] | | + + + + + + | P-R | 146 | ms | [facility] | | | INTERVAL | | | | | + + + + + + | QRS | 96 | ms | [facility] | | | DURATION | | | | | + + + + + + | Q-T | 362 | ms | [facility] | | | INTERVAL | | | | | + + + + + + | Q-T | 435 | ms | [facility] | | | INTERVAL | | | | | | (CORRECTED) | | | | | + + + + + + | P WAVE AXIS | 71 | degrees | [facility] | | + + + + + + | QRS AXIS | 28 | degrees | [facility] | | + + + + + + | T AXIS | 35 | degrees | [facility] | | + + + + + + | INTERPRETAT | Normal sinus | | [facility] | | | ION TEXT | rhythmNormal ECGNo | | | | | | previous ECGs | | | | | | availableConfirmed by | | | | | | KELI MILLER MD ([id number]) | | | | | | on 11/20/2016 7:10:01 AM | | | | + + + + + + + + | Specimen | + + | | + + + + + | Narrative | Performed At | + + + | | | + + + + +---------+ + + | Performing | Address | City/State/Zipcode | Phone Number | | Organization | | | | + +---------+ + + | [facility] | | | | + +---------+ + + documented in this encounter Visit Diagnoses + + | Diagnosis | + + | Cervical spondylosis with radiculopathy - Primary Cervical spondylosis with | | myelopathy | + + | Foraminal stenosis of cervical region Spinal stenosis in cervical region | + + | Cervical spinal stenosis Spinal stenosis in cervical region | + + | Degenerative disc disease, cervical Degeneration of cervical intervertebral disc | + + documented in this encounter"
--- OUTSIDE RECORDS SUMMARY | ~2020-05-20 | XMS | Encounter Summary ---
Demographics + + + | Address | [address] | | | [place] [address] | + + + | Home Phone | | + + + | Preferred Language | Unknown | + + + | Marital Status | | + + + | Episcopal Affiliation | Unknown | + + + | Race | Unknown | + + + | Ethnic Group | Unknown | + + + Author + + + | Author | [facility] | | | and Frandyana | + + + | Organization | [facility] | | | and Frandyana [...] Team Providers + +------+ + | Care Dip Filler Name | Role | Phone | + +------+ + | Kathrin Summers | PCP | | + +------+ + Reason for Visit +---------+--------+ + | Reason | Onset | Comments | | | Date | | +---------+--------+ + | Therapy | 03/17/ | no show for PT | | | 2016 | | +---------+--------+ + Encounter Details +--------+ + + + + | Date | Type | Department | Care Team | Description | +--------+ + + + + | 03/17/ | Telephone | [facility] | Jeffrey Carvajal MD | Therapy (no show for | | 2016 | | NEUROSURGERY [address] | [address] | PT) | | | | [address] | [place] [address] | | | | | [place] | [phone] | | | | | [address] | | | | | | [phone] | | | +--------+ + + + [...] this encounter Miscellaneous Notes Telephone Encounter - Shira Cruz Animation Director - 03/17/2017 4:18 PM PDTPrudencio Vann, Called patient to make sure that he is still planning on attending physical therapy . PT department let us know that he was a no show at his last appointment. Contacted patient and he stated that he will be present for his next appointment. documented in this encounter Plan of Treatment +--------+---------+ + + + | Date | Type | Specialty | Care Team | Description | +--------+---------+ + + + | 08/09/ | Office | Neurology | Renu Bright, | | | 2019 | Visit | | [address] | | | | | | [address] | | | | | | [place] [address] | | | | | | [phone] | | | | | | | | +--------+---------+ + + + documented as of this encounter Visit Diagnoses Not on filedocumented in this encounter"
--- OUTSIDE RECORDS SUMMARY | ~2020-05-20 | XMS | Encounter Summary ---
Demographics + + + | Address | [address] | | | [place] [address] | + + + | Home Phone | | + + + | Preferred Language | Unknown | + + + | Marital Status | | + + + | Methodist Affiliation | Unknown | + + + | Race | Unknown | + + + | Ethnic Group | Unknown | + + + Author + + + | Author | [facility] | | | and Frandyana | + + + | Organization | [facility] | | | and [...] Team Providers + +------+ + | Care Semiconductor Wafer Inspector Name | Role | Phone | + +------+ + | Kathrin Summers | PCP | | + +------+ + Reason for Visit +---------+ + | Reason | Comments | +---------+ + | Post Op | 9M PO | +---------+ + Encounter Details +--------+---------+ + + + | Date | Type | Department | Care Team | Description | +--------+---------+ + + + | 09/02/ | Office | [facility] | Leonidas De La Fuente | S/P cervical spinal | | 2017 | Visit | NEUROSURGERY [address] | [address] | fusion (Primary Dx) | | | | [address] | [address] | | | | | [place] | [place] | | | | | [address] | [address] | | | | | [phone] | | | +--------+---------+ + + + [...] + + + | Blood Pressure | 127/89 | 09/02/2017 3:26 PM | | | | | PST | | + + + + + | Pulse | 75 | 09/02/2017 3:26 PM | | | | | PST [...] + + + + | Weight | 93 kg (205 lb) | 09/02/2017 3:26 PM | | | | | PST | | + + + + + | Height | 170.2 cm (5' 7") | 09/02/2017 3:26 PM | | | | | PST | | + + + + + | Body Mass Index | 32.11 | 09/02/2017 3:26 PM | | | | | PST [...] of this encounter Patient Instructions Patient Instructions Leonidas De La Fuente PA-C - 09/02/2017 3:00 PM PSTWe will have you get new x-rays in approximately 3 months to check the status of your fusion. You need to continue working on quitting smoking and stopped taking ibuprofen daily as thes e can both be delaying your fusion. We will schedule an appointment with Dr. Carvajal in 3-4 months to check your progress. Electron ically signed by Leonidas De La Fuente PA-C at 09/02/2017 3:55 PM PST documented in this encounter Progress Notes Leonidas De La Fuente PA-C - 09/02/2017 3:00 PM PSTFormatting of this note might be diffe rent from the original. Leonidas De La Fuente PA-C [address] [place], [place] [id number] FAX: NEUROSURGERY FOLLOW-UP CHIEF COMPLAINT: Chief Complaint Patient presents with Post Op 9M PO HISTORY OF PRESENT ILLNESS: The patient is a 31 y.o. male that had a cervical fusion for n rocio pain and radicular symptoms around 9 months ago. He returns and overall is doing fair. He complains of neck pain in the center of his neck and muscle pain around that. He has some intermittent hand numbness. The patient has been walking as much as directed. He has stop ped taking pain medicine due to being unable to drive to the pain management center. He takes ibuprofen at night intermittently for pain. He continues to smoke cigarettes, but has cut down from 2 packs a day to 1/2 pack a day. 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 OR KIDNEY STONE SURGERY [id number] x2 KNEE SURGERY 2002 right CURRENT MEDICATIONS: Current Outpatient Prescriptions Medication Sig Dispense Refill baclofen (LIORESAL) 10 mg tablet Take 1 tablet by mouth 3 times daily. 90 tablet 1 HYDROcodone-acetaminophen (NORCO) 10-325 mg per tablet Take 1-2 tablets by mouth every 4 hours as needed for Pain. (Patient not taking: Reported on 09/02/2017) 120 tablet 0 methocarbamol (ROBAXIN) 750 mg tablet Take 1-2 tablets by mouth EVERY 6 TO 8 HOURS N EEDED. 0 morphine (MS CONTIN) 30 mg ER tablet Take 1 tablet by mouth 2 times daily. (Patient not taking: Reported on 09/02/2017) 60 tablet 0 traZODone (DESYREL) 50 mg tablet Take 50 mg by mouth. 0 No current facility-administered medications for this visit. ALLERGIES: Allergies Allergen Reactions Gabapentin Nausea And Vomiting Tramadol Nausea And Vomiting SOCIAL HISTORY: The patient reports that he has been smoking Cigarettes. He has a 6.50 pack-year smoking history. He has never used smokeless tobacco. He reports that he does not drink alcohol or u se drugs. FAMILY HISTORY: Family History Problem Relation [...] rheumatoid arthritis. INTERIM PHYSICAL EXAMINATION: Blood pressure 127/89, pulse 75, height 1.702 m (5' 7"), weight 93 kg (205 lb). Body mass i ndex is 32.11 kg/m. GENERAL: Layne Bentley is in no acute [...] be expected at thi s time. ASSESSMENT: No diagnosis found. 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 Some of the preoperative symptoms are improved, but still has daily neck pain. He was working with physical therapy, but has had no benefit that the physical therapist or himself can see. We discussed his x-rays in detail. He understands that he is not completely fused and this may be due to his smoking cigarettes and taking ibuprofen during his recovery. We discusssalvador woods that pseudoarthrosis can cause neck pain and be contributing to his symptoms. I am hoping this will continue to fuse on its own if he changes his lifestyle. We discussed the possibil ity of re-operation in the future to try fusion again. We will NOT operate again if he is sm oking. I provided a prescription for baclofen to hopefully help with intermittent muscle spasms. Jonelle franco has had no relief with other medications to this point and is off pain medicine. I increased the patient s activities To 35 pounds lifting. He can continue to slowly inc rease that over the next 4 weeks. The patient should increase range of motion activities as tolerated. I would like the patient to return in about 3-[address] Carvajal to discuss his progre ss. ELECTRONICALLY SIGNED BY: Leonidas De La Fuente PA-C, 09/02/2017 15:56 documented in this encounter Plan of Treatment +--------+---------+ + + + | Date | Type | Specialty | Care Team | Description | +--------+---------+ + + + | 08/09/ | Office | Neurology | Renu Bright, | | | 2019 | Visit | | [facility] | | | | | | [address] | | | | | | [place] [address] | | | | | | [phone] | | | | | | | | +--------+---------+ + + + documented as of this encounter Results XR Cervical Spine 2 or 3 Views (12/08/2017 11:15 AM [facility]) + + | Specimen | + + | | + + + + + | Narrative | Performed At | + + + | XR CERVICAL SPINE 2 OR 3 VIEWS 12/08/2017 11:15 AM HISTORY: | [facility] | | postop cervical fusion. COMPARISON: 09/02/2017 FINDINGS: | | | Visualized skull base and facial structures demonstrate no acute | | | findings. Prevertebral soft tissues are normal. Anterior and | | | interbody fusion changes are again seen at C3-C6. No evidence of | | | interval complication. Facets are anatomically aligned. Vertebral body | | | heights are preserved. Disc spaces are maintained. IMPRESSION - | | | No radiographic evidence for an interval complication. Dictated | | | and Signed by: Roque Vital MD Electronically signed: 12/08/2017 | | | 11:33 AM | | + + + + + | Procedure Note | + + | Dorian, Rad Results In - 12/08/2017 11:36 AM PST XR CERVICAL SPINE 2 OR 3 VIEWS | | 12/08/2017 11:15 AMHISTORY: postop cervical fusion.COMPARISON: | | 09/02/2017FINDINGS:Visualized skull base and facial structures demonstrate no acute | | findings.Prevertebral soft tissues are normal.Anterior and interbody fusion changes are | | again seen at C3-C6. No evidence ofinterval complication. Facets are anatomically | | aligned. Vertebral body heightsare preserved. Disc spaces are maintained.IMPRESSION -No | | radiographic evidence for an interval complication.Dictated and Signed by: Roque | | MD Zahraa Electronically signed: 12/08/2017 11:33 AM | |Prevertebral soft tissues [...] signed: 12/08/2017 11:33 AM | + + + +---------+ + + [...] status | + + documented in this encounter
--- OUTSIDE RECORDS SUMMARY | ~2020-05-20 | XMS | Encounter Summary ---
Demographics + + + | Address | [address] | | | [place] [address] | + + + | Home Phone | | + + + | Preferred Language | Unknown | + + + | Marital Status | | + + + | Baptism Affiliation | Unknown | + + + | Race | Unknown | + + + | Ethnic Group | Unknown | + + + Author + + + | Author | [facility] | | | and Frandyana | + + + | Organization | [facility] | | | and [...] Team Providers + +------+ + | Care Metal Room Dental Technician Name | Role | Phone | + +------+ + | Kathrin Summers | PCP | | + +------+ + Encounter Details +--------+ + + + + | Date | Type | Department | Care Team | Description | +--------+ + + + + | 11/19/ | Preadmit | [facility] | Jeffrey Carvajal MD | Pre-operative | | 2017 | Visit | [facility] | [address] | clearance (Primary | | | | CLINIC [address] | [place] [address] | Dx); Cervical | | | | [place], [place] | [phone] | spondylosis with | | | | [phone] | | radiculopathy; | | | | | | Foraminal stenosis | | | | | | of cervical region; | | | | | | Cervical [...] 08/09/ | Office | Neurology | Renu Brgiht, | | | 2019 | Visit | | [facility] | | | | | | [address] | | | | | | [place] [address] | | | | | | [phone] | | | | | | | | +--------+---------+ + + + documented as of this encounter Procedures + +--------+ + + + | Procedure Name | Priori | Date/Time | Associated Diagnosis | Comments | | | ty | | | | + +--------+ + + + | CULTURE, MRSA | Routin | 11/19/2016 | Pre-operative | Results for this | | | e | 1:18 PM | clearance | procedure are in the | | | | PST | | results section. | + +--------+ + + + | CBC WITH | Routin | 11/19/2016 | Cervical | Results for this | | DIFFERENTIAL | e | 1:18 PM | spondylosis with | procedure are in the | | | | PST | radiculopathy | results section. | | | | | Foraminal stenosis | | | | | | of cervical region | | | | | | Cervical spinal | | | | | | stenosis | | | | | | Degenerative disc | | | | | | disease, cervical | | + +--------+ + + + | BASIC METABOLIC | Routin | 11/19/2016 | Cervical | Results for this | | PANEL | e | 1:18 PM | spondylosis with | procedure are in the | | | | PST | radiculopathy | results section. | | | | | Foraminal stenosis | | | | | | of cervical region | | | | | | Cervical spinal | | | | | | stenosis | | | | | | Degenerative disc | | | | | | disease, cervical | | + +--------+ + + + | ECG 12 LEAD | Routin | 11/19/2016 | Cervical | Results for this | | | e | 1:11 PM | spondylosis with | procedure are in the | | | | PST | radiculopathy | results section. | | | | | Foraminal stenosis | | | | | | of cervical region | | | | | | Cervical spinal | | | | | | stenosis | | | | | | Degenerative disc | | | | | | disease, cervical | | + +--------+ + + + documented in this encounter Results CBC with Differential (11/19/2016 1:18 PM PST) [...] | Cells | | M/uL | [facility] | | | [facility] | [facility] | | | | | | C[facility] - | | | | | | LABORATORY | | + + + + + + | Hemoglobin | 15.5 | 13.5 - 18.0 | [facility] | | | | | g/dL | [facility] | | | | [...] | | | Eosinophils | | | [facility] | | [...] | | Neutrophils | | K/uL | [facility] | | | | | | [facility] | | | | | | CENTER - | | | | | | LABORATORY | | + + + + + + | Absolute | 3.30 (H) | 0.60 - 3.20 | [facility] | | | Lymphocytes | | K/uL | [facility] | | | [facility] | [facility] | | | | | | C[facility] - | | | | | | LABORATORY | | + + + + + + | Absolute | 0.70 | 0.00 - 1.00 | [facility] | | | Monocytes | | K/uL | [facility] | [...] + | [facility] | [address] | [place] | [phone] | | [facility] | | [address] | | | - LABORATORY | | [...] | | | | | mmol/L | [facility] | | | | [...] | | | | mg/dL | [facility] | | | | | | MEDICAL | | | | | | CENTER - | | | | | | LABORATORY | | + + + + + + | eGFR if not | >60Comment: GLOMERULAR | >=60 | [facility] | | | | FILTRATION | mL/min/1.73m2 | [facility] | | | MICRONESIAN | RATE,ESTIMATED | | MEDICAL | | | | mL/min/1.93o4Jycl than | | CENTER - | | [...] | | | | | mg/dL | [facility] | | | | | | [facility]ICAL | | | | | | CENTER - | | | | | | LABORATORY | | + + + + + + | BUN/Creatin | 13.2 | | [facility] | | | ine Ratio | | | [facility] | | | | | | [...] | [facility] | [address] | [place] | [phone] | | [facility] | | [address] | | | - LABORATORY | | | | + + + + + Culture, MRSA (11/19/2016 1:18 PM PST) + + + + + + | Component | Value | Ref Range | Performed | Pathologist | | | | | At | Signature | + + + + + + | Culture | Negative for MRSA by | | [facility] | | | | chromogenic agar method | | [facility] | | | | | | [facility]ICAL | | | | | | CENTER - | | | | | | LABORATORY | | + + + + + + + + | Specimen | + + | Respiratory - Both | | anterior nares (body | | structure) | + + + + + + + | Performing | Address | City/State/Zipcode | Phone Number | | Organization | | | | + + + + + | [facility] | [address] | [place] | [phone] | | [facility] | | [address] | | | - LABORATORY | | [...] | | | | KELI MILLER MD ([id number]) | | | | | | on [...] + | Diagnosis | + + | Pre-operative clearance - Primary Preoperative examination, unspecified | + + | Cervical spondylosis with [...]
--- OUTSIDE RECORDS SUMMARY | ~2020-05-20 | XMS | Encounter Summary ---
Demographics + + + | Address | [address] | | | [place] [address] | + + + | Home Phone | | + + + | Preferred Language | Unknown | + + + | Marital Status | | + + + | Scientologist Affiliation | Unknown | + + + | Race | Unknown | + + + | Ethnic Group | Unknown | + + + Author + + + | Author | [facility] | | | and Frandyana | + + + | Organization | [facility] | | | and Frandyana [...] Team Providers + +------+ + | Care Monument Stonecutter Name | Role | Phone | + [...] to stop) | | | | [facility] [address] | [place] [address] | | | | | [place] | [phone] | | | | | [address] | | | | | | [phone] | | | +--------+ + + + [...] | | | | | | DRIVE [facility] [address] | | | | | | [place] [address] | | | | | | [phone] | | | | | | | | +--------+---------+ + + + documented as of this encounter Visit Diagnoses Not on filedocumented in this encounter"
--- OUTSIDE RECORDS SUMMARY | ~2020-05-20 | XMS | Encounter Summary ---
Demographics + + + | Address | [address] | | | [place] [address] | + + + | Home Phone | | + + + | Preferred Language | Unknown | + + + | Marital Status | | + + + | Jain Affiliation | Unknown | + + + | Race | Unknown | + + + | Ethnic Group | Unknown | + + + Author + + + | Author | [facility] | | | and Frandyana | + + + | Organization | [facility] | | | and Frandyana [...] Team Providers + +------+ + | Care Customer Solutions Architect Name | Role | Phone | + +------+ + | Kathrin Summers | PCP | | + +------+ + Encounter Details +--------+ + + + + | Date | Type | Department | Care Team | Description | +--------+ + + + + | 08/14/ | Hospital | [facility] | Khushi Rittermercedes Wing, | Nephrolithiasis | | 2016 | Encounter | [facility] | DO [address] | | | | | [address] | [place] [address] | | | | | [place], [place] | [phone] | | | | | [address] | | | | | | [phone] | | | +--------+ + + + [...] documented as of this encounter Progress Notes Conversion Transaction, Provider Unknown - 08/14/2016 2:42 PM PDTFormatting of this note m ight be different from the original. Nurse Progress Note by Lisa Salazar RN at 08/14/16 1441 Author: Lisa Salazar RN Service: (none) Author Type: Registered Nurse Filed: 08/14/16 3302 Date of Service: 08/14/16 144 Status: Signed Director Of Occupational Therapy: Lisa Salazar RN (Registered Nurse) Bladder scan revealed 192 mL of urine. Patient stated he wanted to try again to use the res troom and was able to void. Stated color was bloody. Patient IV removed, awaiting escort to take him to his car. Friend stated understanding that if patient is unable to void in 8 hrs to return to ED. onver charlee Transaction, Provider Unknown - 08/14/2016 2:07 PM PDT Nurse Progress Note by Lisa Salazar RN at 08/14/16 8381 Author: Lisa Salazar RN Service: (none) Author Type: Registered Nurse Filed: 08/14/16 7998 Date of Service: 08/14/16 2676 Status: Signed Director Of Occupational Therapy: Lisa Salazar RN (Registered Nurse) Patient unable to void at this time. Pain medication given and IV fluids continuing into th e 3rd Liter. Patient states, "It hurts to pee". Reminded that he must void before going home . Patient states understanding. onver charlee Transaction, Provider Unknown - 08/14/2016 1:41 PM PDT Nurse Progress Note by Nia Hoffmann RN at 08/14/161340 Author: Nia Hoffmann RN Service: (none) Author Type: Registered Nurse Filed: 08/14/16 134 Date of Service: 08/14/161340 Status: Signed Director Of Occupational Therapy: Nia Hoffmann RN (Registered Nurse) Assessment unchanged from previous docume nted in this encounter H&P Notes Mike Ritter DO - 08/14/2016 11:57 AM PDTFormatting of this note might be different fr om the original. H&P by Mike Ritter DO at 08/14/161156 Author: Mike Ritter DO Service: Urology Author Type: Physician Filed: 08/14/161156 Date of Service: 08/14/161156 Status: Signed Director Of Occupational Therapy: Mike Ritter DO (Physician) [facility] Urology Primary Care Provider: Kathrin Summers History Obtained From: patient CHIEF COMPLAINT: 8x6mm Stone Hematuria, Renal Colic HISTORY OF PRESENT ILLNESS The patient is a 30 y.o. male with significant past medical history of chronic pain, DDD, w ho presents with recurrent uric acid stones. He has been managed with URS and ESWL in the past but continues to pass several stones. He relates that he cannot lateralize his pain due to heavy narcotic use for his spinal pain . He did have some nausea upon presentation to the [place] [facility] 2 weeks ago. His pain is managed at this time with his narcotics. He also notes some urgency, weak stream, and dys uria. He still feels that he is passing his stones. REVIEW OF SYSTEMS Review of Systems Constitutional: Positive for weight loss. Negative for fever. Eyes: Negative for blurred vision. Respiratory: Negative for shortness of breath. Cardiovascular: Negative for chest pain. Gastrointestinal: Positive for nausea. Negative for vomiting. Genitourinary: Negative for dysuria, urgency, frequency, hematuria and flank pain. Musculoskeletal: Negative for myalgias. Skin: Negative for rash. Neurological: Positive for dizziness. Negative for focal weakness and headaches. Endo/Heme/Allergies: Does not bruise/bleed easily. Psychiatric/Behavioral: Negative for depression. PHYSICAL EXAM Vital Signs: Pulse 72 | Ht 1.676 m (5' 6") | Wt 90.674 kg (199 lb 14.4 oz) | BMI 32.28 kg/m2 | SpO2 99% Physical Exam Constitutional: He is oriented to person, place, and time. He appears well-developed and we ll-nourished. No distress. HENT: Head: Normocephalic and atraumatic. Eyes: Conjunctivae are normal. Neck: Neck supple. Cardiovascular: Normal rate. Pulmonary/Chest: Effort normal. Abdomina/Gl: Soft. He exhibits no distension and no mass. There is no tenderness. Genitourinary: No costovertebral angle or suprapubic tenderness to palpation. Musculoskeletal: Normal range of motion. He exhibits no edema. Neurological: He is alert and oriented to person, place, and time. Skin: Skin is warm and dry. No rash noted. Psychiatric: He has a normal mood and affect. Thought content normal. DATA CBC: No results found for: WBC, RBC, HGB, HCT, MCV, MCH, MCHC, RDW, PLT, MPV, DIFFTYPE BMP: No results found for: NA, K, CL, CO2, ANIONGAP, GLUF, BUN, CREATININE, BCR, CA, EGFR U/A: No results found for: COLORU, CLARITYU, MEROPENEM, LEUKOCYTESUR, NITRITE, UROBILINOG EN, UPRO, PHUR, BLOODU, KETONES, BILIRUBINUR, GLUCOSEU AUA Symptom Score:19 QOL: 5 MARISA: 22 Outside records reviewed and images visualize. His largest stone is ~8 mm at his right UP J ASSESSMENT & PLAN ICD-10-CM 1. Nephrolithiasis N20.0 The patient and I had a long discussion about the presenting symptoms, history, and underly ing factors. He has a long history of uric acid stones. At this time, he appears to be having a stone passage episode. We discussed several options in detail. ESWL is a poor option as his stones are likely di fficult to visualize on fluoroscopy. After long discussion, we will plan on ureteroscopy in the near future. In the meantime, he will plan to start on Flomax to help with stone passage. We will also plan on referral to nephrology to start the workup for stone prevention to follow his intervention. Primary Care Physician: Kathrin Summers Thank you for allowing me to participate in the care of this patient. Mike Ritter DO 07/04/2016 Pt seen and examined. Exam unchanged. CT reviewed. Plan on URS as discussed above. Mike Ritter DO 08/14/2016 documented in this encounter Miscellaneous Notes Op Note - Mike Ritter DO - 08/14/2016 12:54 PM PDTFormatting of this note might be di fferent from the original. Op Note by Mike Ritter DO at 08/14/16 8503 Author: Mike Ritter DO Service: Urology Author Type: Physician Filed: 08/15/16 0895 Date of Service: 08/14/166 Status: Signed Director Of Occupational Therapy: Mike Ritter DO (Physician) Related Notes: Original Note by Mike Ritter DO (Physician) filed at 08/14/16 1043 [facility] Service: Urology Operative Note Pre-operative Diagnosis: nephroureterolithiasis Post-operative Diagnosis: Same Procedure(s): Cystoscopy, right retrograde pyelogram, right ureteroscopy, laser lithotrips y, basket extraction, stent placement Surgeon: Mike Ritter DO Review Rn(s): JEAN Anesthesia: General LMA Estimated Blood Loss: Less Than 10 ml (Minimal) Other: Specimens: stone fragments Indications: See pre-operative history and physical. Findings: See dictation; multiple right kidney stones visible on Fluoroscopy Complications: none Description of Procedure: After informed consent was obtained with the patient, and the patient was brought back to [facility] operative suite and placed on the operating room table. After general anesthetic was admi nistered and achieved, he was placed in the dorsal lithotomy position, prepped, and draped i n sterile fashion. Following a preoperative pause, a 21.5-Samoan cystoscopic sheath with a 30-degree lens was inserted transurethrally under direct visualization. The urethra was noted to be without les ions or tumors or strictures at this time. Upon entry into the bladder, the bladder urotheli um was systematically examined in its entirety. The right and left lateral louis, posterior wall, trigone, and dome were all within normal limits as visualized with the 30-degree lens. At that point the right ureteral orifice was visualized and cannulated, and retrograde pyel ogram was performed. He had normal size ureter up to the ureteropelvic junction on the right where on ore dressing engineer film several at least 2 large stones were noted in the renal collecting syst em. The renal collecting system upon retrograde was noted to not be hydronephrotic at this t vazquez. At that point via the catheter, a Sensor wire was placed. The catheter was removed leav ing the wire in place, and a stiff Glidewire was also advanced to the upper collecting syste m under fluoroscopic guidance. The scope was then removed leaving both wires in placed. Next dilating access sheath was able to be placed up to the proximal ureter over top of the stiff Glidewire. Met with some resistance in the proximal ureter where it was felt that fur ther advancement would not be safe. At that point the wire and the obturator were removed al lowing for placement of the flexible ureteroscope. This was able to be manipulated in the up per collecting system through the sheath where the 8 to 9 mm stone was noted in the UPJ. Thi s was fragmented. All significant pieces were then grasped with the stone basket extractor a nd passed off the back field for pathologic analysis. At that point renoscopy was performed clearing each of the calices. The second stone that was noted in the mid to lower pole was a ble to be visualized. It was then grasped and gradually withdrawn. It was able to be passed through the sheath and passed off the back field for chemical analysis. The scope was reinse rted and again renoscopy was repeated and used to clear any and all significant fragments. A t this point the scope was gradually withdrawn along with the sheath clearing the ureter not ing the ureter to be without any lesions, tumors, or strictures at this time as well as any stone fragments. The ureter being cleared, the scope was removed. Next the cystoscope was replaced over top of the Sensor wire and used to guide the placemen t of a 6-Samoan by 26 cm ureteral stent with strings attached up the upper collecting system . It was noted to coil nicely on fluoroscopic guidance as well as within the bladder upon re moval of the wire on direct visualization. The scope was then used to drain the bladder. It was then gradually withdrawn leaving the stent in good position. The patient was transferred back to recovery in stable condition. Condition: Stable Mike Ritter DO 08/14/2016 documented in this encounter Plan of Treatment +--------+---------+ + + + | Date | Type | Specialty | Care Team | Description | +--------+---------+ + + + | 08/09/ | Office | Neurology | Renu Bright, | | | 2019 | Visit | | [facility] | | | | | | [address] | | | | | | [place] [address] | | | | | | [phone] | | | | | | | | +--------+---------+ + + + documented as of this encounter Procedures + +--------+ + + + | Procedure Name | Priori | Date/Time | Associated Diagnosis | Comments | | | ty | | | | + +--------+ + + + | FL C ARM > 1 HOUR | Routin | 08/14/2016 | | Results for this | | | e | 12:55 PM | | procedure are in the | | | | PDT | | results section. | + +--------+ + + + | CALCULI ANALYSIS | Routin | 08/14/2016 | | Results for this | | | e | 12:45 PM | | procedure are in the | | | | PDT | | results section. | + +--------+ + + + | TISSUE REQUEST FOR | Routin | 08/14/2016 | | Results for this | | PATHOLOGY (NON-ORD) | e | 12:00 AM | | procedure are in the | | | | PDT | | results section. | + +--------+ + + + documented in this encounter Results FL C-Arm > 1 Hour (08/14/2016 12:55 PM PDT) + + | Specimen | + + | | + + + + + | Narrative | Performed At | + + + | This is a non-reportable procedure without a radiologist report and | | | is used for image storage only | | + + + + + | Procedure Note | + + | Asa Alarcon Conversion - 06/09/2019 5:06 PM PDT This is a non-reportable procedure | | without a radiologist report and isused for image storage only | + + Calculi Analysis (08/14/2016 12:45 PM PDT) + + | Specimen | + + | | + + + + + | Narrative | Performed At | + + + | NIDUS NOT OBSERVED | EXTERNAL LAB | | Testing performed at [facility], [facility] [employer] | | | [employer] [address] COMPONENT 1 SEE | | | BELOW CALCIUM OXALATE DIHYDRATE (WEDDELLITE) 65% CARBONATE APATITE | | | (DAHLLITE) 35% Testing performed at [facility], [facility] | | | [employer] [address] COMPONENT 2 | | | NOT REPORTED Testing performed at [facility] | | | [facility], [facility] [employer] [address] STONE WEIGHT | | | 0.1270 Testing performed at | | | [facility], [address] [facility] [address] | | + + + + +---------+ + + | Performing | Address | City/State/Zipcode | Phone Number | | Organization | | | | + +---------+ + + | EXTERNAL LAB | | | | + +---------+ + + Tissue Request For Pathology (08/14/2016 12:00 AM PDT) + + | Specimen | + + | Soft tissue sample | | (specimen) | + + + + + | Narrative | Performed At | + + + | SPECIMEN(S): A Rt. URETERAL STONE SPECIMEN SOURCE: A. Rt. | EXTERNAL LAB | | URETERAL STONE CLINICAL HISTORY: 08/14/2016 at 1245 H. No clinical | | | history given. FINAL PATHOLOGIC DIAGNOSIS: CALCULI IDENTIFIED. THE | | | SPECIMEN WILL BE SENT TO AN OUTSIDE FACILITY FOR FURTHER CHEMICAL | | | ANALYSIS. GROSS DESCRIPTION: One specimen is received in one | | | container, labeled with the patient's name: A. Received fresh | | | designated "right ureteral stone", consists of multiple pale cagle-brown | | | firm roughened stones that measure 1.6 x 0.5 x 0.5 cm in aggregate. | | | Specimen is submitted for gross examination only. FM The gross | | | description section of this report has been prepared using a voice | | | recognition system. The report was reviewed for accuracy, however, | | | sound-alike word errors, addition and/or deletions may occur. If | | | there is any question about this report please contact the originating | | | pathologist. PERFORMING LABORATORY: Professional interpretation and | | | technical preparation was performed by [facility] | | | [address] [address] | | | (Electric Engine Mechanic: Polo Ashford M.D.; [facility]#: [id number]). | | | Diagnostician: Polo Ashford MD Pathologist Electronically Signed | | | 08/14/2016 | | + + + + +---------+ + + | Performing | Address | City/State/Zipcode | Phone Number | | Organization | | | | + +---------+ + + | EXTERNAL LAB | | | | + +---------+ + + documented in this encounter Visit Diagnoses + + | Diagnosis | + + | Nephrolithiasis Calculus of kidney | + + documented in this encounter
--- OUTSIDE RECORDS SUMMARY | ~2020-05-20 | XMS | Encounter Summary ---
Demographics + + + | Address | [address] | | | [place] [address] | + + + | Home Phone | | + + + | Preferred Language | Unknown | + + + | Marital Status | | + + + | Orthodox Affiliation | Unknown | + + + | Race | Unknown | + + + | Ethnic Group | Unknown | + + + Author + + + | Author | [facility] | | | and Frandyana | + + + | Organization | [facility] | | | and Frandyana | [...] Team Providers + +------+ + | Care Drainage Design Coordinator Name | Role | Phone | + +------+ + PCP | Unavailable | + +------+ + Encounter Details +--------+ + + + + | Date | Type | Department | Care Team | Description | +--------+ + + + + | 11/29/ | Hospital | [facility] GENER[facility] IP | Conversion | Pain | | 2016 | Encounter | CONVERSION [address] | Transaction, | | | | | [address] | Provider Unknown | | | | | [place] | [phone] | | | | | [address] | | | | | | [phone] | | | +--------+ + + + [...] D | | | | | | [place] [address] | | | | | | [phone] | | | | | | | | +--------+---------+ + + + documented as of this encounter Procedures + +--------+ + + + | Procedure Name | Priori | Date/Time | Associated Diagnosis | Comments | | | ty | | | | + +--------+ + + + | MRI CERVICAL SPINE | Routin | 10/31/2015 | | Results for this | | WO CONTRAST | e | 3:16 AM | | procedure are in the | | | | PST | | results section. | + +--------+ + + + documented in this encounter Results MRI Cervical Spine wo Contrast (10/31/2015 3:16 AM PST) + + | Specimen | + + | | + + + + + | Narrative | Performed At | + + + | This is a non-reportable procedure without a radiologist report and | | | is used for image storage only | | + + + + + | Procedure Note | + + | Asa Alarcon Vicente - 06/09/2019 5:06 PM PDT This is a non-reportable procedure | | without a radiologist report and isused for image storage only | + + documented in this encounter Visit Diagnoses + + | Diagnosis | + + | Pain Generalized pain | + + documented in this encounter"
--- OUTSIDE RECORDS SUMMARY | ~2020-05-20 | XMS | Encounter Summary ---
Demographics + + + | Address | [address] | | | [place] [address] | + + + | Home Phone | | + + + | Preferred Language | Unknown | + + + | Marital Status | | + + + | Worship Affiliation | Unknown | + + + | Race | Unknown | + + + | Ethnic Group | Unknown | + + + Author + + + | Author | [facility] | | | and Frandyana | + + + | Organization | [facility] | | | and Frandyana [...] Team Providers + +------+ + | Care Merchandise Support Associate Name | Role | Phone | + [...] + | 12/10/ | Telephone | [facility] | Jeffrey Carvajal MD | Procedure | | 2017 | | NEUROSURGERY [address] | [address] | (presurgical | | | | [address] | [place] [address] | check-in | | | | [place] | [phone] | instructions ) | | | | [address] | | | | | | [phone] | | | +--------+ + + + [...] | | | | | [place] [address] | | | | | | [phone] | | | | | | | | +--------+---------+ + + + documented as of this encounter Visit Diagnoses Not on filedocumented in this encounter
--- OUTSIDE RECORDS SUMMARY | ~2020-05-20 | XMS | Encounter Summary ---
Demographics + + + | Address | [address] | | | [place] [address] | + + + | Home Phone | | + + + | Preferred Language | Unknown | + + + | Marital Status | | + + + | Christianity Affiliation | Unknown | + + + | Race | Unknown | + + + | Ethnic Group | Unknown | + + + Author + + + | Author | [facility] | | | and Frandyana | + + + | Organization | [facility] | | | and Frandyana [...] Team Providers + +------+ + | Care Aligner Typewriter Name | Role | Phone | + [...] | aura, not | JAYLA HAYES | [facility] | | | | | intractable, | [place], | D | | | | | without | [place] | [place] | | | | | status | [address] | [address] | | | | | migrainosus | Phone: | Phone: | | | | | | [phone] | [phone] | | | | | | Fax: | Fax: | | | | | | [phone] | [phone] | + +--------+ + + + + Encounter Details +--------+---------+ + + + | Date | Type | Department | Care Team | Description | +--------+---------+ + + + | 05/09/ | Office | [facility] | Renu Bright, | Chronic migraine | | 2020 | Visit | NEUROLOGY [address] | PA-C [address] | without aura without | | | | [address] | [address] | status migrainosus, | | | | [place], [place] | [place] [address] | not intractable | | | | [address] | [phone] | (Primary Dx); | | | | [phone] | | Cervicogenic | | | | | | headache | +--------+---------+ + + + Social History [...] + + + | Blood Pressure | 124/83 | 05/09/2020 1:45 PM | | | | | PDT | | + + + + + | Pulse | 90 | 05/09/2020 1:45 PM | | | | | PDT | | + + + + + | Temperature | - | - | | + + + + + | Respiratory Rate | - | - | | + + + + + | Oxygen Saturation | 98% | 05/09/2020 1:45 PM | | | | | PDT | | + + + + + | Inhaled Oxygen | - | - | | | Concentration | | | | + + + + + | Weight | 104.2 kg (229 lb | 05/09/2020 1:45 PM | | | | 11.2 oz) | PDT | | + + + + + | Height | 170.2 cm (5' 7") | 05/09/2020 1:45 PM | | | | | PDT | | + + + + + | Body Mass Index | 35.98 | 05/09/2020 1:45 PM | | | | | PDT [...] encounter Progress Notes Renu Bright PA-C - 05/09/2020 1:45 PM PDTFormatting of this note might be different fro m the original. Subjective: Patient ID: Layne Bentley is a 34 y.o. male. HPI Since last visit: He continues to have difficulty with frequent severe headaches. Baseline: MCKINNEY days/mo: Duration: 4-8 hours Migraine days/mo: - Duration: 1-3 days After Botox: MCKINNEY days/mo: Duration: 4-8 hours Migraine days/mo: 03/24 Duration: 4-24 hrs up to 3 days He started notriptyline 10 mg daily since december 2019, no perceived benefit, no side effects . Increase to 25 mg daily since February 2020. Some improvement of headache and migraine frequenc y (no longer daily headache/migraine, less severe migraines, however he admits some fatigue and weight gain which is possible related to the medication. Summary: He developed headaches for at least 4 years. He feels it is related to his neck problems. He states he has poor memory. He cannot recall having headaches in high school or if he mckinney d them in his 20's or not. He is applying for disability apparently for his neck pain, headaches and overall symptoms. 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 Headache description: Location: starts from base of [...] years but frequency and severity is worsening. Baseline headache frequency: Daily headache/migraine at times lasting months. Headache duration: several hours to days. Neuro imaging: reported he had head scan from his prior medical records (non-revealing for headaches), I don't have report or images to review. Preventative headache medications tried: Topamax helped reduce headaches but discontinued i n 07/2019 due to kidney stones. He takes lisinopril currently for hypertension. Tizanidine caused more sedation side effects. Trazodone nightly for sleep. Nortriptyline since 12/2019 for headaches possible modest improvement. Abortive headache medications tried: States told not to take NSAID due to kidney stones. Acetaminophen, Excedrin worked some for a while but lost benefit. Family history migraine: mom has migraines. Exercise: no Caffeine: cutting down, 2 energy drinks per week compared to 2 daily. Sleep: 4-5 hours recently. Review of Systems Constitutional: Positive for fatigue. Negative for fever. HENT: Negative for rhinorrhea and sore throat. Eyes: Negative for visual disturbance. Respiratory: Negative for cough and shortness of breath. Cardiovascular: Negative for chest pain. Gastrointestinal: Negative for diarrhea and vomiting. Musculoskeletal: Negative for gait problem. Skin: Negative for rash. Neurological: Negative for dizziness, tremors, seizures, syncope, facial asymmetry, speech difficulty, weakness, light-headedness, numbness and headaches. Psychiatric/Behavioral: Negative for dysphoric mood. The patient is not nervous/anxious. Objective: BP 124/83 | Pulse 90 | Ht 1.702 m (5' 7") | Wt 104.2 kg (229 lb 11.2 oz) | SpO2 98% | BMI 35.98 kg/m Neurologic Exam Mental Status Oriented to person, place, and time. Speech: speech is normal Level of consciousness: alert , drowsy Cranial Nerves CN II Visual acuity: (grossly intact) CN III, IV, Diplopia: none CN VII Facial expression full, symmetric. Motor Exam Moves all limbs spontaneously. Gait, Coordination, and Reflexes Gait Gait: normal Physical Exam Neurological: Mental Status: He is oriented to person, place, and time. Gait: Gait is intact. Psychiatric: Speech: Speech normal. Assessment and Plan: Chronic headache and migraine since at least 2016. He has chronic neck pain and s/p a cervical spine surgery. He has tried a few prophylactic migraine treatments. Topamax was most helpful, but discont inued due to recurrent kidney stones. More sedation side effects with tizanidine. On lisinopril for hypertension. Nortriptyline recently with modest improvement of headache/migraine frequency and severity, however he gained weight in recent months and has some fatigue which may be related to nort riptyline. Change nortriptyline to atenolol for migraine prophylaxis. Atenolol 25 mg daily. Monitor blood pressure or signs of hypotension. BP is 120's/80's today and pulse is 90. If no improvement with atenolol, will consider injection therapies such as Botox. However, discussed if he will be seeing Dr. Lu in near future for surgical consultation, will lik e to await the plan there prior to initiating Botox for migraines. Can continue sumatriptan as needed for migraine treatment. Avoid/Limit analgesics to avoid medication overuse headache/migraine to 2-3 days per week a t most. Encourage non-pharmacological headache prophylaxis including as daily exercise, stress rela xation, healthy diet (limit fast food, processed foods, eat more vegetables, lean protein, f iber), avoid skipping meals, get adequate sleep, avoid over-sleeping. Follow up 3 months, call sooner if needed. documented in this e ncounter Plan of Treatment +--------+---------+ + + + | Date | Type | Specialty | Care Team | Description | +--------+---------+ + + + | 08/09/ | Office | Neurology | Renu Bright, | | | 2019 | Visit | | [address] | | | | | | [address] | | | | | | [place] [address] | | | | | | [phone] | | | | | | | | +--------+---------+ + + + documented as of this encounter Visit Diagnoses + + | Diagnosis | + + | Chronic migraine without aura without status migrainosus, not intractable - Primary | | Chronic migraine without aura, without mention of intractable migraine without mention | | of status migrainosus | + + | Cervicogenic headache Headache | + + documented in this encounter
--- OUTSIDE RECORDS SUMMARY | ~2020-05-20 | XMS | Encounter Summary ---
Demographics + + + | Address | [address] [place] [address] | | | [place] [address] | + + + | Home Phone | | + + + | Preferred Language | Unknown | + + + | Marital Status | Single | + + + | Adventist Affiliation | Unknown | + + + | Race | White | + + + | Ethnic Group | Not or | + + + Author + + + | Author | [facility] | + + + | Organization | [facility] | + + + | Address | Unknown | + + + | Phone | Unavailable | + + + Support + + +---------+ + | Name | Relationship | Address | Phone | + + +---------+ + | None None | ECON | Unknown | Unavailable | + + +---------+ + Care Team Providers + +------+ + | Care Director Informatics Name | Role | Phone | + [...] | | | | Pseudoarthro | [address] | | | | | | sis of | Ave | | | | | | cervical | [place], [place] | | | | | | spine ([facility]) | [address] | | | | | | Procedures | Phone: | | | | | | MRI SPINE | [phone] | | | | | | CERVICAL WO | Fax: | | | | | | CONTRAST [place] | [phone] | | | | | | MRI, [...] | | | | | Radiculopath | [place] | [address] | | | | | y, cervical | PAIN | Ave | | | | | region | MANAGEMENT | [place], [place] | | | | | Procedures | [address] | [address] | | | | | [place] NEW | [address] | Phone: | | | | | PATIENT | [place], [place] | [phone] | | | | | [place] | [address] | Fax: | | | | | EST PATIENT | Phone: | [phone] | | | | | LEVEL V | [phone] | | | | | | | Fax: | | | | | | | [phone] | | +--------+--------+ + + + + Encounter Details +--------+---------+ + + + | Date | Type | Department | Care Team | Description | +--------+---------+ + + + | 09/02/ | Office | Neurosurgery at | Omid Gonzalez M, | Neck pain (Primary | | 2018 | Visit | [facility] [address] | MD [address] | Dx); 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 MD OMID Zhou MD NEUROSURGERY AT [facility] [address] Mailcode: [place] [address] azur King Woodall MD - 09/02/2018 1:30 [...]
--- OUTSIDE RECORDS SUMMARY | ~2020-05-20 | XMS | Encounter Summary ---
Demographics + + + | Address | [address] | | | [place] [address] | + + + | Home Phone | | + + + | Preferred Language | Unknown | + + + | Marital Status | | + + + | Moravian Affiliation | Unknown | + + + | Race | Unknown | + + + | Ethnic Group | Unknown | + + + Author + + + | Author | [facility] | | | and [place]andyana | + + + | Organization | [facility] | | | and Frandyana [...] Team Providers + +------+ + | Care Turn Out Worker Name | Role | Phone | + +------+ + | Ghada Hung MD | PCP | | + +------+ + Reason for Visit +--------+ + | Reason | Comments | +--------+ + | Other | Medication questions | +--------+ + Encounter Details +--------+ + + + + | Date | Type | Department | Care Team | Description | +--------+ + + + + | 12/26/ | Telephone | [facility] | Renu Bright, | Other (Medication | | 2020 | | NEUROLOGY [address] | [address] | questions) | | | | [address] | [address] | | | | | [place], [place] | [place] [address] | | | | | [address] | [phone] | | | | | [phone] | | | +--------+ + + + [...] this encounter Miscellaneous Notes Telephone Encounter - Alee Pena, Warp Dyeing Vat Tender - 12/28/2019 12:05 PM Yael duffy call to patient and was able to give prescribers recommendations. He was in agreement of this plan and prescription was pended to the provider. elephone Encounter - Alee Pena, Warp Dyeing Vat Tender - 12/27/2019 9:17 AM PSTPatient called with questions about his medic ation. He states that the Tizanidine that was prescribed at his November appointment with Quan reyes is keeping him awake at night. He states that he has only been sleeping a couple hours a night since starting it and feels it's not helping with his migraines. He states he is taki ng 1 tablet nightly. He also reports that when he takes his Sumatriptan it only brings his migraine down to a p ain level of 5. Patient would like to know if he should discontinue the medication until his follow up next month. I let him know I would send a message to our provider and call back with vianey lindsey. documented in this encounter Plan of Treatment +--------+---------+ + + + | Date | Type | Specialty | Care Team | Description | +--------+---------+ + + + | 08/09/ | Office | Neurology | Renu Bright, | | 2019 | Visit | | PA-C [address] | | | | | | [address] | | | | | | [place] [address] | | | | | | [phone] | | | | | | | | +--------+---------+ + + + documented as of this encounter Visit Diagnoses Not on filedocumented in this encounter"
--- OUTSIDE RECORDS SUMMARY | ~2020-05-20 | XMS | Encounter Summary ---
Demographics + + + | Address | [address] | | | [place] [address] | + + + | Home Phone | | + + + | Preferred Language | Unknown | + + + | Marital Status | | + + + | Jehovah'S Witness Affiliation | Unknown | + + + | Race | Unknown | + + + | Ethnic Group | Unknown | + + + Author + + + | Author | [facility] | | | and [place]andyana | + + + | Organization | [facility] | | | and [...] Team Providers + +------+ + | Care Clerk Guide Name | Role | Phone | + +------+ + | Ghada Hung MD | PCP | | + +------+ + Reason for Visit + +--------+ + | Reason | Onset | Comments | | | Date | | + +--------+ + | Medication Refill | 12/27/ | | | | 2020 | | + +--------+ + Encounter Details +--------+--------+ + + + | Date | Type | Department | Care Team | Description | +--------+--------+ + + + | 12/27/ | Refill | [facility] | Renu Bright, | Medication Refill | | 2020 | | NEUROLOGY [address] | PA-C [address] | | | | | [address] | [address] | | | | | [place], [place] | [place] [address] | | | | | [address] | [phone] | | | | | [phone] | | | +--------+--------+ + + + [...] Miscellaneous Notes Telephone Encounter - Alee Pena, Tank Truck Operator - 12/28/2019 12:07 PM PSTPer p revious telephone call, patient was in agreement and was able to pend prescription for norit riptyline. 12:1 1 PM PSTdocumented in this encounter Plan of Treatment +--------+---------+ + + + | Date | Type | Specialty | Care Team | Description | +--------+---------+ + + + | 08/09/ | Office | Neurology | Renu Bright, | | 2019 | Visit | | [address] | | | | | | [address] | | | | | | [place] [address] | | | | | | [phone] | | | | | | | | +--------+---------+ + + + documented as of this encounter Visit Diagnoses Not on filedocumented in this encounter"
--- OUTSIDE RECORDS SUMMARY | ~2020-05-20 | XMS | Clinical Summary ---
Demographics + + + | Address | [address] | | | [place] [address] | + + + | Home Phone | | + + + | Preferred Language | Unknown | + + + | Marital Status | | + + + | Hinduism Affiliation | Unknown | + + + | Race | Unknown | + + + | Ethnic Group | Unknown | + + + Author + + + | Author | [facility] | | | and Frandyana | + + + | Organization | [facility] | | | and Frandyana | [...] Team Providers + +------+ + | Care Sap Bpc Architect Name | Role | Phone | + +------+ + | Ghada Hung MD | PCP | | + +------+ + Allergies + [...] | | + + + +---------+------+------+-------+ | lisinopril | Take 20 mg by mouth | | 0 | 07/ | | Activ | | (PRINIVIL, ZESTRIL) | Daily. | | | 07/15 | | e | | 20 mg tablet | | | | 19 | | | + + + +---------+------+------+-------+ | atorvaSTATin | Take 10 mg by mouth | | 0 | 10/2 | | Activ | | (LIPITOR) 10 mg | Daily. | | | 5/20 | | e | | tablet | | | | 19 | | | + + + +---------+------+------+-------+ | SUMAtriptan | take 1 tablet by | 10 | 5 | 04/0 | | Activ | | (IMITREX) 100 mg | mouth once daily if | tablet | | 2/20 | | e | | tablet | needed for migraines | | | 20 | | | | | may repeat AFTER 2 | | | | | | | | HOURS if needed not | | | | | | | | more than 2 doses in | | | | | | | | 24 hours (LIMIT 2 | | | | | | | | TO 3 DAYS PER WEEK) | | | | | | + + + +---------+------+------+-------+ | promethazine | Take 1 tablet by | 20 | 3 | 06/0 | | Activ | | (PHENERGAN) 25 mg | mouth every 6 hours | tablet | | 3/20 | | e | | tablet | as needed for Nausea | | | 20 | | | | | (migraine). | | | | | | + + + +---------+------+------+-------+ | atenolol | Take 1 tablet by | 30 | 5 | 07 | | Activ | | (TENORMIN) 25 mg | mouth Daily. | tablet | | 5/20 | | e | | tablet | | | | 20 | | | + + + +---------+------+------+-------+ | traZODone | Take 50 mg by mouth. | | 0 | 05/1 | / | Disco | | (DESYREL) 50 mg | | | | 2/20 | 5/20 | ntinu | | tablet | | | | 17 | 20 | ed | | | | | | | | (Ther | | | | | | | | apy | | | | | | | | compl | | | | | | | | eted) | + + + +---------+------+------+-------+ | aspirin 81 MG | Take 81 mg by mouth. | | 0 | 07/2 | 07/2 | Expir | | tablet | | | | 5/20 | 4/20 | ed | | | | | | 19 | 20 | | + + + +---------+------+------+-------+ | NICOTROL 10 MG | | | 0 | 04/1 | 07/1 | Disco | | inhaler | | | | 1/20 | 5/20 | ntinu | | | | | | 19 | 20 | ed | | | | | | | | (Ther | | | | | | | | apy | | | | | | | | compl | | | | | | | | eted) | + + + +---------+------+------+-------+ | nortriptyline | Take 1 capsule by | 30 | 5 | 06/0 | 07/1 | Disco | | (PAMELOR) 25 mg | mouth nightly. | capsule | | 3/20 | 5/20 | ntinu | | capsule | | | | 20 | 20 | ed | + + + +---------+------+------+-------+ Active Problems + + + | Problem | Noted Date | + + + | Non-cardiac chest pain | 09/01/2019 | + + + | HTN (hypertension) | 09/01/2019 | + + + | HLD (hyperlipidemia) | 09/01/2019 | + + + | S/P cervical [...] | 10/30/2016 | + + + Encounters +--------+---------+ + + + | Date | Type | Specialty | Care Team | Description | +--------+---------+ + + + | 05/09/ | Office | Neurology | Renu Bright, | Chronic migraine | | 2019 | Visit | | PA-C | without aura without | | | | | | status migrainosus, | | | | | | not intractable | | | | | | (Primary Dx); | | | | | | Cervicogenic | | | | | | headache | +--------+---------+ + + + | 04/16/ | Refill | Neurology | Renu Bright, | Medication Refill | | 2019 | | | PA-C | | +--------+---------+ + + + | 03/28/ | Office | Neurology | Renu Bright, | Chronic migraine | | 2019 | Visit | | PA-C | without aura without | | | | | | status migrainosus, | | | | | | not intractable | | | | | | (Primary Dx) | +--------+---------+ + + + from Last 3 Months [...] | Heart attack | Father | | had multiple / from bypass | + + +------+ + | Hypertension [...] + + +------+ + | COPD | Mother | | | + + +------+ + | Other (see comment) | Mother | | Heart Problems - born with hole in her | | | | | heart | + + +------+ + | Other [...] | | + + +------+ + | Malig hypertherm | Neg Hx | | | + + +------+ + [...] + + | Maternal Grandmother | | | | + +------+ + + | Maternal Grandmother | | Alive | | + +------+ + + | Maternal Grandmother | | | | + +------+ + + | Maternal Uncle | | Other | Status Unknown | + +------+ + + | Maternal Uncle | | | | + +------+ + + | Maternal Uncle | | | | + +------+ + + | Maternal Uncle | | | | + +------+ + + | Mother | | | | + +------+ + + | Mother | | Alive | | + +------+ + + | Mother | | | | + +------+ + + | Paternal Grandfather | | | | + +------+ + + | Paternal Grandfather | | | | + +------+ + + | Paternal Grandmother | | | | + +------+ + + | Paternal Grandmother | | Alive | | + +------+ + + | Paternal Grandmother | | | | + +------+ + + Social [...] + + + + Plan of Treatment +--------+---------+ + + + | Date | Type | Specialty | Care Team | Description | +--------+---------+ + + + | 08/09/ | Office | Neurology | Renu Bright, | | | 2019 | Visit | | [facility] | | | | | | [address] | | | | | | [place] [address] | | | | | | [phone] | | | | | | | | +--------+---------+ + + + + + + + + | Health Maintenance | Due Date | Last | Comments | | | | Done | | + + + + + | Hepatitis C | | | | | Screening | 4 | | | + + + + + | Medication | | | | | Management | 4 | | | + + + + + | Vaccine: | | | | | Pneumococcal 19-64 | 0 | | | | (1 of 1 - PPSV23) | | | | + + + + + | Vaccine: | | | | | Dtap/Tdap/Td (1 - | 3 | | | | Tdap) | | | | + + + + + | Statin Therapy | | | | | (optimal intensity) | 5 | | | + + + + + | Med Mgmt: Cr | | 11/19/19 | | | | 8 | 17 | | + + + + + | Med Mgmt: K | | 11/19/19 | | | | 8 | 17 | | + + + + + | Vaccine: Influenza | | 09/01/20 | | | (#1) | 0 | 19 | | + + + + + [...] Generi | | SOFAMOR | | | [id number] | | - [id number]: Qty: 1 | c | | CARMELLA - DIV | | | 7 / / | | on 12/12/2016 by Jeffrey Carvajal | | | MEDTRONIC | | | | | MD Rafi at [facility] | | | - SFDK | | | | | [facility] | | | | | | | + +--------+------+ +--------+--------+--------+ | Allgrft Grftn Pls 1cc Aseptic | Graft | | MEDTRONIC - | | 08/14/ | [id number] | | - [id number]: Qty: | | | MEDT | | 2018 | | | 1 on 12/12/2016 by Alena, | | | | | | /[id number] | | Jeffrey Mckee MD at [facility] | | | | | | 5-107 | | [facility] | | | | | | / | + +--------+------+ +--------+--------+--------+ | Algrft Cerv [id number] - | Graft | | SPINALGRAFT | | 06/11/ | [id number] | | [id number]: Qty: 1 on | | | | | 2018 | | | 12/12/2016 by Jeffrey Carvajal, | | | TECHNOLOGIE | | | /[id number] | | at [facility] | | | S - SPNL | | | 619 | | [facility] | | | | | | /[id number] | | | | | | | | 6646 | + +--------+------+ +--------+--------+--------+ | Algrft Bone Lord [id number] - | Graft | | [employer]TRONIC - | | 03/06/ | [id number] | | [id number]: Qty: 1 on | | | MEDT | | 2018 | | | 12/12/2016 by Jeffrey Carvajal, | | | | | | /[id number] | | MD at [facility] | | | | | | 078 | | [facility] | | | | | | /[id number] | | | | | | | | 0163 | + +--------+------+ +--------+--------+--------+ | Algrft Bone Lord [id number] - | Graft | | [employer]IC - | | 04/16/ | [id number] | | [id number]: Qty: 1 on | | | MEDT | | 2018 | | | 12/12/2016 by Jeffrey Carvajal, | | | | | | /[id number] | | MD at [facility] | | | | | | 668 | | [facility] | | | | | | /[id number] | | | | | | | | 9779 | + +--------+------+ +--------+--------+--------+ | Screw D-Thrd Slf-Drl 4.0x15mm | Screw | | SOFAMOR | | | [id number] | | - [id number]: Qty: 2 | | | CARMELLA - ELVIA | | | 5 / / | | on 12/12/2016 by Jeffrey Carvajal | | | MEDTRONIC | | | | | MD Rafi at [facility] | | | - SFDK | | | | | [facility] | | | | | | | + +--------+------+ +--------+--------+--------+ | Screw D-Thrd Slf-Drl 3.5x15mm | Screw | | SOFAMOR | | | [id number] | | - [id number]: Qty: 6 | | | DANEK - DIV | | | 5 / / | | on 12/12/2016 by Jeffrey Carvajal | | | MEDTRONIC | | | | | MD Rafi at [facility] | | | - [facility]K | | | | | [facility] | | | | | | | + +--------+------+ +--------+--------+--------+ | Stent Uro Sof-Curl 6fr 26cm - | | | GYRUS | | 02/15/ | [id number] | | [id number]: Qty: 1 on | | | MEDICAL - | | 2020 | 6 / | | 08/14/2016 by Mike Ritter | | | GYRS | | | /[facility] | | DO Maciej | | | | | | 78 | + +--------+------+ +--------+--------+--------+ Results Not on [...] | [employer] | MODA | [id number] | 04/25/20 | [phone] | | Medica | | MEDICAID HMO | HEALTH | | 14-Pre | 1 | | id | | | MDCD | | sent | | | | | | HMO [place] | | | | | | + +--------+ +--------+ +---------+--------+ | [employer] | MODA | [id number] | 08/25/ | [phone] | | Medica | | MEDICAID HMO | HEALTH | | 2019-P | 1 | | id | | | MDCD | | resent | | | | | | HMO [...] Self | [birth year] | [address] | | | al/Fam | | 1985 | [address] | [place], [place] | | | katherine | | | 7 (Home) | [address] | + +--------+ +--------+ + + | Layne Bentley D | Person | Self | [birth year] | | [address] | | | al/Fam | | 1985 | [address] | [place], [place] | | | katherine | | | 7 (Home) | [address] | + +--------+ +--------+ + + Advance Directives + + + + + | Type | Date Recorded | Patient | Explanation | | | | 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
--- OUTSIDE RECORDS SUMMARY | ~2020-05-20 | XMS | Encounter Summary ---
Demographics + + + | Address | [address] | | | [place] [address] | + + + | Home Phone | | + + + | Preferred Language | Unknown | + + + | Marital Status | | + + + | Scientology Affiliation | Unknown | + + + | Race | Unknown | + + + | Ethnic Group | Unknown | + + + Author + + + | Author | [facility] | | | and Frandyana | + + + | Organization | [facility] | [...] Providers + +------+ + | Care Director Employee Safety And Health Name | Role | Phone | + +------+ + | Ghada Hung MD | PCP | | + +------+ + Encounter Details +--------+ + + + + | Date | Type | Department | Care Team | Description | +--------+ + + + + | 01/31/ | Imaging | [facility] | Provider, | | | 2020 | Exam | [facility] EXTERNAL | MD [address] | | | | | IMAGING [address] | [address] | | | | | [address] | [place] [address] | | | | | [place] [address] | | | | | | [phone] | | | +--------+ + + + [...] D | | | | | | [place] [address] | | | | | | [phone] | | | | | | | | +--------+---------+ + + + documented as of this encounter Procedures + +--------+ + + + | Procedure Name | Priori | Date/Time | Associated Diagnosis | Comments | | | ty | | | | + +--------+ + + + | MRI BRAIN WO | Routin | 07/22/2018 | | Results for this | | CONTRAST | e | 12:00 AM | | procedure are in the | | | | PDT | | results section. | + +--------+ + + + documented in this encounter Results MRI Brain wo Contrast (07/22/2018 12:00 AM PDT) + + | Specimen | + + | | + + + + + | Narrative | Performed At | + + + | External films for comparison only | [facility] | | | | | No results will be in the chart. | | + + + + +---------+ + + | Performing | Address | City/State/Zipcode | Phone Number | | Organization | | | | + +---------+ + + | [facility] | | | | + +---------+ + + documented in this encounter Visit Diagnoses Not on filedocumented in this encounter"
--- OUTSIDE RECORDS SUMMARY | ~2020-05-20 | XMS | Encounter Summary ---
Demographics + + + | Address | [address] | | | [place] [address] | + + + | Home Phone | | + + + | Preferred Language | Unknown | + + + | Marital Status | | + + + | Gnosticist Affiliation | Unknown | + + + | Race | Unknown | + + + | Ethnic Group | Unknown | + + + Author + + + | Author | [facility] | | | and Frandyana | + + + | Organization | [facility] | | | and Frandyana [...] Team Providers + +------+ + | Care Bakery Team Leader Name | Role | Phone | + +------+ + | Kathrin Summers | PCP | | + +------+ + Encounter Details +--------+ + + + + | Date | Type | Department | Care Team | Description | +--------+ + + + + | 12/13/ | Hospital | [facility] | Bridgette Vasquez S, | | | 2017 | Encounter | MED CTR SPEECH | Speech Pathologist | | | | | THERAPY [address] | [address] | | | | | [place], | [place], [place] | | | | | [place] [address] | [address] | | | | | [phone] | | | +--------+ + + + [...] | | | | | [place] [address] | | | | | | [phone] | | | | | | | | +--------+---------+ + + + documented as of this encounter Visit Diagnoses Not on filedocumented in this encounter"
--- OUTSIDE RECORDS SUMMARY | ~2020-05-20 | XMS | Encounter Summary ---
Demographics + + + | Address | [address] | | | [place] [address] | + + + | Home Phone | | + + + | Preferred Language | Unknown | + + + | Marital Status | | + + + | Anglican Affiliation | Unknown | + + + | Race | Unknown | + + + | Ethnic Group | Unknown | + + + Author + + + | Author | [facility] | | | and Frandyana | + + + | Organization | [facility] | | | and [...] Team Providers + +------+ + | Care Human Resources Admin Name | Role | Phone | + +------+ + | Kathrin Summers | PCP | | + +------+ + Encounter Details +--------+ + + + + | Date | Type | Department | Care Team | Description | +--------+ + + + + | 11/11/ | Episode | [facility] | Alana Cloud | | | 2017 | Changes | NEUROSURGERY [address] | S, Inspector Purchased [employer] | | | | | [address] [facility] [address] | | | | | | [place], [place] | | | | | | [address] | | | | | | [phone] | | | +--------+ + + + [...] D | | | | | | [place] [address] | | | | | | [phone] | | | | | | | | +--------+---------+ + + + documented as of this encounter Visit Diagnoses Not on filedocumented in this encounter"
--- OUTSIDE RECORDS SUMMARY | ~2020-05-20 | XMS | Encounter Summary ---
Demographics + + + | Address | [address] | | | [place] [address] | + + + | Home Phone | | + + + | Preferred Language | Unknown | + + + | Marital Status | | + + + | Jew Affiliation | Unknown | + + + | Race | Unknown | + + + | Ethnic Group | Unknown | + + + Author + + + | Author | [facility] | | | and Frandyana | + + + | Organization | [facility] | | | and Frandyana [...] Team Providers + +------+ + | Care Waiter/Waitress Buffet Name | Role | Phone | + +------+ + | Kathrin Summers | PCP | | + +------+ + Encounter Details +--------+ + + + + | Date | Type | Department | Care Team | Description | +--------+ + + + + | 12/08/ | Hospital | [facility] | Leonidas De La Fuente | S/P cervical spinal | | 2018 | Encounter | MED CTR XRAY [address] | D, PA-C [address] | fusion | | | | [place] | [address] | | | | | [place] [address] | [place], [place] | | | | | [phone] | [address] | | | | | | | [...] mg | | | | 17 | 0 | | tablet | | | | [...] | | | | | [place] [address] | | | | | | [phone] | | | | | | | [...]
--- OUTSIDE RECORDS SUMMARY | ~2020-05-20 | XMS | Encounter Summary ---
Demographics + + + | Address | [address] | | | [place] [address] | + + + | Home Phone | | + + + | Preferred Language | Unknown | + + + | Marital Status | | + + + | Nondenominational Affiliation | Unknown | + + + | Race | Unknown | + + + | Ethnic Group | Unknown | + + + Author + + + | Author | [facility] | | | and Frandyana | + + + | Organization | [facility] | | | and [...] Team Providers + +------+ + | Care Orthodontic Laboratory Technician Name | Role | Phone | [...] + | 12/15/ | Telephone | [facility] | Jeffrey Carvajal MD | Post Op (PO Call); | | 2016 | | NEUROSURGERY [address] | [address] | Post-op Problem | | | | [address] | [place] [address] | (Pain) | | | | [place] | [phone] | | | | | [address] | | | | | | [phone] | | | +--------+ + + + [...] Confirmed that patient was not evaluated at [facility] or PCP elephone Encounter - Libra Garcia [...] Patient prefers to have wound checked in [place] by PCP or at [facility] and stated that he will check again [...] to send Rx via [facility] #[phone] with provider's signat ure Will call [...] r/t claustrophobia and cervical collar. Went to [facility] ED late Thursday night into Thursday AM [...] strips at 2 we eks post op. Dunlo/sutures that need to be removed no. Operative [...] couple of days prior to appointment at [facility]. Routing order and beth briones will call upon completion. Staple/suture removal nurse visit? N/A 5.What could we have done to make your visit better? "You all have been pretty great to me ." 6. Has preoperative pain improved? 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 Patient requested advice regarding pain management and if there are any other long-acting m edications that may be more effective considering his long-time use of MS and possible katya ance. Please advise. [facility] ED notes requested and are being faxed [...] | | | | | [place] [address] | | | | | | [phone] | | | | | | | | +--------+---------+ + + + documented as of this encounter Visit Diagnoses Not on filedocumented in this encounter
--- OUTSIDE RECORDS SUMMARY | ~2020-05-20 | XMS | Encounter Summary ---
Demographics + + + | Address | [address] | | | [place] [address] | + + + | Home Phone | | + + + | Preferred Language | Unknown | + + + | Marital Status | | + + + | Gnosticism Affiliation | Unknown | + + + | Race | Unknown | + + + | Ethnic Group | Unknown | + + + Author + + + | Author | [facility] | | | and Frandyana | + + + | Organization | [facility] | | [...] Team Providers + +------+ + | Care Electric Welder Helper Name | Role | Phone | [...] [address] | [address] [place], [place] | (Primary Dx); S/P | | | | [place], [place] | [address] | cervical spinal | | | | [address] | | fusion | | | | [phone] | | | +--------+ + + + [...] D | | | | | | [place] [address] | | | | | | [phone] | | | | | | | [...] 2016 FINDINGS: Frontal and lateral views | [facility] | | of the cervical spine. Anterior [...] | | Dictated and Signed by: Kang Salagdo MD | | Electronically signed: 01/13/2017 9:22 AM | + + + + + + + | Performing | Address | City[facility]State[facility] | Phone Number | | Organization | | | | + + + + + | [facility] [address] | [address] | [place] | [phone] | | [facility] | | [address] | | | - IMAGING | | [...]
--- OUTSIDE RECORDS SUMMARY | ~2020-05-20 | XMS | Encounter Summary ---
Demographics + + + | Address | [address] [place] [address] | | | [place] [address] | + + + | Home Phone | | + + + | Preferred Language | Unknown | + + + | Marital Status | Single | + + + | Yarsani Affiliation | Unknown | + + + | Race | White | + + + | Ethnic Group | Not or | + + + Author + + + | Author | [facility] | + + + | Organization | [facility] | + + + | Address | Unknown | + + + | Phone | Unavailable | + + + Support + + +---------+ + | Name | Relationship | Address | Phone | + + +---------+ + | None None | ECON | Unknown | Unavailable | + + +---------+ + Care Team Providers + +------+ + | Care Supervisor Glycerin Name | Role | Phone | + [...] | | | | | cervical | [place], [place] | | | | | | spine ([facility]) | [address] | | | | | | Procedures | Phone: | | | | | | MRI SPINE | [phone] | | | | | | CERVICAL WO | Fax: | | | | | | CONTRAST DE | [phone] | | | | | | MRI, [...] | | | region | MANAGEMENT | [place], [place] | | | | | Procedures | [address] | [address] | | | | | [place] NEW | [address] | Phone: | | | | | PATIENT | [place], [place] | [phone] | | | | | LEVEL V [place] | [address] | Fax: | | | | | EST PATIENT | Phone: | [phone] | | | | | LEVEL V | [phone] | | | | | | | Fax: | | | | | | | [phone] | | +--------+--------+ + + + + [...] | | | [facility] | [place], [place] | of cervical spine, | | | | [facility] and Healing, | [address] | initial encounter | | | | | [phone] | ([facility]) | | | | floor [place], [place] | | | | | | [address] | | | | | | [phone] | | | +--------+---------+ + + + [...] care. MD OMID Zhou MD NEUROSURGERY AT [facility] [address] Mailcode: [place] [address] azur King Woodall MD - 09/02/2018 1:30 [...]
--- OUTSIDE RECORDS SUMMARY | ~2020-05-20 | XMS | Encounter Summary ---
Demographics + + + | Address | [address] | | | [place] [address] | + + + | Home Phone | | + + + | Preferred Language | Unknown | + + + | Marital Status | | + + + | Sabianism Affiliation | Unknown | + + + | Race | Unknown | + + + | Ethnic Group | Unknown | + + + Author + + + | Author | [facility] | | | and Frandyana | + + + | Organization | [facility] | | | and Frandyana [...] Team Providers + +------+ + | Care Track Rider Name | Role | Phone | + [...] D | treatment/testing) | | | | [place], [place] | [place] [address] | | | | | [address] | [phone] | | | | | [phone] | | | +--------+ + + + [...] | | | | | [place] [address] | | | | | | [phone] | | | | | | | | +--------+---------+ + + + documented as of this encounter Visit Diagnoses Not on filedocumented in this encounter"
--- OUTSIDE RECORDS SUMMARY | ~2020-05-20 | XMS | Encounter Summary ---
Demographics + + + | Address | [address] | | | [place] [address] | + + + | Home Phone | | + + + | Preferred Language | Unknown | + + + | Marital Status | | + + + | Denominational Affiliation | Unknown | + + + | Race | Unknown | + + + | Ethnic Group | Unknown | + + + Author + + + | Author | [facility] | | | and Frandyana | + + + | Organization | [facility] | | | and Frandyana [...] Team Providers + +------+ + | Care Soldering Technician Name | Role | Phone | [...] + + | 12/08/ | Office | [facility] [place] | Jeffrey Carvajal MD | Pseudoarthrosis of | | 2018 | Visit | NEUROSURGERY [address] | [address] | cervical spine, | | | | [address] | [place] [address] | initial encounter | | | | ALYCIA Byrnes | [phone] | (HCC) (Primary Dx); | | | | [address] | | Cervicalgia | | | | [phone] | Leonidas De La Fuente, | | | | | | PA-C [address] | | | | | | [address] [place] | | | | | | [place] [address] | | | | | | [phone] | | | | | | | [...] | Blood Pressure | 132/90 | 12/08/2017 12:43 PM | | | | | PST | | + + + + + | Pulse | 87 | 12/08/2017 12:43 PM | | | | | PST [...] | 101.2 kg (223 lb 1.7 | 12/08/2017 12:43 PM | | | | oz) | PST | | + + + + + | Height | 170.2 cm (5' 7") | 12/08/2017 12:43 PM | | | | | PST | | + + + + + | Body Mass Index | 34.94 | 12/08/2017 12:43 PM | | | | | PST [...] documented as of this encounter Progress Notes Leonidas De La Fuente PA-C - 12/08/2017 12:15 PM PSTFormatting of this note might be diffe rent from the original. Leonidas De La Fuente PA-C [address], [address] [place], [place] [id number] FAX: NEUROSURGERY FOLLOW-UP CHIEF COMPLAINT: Chief Complaint [...] pain. The patient h as loss of mirror machine feeder strength and is dropping items frequently. Issues with swallowing have not been a significant problem. He was having intermittent neck pain in October but that has dim inished. The patient will be applying for disability [...] Fusion; Surgeon: Jeffrey Carvajal MD ; Location[facility] KIDNEY STONE SURGERY [phone] x2 KNEE SURGERY 2002 right CURRENT MEDICATIONS: [...] MOTOR EXAM: Motor strength is 4+/5 right mirror machine feeder strength. SENSORY EXAM: The sensory examination unchanged [...] since the patient s last x-ray w [facility] was also reviewed for comparison. He likely has pseudoarthrosis at every segment. ASSESSMENT: Encounter Diagnoses Name Primary? 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 [...] Fuente PA-C and Jeffrey Carvajal MD, 12/08/2017 13:30E lectronically signed by Jeffrey Carvajal MD at 12/18/2017 9:19 AM PSTdocumented in this encount er Plan of Treatment +--------+---------+ + + + | Date | Type | Specialty | Care Team | Description | +--------+---------+ + + + | 08/09/ | Office | Neurology | Renu Bright, | | | 2019 | Visit | | [address] | | | | | | [address] | | | | | | [place] [address] | | | | | | [phone] | | | | | | | | +--------+---------+ + + + documented as of this encounter Visit Diagnoses + + | Diagnosis | + + | Pseudoarthrosis of cervical spine, initial encounter (HCC) - Primary | + + | Cervicalgia | + + documented in this encounter
--- OUTSIDE RECORDS SUMMARY | ~2020-05-20 | XMS | Encounter Summary ---
Demographics + + + | Address | [address] | | | [place] [address] | + + + | Home Phone | | + + + | Preferred Language | Unknown | + + + | Marital Status | | + + + | Jainism Affiliation | Unknown | + + + | Race | Unknown | + + + | Ethnic Group | Unknown | + + + Author + + + | Author | [facility] | | | and Frandyana | + + + | Organization | [facility] | [...] Team Providers + +------+ + | Care Alternative Energy Engineer Name | Role | Phone | [...] | | | | | | | HI | | | | | | | ARTHRODESIS | | | | | | | ANT | | | | | | | INTERBODY | | | | | | | INC | | | | | | | DISCECTOMY, | | | | | | | CERVICAL | | | | | | | BELOW C2 HI | | | | | | | [...] | | | | | | | HI | | | | | | | [...] | | | | | | | HI ALLOGRAFT | | | | | | [...] + + | 12/12/ | Surgery | [facility] | Jeffrey Carvajal MD | C3-4, C4-5, C5-6 | | 2016 | | MED CTR OR INTRA OP | [address] | Anterior Cervical | | | | [address] | [place] [address] | Discectomy Fusion | | | | ALYCIA Byrnes | [phone] | | | | | [address] | | | | | | [phone] | | | +--------+---------+ + + + [...] t raise your hands over your head [id number])after your surgery. Don t drive until your [...] this your 1 month post op appointment. [phone] [employer]. [address] [place] [address], [place] [address]. All righ ts reserved. This information is [...] might be different from t john original. [facility] PROGRESS NOTE Pt. Name/Age/: Layne Bentley 31 y.o. 1985 Med. Record Number: [id number] Date of admission: 12/12/2016 Subjective: The patient [...] Electronically signed by: Jeffrey Carvajal, 12/13/2016 7:11 [facility] documented in this encou nter H&P Notes Jeffrey Carvajal MD - 12/12/2016 3:17 PM PSTFormatting of this note might be different from t he original. Jeffrey Carvajal MD [address] [facility], [address] [place], [place] [address] FAX: NEUROSURGERY HISTORY AND PHYSICAL EXAMINATION CHIEF [...] Knee surgery 2002 right Kidney stone surgery [id number] x2 CURRENT MEDICATIONS: Current Outpatient Prescriptions Medication [...] has no apparent deficits with short or lobsterman memory. MOTOR EXAM: (5 IS NORMAL) * Indicates pain limited MUSCLE/ MOVEMENT: RIGHT LEFT Deltoids 5 5 Biceps 5 5 Triceps 5 5 Wrist Flexion 5 5 Wrist Extension 5 5 Median Intrinsics 5 5 Ulnar Intrinsics 5 5 Edi Manager Strength 5 5 SENSORY EXAM: Sensory exam [...] GOALS: Speech Therapy Swallow Plan of Care SCOURER Visit Type: Initial Evaluation Note Summary: Pt sitting upright EOB for swallow assessment s/o ACDF C3-6. Pt c/o sore neck par ticularly at incision site. No difficulty swallowing. Pt trialed pureed, ground, mixed, chop ped, regular textures and thin liquids with no s/s of airway compromise. Pt reported increas ed difficulty eating crust of bread. SCOURER rec's level 3 dysphagia advanced diet and [...] further Speech Therapy Planned Interventions: Treatment Plan (SCOURER): compensatory strategies, diet texture modific ation, patient/caregiver education Recommended Frequency: SCOURER Diagnosis: Mild pharyngeal dysphagia At bedside, signs [...] RESTRAINT-RELATED GOALS: STRATEGIES TO ACHIEVE RESTRAINT GOALS: [facility] Occupational Therapy OPIB Plan of Care [...] multiple contributors. ADLs UB Dressing, Level of Wetzel: independent LB Dressing, Level of Wetzel: independent Toileting, Level of Wetzel: independent Medicare Functional Limitation Reporting: OT G-codes Functional Assessment Tool Used: [facility] Functional Limitation: Self care Self Care Current [...] Outcome: Adequate for Discharge Date Met: 12/13/16 [facility] Physical Therapy OPIB Plan of Care [...] Device: none Supine to Sit, Level of Wetzel: independent Sit to Supine, Level of Wetzel: independent Gait Level of Wetzel: independent Assistive Device: none Distance (feet): 360 Stairs stair instruction--pt indep with railing, no difficulty ROM ROM Testing Results: no range of motion deficits identified Strength Strength Testing Results: no strength deficits were identified [id number] Goal Most Recent Value STG Status new, met at 12/13/2016 1105 STG Wetzel Level independent at 12/13/2016 1105 Gait Goal Most Recent Value STG Status new, met at 12/13/2016 1105 STG Wetzel Level independent at 12/13/2016 1105 STG Distance (feet) 360 at 12/13/2016 1105 Stair Goal Most Recent Value STG Status new, met at 12/13/2016 1105 STG Wetzel Level independent at 12/13/2016 1105 STG Assistive [...] lan of Care - Yandy Abdul, EMERGENCY SPILL RESPONSE TECHNICIAN - 12/13/2016 3:17 AM PSTProblem: Patient Care [...] Note Layne Bentley 31 y.o. male 1985 [id number] Proc. Date 12/12/2016 Preop Dx Cervical spondylosis [...] Madden Surgeon Jeffrey Carvajal MD - Primary Criminal Court Judge Bony Quiroz PA-C EBL 156 Findings C3-6 [...] allograft prior to insertion was filled with [place] bone. The structural allograft bone was then tamped into place at C3-4, C4-5, and C5-6. Anterior cervical plating was then performed by holding a 57 mm Zevo plate in place over th e segments with holding pins. Fluoroscopy was used to confirm its appropriate positioning a nd then private pilot holes were made in the C3-6 vertebral [...] signed by: Jeffrey Carvajal MD 12/12/2016 18:03 [facility] rief Op Note - Leif Carvajal MD - 12/12/2016 6:03 PM PSTFormatting of this note might be different from the origin al. Brief Operative Note Layne Bentley 31 y.o. male 1985 [id number] Proc. Date 12/12/2016 Preop Dx Cervical spondylosis [...] Madden Surgeon Jeffrey Carvajal MD - Primary Criminal Court Judge Bony Quiroz PA-C EBL 156 Findings C3-6 spondylosis with canal narrowing and foraminal stenosis. Complications none Specimens * No specimens in log * Drains SAVANAH Electronically signed by: Jeffrey Carvajal MD 12/12/2016 18:03 [facility] Jeffrey Carvajal MD at [...] D | | | | | | [place] [address] | | | | | | [phone] | | | | | | | [...]
--- OUTSIDE RECORDS SUMMARY | ~2020-05-20 | XMS | Encounter Summary ---
Demographics + + + | Address | [address] | | | [place] [address] | + + + | Home Phone | | + + + | Preferred Language | Unknown | + + + | Marital Status | | + + + | Confucianist Affiliation | Unknown | + + + | Race | Unknown | + + + | Ethnic Group | Unknown | + + + Author + + + | Author | [facility] | | | and Frandyana | + + + | Organization | [facility] | | | and [...] Team Providers + +------+ + | Care Portfolio Administrator Name | Role | Phone | [...] | aura, not | [address] | [facility] [address] | | | | | intractable, | [place], | D | | | | | without | [place] | [place] | | | | | status | [address] | [address] | | | | | migrainosus | Phone: | Phone: | | | | | | [phone] | [phone] | | | | | | Fax: | Fax: | | | | | | [phone] | [phone] | + +--------+ + + + + Encounter Details +--------+---------+ + + + | Date | Type | Department | Care Team | Description | +--------+---------+ + + + | 03/28/ | Office | [facility] | Renu Bright, | Chronic migraine | | 2020 | Visit | NEUROLOGY [address] | PA-C [address] | without aura without | | | | [address] | [address] | status migrainosus, | | | | [place], [place] | [place] [address] | not intractable | | | | [address] | [phone] | (Primary Dx) | | | | [phone] | | | +--------+---------+ + + + [...] overall symptoms. 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
--- OUTSIDE RECORDS SUMMARY | ~2020-05-20 | XMS | Encounter Summary ---
Demographics + + + | Address | [address] | | | [place] [address] | + + + | Home Phone [...] + | Author | [facility] | | | and Frandyana | + + + | Organization | [facility] | | | and Frandyana [...] Team Providers + +------+ + | Care Boot Turner Name | Role | Phone | + +------+ + | Ghada Hung MD | PCP | | + +------+ + Reason for Visit Evaluate & Treat (Routine) + +--------+ + [...] | | | aura, not | [address] | [address] | | | | | intractable, | [place], | D | | | | | without | [place] | [place] | | | | | status | [address] | [address] | | | | | migrainosus | Phone: | Phone: | | | | | | [phone] | [phone] | | | | | | Fax: | Fax: | | | | | | [phone] | [phone] | + +--------+ + + + + Encounter Details +--------+---------+ + + + | Date | Type | Department | Care Team | Description | +--------+---------+ + + + | 11/30/ | Office | [facility] | Renu Bright, | Chronic migraine | | 2020 | Visit | NEUROLOGY [address] | [address] | without aura without | | | | [address] | [address] | status migrainosus, | | | | [place], [place] | [place] [address] | not intractable | | | | [address] | [phone] | (Primary Dx); | | | | [phone] | | Medication overuse | | | | | | headache [...] + + + | Blood Pressure | 132/89 | 11/30/2019 1:25 PM | | | | | PST | | + + + + + | Pulse | 93 | 11/30/2019 1:25 PM | | | | | PST | | + + + + + | Temperature | - | - | | + + + + + | Respiratory Rate | - | - | | + + + + + | Oxygen Saturation | 99% | 11/30/2019 1:25 PM | | | | | PST | | + + + + + | Inhaled Oxygen | - | - | | | Concentration | | | | + + + + + | Weight | 102.6 kg (226 lb 1.6 | 11/30/2019 1:25 PM | | | | oz) | PST | | + + + + + | Height | 170.2 cm (5' 7") | 11/30/2019 1:25 PM | | | | | PST | | + + + + + | Body Mass Index | 35.41 | 11/30/2019 1:25 PM | | | | | PST [...] encounter Progress Notes Renu Bright PA-C - 11/30/2019 1:45 PM PSTFormatting of this note might be different fro m the original. Neurologic Progress note Subjective: Patient ID: Layne Bentley is a 34 y.o. male. HPI The patient is seen today at the request of Ghada Hung MD for evaluation and managemen t of chronic headache, migraine. He developed headaches for at least 4 years. He thinks it is related to his neck problems. He states he has poor memory. He cannot recall having headaches in high school or if he cabrera d them in his 20's or not. Prior to taking Topamax he would get migraine lasting several days to couple weeks but woul d have a break for a week or two. He is applying for disability apparently for his neck pain and overall symptoms. 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 Headache description: Location: starts from base of [...] i n 07/2019 due to kidney stones. Abortive headache medications tried: States told not to take NSAID due to kidney stones. Acetaminophen, Excedrin worked some for a while but lost benefit. Family history migraine: mom has migraines. Exercise: no Caffeine: cutting down, 2 energy drinks per week compared to 2 daily. Sleep: 3-5 hours recently, typically gets 8-10 hours sleep per night. The following elements of the patient's history were reviewed and updated as appropriate. T florian are available elsewhere in the patient record. allergies, current medications, past fam katherine history, past medical history, past social history, past surgical history and problem li st Review of Systems Constitutional: Positive for chills, fatigue and unexpected weight change. Gastrointestinal: Positive for diarrhea and nausea. Musculoskeletal: Positive for arthralgias and neck pain. Neurological: Positive for dizziness, speech difficulty, light-headedness, numbness and hea daches. Psychiatric/Behavioral: Positive for confusion, dysphoric mood and sleep disturbance. The p atient is nervous/anxious. All other systems reviewed and are negative. Objective: Ht 1.702 m (5' 7") | Wt 102.6 kg (226 lb 1.6 oz) | BMI 35.41 kg/m Neurologic Exam Mental Status Oriented to person, place, and time. Speech: speech is normal Level of consciousness: alert General knowledge: somewhat poor historian. Cranial Nerves CN II Visual joshi full to confrontation. Visual acuity: (20/25 OD and 20/30 OS) CN V Facial sensation intact. CN VII Facial expression full, symmetric. CN VIII Hearing: intact CN XI Right sternocleidomastoid strength: normal Left sternocleidomastoid strength: normal Right trapezius strength: normal Left trapezius strength: normal Motor Exam Muscle bulk: normal Overall muscle tone: normal Strength Strength 5/5 except as noted. 5- throughout upper and lower limbs Sensory Exam Light touch normal. Gait, Coordination, and Reflexes Gait Gait: (slow gait, normal. toe, heel gait normal) Coordination Romberg: negative Tandem walking coordination: normal Reflexes Right brachioradialis: 2+ Left brachioradialis: 2+ Right biceps: 2+ Left biceps: 2+ Right patellar: 2+ Left patellar: 2+ Right achilles: 2+ Left achilles: 2+ Physical Exam Neurological: Mental Status: He is oriented to person, place, and time. Coordination: Romberg Test normal. Gait: Tandem walk normal. Deep Tendon Reflexes: Reflex Scores: Bicep reflexes are 2+ on the right side and 2+ on the left side. Brachioradialis reflexes are 2+ on the right side and 2+ on the left side. Patellar reflexes are 2+ on the right side and 2+ on the left side. Achilles reflexes are 2+ on the right side and 2+ on the left side. Psychiatric: Speech: Speech normal. Assessment and Plan: The patient is a 34 year old male with chronic headache and migraine for at least 4 years. His migraines worsened in frequency and at times has chronic daily headache and migraine. He has cervical spondylosis and s/p multi-level fusion. Neurological exam today is non-focal. I don't feel further neuro-imaging is indicated. His history is suggestive of chronic/converted migraine and medication overuse headache. He did much better with Topamax for reduction of migraine frequency and severity, however d iscontinued due to kidney stones. He denies trial of amitriptyline that was prescribed. Discussed course of chronic migraine and headaches and he has primary headache disorder. M igraine is not caused from neck but may be a contributing issue. Neck pain is also common s ymptom of migraine. Recommendations: Optimize prophylactic and abortive treatment May try tizanidine 2-4 mg nightly hope to benefit for headache, migraine, sleep, neck pain. If no improvement, may consider trial amitriptyline or nortriptyline. Ketorolac injection today 30 mg IM for ongoing severe migraine. Hope to help break this mi graine cycle. Reports normal lab studies at least yearly. No renal dysfunction. Rx sumatriptan 100 mg for abortive migraine treatment. I have records that he tried 50 mg. If no benefit we can try a different triptan. Need to avoid medication overuse. Encourage non-pharmacological headache prophylaxis including as daily exercise, stress rela xation, proper nutrition, avoid skipping meals, get adequate sleep, avoid over-sleeping. Keep headache/migraine diary. Form given today. Follow up 8 weeks or sooner if needed. documented in this e [...] D | | | | | | [place] [address] | | | | | | [phone] | | | | | | | | +--------+---------+ + + + documented as of this encounter Visit Diagnoses + + | Diagnosis | + + | Chronic migraine without aura without status migrainosus, not intractable - Primary | | Chronic migraine without aura, without mention of intractable migraine without mention | | of status migrainosus | + + | Medication overuse headache Drug induced headache, not elsewhere classified | + + documented in this encounter Administered Medications + +--------+ +-------+------+ + | Medication Order | MAR | Action | Dose | Rate | Site | | | Action | Date | | | | + +--------+ +-------+------+ + | ketorolac (TORADOL) injection | Given | 11/30/19 | 30 mg | | Deltoid- | | 30 mg 30 mg, Intramuscular, | | 20 3:02 | | | Right | | ONCE, 11/30/19 at 1500, For 1 | | PM PST | | | | | dose | | | | | | + +--------+ +-------+------+ + +---+---+ | | | +---+---+ documented in this encounter
--- OUTSIDE RECORDS SUMMARY | ~2020-05-20 | XMS | Encounter Summary ---
Demographics + + + | Address | [address] | | | [place] [address] | + + + | Home Phone [...] | Author | [facility] | | | and Frandyana | + + + | Organization | [facility] | | [...] Team Providers + +------+ + | Care Hydrochloric Area Supervisor Name | Role | Phone | + +------+ + | Ghada Hung MD | PCP | | + +------+ + Encounter Details +--------+ + + + + | Date | Type | Department | Care Team | Description | +--------+ + + + + | 02/01/ | Imaging | [facility] | Provider, | | | 2020 | Exam | [facility] | MD [address] | | | | | IMAGING [address] | [address] | | | | | [address] [place] | [place] [address] | | | | | [place] [address] | | | | | | [phone] | | | +--------+ + + + [...] D | | | | | | [place] [address] | | | | | | [phone] | | | | | | | | +--------+---------+ + + + documented as of this encounter Procedures + +--------+ + + + | Procedure Name | Priori | Date/Time | Associated Diagnosis | Comments | | | ty | | | | + +--------+ + + + | NM MYOCARDIAL | Routin | 05/30/2019 | | Results for this | | PERFUSION SPECT | e | 12:00 AM | | procedure are in the | | STRESS | | PDT | | results section. | + +--------+ + + + documented in this encounter Results NM Myocardial Perfusion SPECT Stress (05/30/2019 12:00 AM PDT) + + | Specimen [...]
--- OUTSIDE RECORDS SUMMARY | ~2020-05-20 | XMS | Encounter Summary ---
Demographics + + + | Address | [address] | | | [place] [address] | + + + | Home Phone | | + + + | Preferred Language | Unknown | + + + | Marital Status | | + + + | Judaism Affiliation | Unknown | + + + | Race | Unknown | + + + | Ethnic Group | Unknown | + + + Author + + + | Author | [facility] | | | and Frandyana | + + + | Organization | [facility] | | | and Frandyana [...] Team Providers + +------+ + | Care Windows System Admin Name | Role | Phone | [...] Provider Unknown | | | | | [place], [place] | [phone] | | | | | [address] | | | | | | [phone] | | | +--------+ + + + [...] [address] | | | | | | [place] [address] | | | | | | [phone] | | | | | | | [...]
--- OUTSIDE RECORDS SUMMARY | ~2020-05-20 | XMS | Encounter Summary ---
Demographics + + + | Address | [address] | | | [place] [address] | + + + | Home Phone | | + + + | Preferred Language | Unknown | + + + | Marital Status | | + + + | Congregation Affiliation | Unknown | + + + | Race | Unknown | + + + | Ethnic Group | Unknown | + + + Author + + + | Author | [facility] | | | and Frandyana | + + + | Organization | [facility] | | | [...] Team Providers + +------+ + | Care Hand Tacker Name | Role | Phone | [...] | Office | [facility] | Bony Quiroz | Cervical spinal | | 2017 | Visit | NEUROSURGERY [address] | [address] | stenosis (Primary | | | | [address] [place], [place] | Dx); S/P cervical | | | | [place] | [address] | spinal fusion; | | | | [address] | | Cervical spondylosis | | | | [phone] | | with radiculopathy; | | | [...] from the original. Bony Quiroz PA-C [address], [address] [place], [place] [id number] FAX: NEUROSURGERY FOLLOW-UP CHIEF COMPLAINT: Chief Complaint [...] Knee surgery 2002 right Kidney stone surgery [id number] x2 Cervical spine surgery Anterior 12/12/2016 Procedure: C3-4, C4-5, C5-6 Anterior Cervical Discectomy Fusion; Surgeon: Suellen Emmanuel; Location: [facility] MAIN OR CURRENT MEDICATIONS: Current Outpatient [...] to work with pain medicine clinic in [facility] increased the patient s activities To 35 [...] and to advance with therapy as tolerated. intermediate designer pain medication should be continued and tapered [...] | | | | | | [address] | | | | | | [place] [address] | | | | | | [phone] | | | | | | | [...]
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
--- OUTSIDE RECORDS SUMMARY | ~2020-05-20 | XMS | Encounter Summary ---
Demographics + + + | Address | [address] | | | [place] [address] | + + + | Home Phone | | + + + | Preferred Language | Unknown | + + + | Marital Status | | + + + | Yarsanism Affiliation | Unknown | + + + | Race | Unknown | + + + | Ethnic Group | Unknown | + + + Author + + + | Author | [facility] | | | and Frandyana | + + + | Organization | [facility] | | | and Frandyana [...] Team Providers + +------+ + | Care Sr. Payroll Manager Name | Role | Phone | + +------+ + | Kathrin Summers | PCP | | + +------+ + Encounter Details +--------+ + + + + | Date | Type | Department | Care Team | Description | +--------+ + + + + | 08/07/ | Hospital | [facility] | Conversion | Nephrolithiasis | | 2016 | Encounter | [facility] [address] | Transaction, | | | | | [address] | Provider Unknown | | | | | [place], [place] | | | | | | [address] | (Fax) | | | | | [phone] | | | +--------+ + + + [...] [address] | | | | | | [address] | | | | | | [place] [address] | | | | | | [phone] | | | | | | | [...] Conversion - 06/09/2019 5:06 PM JAYLIN Suero [facility] years [facility] | | URINARY TRACT ABDOMEN PELVIS WO [id number]/13/2016 12:18 PM INDICATION: Nephrolithiasis | | COMPARISON: [...]
--- OUTSIDE RECORDS SUMMARY | ~2020-05-20 | XMS | Encounter Summary ---
Demographics + + + | Address | [address] | | | [place] [address] | + + + | Home Phone [...] Author | [facility] | | | and Frandyana | + + + | Organization | [facility] | | | and Frandyana [...] Team Providers + +------+ + | Care Ems Educator Name | Role | Phone | + [...] | | [address] | [place] [address] | (Primary Dx); | | | | [place], [place] | [phone] | Foraminal stenosis | | | | [address] | | of cervical region; | | | | [phone] | | Cervical spinal | | | [...] D | | | | | | [place] [address] | | | | | | [phone] | | | | | | | [...]
--- OUTSIDE RECORDS SUMMARY | ~2020-05-20 | XMS | Encounter Summary ---
Demographics + + + | Address | [address] | | | [place] [address] | + + + | Home Phone [...] Author | [facility] | | | and Frandyana | + + + | Organization | [facility] | | | and [...] Providers + +------+ + | Care Director News Name | Role | Phone | + [...] + + | 04/16/ | Refill | [facility] | Renu Bright, | Medication Refill | | 2020 | | NEUROLOGY [address] | [address] | | | | | [address] | [address] | | | | | [place], [place] | [place] [address] | | | | | [address] | [phone] | | | | | [phone] | | | +--------+--------+ + + + [...] | | | | | [place] [address] | | | | | | [phone] | | | | | | | | +--------+---------+ + + + documented as of this encounter Visit Diagnoses Not on filedocumented in this encounter"
--- OUTSIDE RECORDS SUMMARY | ~2020-05-20 | XMS | Encounter Summary ---
Demographics + + + | Address | [address] | | | [place] [address] | + + + | Home Phone | | + + + | Preferred Language | Unknown | + + + | Marital Status | | + + + | Taoism Affiliation | Unknown | + + + | Race | Unknown | + + + | Ethnic Group | Unknown | + + + Author + + + | Author | [facility] | | | and Frandyana | + + + | Organization | [facility] | | | and [...] Team Providers + +------+ + | Care In Store Marketing Representative Name | Role | Phone | + [...] | | | | | with | [address] | [address] | | | | | radiculopath | Phone: | Phone: | | | | | y | [phone] | [phone] | | | | | Degenerative | Fax: | Fax: | | | | | disc | [phone] | [phone] | | | | | disease, | [...] + + | 01/13/ | Office | [facility] | Bony Quiroz | Cervical spinal | | 2017 | Visit | NEUROSURGERY [address] | [address] | stenosis (Primary | | | | [address] | [address] [place], [place] | Dx); Cervical | | | | [place], [place] | [address] | spondylosis with | | | | [address] | | radiculopathy; | | | | [phone] | | Degenerative disc | | | [...] [address] [place] [address] FAX: NEUROSURGERY FOLLOW-UP CHIEF COMPLAINT: Chief Complaint [...] Knee surgery 2002 right Kidney stone surgery [id number] x2 Cervical spine surgery Anterior 12/12/2016 Procedure: C3-4, C4-5, C5-6 Anterior Cervical Discectomy Fusion; Surgeon: Suellen Emmanuel; Location: [facility] MAIN OR CURRENT MEDICATIONS: Current Outpatient Prescriptions [...] mouth 2 times daily. 60 tablet 0 Negvtjeaw-Epxcljukwh-CG-APAP (NYQUIL PO) Take by mouth nightly as [...] D | | | | | | [place] [address] | | | | | | [phone] | | | | | | | [...]
--- OUTSIDE RECORDS SUMMARY | ~2020-05-20 | XMS | Clinical Summary ---
Demographics + + + | Address | [address] [place] [address] | | | [place] [address] | + + + | Home Phone | | + + + | Preferred Language | Unknown | + + + | Marital Status | Single | + + + | Sabianist Affiliation | Unknown | + + + [...] Team Providers + +------+ + | Care Grinder Hardboard Name | Role | Phone | + +------+ + | Ghada Hung MD | PCP | | + +------+ + Source Comments CHELSEA is fully live on both [facility] and [facility] InPatient.[facility] Allergies + + + + + [...] | | | + +--------+ +--------+-------+---------+--------+ | CLINICAL SOCIOLOGIST MEDICAID | CLINICAL SOCIOLOGIST | xxxxxxxx | | | | Medica [...] katherine | | | 9 (Home) | [address] | + +--------+ +--------+ + +"
--- OUTSIDE RECORDS SUMMARY | ~2020-05-20 | XMS | Encounter Summary ---
Demographics + + + | Address | [address] | | | [place] [address] | + + + | Home Phone | | + + + | Preferred Language | Unknown | + + + | Marital Status | | + + + | Restorationist Affiliation | Unknown | + + + | Race | Unknown | + + + | Ethnic Group | Unknown | + + + Author + + + | Author | [facility] | | | and Frandyana | + + + | Organization | [facility] | | | and [...] Team Providers + +------+ + | Care Shopper Marketing Manager Name | Role | Phone | + +------+ + | Kathrin Summers | PCP | | + +------+ + Encounter Details +--------+ + + + + | Date | Type | Department | Care Team | Description | +--------+ + + + + | 09/02/ | Hospital | [facility] | Jeffrey Carvajal MD | Cervical spinal | | 2017 | Encounter | MED CTR XRAY [address] | [address] | stenosis; S/P | | | | [place] | [place] [address] | cervical spinal | | | | [place] [address] | [phone] | fusion; Cervical | | | | [phone] | | spondylosis with | | | | | | radiculopathy; | | | | | | Foraminal stenosis | | | | | | of cervical region | +--------+ + + + + Social [...] | | | | | | [place] [address] | | | | | | [phone] | | | | | | | | +--------+---------+ + + + documented as of this encounter Procedures + +--------+ + + + | Procedure Name | Priori | Date/Time | Associated Diagnosis | Comments | | | ty | | | | + +--------+ + + + | XR CERVICAL SPINE 2 | Routin | 09/02/2017 | Cervical spinal | Results for this | | OR 3 VIEWS | e | 1:58 PM | stenosis S/P | procedure are in the | | | | PST | cervical spinal | results section. | | | | | fusion Cervical | | | | | | spondylosis with | | | | | | radiculopathy | | | | | | Foraminal stenosis | | | | | | of cervical region | | + +--------+ + + + documented in this encounter Results XR Cervical Spine 2 or 3 Views (09/02/2017 1:58 PM PST) + + | Specimen | + + | | + + + + + | Narrative | Performed At | + + + | XR CERVICAL SPINE 2 OR 3 VIEWS 09/02/2017 1:58 PM HISTORY: | [facility] | | Postop. COMPARISON: Multiple priors FINDINGS: Visualized | | | skull base and facial structures demonstrate no acute findings. | | | Prevertebral soft tissues are normal. Again seen are hardware for | | | anterior fusion from C3 through C6 with interbody graft material at | | | these levels. The hardware are intact. Bone mineralization is normal. | | | The dens is normal. Vertebral body height are preserved with no | | | evidence for compression fractures. Disc height are maintained. Facet | | | joints are intact. Soft tissue structures are unremarkable. | | | Visualized upper chest demonstrates no acute findings. | | | IMPRESSION - Stable anterior fusion from C3 through C6. Dictated | | | and Signed by: Rogelio Davidson MD Electronically signed: 09/02/2017 | | | 3:17 PM | | + + + + + | Procedure Note | + + | Dorian, Rad Results In - 09/02/2017 3:20 PM PST XR CERVICAL SPINE 2 OR 3 VIEWS | | 09/02/2017 1:58 PMHISTORY: Postop.COMPARISON: Multiple priorsFINDINGS:Visualized skull | | base and facial structures demonstrate no acute findings.Prevertebral soft tissues are | | normal.Again seen are hardware for anterior fusion from C3 through C6 with | | interbodygraft material at these levels. The hardware are intact. Bone mineralization | | isnormal. The dens is normal. Vertebral body height are preserved with no evidencefor | | compression fractures. Disc height are maintained. Facet joints are intact.Soft tissue | | structures are unremarkable. Visualized upper chest demonstrates noacute findings. | | IMPRESSION -Stable anterior fusion from C3 through C6.Dictated and Signed by: Rogelio | | MD Stuart Electronically signed: 09/02/2017 3:17 PM | |Again seen are hardware for anterior fusion from C3 through C6 with interbody | |graft material at these levels. The hardware are intact. Bone mineralization is | |normal. The dens is normal. Vertebral body height are preserved with no evidence | |for compression fractures. Disc height are maintained. Facet joints are intact. | |Soft tissue structures are unremarkable. Visualized upper chest demonstrates no | |acute findings. | | | |IMPRESSION - | |Stable anterior fusion from C3 through C6. | | | |Dictated and Signed by: Rogelio Davidson MD | | Electronically signed: 09/02/2017 3:17 PM | + + + +---------+ + [...]
--- OUTSIDE RECORDS SUMMARY | ~2020-05-20 | XMS | Encounter Summary ---
Demographics + + + | Address | [address] | | | [place] [address] | + + + | Home Phone | | + + + | Preferred Language | Unknown | + + + | Marital Status | | + + + | Islam Affiliation | Unknown | + + + | Race | Unknown | + + + | Ethnic Group | Unknown | + + + Author + + + | Author | [facility] | | | and Frandyana | + + + | Organization | [facility] | | | and Frandyana [...] Team Providers + +------+ + | Care Asp Net Software Developer Name | Role | Phone | + +------+ + | Kathrin Summers | PCP | | + +------+ + Encounter Details +--------+ + + + + | Date | Type | Department | Care Team | Description | +--------+ + + + + | 11/12/ | Episode | [facility] | Alana Cloud | | | 2017 | Changes | NEUROSURGERY [address] | S, Internet Marketing Strategist | | | | | [facility] [address] | | | | | | [place], [place] | | | | | | [address] | | | | | | [phone] | | | +--------+ + + + [...] D | | | | | | [place] [address] | | | | | | [phone] | | | | | | | | +--------+---------+ + + + documented as of this encounter Visit Diagnoses Not on filedocumented in this encounter"
--- OUTSIDE RECORDS SUMMARY | ~2020-05-20 | XMS | Encounter Summary ---
Demographics + + + | Address | [address] | | | [place] [address] | + + + | Home Phone [...] | Author | [facility] | | | and Frandyana | + + + | Organization | [facility] | | | and Frandyana | [...] Team Providers + +------+ + | Care Jewelry Mechanic Name | Role | Phone | + +------+ + | Kathrin Summers | PCP | | + +------+ + Encounter Details +--------+ + + + + | Date | Type | Department | Care Team | Description | +--------+ + + + + | 01/13/ | Hospital | [facility] | Bony Quiroz | Cervical spondylosis | | 2017 | Encounter | MED CTR XRAY [address] | [address] | with radiculopathy; | | | | [place] | [address] [place] | S/P cervical spinal | | | | [place] [address] | [address] | fusion | | | | [phone] | | | +--------+ + + + [...] D | | | | | | [place] [address] | | | | | | [phone] | | | | | | | [...] spine. Anterior cervical discectomy and fusion | [facility] | | changes from C3 through [...] + | [address] | [address] | [place] | [phone] | | [facility] | | [address] | | | - IMAGING | | | | + + + + + documented in this encounter Visit Diagnoses + + | Diagnosis | + + | Cervical spondylosis with radiculopathy Cervical spondylosis with myelopathy | + + | S/P cervical spinal fusion Arthrodesis status | + + documented in this encounter"
--- OUTSIDE RECORDS SUMMARY | ~2020-05-20 | XMS | Clinical Summary ---
Demographics + + + | Address | [address] [place] [address] | | | [place] [address] | + + + | Home Phone | | + + + | Preferred Language | Unknown | + + + | Marital Status | Single | + + + | Yazidism Affiliation [...] Team Providers + +------+ + | Care Flight Mechanic Name | Role | Phone | + +------+ + | Ghada Hung MD | PCP | | + +------+ + Source Comments CHELSEA is fully live on both [facility] and [facility] In[facility] Allergies + + + + + + [...] | | | + +--------+ +--------+-------+---------+--------+ | TECHNICAL SALES REPRESENTATIVE MEDICAID | TECHNICAL SALES REPRESENTATIVE | xxxxxxxx | | | | Medica [...] katherine | | | 9 (Home) | [address] | + +--------+ +--------+ + +"
--- OUTSIDE RECORDS SUMMARY | ~2020-05-20 | XMS | Encounter Summary ---
Demographics + + + | Address | [address] | | | [place] [address] | + + + | Home Phone | | + + + | Preferred Language | Unknown | + + + | Marital Status | | + + + | Mandaeism Affiliation | Unknown | + + + | Race | Unknown | + + + | Ethnic Group | Unknown | + + + Author + + + | Author | [facility] | | | and Frandyana | + + + | Organization | [facility] | | | and [...] Team Providers + +------+ + | Care Radar Repairer Name | Role | Phone | + [...] | | syndrome | [address] | [facility] [place] | | | | | Spondylosis | [place] [address] | [address] | | | | | without | [place], | Phone: | | | | | myelopathy | [place] [address] | [phone] | | | | | or | Phone: | Fax: | | | | | radiculopath | [phone] | [phone] | | | | | y, cervical | Fax: | | | | | | region | [phone] | | | | | | Radiculopath | | | | | | | y, cervical | | | | | | | region | | | | | | | Procedures | | | | | | | [place] OFFICE | | | | | | [...] | | [address] | [place] [address] | (Primary Dx); | | | | [place], [place] | [phone] | Foraminal stenosis | | | | [address] | | of cervical region; | | | | [phone] | | Cervical spinal | | | [...] from t he original. Jeffrey Carvajal MD [address] [place] [address], [address] [place], [place] [address] FAX: NEUROSURGERY HISTORY AND PHYSICAL EXAMINATION CHIEF [...] Knee surgery 2001 right Kidney stone surgery 4547-4467 x2 CURRENT MEDICATIONS: Current Outpatient Prescriptions Medication [...] anemia, no fatigue, + recent profound weight irggs ges. EYES: No eye problems, no use [...] has no apparent deficits with short or long-term memory. CRANIAL NERVES: II: Acuity is intact. [...] Intrinsics 5 5 Ulnar Intrinsics 5 5 Instrument Maker Strength 5 5 Hip Flexion 5 5 [...] 10:13 Deann Mari assisted me in the pharmaceutical assistant of this note in my presence today. documented in this encou nter Plan of Treatment +--------+---------+ + + + | Date | Type | Specialty | Care Team | Description | +--------+---------+ + + + | 08/09/ | Office | Neurology | Renu Bright, | | | 2019 | Visit | | [address] | | | | | | [address] [facility] [address] | | | | | | [place] [address] | | | | | | [phone] | | | | | | | [...]
--- OUTSIDE RECORDS SUMMARY | ~2020-05-20 | XMS | Encounter Summary ---
Demographics + + + | Address | [address] | | | [place] [address] | + + + | Home Phone [...] | Author | [facility] | | | and Frandyana | + + + | Organization | [facility] | | | [...] Team Providers + +------+ + | Care Solution Maker Name | Role | Phone | + +------+ + | Kathrin Summers | PCP | | + +------+ + Encounter Details +--------+ + + + + | Date | Type | Department | Care Team | Description | +--------+ + + + + | 12/13/ | Hospital | [facility] | Shruthi Chavez | | | 2017 | Encounter | MED CTR THERAPY OT | C, OT | | | | | ACUTE [address] | | | | | | [place] | | | | | | [address] | | | | | | [phone] | | | +--------+ + + + [...] D | | | | | | [place] [address] | | | | | | [phone] | | | | | | | | +--------+---------+ + + + documented as of this encounter Visit Diagnoses Not on filedocumented in this encounter"
--- OUTSIDE RECORDS SUMMARY | ~2020-05-20 | XMS | Encounter Summary ---
Demographics + + + | Address | [address] | | | [place] [address] | + + + | Home Phone | | + + + | Preferred Language | Unknown | + + + | Marital Status | | + + + | Christian Affiliation | Unknown | + + + | Race | Unknown | + + + | Ethnic Group | Unknown | + + + Author + + + | Author | [facility] | | | and Frandyana | + + + | Organization | [facility] | | | and Frandyana [...] Team Providers + +------+ + | Care Security Alarm Technician Name | Role | Phone | + +------+ + | Kathrin Summers | PCP | | + +------+ + Encounter Details +--------+ + + + + | Date | Type | Department | Care Team | Description | +--------+ + + + + | 10/30/ | Hospital | [facility] | Jeffrey Carvajal MD | Spondylosis without | | 2017 | Encounter | MED CTR XRAY [address] | [address] | myelopathy or | | | | [place] | [place] [address] | radiculopathy, | | | | [place] [address] | [phone] | cervical region | | | | [phone] | | | +--------+ + + + [...] D | | | | | | [place] [address] | | | | | | [phone] | | | | | | | [...] + | [address] | [address] | [place], [place] | [phone] | | [facility] | | [address] | | | - IMAGING | | | | + + + + + documented in this encounter Visit Diagnoses + + | Diagnosis | + + | Spondylosis without myelopathy or radiculopathy, cervical region | + + documented in this encounter"
--- OUTSIDE RECORDS SUMMARY | ~2020-05-20 | XMS | Encounter Summary ---
Demographics + + + | Address | [address] | | | [place] [address] | + + + | Home Phone | | + + + | Preferred Language | Unknown | + + + | Marital Status | | + + + | Hinduism Affiliation | Unknown | + + + | Race | Unknown | + + + | Ethnic Group | Unknown | + + + Author + + + | Author | [facility] | | | and Frandyana | + + + | Organization | [facility] [...] Team Providers + +------+ + | Care Ambulance Driver Name | Role | Phone | [...] | | | | | | | [place] | | | | | | | ARTHRODESIS | | | | | | | ANT | | | | | | | INTERBODY | | | | | | | INC | | | | | | | DISCECTOMY, | | | | | | | CERVICAL | | | | | | | BELOW C2 [place] | | | | | | | [...] | | | | | | | [place] | | | | | | | [...] | | | | | | | [place] ALLOGRAFT | | | | | | [...] | 12/12/ | Hospital | [facility] | Jeffrey Carvajal MD | | | 2016 | Encounter | MED CTR XRAY [address] | [address] | | | | | [place] | [place] [address] | | | | | [place] [address] | [phone] | | | | | [phone] | | | +--------+ + + + [...] | 08/09/ | Office | Neurology | Urdahl, Tauni, | | | 2019 | Visit | | [address] | | | | | | [address] | | | | | | [place] [address] | | | | | | [phone] | | | | | | | [...]
--- OUTSIDE RECORDS SUMMARY | ~2020-05-20 | XMS | Encounter Summary ---
Demographics + + + | Address | [address] | | | [place] [address] | + + + | Home Phone [...] + | Author | [facility] | | | and Frandyana | + + + | Organization | [facility] | | | and [...] Team Providers + +------+ + | Care Machine Hostler Name | Role | Phone | + +------+ + | Kathrin Summers | PCP | | + +------+ + Encounter Details +--------+ + + + + | Date | Type | Department | Care Team | Description | +--------+ + + + + | 11/19/ | Hospital | [facility] | Jeffrey Carvajal MD | Cervical spondylosis | | 2017 | Encounter | MED CTR XRAY [address] | [address] | with radiculopathy; | | | | [place] | [place] [address] | Foraminal stenosis | | | | [place] [address] | [phone] | of cervical region; | | | | [phone] | | Cervical spinal | | | | | Avi Sung MD | stenosis; | | | | | [address] | Degenerative disc | | | | | [place], [place] | disease, cervical | | | | | [address] | | | | | | | [...] | | | | | [place] [address] | | | | | | [phone] | | | | | | | [...] [address] | [place] | [phone] | | [facility] | | [address] | | | - IMAGING | | [...]
--- OUTSIDE RECORDS SUMMARY | ~2020-05-20 | XMS | Encounter Summary ---
Demographics + + + | Address | [address] | | | [place] [address] | + + + | Home Phone [...] [facility] | | | and Frandyana | + + + | Organization | [facility] | | | and [...] Team Providers + +------+ + | Care Environmental Program Manager Name | Role | Phone | [...] | | | | | | | [place] | | | | | | | ARTHRODESIS | | | | | | | ANT | | | | | | | INTERBODY | | | | | | | INC | | | | | | | DISCECTOMY, | | | | | | | CERVICAL | | | | | | | BELOW C2 [place] | | | | | | | [...] | | | | | | | ME | | | | | | | [...] | | | | | | | [place] ALLOGRAFT | | | | | | [...] | | | | | [address] | [place] | | | | | [place] | [address] | | | | | [address] | | | | | | [phone] | Herman Rendon, | | | | | | MD [address] | | | | | | [place] | | | | | | [address] | | | | | | | | +--------+ + + + + Anesthesia Record + + + + + | Procedure Name | Responsible | Anesthesia Start | Anesthesia Stop Time | | | Anesthesiologist | Time | | + + + + + | C3-4, C4-5, C5-6 | Dick Madden DO | 12/12/16 1538 | 12/12/16 1808 [...] +----+---+ + + | | 1 | Imogene | | | | 5 | 43-degrees [...] 1029 by | | eral | Forearm; lezb-xou-qqwrub catheter | Paola Guerrier RN | Stephen [...] Layne Hasmukh Bentley 31 y.o. male 1985 [id number] Procedure(s) C3-4, C4-5, C5-6 Anterior Cervical Discectomy [...] signed by Dick Madden DO 12/12/2016 18:37 [facility] nesthesia Procedur e Notes - Dick [...] EVALUATION Layne Bentley 31 y.o. male 1985 [id number] Procedure(s): C3-4, C4-5, C5-6 Anterior Cervical Discectomy [...] D | | | | | | [place] [address] | | | | | | [phone] | | | | | | | [...]
--- OUTSIDE RECORDS SUMMARY | ~2020-05-20 | XMS | Encounter Summary ---
Demographics + + + | Address | [address] | | | [place] [address] | + + + | Home Phone | | + + + | Preferred Language | Unknown | + + + | Marital Status | | + + + | Yazidi Affiliation | Unknown | + + + | Race | Unknown | + + + | Ethnic Group | Unknown | + + + Author + + + | Author | [facility] | | | and Frandyana | + + + | Organization | [facility] | | [...] Team Providers + +------+ + | Care Mechanics Handyman Name | Role | Phone | + [...] + + | 01/24/ | Telephone | [facility] | Renu Bright, | Appointment Question | | 2020 | | NEUROLOGY [address] | [address] | | | | | [address] | [facility] [address] | | | | | [place], [place] | [place] [address] | | | | | [address] | [phone] | | | | | [phone] | | | +--------+ + + + [...] D | | | | | | [place] [address] | | | | | | [phone] | | | | | | | | +--------+---------+ + + + documented as of this encounter Visit Diagnoses Not on filedocumented in this encounter
--- OUTSIDE RECORDS SUMMARY | ~2020-05-20 | XMS | Encounter Summary ---
Demographics + + + | Address | [address] | | | [place] [address] | + + + | Home Phone | | + + + | Preferred Language | Unknown | + + + | Marital Status | | + + + | Worship Affiliation | Unknown | + + + | Race | Unknown | + + + | Ethnic Group | Unknown | + + + Author + + + | Author | [facility] | | | and Frandyana | + + + | Organization | [facility] | | [...] Team Providers + +------+ + | Care Configuration Specialist Name | Role | Phone | [...] | occipital | [address] | | | | n | neuralgia | [address] | [place], | | | | | Procedures | [place], | [place] [address] | | | | | DOS 04/05/15 | [place] [address] | Phone: | | | | | | Phone: | [phone] | | | | | | [phone] | Fax: | | | | | | Fax: | [phone] | | | | | | [phone] | | +--------+ + + + + + Encounter Details +--------+ + + + + | Date | Type | Department | Care Team | Description | +--------+ + + + + | 04/05/ | Procedure | [facility] | Declan Rodriguez, | Bilateral occipital | | 2015 | visit | PHYSIATRY [address] | MD [address] | neuralgia (Primary | | | | [address] | [place] | Dx) | | | | [place] | [address] | | | | | [address] | | | | | | [phone] | | | +--------+ + + + [...] D | | | | | | [place] [address] | | | | | | [phone] | | | | | | | [...] | | (Comment | | Intramuscular, ONCE, [facility] 04/05/15 | | PM PDT | [...]
--- OUTSIDE RECORDS SUMMARY | ~2020-05-20 | XMS | Encounter Summary ---
Demographics + + + | Address | [address] | | | [place] [address] | + + + | Home Phone [...] Author | [facility] | | | and Frandyana | + + + | Organization | [facility] | | | and [...] Team Providers + +------+ + | Care Career Technical Education Teacher Name | Role | Phone | [...] | | [address] | [place] [address] | | | | | [place] | [phone] | | | | | [address] | | | | | | [phone] | | | +--------+--------+ + + + [...] Rx being sent US Certified Mail # [phone] elephone Encounter - Leonidas De La [...] Referral authorized and patient is complet ing BEHAVIORAL TECHNICIAN paperwork to schedule appointment to establish with pain clinic in [place], [place]; Marion oneil acknowledged this is final [...] [address] | | | | | | [place] [address] | | | | | | [phone] | | | | | | | | +--------+---------+ + + + documented as of this encounter Visit Diagnoses + + | Diagnosis | + + | S/P cervical spinal fusion - Primary Arthrodesis status | + + documented in this encounter"
--- OUTSIDE RECORDS SUMMARY | ~2020-05-20 | XMS | Encounter Summary ---
Demographics + + + | Address | [address] | | | [place] [address] | + + + | Home Phone | | + + + | Preferred Language | Unknown | + + + | Marital Status | | + + + | Druze Affiliation | Unknown | + + + | Race | Unknown | + + + | Ethnic Group | Unknown | + + + Author + + + | Author | [facility] | | | and Frandyana | + + + | Organization | [facility] | | | and [...] Team Providers + +------+ + | Care Restaurant Culinary Manager Name | Role | Phone | + +------+ + | Kathrin Summers | PCP | | + +------+ + Encounter Details +--------+ + + + + | Date | Type | Department | Care Team | Description | +--------+ + + + + | 08/07/ | Hospital | [facility] | Conversion | | | 2016 | Encounter | [facility] | Transaction, | | | | | CLINIC [address] | Provider Unknown | | | | | [place], [place] | | | | | | [address] | (Fax) | | | | | [phone] | | | +--------+ + + + [...] 08/07/161248 Date of Service: 08/07/161248 Status: Signed Clothing Examiner: Danna Edmonds RN (Registered Nurse) Patient meets [...] | | | | | [place] [address] | | | | | | [phone] | | | | | | | | +--------+---------+ + + + documented as of this encounter Visit Diagnoses Not on filedocumented in this encounter
--- OUTSIDE RECORDS SUMMARY | ~2020-05-20 | XMS | Encounter Summary ---
Demographics + + + | Address | [address] | | | [place] [address] | + + + | Home Phone [...] + | Author | [facility] | | | and Frandyana | + + + | Organization | [facility] | | | and Frandyana [...] Team Providers + +------+ + | Care Flexo Operator Name | Role | Phone | [...] sis 3 mo fu | [place], | [place], [place] | | | | | echo and | [place] | [address] Phone: | | | | | nuc stress | [phone] | [phone] | | | | | Procedures | Phone: | Fax: | | | | | OFFICE VISIT | [phone] | [phone] | | | | | REGULAR | Fax: | | | | | | | [phone] | | +--------+--------+ + + + + Encounter Details +--------+---------+ + + + | Date | Type | Department | Care Team | Description | +--------+---------+ + + + | 09/01/ | Office | [facility] | Romy Meek DO | Non-cardiac chest | | 2019 | Visit | CARDIOLOGY [place] | [address] | pain; Hypertension, | | | | [address] | [place], [place] | unspecified type; | | | | [address] [place] [address] | [address] | Hyperlipidemia, | | | | [place], [place] | | unspecified | | | | [address] | | hyperlipidemia type | | | | [phone] | | | +--------+---------+ + + + [...] Meek DO - 09/01/2019 2:00 PM PST [facility] Cardiology Cardiology Follow Up Note Reason for [...] any regular exercise. 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 He is unsure if he has ever [...] - LASER; Surgeon: Mike Ritter DO; Location: [facility]; Service: Urology; Laterality: [...] D | | | | | | [place] [address] | | | | | | [phone] | | | | | | | | +--------+---------+ + + + documented as of this encounter Visit Diagnoses + + | Diagnosis | + + | Non-cardiac chest pain Other chest pain | + + | Hypertension, unspecified type | + + | Hyperlipidemia, unspecified hyperlipidemia type | + + documented in this encounter
[~2020-05-20 19:53] MED LIST changes: +NORTRIPTYLINE H25 MG PO; +PROMETHAZINE HC25 M1 PO; +SUMATRIPTAN SU100 MG PO
--- OUTSIDE RECORDS SUMMARY | 2020-05-20 19:56 | XMS ---
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 Care History Medical/Surgical 04/24/2020 [facility] Patient awaiting referral from Dr. Hung. Had scheduled follow up with DR. Muller 04/24/2020. 05/10/2019 [facility] - PATIENT PCP- DR HUNG - PATIENT HAS A UROLOGIST DR MULLER - Patient is currently established with [facility]. If patient is seen in the ED during business hours. Please contact [facility] at [facility]. Care Recommendation: This patient has had 5 or more Emergency Department visits in the last 12 months.\T\nbsp; Patient requires education on the scope and purpose of the ED as an acute care provider not a Primary Care Provider and should not be utilized for chronic conditions.\T\nbsp; These are guidelines and the provider should exercise clinical judgment when providing care. 03/17/2019 [facility] CASE MANAGEMENT REFERRAL MADE- PATIENT HAS [facility] AND NO PCP. E.D. VISIT COUNT (12 MO.) 2 [facility] TOTAL 2 NOTE: Visits indicate total known visits. 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
[2020-05-21] MEDS ORDERED: PERCOCET 5-3251 EACH PO (00:36)
[2020-05-21] MEDS ORDERED: FLOMAX0.4 MG PO (00:36)
== END 2020-05-21 00:51 | disposition home or self-care (01) ==
LOC: ED 19:53
DX: N13.2 Hydronephrosis with renal and ureteral calculous obstruction (principal); F17.200 Nicotine dependence, unspecified, uncomplicated; Z88.8 Allergy status to other drugs, medicaments and biological substances; Z88.5 Allergy status to narcotic agent; Z79.899 Other long term (current) drug therapy; Z79.82 Long term (current) use of aspirin
CPT/HCPCS: 74176; 81001; 96361; 96374; 96375; 99284-25; J1170; J1885; J2405; J7030

== ENCOUNTER 2020-09-14 23:15 | Emergency (ER) | payer OTHER ==
[~2020-09-14] VITALS: Ht 170.2 cm; Wt 106.6 kg
--- OUTSIDE RECORDS SUMMARY | 2020-09-14 23:18 | XMS ---
PreManage Notification: DENTON RICHMOND Security Proposal Analyst Events No recent Security Events currently on file CRITERIA MET - Group Notification - [facility] - Has Care Guidelines - PDMP CARE PROVIDERS JENNIFER BOYD Internal Medicine: Pulmonary Disease 07/12/2018-Current PHONE: Unknown Davide has no Care Guidelines for this patient. Care History Medical/Surgical 04/24/2020 [facility] Patient awaiting referral from Dr. Hung. Had scheduled follow up with DR. Muller 04/24/2020. 05/10/2019 [facility] - PATIENT PCP- DR HUNG - PATIENT HAS A UROLOGIST DR MULLER - Patient is currently established with [facility]. If patient is seen in the ED during business hours. Please contact CHWs at [facility]. Care Recommendation: This patient has had [...] NO PCP. E.D. VISIT COUNT (12 MO.) 3 [facility] TOTAL 3 NOTE: Visits indicate total known visits. ED/UCC VISIT TRACKING (12 MO.) 09/14/2020 23:16 [facility] [place] TYPE: Emergency COMPLAINT: - LEFT SIDE PAIN 05/20/2020 19:53 [facility] [place] TYPE: Emergency COMPLAINT: - KINDEY PAIN DIAGNOSES: - manager terminal (current) use of aspirin - Allergy status to other drugs, medicaments and biological substances - Nicotine dependence, unspecified, uncomplicated - Other residential (current) drug therapy - Hydronephrosis with renal and ureteral calculous obstruction - Allergy status to narcotic agent - Right lower quadrant pain 04/20/2020 08:03 [facility] [place] TYPE: Emergency COMPLAINT: - CHEST PAIN DIAGNOSES: - Allergy status to narcotic agent - [facility] (current) use of aspirin - Nicotine dependence, unspecified, uncomplicated - Other chest pain - Allergy status to other drugs, medicaments and biological substances - Chest pain, unspecified - Other residential (current) drug therapy INPATIENT VISIT TRACKING (12 MO.) No inpatient visits to display in this time frame [id number]
[2020-09-14] MEDS ORDERED: ATENOLOL25 MG PO (23:30)
[2020-09-14] MEDS ORDERED: ZOFRAN4 MG PO (23:46)
[2020-09-14] MEDS ORDERED: ULTRAM50 MG PO (23:46)
== END 2020-09-15 00:08 | disposition home or self-care (01) ==
LOC: ED 23:15
DX: N23 Unspecified renal colic (principal); F17.200 Nicotine dependence, unspecified, uncomplicated; Z88.8 Allergy status to other drugs, medicaments and biological substances; Z88.5 Allergy status to narcotic agent; Z91.041 Radiographic dye allergy status; Z79.899 Other long term (current) drug therapy; Z79.82 Long term (current) use of aspirin
CPT/HCPCS: 81001; 99284

== ENCOUNTER 2021-11-04 18:40 | Emergency (ER) | payer OTHER ==
[~2021-11-04] VITALS: Ht 170.2 cm; Wt 108.4 kg
[~2021-11-04 18:40] MED LIST changes: +ATENOLOL25 MG PO; +ULTRAM50 MG PO
--- OUTSIDE RECORDS SUMMARY | 2021-11-04 18:44 | XMS ---
PreManage Notification: DENTON RICHMOND Security Manager Aviation Events No recent Security Events currently on file CRITERIA MET - PDMP - Group Notification CARE PROVIDERS SHARAN HUNG [facility] 09/17/2020-Current PHONE: [phone] JENNIFER BOYD Internal Medicine: Pulmonary Disease 07/12/2018-Current PHONE: Unknown Davide has no Care Guidelines for this patient. Care History Medical/Surgical 04/24/2020 [facility] Patient awaiting referral from Dr. Hung. Had scheduled follow up with DR. Muller 04/24/2020. 05/10/2019 [facility] - PATIENT PCP- DR HUNG - PATIENT HAS A UROLOGIST DR MULLER - Patient is currently established with [facility]. If patient is seen in the ED during business hours. Please contact CHWs at [facility]. Care Recommendation: This patient has had 5 or more Emergency Department visits in the last 12 months.\T\nbsp; Patient requires education on the scope and purpose of the ED as an acute care provider not a Primary Care Provider and should not be utilized for chronic conditions.\T\nbsp; These are guidelines and the provider should exercise clinical judgment when providing care. 03/17/2019 [facility] EOIPA CASE MANAGEMENT REFERRAL MADE- PATIENT HAS [facility] AND NO PCP. [facility]. [facility] NOTE: Visits indicate total known visits. ED/UCC VISIT TRACKING (12 MO.) 11[facility]04[facility]21 [facility] [place] [facility] COMPLAINT: - ABDOMINAL PAIN INPATIENT VISIT TRACKING (12 MO.) No inpatient visits to display in this time frame [id number]
[2021-11-04] MEDS ORDERED: HYDROXYZINE HCL50 MG PO (18:52)
[2021-11-04] MEDS ORDERED: CARVEDILOL25 MG PO (18:52)
[2021-11-04] MEDS ORDERED: BUPROPION XL300 MG PO (18:52)
[2021-11-04] MEDS ORDERED: HYDROCODON-ACE1 EA10 PO (23:41)
[2021-11-04] MEDS ORDERED: FLOMAX0.4 MG PO (23:41)
[2021-11-04] MEDS ORDERED: ONDANSETRON ODT4 MG PO (23:41)
[2021-11-04] MEDS ORDERED: CEFDINIR300 MG PO (23:41)
== END 2021-11-05 00:41 | disposition home or self-care (01) ==
LOC: ED 18:40
DX: N13.6 Pyonephrosis (principal); I10 Essential (primary) hypertension; E78.5 Hyperlipidemia, unspecified; K58.9 Irritable bowel syndrome, unspecified; F17.200 Nicotine dependence, unspecified, uncomplicated; Z88.5 Allergy status to narcotic agent; Z88.8 Allergy status to other drugs, medicaments and biological substances; Z79.899 Other long term (current) drug therapy; Z79.82 Long term (current) use of aspirin; Z91.041 Radiographic dye allergy status
CPT/HCPCS: 74176; 80048; 81001; 85025; 96365; 96375; 96376; 99284-25; J0696; J1885; J2270; J2405; J7030

== ENCOUNTER 2022-04-26 12:20 | Emergency (ER) | payer OTHER ==
[~2022-04-26] VITALS: Ht 170.2 cm; Wt 108.4 kg
--- NOTE | ~2022-04-26 | EKG ---
[facility] [address] [place], [place] [address] Draft EK completed, results pending confirmation PATIENT NAME: YIDENTON Electrocardiogram DATE OF : 81 PHYSICIAN: PRELIMINARY REPORT #: [id number] REPORT IS CONFIDENTIAL AND NOT TO BE RELEASED WITHOUT AUTHORIZATION
[~2022-04-26 12:20] MED LIST changes: +BUPROPION XL300 MG PO; +CARVEDILOL25 MG PO; +CEFDINIR300 MG PO; +HYDROXYZINE HCL50 MG PO; +ONDANSETRON ODT4 MG PO
--- OUTSIDE RECORDS SUMMARY | 2022-04-26 12:22 | XMS ---
PreManage Notification: DENTON RICHMOND Security Zoogler Events No recent Security Events currently on file CRITERIA MET - PDMP - Group Notification - [facility] - Has Care Guidelines CARE PROVIDERS SHARAN HUNG [facility] 09/17/2020-Current PHONE: Unknown JENNIFER BOYD Internal Medicine: Pulmonary Disease 07/12/2018-Current PHONE: Unknown Davide has no Care Guidelines for this patient. Care History Medical/Surgical 11/05/2021 [facility] - Patient is currently established with [facility]. If patient is seen in the ED during business hours. Please contact CHWs at [facility]. Care Recommendation: If this patient has had 5 or more Emergency Department visits in the last 12 months.\T\nbsp; Patient will require education on the scope and purpose of the ED as an acute care provider not a Primary Care Provider and should not be utilized for chronic conditions.\T\nbsp; These are guidelines and the provider should exercise clinical judgment when providing care. 11/05/2021 [facility] Follow up on 11/05/2021 with urology, Dr. Ibrahim and 11/06/2021 with PCP, Dr. Hung 04/24/2020 [facility] Patient awaiting referral from Dr. Hung. Had scheduled follow up with DR. Ibrahim 04/24/2020. Stefanie VISIT COUNT (12 MO.) [facility] NOTE: Visits indicate total known visits. ED/UCC VISIT TRACKING (12 MO.) [facility] COMPLAINT: - DIZZINESS 11/04/2021 18:[address] [facility] [place] TYPE: Emergency COMPLAINT: - ABDOMINAL PAIN DIAGNOSES: - Nicotine dependence, unspecified, uncomplicated - nursing home (current) use of aspirin - Other ch[facility] (current) drug therapy - Hyperlipidemia, unspecified - Pyonephrosis - Allergy status to other drugs, medicaments and biological substances - Radiographic dye allergy status - Left lower quadrant pain - Allergy status to narcotic agent - Irritable bowel syndrome without diarrhea - Essential (primary) hypertension INPATIENT VISIT TRACKING (12 MO.) No inpatient visits to display in this time frame [id number]
== END 2022-04-26 15:09 | disposition home or self-care (01) ==
LOC: ED 12:20
DX: U07.1 COVID-19 (principal); Z23 Encounter for immunization; I10 Essential (primary) hypertension; E78.5 Hyperlipidemia, unspecified; F17.200 Nicotine dependence, unspecified, uncomplicated; Z88.8 Allergy status to other drugs, medicaments and biological substances; Z88.5 Allergy status to narcotic agent; Z91.041 Radiographic dye allergy status; Z79.899 Other long term (current) drug therapy; Z79.82 Long term (current) use of aspirin
CPT/HCPCS: 36415; 71045; 80053; 81001; 83605; 85025; 87502; 93005; 93010; 96374; 99285-25; A9270; C9803; J7030; U0003

== ENCOUNTER 2023-01-30 13:23 | Emergency (ER) | payer OTHER ==
[~2023-01-30] VITALS: Ht 170.2 cm; Wt 111.1 kg
--- OUTSIDE RECORDS SUMMARY | 2023-01-30 13:26 | XMS ---
PreManage Notification: DENTON RICHMOND Security Anesthesiologists' Assistant Events No recent Security Events currently on file CRITERIA MET - Group Notification - PDMP - [facility] - Has Care Guidelines CARE PROVIDERS -David- Dentist: [facility] PHONE: [phone] SHARAN HUNG [facility] 09/17/2020-Current PHONE: Unknown JENNIFER BOYD Internal Medicine: Pulmonary Disease 07/12/2018-Current PHONE: Unknown Davide has no Care Guidelines for this patient. Care History Medical/Surgical 11/05/2021 [facility] - Patient is currently established with [facility]. If patient is seen in the ED during business hours. Please contact CHWs at [facility]. Care Recommendation: If this patient has had 5 or more Emergency Department visits in the last 12 months.\T\nbsp; Patient will require education on the scope and purpose of the ED as an acute care provider not a Primary Care Provider and should not be utilized for chronic conditions.\T\nbsp; These are guidelines and the provider should exercise clinical judgment when providing care. 11/05/2021 [facility] Follow up on 11/05/2021 with urology, Dr. Ibrahim and 11/06/2021 with PCP, Dr. Hung 04/24/2020 [facility] Patient awaiting referral from Dr. Hung. Had scheduled follow up with DR. Ibrahim 04/24/2020. EAimee. VISIT COUNT (12 MO.) 2 [facility]. TOTAL 2 NOTE: Visits indicate total known visits. ED/UCC VISIT TRACKING (12 MO.) 01/30/2023 13:23 [facility] [place] TYPE: Emergency COMPLAINT: - HEADACHE, NAUSEA 04/26/2022 12:20 [facility] [place] TYPE: Emergency COMPLAINT: - DIZZINESS DIAGNOSES: - Allergy status to other drugs, medicaments and biological substances - Allergy status to narcotic agent - Hyperlipidemia, unspecified - Weakness - Essential (primary) hypertension - Encounter for immunization - COVID-19 - Radiographic dye allergy status - tank terminal gauger (current) use of aspirin - Other supervisor intermediates (current) drug therapy - Nicotine dependence, unspecified, uncomplicated INPATIENT VISIT TRACKING (12 MO.) No inpatient visits to display in this time frame [id number]
== END 2023-01-30 17:48 | disposition home or self-care (01) ==
LOC: ED 13:23
DX: G43.909 Migraine, unspecified, not intractable, without status migrainosus (principal); I10 Essential (primary) hypertension; E78.5 Hyperlipidemia, unspecified; F17.200 Nicotine dependence, unspecified, uncomplicated; Z88.5 Allergy status to narcotic agent; Z88.8 Allergy status to other drugs, medicaments and biological substances; Z91.041 Radiographic dye allergy status; Z79.899 Other long term (current) drug therapy; Z79.82 Long term (current) use of aspirin
CPT/HCPCS: 96372; 99283; A9270; J1885

== ENCOUNTER 2023-03-15 10:02 | Emergency (ER) | payer OTHER ==
[~2023-03-15] VITALS: Ht 170.2 cm; Wt 111.1 kg
--- OUTSIDE RECORDS SUMMARY | 2023-03-15 10:04 | XMS ---
PreManage Notification: DENTON RICHMOND Security Tight Barrel Inspector Events No recent Security Events currently on file CRITERIA MET - Group Notification - PDMP - [facility] - Has Care Guidelines CARE PROVIDERS -David- Dentist: [facility] PHONE: [phone] SHARAN HUNG [facility] 09/17/2020-Current PHONE: Unknown JENNIFER BOYD Internal Medicine: Pulmonary Disease 07/12/2018-Current PHONE: Unknown Davide has no Care Guidelines for this patient. Care History Medical/Surgical 11/05/2021 [facility] - Patient is currently established with [facility]. If patient is seen in the ED during business hours. Please contact CHWs at [facility]. Care Recommendation: If this patient has had 5 or more Emergency Department visits in the last 12 months.\T\nbsp; Patient will require education on the scope and purpose of the ED as an acute care provider not a Primary Care Provider and should not be utilized for chronic conditions.\T\nbsp; These are guidelines and the provider should exercise clinical judgment when providing care. 11/05/2021 [facility] Follow up on 11/05/2021 with urology, Dr. Ibrahim and 11/06/2021 with PCP, Dr. Hung 04/24/2020 [facility] Patient awaiting referral from Dr. Hung. Had scheduled follow up with DR. Ibrahim 04/24/2020. EAimee. VISIT COUNT (12 MO.) 3 [facility]. TOTAL 3 NOTE: Visits indicate total known visits. ED/UCC VISIT TRACKING (12 MO.) 03/15/2023 10:[address] [facility] [place] [facility]: Emergency COMPLAINT: - R FOOT INJURY 01/30/2023 13:23 [facility] [place] TYPE: Emergency COMPLAINT: - HEADACHE, NAUSEA DIAGNOSES: - Allergy status to narcotic agent - Allergy status to other drugs, medicaments and biological substances - Essential (primary) hypertension - Headache, unspecified - Hyperlipidemia, unspecified - [facility] (current) use of aspirin - Migraine, unspecified, not intractable, without status migrainosus - Nicotine dependence, unspecified, uncomplicated - Other terminal makeup operator (current) drug therapy - Radiographic dye allergy status 04/26/2022 12:20 [facility] [place] [facility] [place] TYPE: Emergency COMPLAINT: - DIZZINESS DIAGNOSES: - Allergy status to narcotic agent - Allergy status to other drugs, medicaments and biological substances - COVID-19 - Encounter for immunization - Essential (primary) hypertension - Hyperlipidemia, unspecified - [facility] (current) use of aspirin - Nicotine dependence, unspecified, uncomplicated - Other custodial (current) drug therapy - Radiographic dye allergy status - Weakness INPATIENT VISIT TRACKING (12 MO.) No inpatient visits to display in this time frame [id number]
[2023-03-15 11:04] VITALS: BP 153/103
== END 2023-03-15 11:05 | disposition home or self-care (01) ==
LOC: ED 10:02
DX: S90.31XA Contusion of right foot, initial encounter (principal); I10 Essential (primary) hypertension; F17.200 Nicotine dependence, unspecified, uncomplicated; W22.8XXA Striking against or struck by other objects, initial encounter; Z91.041 Radiographic dye allergy status; Z88.8 Allergy status to other drugs, medicaments and biological substances; Z88.5 Allergy status to narcotic agent; Z79.899 Other long term (current) drug therapy; Z79.82 Long term (current) use of aspirin
CPT/HCPCS: 73630; 99283-25

== ENCOUNTER 2023-10-27 10:36 | Emergency (ER) | payer OTHER ==
[~2023-10-27] VITALS: Ht 170.2 cm; Wt 107.0 kg
[2023-10-27 11:07] LABS: EOSINOPHILS 1.5 % (0-6); HEMATOCRIT 46.5 % (35.0-50.0); HEMOGLOBIN 15.7 g/dL (12.0-18.0); LYMPHOCYTES 27.1 % (24-44); MCH 31.7 (27-36); MCHC 33.9 g/dl (30-36); MCV 93.6 fl (81-99); MONOCYTES 6.2 % (0-12); NEUTROPHILS 64.2 % (39-80); PLATELET COUNT 232 K/uL (140-440); RBC 4.97 M/ul (4.3-5.7); RDW 13.9 (10.5-15.0)
[2023-10-27 11:16] LABS: ALBUMIN/GLOBULIN RATIO 1.05 (1.1-2.4); ANION GAP 10.8 (7-21); BILIRUBIN, TOTAL 0.3 ng/dL (0.2-1.0); BUN/CREATININE RATIO 8.84 (6.0-28.6); CALCIUM 8.9 mg/dL (8.5-10.1); CREATININE, SERUM 1.13 mg/dL (0.70-1.30); POTASSIUM 3.8 mmol/L (3.5-5.1); PROTEIN, TOTAL 7.8 g/dL (6.4-8.2)
[2023-10-27 12:52] LABS: BILIRUBIN, URINE NEGATIVE (negative); BLOOD/HGB, URINE TRACE-I (Negative); KETONE, URINE NEGATIVE (Negative); LEUK ESTERASE, URINE NEGATIVE (negative); NITRITE, URINE POSITIVE (negative)
[2023-10-27 13:11] LABS: BACTERIA, URINE NONE SEEN /hpf (negative); CASTS, URINE NONE SEEN \\lpf; COLLECTION TYPE, URINE CLEAN CATCH; CRYSTALS, URINE NONE SEEN (0-1+); EPITHELIAL CELLS, URINE 0 /lpf (0-1+); REFLEX CULTURE, URINE No (No); WHITE BLOOD CELLS, URINE 0-1 /HPF (0-5)
[2023-10-27] MEDS ORDERED: HYDROCODON-ACE1 EA11 PO (15:12)
[2023-10-27] MEDS ORDERED: ONDANSETRON ODT8 MG PO (15:12)
[2023-10-27 15:27] VITALS: BP 148/103
== END 2023-10-27 15:28 | disposition home or self-care (01) ==
LOC: ED 10:36
PROVIDERS: Emergency Medicine
DX: N13.2 Hydronephrosis with renal and ureteral calculous obstruction (principal); I10 Essential (primary) hypertension; E78.5 Hyperlipidemia, unspecified; F17.200 Nicotine dependence, unspecified, uncomplicated; Z91.041 Radiographic dye allergy status; Z88.8 Allergy status to other drugs, medicaments and biological substances; Z88.5 Allergy status to narcotic agent; Z79.82 Long term (current) use of aspirin; Z79.899 Other long term (current) drug therapy
CPT/HCPCS: 36415; 74176; 80053; 81001; 85025; J1170; J1885; J2405; J7030

== ENCOUNTER 2024-10-29 01:13 | Emergency (ER) | payer OTHER ==
[~2024-10-29] VITALS: Ht 170.2 cm; Wt 119.7 kg
[~2024-10-29 01:13] MED LIST changes: +AMITRIPTYLINE H10 MG PO; +AMITRIPTYLINE H50 MG PO; +BUSPIRONE HCL7.5 MG PO; +CIPRO500 MG PO; +DIAZEPAM10 MG; +LISINOPRIL40 MG PO; +METOPROLOL SUC200 MG PO; +NORVASC5 MG PO; +OMEPRAZOLE20 M1 PO; +OXYCODONE HCL5 MG PO; +QELBREE200 MG PO; +TRAZODONE HCL50 MG PO; +VALIUM5 MG PO
[2024-10-29] MEDS ORDERED: KETOROLAC TROMETHAMINE 60 MG/2 ML VIAL IM ONE (01:45)
[2024-10-29 02:19] VITALS: BP 182/120
== END 2024-10-29 02:18 | disposition home or self-care (01) ==
LOC: ED 01:13
DX: R39.89 Other symptoms and signs involving the genitourinary system (principal); F17.200 Nicotine dependence, unspecified, uncomplicated; Z91.041 Radiographic dye allergy status; Z88.8 Allergy status to other drugs, medicaments and biological substances; Z88.5 Allergy status to narcotic agent; Z79.899 Other long term (current) drug therapy; Z79.82 Long term (current) use of aspirin
CPT/HCPCS: 96372; 99283; J1885

== ENCOUNTER 2025-03-14 22:15 | Emergency (ER) | payer OTHER ==
[~2025-03-14] VITALS: Ht 170.2 cm; Wt 120.0 kg
[2025-03-14 22:50] LABS: BASOPHILS 0.5 % (0.2-1.2); EOSINOPHILS 1.2 % (0.8-7.0); HEMATOCRIT 42.9 % (40.1-51.0); HEMOGLOBIN 14.3 g/dL (13.7-17.5); LYMPHOCYTES 29.3 % (21.8-53.1); MCH 29.9 PG (25.7-32.2); MCHC 33.3 g/dL (32.3-36.5); MCV 89.7 fL (79.0-92.2); MONOCYTES 5.3 % (5.3-12.2); NEUTROPHILS 63.3 % (34.0-67.9); PLATELET COUNT 251 K/uL (163-337); RBC 4.78 M/uL (4.63-6.08)
[2025-03-14 23:02] LABS: ALBUMIN 3.8 g/dL (3.4-5.0); ANION GAP 10.2 (7-21); BILIRUBIN, TOTAL 0.3 mg/dL (0.2-1.0); BUN/CREATININE RATIO 10.83 (6.0-28.6); CREATININE, SERUM 1.2 mg/dL (0.70-1.30); POTASSIUM 3.2 mmol/L (3.5-5.1); PROTEIN, TOTAL 7.6 g/dL (6.4-8.2)
[2025-03-14] MEDS ORDERED: METOPROLOL TARTRATE 5 MG/5 ML VIAL IV ONE (23:30)
[2025-03-14] MEDS ORDERED: HYDROCHLOROTH12.5 MG PO (23:35)
[2025-03-14] MEDS ORDERED: ZEPBOUND2.5 MG/0.5 (23:35)
[2025-03-14] MEDS ORDERED: PREGABALIN150 MG PO (23:35)
[2025-03-14 23:43] LABS: BILIRUBIN, URINE NEGATIVE (negative); BLOOD/HGB, URINE NEGATIVE (Negative); KETONE, URINE NEGATIVE (Negative); LEUK ESTERASE, URINE NEGATIVE (negative); NITRITE, URINE NEGATIVE (negative); PH, URINE 5.5 (5-7)
[2025-03-14 23:48] LABS: BACTERIA, URINE RARE /hpf (negative); CASTS, URINE NONE SEEN \\lpf; COLLECTION TYPE, URINE CLEAN CATCH; CRYSTALS, URINE CALCIUM OXALATE 3+ (0-1+); EPITHELIAL CELLS, URINE SQUAMOUS 1+ /lpf (0-1+); RED BLOOD CELLS, URINE 0-1 /hpf (0-5); REFLEX CULTURE, URINE No (No); WHITE BLOOD CELLS, URINE 0-1 /HPF (0-5)
[2025-03-14 23:57] LABS: AMPHETAMINES, URINE NEGATIVE (NEGATIVE); BARBITURATES, URINE NEGATIVE (NEGATIVE); BENZODIAZEPINE, URINE NEGATIVE (NEGATIVE); BUPRENORPHINE, URINE NEGATIVE (NEGATIVE); CANNABINOID, URINE NEGATIVE (NEGATIVE); COCAINE, URINE NEGATIVE (NEGATIVE); ECSTASY, URINE NEGATIVE (NEGATIVE); FENTANYL, URINE NEGATIVE (NEGATIVE); METHADONE, URINE NEGATIVE (NEGATIVE); OPIATES, URINE NEGATIVE (NEGATIVE); OXYCODONE, URINE NEGATIVE (NEGATIVE); PHENCYCLIDINE, URINE NEGATIVE (NEGATIVE)
[2025-03-15] MEDS ORDERED: METOPROLOL TART25 MG PO (00:42)
[2025-03-15] MEDS ORDERED: METOPROLOL TARTRATE 50 MG TAB PO ONE (00:45)
[2025-03-15 00:49] VITALS: BP 147/106
--- NOTE | 2025-03-16 07:47 | EKG ---
[facility] [address] [place] [address] Signed Sinus tachycardia Incomplete right bundle branch block Borderline ECG When compared with ECG of 04-NOV-2023 09:33, No significant change was found Confirmed by Dedra Alvares MD ([id number]) on 03/16/2025 7:47:24 AM Electronically Signed By: DEDRA ALVARES MD 03/16/25 0747 PATIENT NAME: DENTON RICHMOND Electrocardiogram DATE OF : 81 PHYSICIAN: DEDRA ALVARES MD REPORT #: [id number] REPORT IS CONFIDENTIAL AND NOT TO BE RELEASED WITHOUT AUTHORIZATION
== END 2025-03-15 00:50 | disposition home or self-care (01) ==
LOC: ED 22:15
PROVIDERS: Internal Medicine
DX: I10 Essential (primary) hypertension (principal); E78.5 Hyperlipidemia, unspecified; F17.200 Nicotine dependence, unspecified, uncomplicated; Z79.82 Long term (current) use of aspirin; Z79.899 Other long term (current) drug therapy; Z91.041 Radiographic dye allergy status; Z88.8 Allergy status to other drugs, medicaments and biological substances; Z88.5 Allergy status to narcotic agent
CPT/HCPCS: 36415; 71045; 80053; 80307; 81001; 84484; 85025; 85379; 93005; 93010; 96374; 99285-25

== ENCOUNTER 2025-09-24 14:20 | Emergency (ER) | payer OTHER ==
[~2025-09-24] VITALS: Ht 170.2 cm; Wt 105.1 kg
--- OUTSIDE RECORDS SUMMARY | ~2025-09-24 | XMS | Continuity of Care Document ---
Demographics + + + | Address | [address] | | | [place] [address] | + + + | Preferred Language | Unknown | + + + | Marital Status | | + + + | Roman Catholic Affiliation | Unknown | + + + | Race | White | + + + | Ethnic Group | Not or | + + + Author + + + | Author | [place] | + + + | Organization | [place] | + + + | Address | [address] | | | [place] [address] | + + + | Phone | | + + + Care Team Providers + + + + | Care Revenue Stamp Clerk Name | Role | Phone | + + + + Unavailable | Unavailable | + + + + Allergies No information. Encounters No information. Functional Status No information. Immunizations No information. Medications + + + + | date | description | facility | + + + + | (no date) | DIAZEPAM | [facility] | | | | [facility] | + + + + | (no date) | OXYCODONE | [facility] | | | HCL/ACETAMINOPHEN | [facility] | + + + + | (no date) | OXYCODONE | [facility] | | | HCL/ACETAMINOPHEN | [facility] | + + + + | (no date) | OXYCODONE | [facility] | | | HCL/ACETAMINOPHEN | [facility] | + + + + | (no date) | GABAPENTIN | [facility] | | | | [facility] | + + + + | (no date) | PHENAZOPYRIDINE HCL | [facility] | | | | [facility] | + + + + | (no date) | ASPIRIN | [facility] | | | | [facility] | + + + + | (no date) | TOPIRAMATE | [facility] | | | | [facility] | + + + + | (no date) | BACLOFEN | [facility] | | | | [facility] | + + + + | (no date) | CIPROFLOXACIN HCL | [facility] | | | | [facility] | + + + + | (no date) | DEXAMETHASONE | [facility] | | | | [facility] | + + + + | (no date) | LISINOPRIL | [facility] | | | | [facility] | + + + + | (no date) | SUMATRIPTAN SUCCINATE | [facility] | | | | [facility] | + + + + | (no date) | LEVOFLOXACIN | [facility] | | | | [facility] | + + + + | (no date) | AMLODIPINE BESYLATE | [facility] | | | | [facility] | + + + + | (no date) | CITALOPRAM HYDROBROMIDE | [facility] | | | | [facility] | + + + + | (no date) | Tirzepatide | [facility] | | | | [facility] | + + + + | (no date) | GABAPENTIN | [facility] | | | | [facility] | + + + + | (no date) | MIRTAZAPINE | [facility] | | | | [facility] | + + + + | (no date) | LISINOPRIL | [facility] | | | | [facility] | + + + + | (no date) | NORTRIPTYLINE HCL | [facility] | | | | [facility] | + + + + | (no date) | LACTULOSE | [facility] | | | | [facility] | + + + + | (no date) | HYDROCHLOROTHIAZIDE | [facility] | | | | [facility] | + + + + | (no date) | Pregabalin | [facility] | | | | [facility] | + + + + | (no date) | CYCLOBENZAPRINE HCL | [facility] | | | | [facility] | + + + + | (no date) | ZOLPIDEM TARTRATE | [facility] | | | | [facility] | + + + + | (no date) | TRAZODONE HCL | [facility] | | | | [facility] | + + + + | (no date) | AMITRIPTYLINE HCL | [facility] | | | | [facility] | + + + + | (no date) | AMITRIPTYLINE HCL | [facility] | | | | [facility] | + + + + | (no date) | HYDROCODONE/APAP 7.5 | [facility] | | | MG-325 MG/15 ML | [facility] | + + + + | (no date) | HYDROCODONE | [facility] | | | BIT/ACETAMINOPHEN | [facility] | + + + + | (no date) | HYDROCODONE | [facility] | | | BIT/ACETAMINOPHEN | [facility] | + + + + | (no date) | HYDROCODONE | [facility] | | | BIT/ACETAMINOPHEN | [facility] | + + + + | (no date) | TAMSULOSIN HCL | [facility] | | | | [facility] | + + + + | (no date) | MORPHINE SULFATE | [facility] | | | | [facility] | + + + + | (no date) | HYDROMORPHONE HCL | [facility] | | | | [facility] | + + + + | (no date) | LOPERAMIDE HCL | [facility] | | | | [facility] | + + + + | (no date) | PROMETHAZINE HCL | [facility] | | | | [facility] | + + + + | (no date) | PROMETHAZINE HCL | [facility] | | | | [facility] | + + + + | (no date) | BUPROPION HCL | [facility] | | | | [facility] | + + + + | (no date) | buPROPion HCL | [facility] | | | | [facility] | + + + + | (no date) | HYDROXYZINE HCL | [facility] | | | | [facility] | + + + + Problems No information. Procedures No information. Results/Labs No information. Social History +--------+ + + | date | description | facility | +--------+ + + Vital Signs No information."
[~2025-09-24 14:20] MED LIST changes: +HYDROCHLOROTH12.5 MG PO; +METOPROLOL TART25 MG PO; +PREGABALIN150 MG PO; +ZEPBOUND2.5 MG/0.5
[2025-09-24] MEDS ORDERED: ZEPBOUND10 MG/0.5 (14:41)
[2025-09-24] MEDS ORDERED: CITALOPRAM HBR40 MG PO (14:42)
[2025-09-24] MEDS ORDERED: CYCLOBENZAPRINE5 MG PO (14:42)
[2025-09-24] MEDS ORDERED: ALLOPURINOL100 MG PO (14:43)
[2025-09-24 14:59] LABS: BASOPHILS 0.2 % (0.2-1.2); EOSINOPHILS 3.4 % (0.8-7.0); LYMPHOCYTES 22.1 % (21.8-53.1); MCH 30.7 PG (25.7-32.2); MCHC 34.0 g/dL (32.3-36.5); MCV 90.4 fL (79.0-92.2); MONOCYTES 4.3 % (5.3-12.2); NEUTROPHILS 69.7 % (34.0-67.9); RBC 5.34 M/uL (4.63-6.08)
[2025-09-24] MEDS ORDERED: DIPHENOXYLATE/ATROPINE 1 EA TAB PO ONE (15:00)
[2025-09-24] MEDS ORDERED: SODIUM CHLORIDE 0.9% 1,000 ML IV ONE ×2 (15:00→16:45)
[2025-09-24 15:15] LABS: ALT (SGPT) 26.0 U/L (14-59); AST (SGOT) 13.0 U/L (15-37); GLOMERULAR FILTRATION RATE,EST 89.0 mL/min (>60); PROTEIN, TOTAL 8.2 g/dL (6.4-8.2); UREA NITROGEN 10.0 mg/dL (7-18)
[2025-09-24] MEDS ORDERED: HYDROmorphone HCL 1 MG/ML SYR IV ONE (16:00)
[2025-09-24 17:51] LABS: BLOOD/HGB, URINE NEGATIVE (Negative); KETONE, URINE SMALL (Negative); LEUK ESTERASE, URINE NEGATIVE (negative); NITRITE, URINE NEGATIVE (negative)
[2025-09-24] MEDS ORDERED: ONDANSETRON 4 MG HOME.PACK SL ONE (18:00)
[2025-09-24] MEDS ORDERED: LOMOTIL TABLET1 EACH PO (18:50)
[2025-09-24 19:01] VITALS: BP 141/105
== END 2025-09-24 19:01 | disposition home or self-care (01) ==
LOC: ED 14:20
PROVIDERS: Emergency Medicine
DX: R19.7 Diarrhea, unspecified (principal); I10 Essential (primary) hypertension; F17.200 Nicotine dependence, unspecified, uncomplicated; Z79.82 Long term (current) use of aspirin; Z79.899 Other long term (current) drug therapy; Z91.041 Radiographic dye allergy status; Z88.5 Allergy status to narcotic agent; Z88.8 Allergy status to other drugs, medicaments and biological substances
CPT/HCPCS: 36415; 80053; 81003; 83690; 83735; 85025; 96361; 96374; 96375; 96376; 99284-25; A9270; J1171; J2405; J7030